=== PATIENT | male | born 1960 | race Hispanic/Latino ===

== ENCOUNTER 2020-04-05 09:34 | Inpatient (IN) | payer OTHER, SELFPAY ==
[2020-04-05] MEDS ORDERED: FUROSEMIDE 40 MG/4 ML INJ IV ONE (09:57)
[2020-04-05] MEDS ORDERED: ALBUTEROL 2.5 MG/3 ML NEBU IH ONE ×2 (09:57→10:39)
--- NOTE | 2020-04-05 09:59 | Emergency Department Report ---
ED Shortness of Breath HPI - General Stated Complaint: LEG SWELLING/SOB Time Seen by Provider: 04/05/20 09:47 - History of Present Illness Initial Comments: Patient is 59 years old male with history of hepatitis C and hypertension however patient did not see a doctor in a few years. Patient brought to the emergency room via EMS from home for evaluation of difficulty breathing and generalized body swelling for the last 2 weeks getting worse recently. Patient denied any chest pain, fever or chills however patient is actively coughing in the emergency room. EMS stated that patient initial oxygen saturation was 85% on room air improved to 96% on nonrebreather. Patient stated that he is using meth every now and then. MD Complaint: shortness of breath, cough Severity: moderate Consistency: constant - Related Data Allergies Allergy/AdvReac Type Severity Reaction Status Date / Time No Known Allergies Allergy Verified 04/05/20 10:13 ED Review of Systems ROS: Stated complaint: LEG SWELLING/SOB Other details as noted in HPI Comment: All other systems reviewed and negative Constitutional: denies: chills, fever Respiratory: cough, orthopnea, shortness of breath, SOB with exertion, SOB at rest Cardiovascular: denies: chest pain Gastrointestinal: abdominal pain. denies: nausea, vomiting, diarrhea, constipation, hematemesis Musculoskeletal: denies: back pain ED Past Medical Hx - Past Medical History Hx Hypertension: Yes - Surgical History Hx Appendectomy: Yes Additional Surgical History: part of large colon removed - Social History Smoking Status: Never Smoker Substance Use Type: Alcohol ED Physical Exam - General Limitations: No Limitations General appearance: alert, in distress - Head Head exam: Present: atraumatic, normocephalic, normal inspection - Eye Eye exam: Present: normal appearance - ENT ENT exam: Present: normal exam, normal orophraynx, mucous membranes moist - Neck Neck exam: Present: normal inspection, full ROM. Absent: tenderness, meningismus - Respiratory Respiratory exam: Present: respiratory distress, rales. Absent: wheezes, rhonchi, accessory muscle use, decreased breath sounds, prolonged expiratory - Cardiovascular Cardiovascular Exam: Present: regular rate, normal rhythm, normal heart sounds - GI/Abdominal GI/Abdominal exam: Present: soft, distended, normal bowel sounds. Absent: tenderness, guarding, rebound, rigid, organomegaly, mass, bruit, pulsatile mass, hernia - Extremities Exam Extremities exam: Present: full ROM, normal capillary refill, pedal edema. Absent: calf tenderness - Back Exam Back exam: Present: normal inspection, full ROM. Absent: CVA tenderness (R), CVA tenderness (L) - Neurological Exam Neurological exam: Present: alert, oriented X3, CN II-XII intact - Psychiatric Psychiatric exam: Present: normal mood - Skin Skin exam: Present: warm, intact, normal color ED Course Vital Signs 04/05/20 04/05/20 04/05/20 09:59 10:00 10:09 Temperature 98.2 F Pulse Rate 110 H 110 H 89 Pulse Rate [ 108 H Anterior Bilateral Throughout] Respiratory 15 25 H 22 Rate Respiratory 28 H Rate [Anterior Bilateral Throughout] Blood Pressure 148/82 Blood Pressure 142/86 [Right] O2 Sat by Pulse 96 100 93 Oximetry 04/05/20 04/05/20 04/05/20 10:16 10:30 10:33 Temperature Pulse Rate 109 H 113 H 109 H Pulse Rate [ Anterior Bilateral Throughout] Respiratory 29 H 40 H 35 H Rate Respiratory Rate [Anterior Bilateral Throughout] Blood Pressure 131/83 131/83 131/83 Blood Pressure [Right] O2 Sat by Pulse 95 87 99 Oximetry 04/05/20 04/05/20 04/05/20 10:46 11:00 11:16 Temperature Pulse Rate 109 H 111 H Pulse Rate [ Anterior Bilateral Throughout] Respiratory 38 H 36 H 24 Rate Respiratory Rate [Anterior Bilateral Throughout] Blood Pressure 131/83 131/83 131/83 Blood Pressure [Right] O2 Sat by Pulse 79 L 94 Oximetry 04/05/20 04/05/20 04/05/20 11:30 11:46 12:00 Temperature Pulse Rate 99 H Pulse Rate [ Anterior Bilateral Throughout] Respiratory 40 H 21 26 H Rate Respiratory Rate [Anterior Bilateral Throughout] Blood Pressure 131/83 131/83 131/83 Blood Pressure [Right] O2 Sat by Pulse 86 89 98 Oximetry 04/05/20 04/05/20 04/05/20 12:16 12:29 12:30 Temperature Pulse Rate 107 H 102 H Pulse Rate [ Anterior Bilateral Throughout] Respiratory 24 18 32 H Rate Respiratory Rate [Anterior Bilateral Throughout] Blood Pressure 131/83 131/83 Blood Pressure [Right] O2 Sat by Pulse 97 100 95 Oximetry 04/05/20 04/05/20 04/05/20 12:46 13:00 13:16 Temperature Pulse Rate 108 H 111 H 108 H Pulse Rate [ Anterior Bilateral Throughout] Respiratory 15 33 H 31 H Rate Respiratory Rate [Anterior Bilateral Throughout] Blood Pressure 131/83 131/83 131/83 Blood Pressure [Right] O2 Sat by Pulse 91 97 88 Oximetry 04/05/20 04/05/20 04/05/20 13:42 13:46 14:00 Temperature Pulse Rate 103 H 106 H Pulse Rate [ Anterior Bilateral Throughout] Respiratory 38 H 27 H Rate Respiratory Rate [Anterior Bilateral Throughout] Blood Pressure 131/83 131/83 131/83 Blood Pressure [Right] O2 Sat by Pulse 88 88 91 Oximetry 04/05/20 04/05/20 04/05/20 14:16 14:30 14:45 Temperature Pulse Rate Pulse Rate [ Anterior Bilateral Throughout] Respiratory Rate Respiratory Rate [Anterior Bilateral Throughout] Blood Pressure 131/83 131/83 131/83 Blood Pressure [Right] O2 Sat by Pulse 100 99 80 L Oximetry 04/05/20 04/05/20 04/05/20 15:02 15:16 15:30 Temperature Pulse Rate Pulse Rate [ Anterior Bilateral Throughout] Respiratory Rate Respiratory Rate [Anterior Bilateral Throughout] Blood Pressure 131/83 131/83 131/83 Blood Pressure [Right] O2 Sat by Pulse 85 81 L 86 Oximetry 04/05/20 04/05/20 04/05/20 15:45 16:00 16:16 Temperature Pulse Rate 97 H 102 H Pulse Rate [ Anterior Bilateral Throughout] Respiratory 33 H 13 Rate Respiratory Rate [Anterior Bilateral Throughout] Blood Pressure 131/83 131/83 131/83 Blood Pressure [Right] O2 Sat by Pulse 83 L 99 98 Oximetry 04/05/20 04/05/20 04/05/20 16:30 16:46 17:00 Temperature Pulse Rate 101 H 100 H 102 H Pulse Rate [ Anterior Bilateral Throughout] Respiratory 11 L 36 H 15 Rate Respiratory Rate [Anterior Bilateral Throughout] Blood Pressure 131/83 131/83 131/83 Blood Pressure [Right] O2 Sat by Pulse 99 99 91 Oximetry 04/05/20 04/05/20 04/05/20 17:20 17:30 17:40 Temperature Pulse Rate 99 H 100 H 99 H Pulse Rate [ Anterior Bilateral Throughout] Respiratory 34 H 21 21 Rate Respiratory Rate [Anterior Bilateral Throughout] Blood Pressure 131/83 131/83 131/83 Blood Pressure [Right] O2 Sat by Pulse 98 95 98 Oximetry 04/05/20 04/05/20 04/05/20 17:50 18:00 18:10 Temperature Pulse Rate 97 H 95 H 101 H Pulse Rate [ Anterior Bilateral Throughout] Respiratory 40 H 32 H 33 H Rate Respiratory Rate [Anterior Bilateral Throughout] Blood Pressure 131/83 Blood Pressure [Right] O2 Sat by Pulse 98 93 95 Oximetry 04/05/20 04/05/20 04/05/20 18:20 18:30 18:40 Temperature Pulse Rate 98 H 97 H 96 H Pulse Rate [ Anterior Bilateral Throughout] Respiratory 42 H 35 H 38 H Rate Respiratory Rate [Anterior Bilateral Throughout] Blood Pressure Blood Pressure [Right] O2 Sat by Pulse 93 96 96 Oximetry 04/05/20 04/05/20 04/05/20 18:50 19:00 19:10 Temperature Pulse Rate 96 H 101 H 97 H Pulse Rate [ Anterior Bilateral Throughout] Respiratory 37 H 27 H 29 H Rate Respiratory Rate [Anterior Bilateral Throughout] Blood Pressure Blood Pressure [Right] O2 Sat by Pulse 96 96 96 Oximetry 04/05/20 04/05/20 04/05/20 19:20 19:30 19:40 Temperature Pulse Rate 94 H 93 H 95 H Pulse Rate [ Anterior Bilateral Throughout] Respiratory 35 H 32 H 34 H Rate Respiratory Rate [Anterior Bilateral Throughout] Blood Pressure Blood Pressure [Right] O2 Sat by Pulse 95 94 97 Oximetry 04/05/20 04/05/20 04/05/20 19:50 20:00 20:10 Temperature Pulse Rate 99 H 96 H 94 H Pulse Rate [ Anterior Bilateral Throughout] Respiratory 30 H 32 H 36 H Rate Respiratory Rate [Anterior Bilateral Throughout] Blood Pressure Blood Pressure [Right] O2 Sat by Pulse 96 96 94 Oximetry 04/05/20 04/05/20 04/05/20 20:20 20:22 20:30 Temperature Pulse Rate 91 H 91 H 91 H Pulse Rate [ Anterior Bilateral Throughout] Respiratory 11 L 26 H Rate Respiratory Rate [Anterior Bilateral Throughout] Blood Pressure Blood Pressure [Right] O2 Sat by Pulse 95 95 Oximetry 04/05/20 04/05/20 04/05/20 20:40 20:44 20:50 Temperature Pulse Rate 95 H 100 H 93 H Pulse Rate [ Anterior Bilateral Throughout] Respiratory 33 H 30 H 36 H Rate Respiratory Rate [Anterior Bilateral Throughout] Blood Pressure Blood Pressure [Right] O2 Sat by Pulse 95 100 95 Oximetry 04/05/20 04/05/20 04/05/20 21:00 21:10 21:20 Temperature Pulse Rate 102 H 94 H 91 H Pulse Rate [ Anterior Bilateral Throughout] Respiratory 25 H 29 H 37 H Rate Respiratory Rate [Anterior Bilateral Throughout] Blood Pressure Blood Pressure [Right] O2 Sat by Pulse 95 97 95 Oximetry 04/05/20 04/05/20 21:30 21:40 Temperature Pulse Rate 92 H 89 Pulse Rate [ Anterior Bilateral Throughout] Respiratory 33 H 31 H Rate Respiratory Rate [Anterior Bilateral Throughout] Blood Pressure Blood Pressure [Right] O2 Sat by Pulse 95 95 Oximetry - EJ/Peripheral Line Neck L Time Out Performed: Yes Indications: nurses unable to establis Skin Cleansed in Sterile Fashion: Yes Size: 20 Dressing Placed: Tegaderm, tape Patient Tolerated Procedure: well, no complications ED Medical Decision Making - Lab Data Result diagrams: 04/06/20 05:53 04/06/20 05:53 - EKG Data -: EKG Interpreted by Me EKG shows normal: sinus rhythm Rate: tachycardia - EKG Data Interpretation: no acute changes - Radiology Data Radiology results: report reviewed - Medical Decision Making Patient is 59 years old male with history of hepatitis C and hypertension however patient did not see a doctor in a few years. Patient brought to the emergency room via EMS from home for evaluation of difficulty breathing and generalized body swelling for the last 2 weeks getting worse recently. Patient denied any chest pain, fever or chills however patient is actively coughing in the emergency room. EMS stated that patient initial oxygen saturation was 85% on room air improved to 96% on nonrebreather. Patient stated that he is using meth every now and then. Patient started on BiPAP with significant improvement. Chest x-ray is un remarkable except for interstitial edema and pleural effusion. Given patient blood pressure and shortness of breath patient received Lasix [address] abdomen and pelvis showed diffuse patchy infiltrate throughout the lungs consistent with atypical pneumonia. COVID-19 infection suspected and test has been ordered. Patient received Rocephin and Zithromax and Decadron. I discussed the patient with Dr. Pete, he agreed to admit the patient to medical service for further management. Critical Care Time: Yes Critical care time in (mins) excluding proc time.: 30 Critical care attestation.: If time is entered above; I have spent that time in minutes in the direct care of this critically ill patient, excluding procedure time. ED Disposition Clinical Impression: Acute respiratory failure with hypoxia, Suspected COVID-19 virus infection, Anasarca, Bilateral pneumonia Disposition: OP ADMIT IP TO THIS HOSP Is pt being admited?: Yes Condition: Stable
--- NOTE | 2020-04-05 11:01 | XRay Report ---
CHEST 1 VIEW INDICATION: Dyspnea. COMPARISON: 04/14/2012 FINDINGS: SUPPORT DEVICES: None. HEART: Within normal limits. LUNGS/PLEURA: Moderate interstitial edema and central peribronchial thickening. Probable small to mod erate layering effusion on the left. ADDITIONAL FINDINGS: None. IMPRESSION: 1. Pulmonary findings as above. Signer Name: Julian Ervin MD Signed: 04/05/2020 10:56 AM Workstation Name: [id number]
[2020-04-05 11:21] LABS: Hematocrit 39.9 % (35.5-45.6); Hemoglobin 13.6 gm/dl (11.8-15.2); Mean Corpuscular HGB Conc 34 % (32-34); Mean Corpuscular Volume 98 fl (84-94); Red Blood Count 4.06 M/mm3 (3.65-5.03); Red Cell Distribution Width 16.3 % (13.2-15.2)
[2020-04-05 11:25] LABS: Platelet Count 60 K/mm3 (140-440)
[2020-04-05 11:27] LABS: INR 1.27 (0.87-1.13)
[2020-04-05 11:28] LABS: Partial Thromboplastin Time 30.3 Sec. (24.2-36.6)
[2020-04-05 11:43] LABS: Blood Urea Nitrogen 17 mg/dL (9-20); Calcium 7.7 mg/dL (8.4-10.2); Hemolysis Index 51
[2020-04-05 11:45] LABS: BUN/Creatinine Ratio 34
[2020-04-05 11:48] LABS: Albumin 1.9 g/dL (3.9-5); Bilirubin,Direct 1.3 mg/dL (0-0.2)
[2020-04-05 12:28] LABS: Anisocytosis Few; Band Neutrophils # (Manual) 0.1 K/mm3; Basophils % (Manual) 0 % (0.0-1.8); Eosinophils % (Manual) 0 % (0.0-4.3); Macrocytosis Few; Platelet Estimate Consistent w Auto; Total Cells Counted 100
[2020-04-05 13:10] LABS: Benzodiazepines Screen,Urine Negative; Cannabinoid Screen,Urine Negative; Cocaine Screen,Urine Negative; Methadone Screen,Urine Negative; Opiate Screen,Urine Negative
[2020-04-05 13:12] LABS: Bilirubin,Urine NEG (Negative); Blood,Urine SM (Negative); Color,Urine Yellow (Yellow); Hyaline Casts,Urine 1 /LPF; Mucus,Urine FEW /HPF; Protein,Urine <15 mg/dL mg/dL (Negative); Urobilinogen,Urine < 2.0 mg/dL (<2.0)
[2020-04-05 13:16] LABS: WBC,Urine < 1.0 /HPF (0.0-6.0)
[2020-04-05 13:43] LABS: Amphetamine Screen,Urine PRESUMPTIVE POSITIVE
--- NOTE | 2020-04-05 14:25 | Cat Scan Report ---
CT abdomen pelvis w con INDICATION: MAIN. Abdominal pain and hepatitis C TECHNIQUE: All CT scans at this location are performed using CT dose reduction for ALARA by means of automated e xposure control. COMPARISON: None available. FINDINGS: Images through the lung bases show a large left pleural effusion, with patchy bilateral parenchymal d isease. The liver is small and somewhat lobular, suggesting cirrhosis. Spleen is moderately enlarged, and the re are splenic and gastrohepatic varices. There is diffuse ascites and both mesenteric and subcutaneo us edema. Gallbladder contains numerous stones. Pancreas, kidneys and adrenals are negative. Abdominal aorta is normal in size. There are very small retroperitoneal nodes but no significant adenopathy. Pelvis Ascites fills much of the pelvis. Urinary bladder is negative. No acute skeletal lesions. IMPRESSION: 1. Patchy parenchymal disease in the lung bases is worrisome for atypical pneumonia. 2. Large left pleural effusion, with extensive ascites as well as subcutaneous and mesenteric edema. 3. Small, cirrhotic appearing liver with splenomegaly and gastrohepatic and splenic varices. Signer Name: Thanh Berry MD Signed: 04/05/2020 2:21 PM Workstation Name: [id number]
[2020-04-05] MEDS ORDERED: cefTRIAXone/NS 1 GM/50 ML 1 GM/50 ML BAG IV ONE (14:35)
[2020-04-05] MEDS ORDERED: AZITHROMYCIN 500 MG in SODIUM CHLORIDE 0.9% 250ML 250 ML IV ONE (14:35)
[2020-04-05] MEDS ORDERED: dexAMETHasone 4 MG/ML VIAL IV ONE (14:36)
[2020-04-05 15:25] LABS: C-Reactive Protein 1.7 mg/dL (0.00-1.30)
[2020-04-05] MEDS ORDERED: ACETAMINOPHEN 325 MG TAB PO PRN (23:41)
[2020-04-05] MEDS ORDERED: ONDANSETRON 4 MG/2 ML INJ IV PRN (23:41)
--- NOTE | 2020-04-05 23:41 | History and Physical Report ---
History of Present Illness Date of examination: 04/05/20 Date of admission: 04/05/20 15:48 Chief complaint: SOB for 2 weeks History of present illness: 59 years old male with history of hepatitis C and hypertension brought to the emergency room via EMS from home for evaluation of difficulty breathing and generalized body swelling for the last 2 weeks getting worse recently. Patient denied any chest pain, fever or chills .However patient is actively coughing in the emergency room. EMS stated that patient initial oxygen saturation was 85% on room air improved to 96% on nonrebreather. Patient stated that he is using meth every now and then.NCo anosmia or loss of taste.No exposure to carroll virus. - Past Medical History --Hypertension: Yes--non compliant - Surgical History -- Appendectomy: Yes Additional Surgical History: part of large colon removed - Social History Smoking Status: Never Smoker Substance Use Type: Alcohol Review of Systems ROS: Stated complaint: LEG SWELLING/SOB Other details as noted in HPI Comment: All other systems reviewed and negative Constitutional: denies: chills, fever Respiratory: cough, orthopnea, shortness of breath, SOB with exertion, SOB at rest Cardiovascular: denies: chest pain Gastrointestinal: abdominal pain. denies: nausea, vomiting, diarrhea, constipation, hematemesis Musculoskeletal: denies: back pain Medications and Allergies Allergies Allergy/AdvReac Type Severity Reaction Status Date / Time No Known Allergies Allergy Verified 04/05/20 10:13 Exam - Constitutional Vitals: Temp Pulse Resp BP Pulse Ox 98.4 F 89 30 H 125/90 95 04/05/20 22:01 04/05/20 22:10 04/05/20 22:10 04/05/20 22:01 04/05/20 22:10 General appearance: Present: mild distress, well-nourished - EENT Eyes: Present: PERRL ENT: hearing intact, clear oral mucosa - Neck Neck: Present: supple, normal ROM - Respiratory Respiratory effort: normal Respiratory: bilateral: CTA, rhonchi (scattered) - Cardiovascular Heart rate: 98 Rhythm: regular Heart Sounds: Present: S1 & S2. Absent: rub, click - Extremities Extremities: pulses symmetrical, No edema Peripheral Pulses: within normal limits - Abdominal General gastrointestinal: Present: soft, non-tender, non-distended, normal bowel sounds Male genitourinary: Present: normal - Integumentary Integumentary: Present: clear, warm, dry - Musculoskeletal Musculoskeletal: gait normal, strength equal bilaterally - Psychiatric Psychiatric: appropriate mood/affect, intact judgment & insight - Neurologic Neurologic: CNII-XII intact, moves all extremities - Allied Health Allied health notes reviewed: nursing, case management HEART Score - HEART Score History: Slightly suspicious Age: 45-65 Risk factors: 1-2 risk factors Troponin: Troponin T < 0.010 ng/mL (0.00-0.029) 04/05/20 14:17 Troponin: < normal limit - Critical Actions Critical Actions: 0-3 pts:0.9-1.7%risk of adverse cardiac event.Candidate for discharge Results - Labs CBC & Chem 7: 04/05/20 10:40 04/05/20 14:45 Labs: Laboratory Last Values WBC 6.9 K/mm3 (4.5-11.0) 04/05/20 10:40 RBC 4.06 M/mm3 (3.65-5.03) 04/05/20 10:40 Hgb 13.6 gm/dl (11.8-15.2) 04/05/20 10:40 Hct 39.9 % (35.5-45.6) 04/05/20 10:40 MCV 98 fl (84-94) H 04/05/20 10:40 MCH 34 pg (28-32) H 04/05/20 10:40 MCHC 34 % (32-34) 04/05/20 10:40 RDW 16.3 % (13.2-15.2) H 04/05/20 10:40 Plt Count 60 K/mm3 (140-440) L 04/05/20 10:40 [place] % (Auto) Technical Document Writer 04/05/20 10:40 Add Manual Diff Complete 04/05/20 10:40 Total Counted 100 04/05/20 10:40 Seg Neuts % (Manual) 86.0 % (40.0-70.0) H 04/05/20 10:40 Band Neutrophils % 1.0 % 04/05/20 10:40 Lymphocytes % (Manual) 4.0 % (13.4-35.0) L 04/05/20 10:40 Reactive Lymphs % (Man) 0 % 04/05/20 10:40 Monocytes % (Manual) 9.0 % (0.0-7.3) H 04/05/20 10:40 Eosinophils % (Manual) 0 % (0.0-4.3) 04/05/20 10:40 Basophils % (Manual) 0 % (0.0-1.8) 04/05/20 10:40 Metamyelocytes % 0 % 04/05/20 10:40 Myelocytes % 0 % 04/05/20 10:40 Promyelocytes % 0 % 04/05/20 10:40 Blast Cells % 0 % 04/05/20 10:40 Nucleated RBC % Not Reportable 04/05/20 10:40 Seg Neutrophils # Man 5.9 K/mm3 (1.8-7.7) 04/05/20 10:40 Band Neutrophils # 0.1 K/mm3 04/05/20 10:40 Lymphocytes # (Manual) 0.3 K/mm3 (1.2-5.4) L 04/05/20 10:40 Abs React Lymphs (Man) 0.0 K/mm3 04/05/20 10:40 Monocytes # (Manual) 0.6 K/mm3 (0.0-0.8) 04/05/20 10:40 Eosinophils # (Manual) 0.0 K/mm3 (0.0-0.4) 04/05/20 10:40 Basophils # (Manual) 0.0 K/mm3 (0.0-0.1) 04/05/20 10:40 Metamyelocytes # 0.0 K/mm3 04/05/20 10:40 Myelocytes # 0.0 K/mm3 04/05/20 10:40 Promyelocytes # 0.0 K/mm3 04/05/20 10:40 Blast Cells # 0.0 K/mm3 04/05/20 10:40 WBC Morphology Not Reportable 04/05/20 10:40 Hypersegmented Neuts Not Reportable 04/05/20 10:40 Hyposegmented Neuts Not Reportable 04/05/20 10:40 Hypogranular Neuts Not Reportable 04/05/20 10:40 Smudge Cells Not Reportable 04/05/20 10:40 Toxic Granulation Not Reportable 04/05/20 10:40 Toxic Vacuolation Not Reportable 04/05/20 10:40 Dohle Bodies Not Reportable 04/05/20 10:40 Pelger-Huet Anomaly Not Reportable 04/05/20 10:40 Kelly Rods Not Reportable 04/05/20 10:40 Platelet Estimate Consistent w auto 04/05/20 10:40 Clumped Platelets Not Reportable 04/05/20 10:40 Plt Clumps, EDTA Not Reportable 04/05/20 10:40 Large Platelets Not Reportable 04/05/20 10:40 Giant Platelets Not Reportable 04/05/20 10:40 Platelet Satelliting Not Reportable 04/05/20 10:40 Plt Morphology Comment Not Reportable 04/05/20 10:40 RBC Morphology Not Reportable 04/05/20 10:40 Dimorphic RBCs Not Reportable 04/05/20 10:40 Polychromasia Not Reportable 04/05/20 10:40 Hypochromasia Not Reportable 04/05/20 10:40 Poikilocytosis Not Reportable 04/05/20 10:40 Anisocytosis Few 04/05/20 10:40 Microcytosis Not Reportable 04/05/20 10:40 Macrocytosis Few 04/05/20 10:40 Spherocytes Not Reportable 04/05/20 10:40 Pappenheimer Bodies Not Reportable 04/05/20 10:40 Sickle Cells Not Reportable 04/05/20 10:40 Target Cells Not Reportable 04/05/20 10:40 Tear Drop Cells Not Reportable 04/05/20 10:40 Ovalocytes Not Reportable 04/05/20 10:40 Helmet Cells Not Reportable 04/05/20 10:40 Pollack-Triangle Bodies Not Reportable 04/05/20 10:40 [place] Rings Not Reportable 04/05/20 10:40 Lawn Cells Not Reportable 04/05/20 10:40 Bite Cells Not Reportable 04/05/20 10:40 Crenated Cell Not Reportable 04/05/20 10:40 Elliptocytes Not Reportable 04/05/20 10:40 Acanthocytes (Spur) Not Reportable 04/05/20 10:40 Rouleaux Not Reportable 04/05/20 10:40 Hemoglobin C Crystals Not Reportable 04/05/20 10:40 Schistocytes Not Reportable 04/05/20 10:40 Malaria parasites Not Reportable 04/05/20 10:40 Ronnie Bodies Not Reportable 04/05/20 10:40 Hem Pathologist Commnt No 04/05/20 10:40 PT 15.9 Sec. (12.2-14.9) H 04/05/20 10:40 INR 1.27 (0.87-1.13) H 04/05/20 10:40 APTT 30.3 Sec. (24.2-36.6) 04/05/20 10:40 D-Dimer 837.90 ng/mlDDU (0-234) H 04/05/20 14:45 Sodium 134 mmol/L (137-145) L 04/05/20 10:40 Potassium 3.7 mmol/L (3.6-5.0) 04/05/20 10:40 Chloride 102.4 mmol/L (98-107) 04/05/20 10:40 Carbon Dioxide 25 mmol/L (22-30) 04/05/20 10:40 Anion Gap 10 mmol/L 04/05/20 10:40 BUN 17 mg/dL (9-20) 04/05/20 10:40 Creatinine 0.5 mg/dL (0.8-1.3) L 04/05/20 10:40 Estimated GFR > 60 ml/min 04/05/20 10:40 BUN/Creatinine Ratio 34 % 04/05/20 10:40 Glucose 92 mg/dL (75-100) 04/05/20 14:45 Lactic Acid 1.40 mmol/L (0.7-2.0) 04/05/20 10:40 Calcium 7.7 mg/dL (8.4-10.2) L 04/05/20 10:40 Ferritin 1412.0 ng/mL (30.0-300.0) H 04/05/20 14:45 Total Bilirubin 2.30 mg/dL (0.1-1.2) H 04/05/20 10:40 Direct Bilirubin 1.3 mg/dL (0-0.2) H 04/05/20 10:40 Indirect Bilirubin 1.0 mg/dL 04/05/20 10:40 AST 129 units/L (5-40) H 04/05/20 10:40 ALT 54 units/L (7-56) 04/05/20 10:40 Alkaline Phosphatase 97 units/L (35-129) 04/05/20 10:40 Lactate Dehydrogenase 438 units/L (91-180) H 04/05/20 14:45 Troponin T < 0.010 ng/mL (0.00-0.029) 04/05/20 14:17 C-Reactive Protein 1.70 mg/dL (0.00-1.30) H 04/05/20 14:45 NT-Pro-B Natriuret Pep 216.4 pg/mL (0-900) 04/05/20 10:40 Total Protein 7.2 g/dL (6.3-8.2) 04/05/20 10:40 Albumin 1.9 g/dL (3.9-5) L 04/05/20 10:40 Albumin/Globulin Ratio 0.4 % 04/05/20 10:40 Lipase 21 units/L (13-60) 04/05/20 10:40 Urine Color Yellow (Yellow) 04/05/20 Unknown Urine Turbidity Clear (Clear) 04/05/20 Unknown Urine pH 6.0 (5.0-7.0) 04/05/20 Unknown Ur Specific [place] 1.006 (1.003-1.030) 04/05/20 Unknown Urine Protein <15 mg/dl mg/dL (Negative) 04/05/20 Unknown Urine Glucose (UA) Neg mg/dL (Negative) 04/05/20 Unknown Urine Ketones Neg mg/dL (Negative) 04/05/20 Unknown Urine Blood Sm (Negative) 04/05/20 Unknown Urine Nitrite Neg (Negative) 04/05/20 Unknown Urine Bilirubin Neg (Negative) 04/05/20 Unknown Urine Urobilinogen < 2.0 mg/dL (<2.0) 04/05/20 Unknown Ur Leukocyte Esterase Neg (Negative) 04/05/20 Unknown Urine WBC (Auto) < 1.0 /HPF (0.0-6.0) 04/05/20 Unknown Urine RBC (Auto) 6.0 /HPF (0.0-6.0) 04/05/20 Unknown U Epithel Cells (Auto) < 1.0 /HPF (0-13.0) 04/05/20 Unknown Hyaline Casts 1 /LPF 04/05/20 Unknown Urine Mucus Few /HPF 04/05/20 Unknown Urine Opiates Screen Negative 04/05/20 Unknown Urine Methadone Screen Negative 04/05/20 Unknown Ur Barbiturates Screen Negative 04/05/20 Unknown Ur Phencyclidine Scrn Negative 04/05/20 Unknown Ur Amphetamines Screen Presumptive positive 04/05/20 Unknown U Benzodiazepines Scrn Negative 04/05/20 Unknown Urine Cocaine Screen Negative 04/05/20 Unknown U Marijuana (THC) Screen Negative 04/05/20 Unknown Drugs of Abuse Note Disclamer 04/05/20 Unknown Microbiology: Microbiology 04/05/20 10:40 Peripheral/Venous Blood Culture - Preliminary Culture in Progress 04/05/20 10:40 Peripheral/Venous Blood Culture - Preliminary Culture in Progress - Imaging and Cardiology EKG: report reviewed Chest x-ray: report reviewed Imaging and Cardiology: CXR LUNGS/PLEURA: Moderate interstitial edema and central peribronchial thickening. Probable small to moderate layering effusion on the left. ADDITIONAL FINDINGS: None. IMPRESSION: 1. Pulmonary findings as above. Rogers/IV: IV Catheter Type [Right Wrist] INT / Saline Lock IV Catheter Type [Right Upper INT / Saline Lock arm] Assessment and Plan Advance Directives: Yes (Full code) VTE prophylaxis?: Chemical Plan of care discussed with patient/family: Yes - Patient Problems (1) Acute respiratory failure with hypoxia Current Visit: Yes Status: Acute Plan to address problem: Patient is hypoxic Oxygen supplement as necessary (2) Bilateral pneumonia Current Visit: Yes Status: Acute Plan to address problem: Started on IV Ceftriaxone and IV Zithromaxx IV Decadron ID consult requested BNP low--hence no chf (3) Suspected COVID-19 virus infection Current Visit: Yes Status: Acute Plan to address problem: Covid rule out protocol (4) HTN (hypertension) Current Visit: Yes Status: Acute (5) HTN (hypertension) Current Visit: Yes Status: Chronic Qualifiers: Hypertension type: essential hypertension Qualified Code(s): I10 - Essential (primary) hypertension Plan to address problem: Initiate antihypertensives if necessary (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 Plan to address problem: To be counselled (7) Transaminitis Current Visit: Yes Status: Acute Plan to address problem: Sec to Covid or ETOH Hepatitis profile CIWA initiated (8) Malnutrition Current Visit: Yes Status: Chronic Qualifiers: Protein-calorie malnutrition severity: moderate Plan to address problem: Dietitian consult (9) Hyponatremia Current Visit: Yes Status: Acute Plan to address problem: Mild (10) DVT prophylaxis Current Visit: Yes Status: Acute Plan to address problem: On Lovenox and GI prophylaxis
[2020-04-06] MEDS ORDERED: chlordiazePOXIDE 25 MG CAP PO PRN (06:45)
[2020-04-06 06:57] LABS: Hematocrit 34.1 % (35.5-45.6); Hemoglobin 11.8 gm/dl (11.8-15.2); Mean Corpuscular HGB Conc 35 % (32-34); Mean Corpuscular Volume 99 fl (84-94); Platelet Count 48 K/mm3 (140-440); Red Blood Count 3.47 M/mm3 (3.65-5.03); Red Cell Distribution Width 16.1 % (13.2-15.2)
[2020-04-06 07:09] LABS: Alanine Aminotransferase 51 units/L (7-56); Albumin 1.8 g/dL (3.9-5); Blood Urea Nitrogen 23 mg/dL (9-20); Calcium 7.5 mg/dL (8.4-10.2); Hemolysis Index 7
[2020-04-06 07:21] LABS: BUN/Creatinine Ratio 46
--- NOTE | 2020-04-06 08:59 | Consultation ---
History of Present Illness - Reason for Consult Consult date: 04/06/20 Bilateral pneumonia Requesting physician: JEET JURADO - History of Present Illness 59 years old male with history of hepatitis C with cirrhosis, ascites, gastrosplenic varices, hypertension, meth abuse, admitted on 04/05/2020 secondary to 2-week history of worsening generalized body edema, cough and shortness of breath. EMS found O2 sats down to 85%. Patient placed on nonrebreather mask. On arrival, temperature 98.2, HR 110, O2 sat 96% drop to 83%. Patient placed on BiPAP. Initial WBC 6.9. Platelets 60. D-dimer 837. Creatinine 0.5. AST 129. ALT 54. Urine drug screen positive for amphetamines. Blood cultures 04/05/2020 no growth. Chest x-ray shows moderate interstitial edema. CT of the abdomen shows patchy airspace disease changes in the lung bases, large left pleural effusion, extensive ascites, cirrhotic liver, gastrosplenic varices, splenomegaly. Review of Systems: reviewed ED and H&P notes. Limited due to PPE conservation strategy Medications and Allergies Allergies Allergy/AdvReac Type Severity Reaction Status Date / Time No Known Allergies Allergy Verified 04/05/20 10:13 Active Meds: Active Medications Acetaminophen (Tylenol) 650 mg PO Q4H PRN PRN Reason: Pain MILD(1-3)/Fever >100.5/CHRI[place]IAN[place] Chlordiazepoxide HCl (Librium) 50 mg PO Q1H PRN PRN Reason: CIWA-Ar 8-15 Chlordiazepoxide HCl (Librium) 100 mg PO Q1H PRN PRN Reason: CIWA-Ar 16-25 Dexamethasone (Decadron) 8 mg IV Q24HR LUPE Enoxaparin Sodium (Enoxaparin) 40 mg SUB-Q QDAY@2200 LUPE; Protocol Famotidine (Pepcid) 20 mg PO BID LUPE Furosemide (Lasix) 40 mg IV QDAY LUPE Azithromycin 500 mg/ Sodium (Chloride) 250 mls @ 250 mls/hr IV Q24HR LUPE; Protocol Stop: 04/09/20 10:59 Ceftriaxone Sodium (Rocephin/Ns 2 Gm/100 Ml) 2 gm in 100 mls @ 200 mls/hr IV Q24HR LUPE; Protocol Lorazepam (Ativan) 2 mg IV Q1H PRN PRN Reason: CIWA-Ar 8-15 Lorazepam (Ativan) 4 mg IV Q1H PRN PRN Reason: CIWA-Ar 16-25 Morphine Sulfate (Morphine) 2 mg IV Q4H PRN PRN Reason: Pain, Moderate (4-6) Ondansetron HCl (Zofran) 4 mg IV Q8H PRN PRN Reason: Nausea And Vomiting Oxycodone/Acetaminophen (Percocet 5/325) 1 tab PO Q6H PRN PRN Reason: Pain, Moderate (4-6) Potassium Chloride (K-Dur) 20 meq PO QDAY LUPE Sodium Chloride (Sodium Chloride Flush Syringe 10 Ml) 10 ml IV BID LUPE Sodium Chloride (Sodium Chloride Flush Syringe 10 Ml) 10 ml IV PRN PRN PRN Reason: LINE FLUSH Physical Examination - Physical Exam Narrative exam: Physical Exam: reviewed ED and hospitalist notes, limited due to conservation of PPE and decrease risk of transmission. General appearance: limited due to conservation of PPE Eyes: limited due to conservation of PPE HENT: Atraumatic; limited due to conservation of PPE Lungs: limited due to conservation of PPE CV: limited due to conservation of PPE Abdomen: limited due to conservation of PPE Extremities: limited due to conservation of PPE Skin: limited due to conservation of PPE Psych: limited due to conservation of PPE Neuro: limited due to conservation of PPE - Constitutional Vitals: Vital Signs Temp Pulse Resp BP Pulse Ox 98.6 F 77 22 117/84 99 04/06/20 04:27 04/06/20 04:27 04/06/20 04:27 04/06/20 04:27 04/06/20 04:27 Temperature -Last 24 Hours Temperature 98.6 F Temperature 98.4 F Temperature 98.2 F Temperature 98.2 F Results - Labs CBC & Chem 7: 04/06/20 05:53 04/06/20 05:53 Labs: Abnormal lab results 04/05/20 04/05/20 04/05/20 Range/Units 10:40 10:40 10:40 WBC (4.5-11.0) K/mm3 RBC (3.65-5.03) M/mm3 Hct (35.5-45.6) % MCV 98 H (84-94) fl MCH 34 H (28-32) pg MCHC (32-34) % RDW 16.3 H (13.2-15.2) % Plt Count 60 L (140-440) K/mm3 Seg Neuts % (Manual) 86.0 H (40.0-70.0) % Lymphocytes % (Manual) 4.0 L (13.4-35.0) % Monocytes % (Manual) 9.0 H (0.0-7.3) % Lymphocytes # (Manual) 0.3 L (1.2-5.4) K/mm3 PT 15.9 H (12.2-14.9) Sec. INR 1.27 H (0.87-1.13) D-Dimer (0-234) ng/mlDDU Sodium 134 L (137-145) mmol/L BUN (9-20) mg/dL Creatinine 0.5 L (0.8-1.3) mg/dL Glucose (75-100) mg/dL Calcium 7.7 L (8.4-10.2) mg/dL Ferritin (30.0-300.0) ng/mL Total Bilirubin (0.1-1.2) mg/dL Direct Bilirubin (0-0.2) mg/dL AST (5-40) units/L Lactate Dehydrogenase (91-180) units/L C-Reactive Protein (0.00-1.30) mg/dL Albumin (3.9-5) g/dL 04/05/20 04/05/20 04/05/20 Range/Units 10:40 14:45 14:45 WBC (4.5-11.0) K/mm3 RBC (3.65-5.03) M/mm3 Hct (35.5-45.6) % MCV (84-94) fl MCH (28-32) pg MCHC (32-34) % RDW (13.2-15.2) % Plt Count (140-440) K/mm3 Seg Neuts % (Manual) (40.0-70.0) % Lymphocytes % (Manual) (13.4-35.0) % Monocytes % (Manual) (0.0-7.3) % Lymphocytes # (Manual) (1.2-5.4) K/mm3 PT (12.2-14.9) Sec. INR (0.87-1.13) D-Dimer 837.90 H (0-234) ng/mlDDU Sodium (137-145) mmol/L BUN (9-20) mg/dL Creatinine (0.8-1.3) mg/dL Glucose (75-100) mg/dL Calcium (8.4-10.2) mg/dL Ferritin (30.0-300.0) ng/mL Total Bilirubin 2.30 H (0.1-1.2) mg/dL Direct Bilirubin 1.3 H (0-0.2) mg/dL AST 129 H (5-40) units/L Lactate Dehydrogenase 438 H (91-180) units/L C-Reactive Protein 1.70 H (0.00-1.30) mg/dL Albumin 1.9 L (3.9-5) g/dL 04/05/20 04/06/20 04/06/20 Range/Units 14:45 05:53 05:53 WBC 3.5 L (4.5-11.0) K/mm3 RBC 3.47 L (3.65-5.03) M/mm3 Hct 34.1 L (35.5-45.6) % MCV 99 H (84-94) fl MCH 34 H (28-32) pg MCHC 35 H (32-34) % RDW 16.1 H (13.2-15.2) % Plt Count 48 L (140-440) K/mm3 Seg Neuts % (Manual) (40.0-70.0) % Lymphocytes % (Manual) (13.4-35.0) % Monocytes % (Manual) (0.0-7.3) % Lymphocytes # (Manual) (1.2-5.4) K/mm3 PT (12.2-14.9) Sec. INR (0.87-1.13) D-Dimer (0-234) ng/mlDDU Sodium 136 L (137-145) mmol/L BUN 23 H (9-20) mg/dL Creatinine 0.5 L (0.8-1.3) mg/dL Glucose 107 H (75-100) mg/dL Calcium 7.5 L (8.4-10.2) mg/dL Ferritin 1412.0 H (30.0-300.0) ng/mL Total Bilirubin 1.80 H (0.1-1.2) mg/dL Direct Bilirubin (0-0.2) mg/dL AST 112 H (5-40) units/L Lactate Dehydrogenase (91-180) units/L C-Reactive Protein (0.00-1.30) mg/dL Albumin 1.8 L (3.9-5) g/dL Assessment and Plan Cultures: Blood culture pending SARS CoV2 PCR pending Assessment: 59 years old male with history of hepatitis C with cirrhosis, ascites, gastrosplenic varices, hypertension, meth abuse, admitted on 04/05/2020 secondary to 2-week history of worsening generalized body edema, cough and shortness of breath. EMS found O2 sats down to 85%: #Acute hypoxemic respiratory failure: Unclear etiology, volume overload versus pneumonia +/-pleural effusion. #Volume overload versus pneumonia: CT abdomen shows patchy airspace disease bilateral bases ? If pneumonia should rule out COVID-19 infection versus bacterial pneumonia. Doubt bacterial pneumonia given lack of fever or leukocytosis. #Hepatitis C with cirrhosis, large ascites, pleural effusion, varices and a splenomegaly #Elevated LFTs: From hepatitis C #Thrombocytopenia: From hepatitis C #Amphetamine abuse Recommendations: -Follow-up SARS-CoV-2 PCR, however doubt COVID-19 -Obtain procalcitonin -No indication for dexamethasone or remdesivir at this time seen SARS-CoV-2 PCR is pending -Continue ceftriaxone and azithromycin for now until procalcitonin available -Pulmonary consult -Consider thoracentesis in light of severe hypoxia and pleural effusion All laboratory, cultures and imaging were reviewed. Will follow Kenya Deras MD Infectious Diseases [facility] M [phone] O [phone]
--- NOTE | 2020-04-06 09:06 | Progress Note ---
Assessment and Plan Assessment and plan: (1) Acute respiratory failure with hypoxia Current Visit: Yes Status: Acute Plan to address problem: Patient is hypoxic Oxygen supplement as necessary (2) Bilateral pneumonia Current Visit: Yes Status: Acute Plan to address problem: Started on IV Ceftriaxone and IV Zithromaxx IV Decadron ID consult requested BNP low--hence no chf (3) Suspected COVID-19 virus infection Current Visit: Yes Status: Acute Plan to address problem: Covid rule out protocol (4) HTN (hypertension) Current Visit: Yes Status: Acute (5) HTN (hypertension) Current Visit: Yes Status: Chronic Qualifiers: Hypertension type: essential hypertension Qualified Code(s): I10 - Essential (primary) hypertension Plan to address problem: Initiate antihypertensives if necessary (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 Plan to address problem: To be counselled (7) Transaminitis Current Visit: Yes Status: Acute Plan to address problem: Sec to Covid or ETOH Hepatitis profile; hepatitis C positive CIWA initiated (8) Malnutrition Current Visit: Yes Status: Chronic Qualifiers: Protein-calorie malnutrition severity: moderate Plan to address problem: Dietitian consult (9) Hyponatremia Current Visit: Yes Status: Acute Plan to address problem: Mild (10) DVT prophylaxis Current Visit: Yes Status: Acute Plan to address problem: On Lovenox and GI prophylaxis History Interval history: No nursing issues overnight Patient said shortness of breath is getting better Generalized body swelling is getting better Hospitalist Physical - Physical exam Narrative exam: Not in cardiopulmonary distress. The patient appeared well nourished and normally developed. Vital signs as documented. Head exam is unremarkable. No scleral icterus . Neck is without jugular venous distension, thyromegaly, or carotid bruits. Lungs are clear to auscultation. Cardiac exam reveals regular rate and Rhythm. Abdominal exam reveals ascites. 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 No focal weakness. - Constitutional Vitals: Temp Pulse Resp BP Pulse Ox 98.6 F 77 22 117/84 99 04/06/20 04:27 04/06/20 04:27 04/06/20 04:27 04/06/20 04:27 04/06/20 04:27 General appearance: Present: mild distress, well-nourished HEART Score - HEART Score Age: 45-65 Risk factors: 1-2 risk factors Troponin: Troponin T < 0.010 ng/mL (0.00-0.029) 04/05/20 14:17 Troponin: < normal limit - Critical Actions Critical Actions: 0-3 pts:0.9-1.7%risk of adverse cardiac event.Candidate for discharge Results - Labs CBC & Chem 7: 04/06/20 05:53 04/06/20 05:53 Labs: Laboratory Last Values WBC 3.5 K/mm3 (4.5-11.0) L 04/06/20 05:53 RBC 3.47 M/mm3 (3.65-5.03) L 04/06/20 05:53 Hgb 11.8 gm/dl (11.8-15.2) 04/06/20 05:53 Hct 34.1 % (35.5-45.6) L 04/06/20 05:53 MCV 99 fl (84-94) H 04/06/20 05:53 MCH 34 pg (28-32) H 04/06/20 05:53 MCHC 35 % (32-34) H 04/06/20 05:53 RDW 16.1 % (13.2-15.2) H 04/06/20 05:53 Plt Count 48 K/mm3 (140-440) L 04/06/20 05:53 [place] % (Auto) Wagon Driver 04/06/20 05:53 Add Manual Diff Complete 04/05/20 10:40 Total Counted 100 04/05/20 10:40 Seg Neuts % (Manual) 86.0 % (40.0-70.0) H 04/05/20 10:40 Band Neutrophils % 1.0 % 04/05/20 10:40 Lymphocytes % (Manual) 4.0 % (13.4-35.0) L 04/05/20 10:40 Reactive Lymphs % (Man) 0 % 04/05/20 10:40 Monocytes % (Manual) 9.0 % (0.0-7.3) H 04/05/20 10:40 Eosinophils % (Manual) 0 % (0.0-4.3) 04/05/20 10:40 Basophils % (Manual) 0 % (0.0-1.8) 04/05/20 10:40 Metamyelocytes % 0 % 04/05/20 10:40 Myelocytes % 0 % 04/05/20 10:40 Promyelocytes % 0 % 04/05/20 10:40 Blast Cells % 0 % 04/05/20 10:40 Nucleated RBC % Not Reportable 04/05/20 10:40 Seg Neutrophils # Man 5.9 K/mm3 (1.8-7.7) 04/05/20 10:40 Band Neutrophils # 0.1 K/mm3 04/05/20 10:40 Lymphocytes # (Manual) 0.3 K/mm3 (1.2-5.4) L 04/05/20 10:40 Abs React Lymphs (Man) 0.0 K/mm3 04/05/20 10:40 Monocytes # (Manual) 0.6 K/mm3 (0.0-0.8) 04/05/20 10:40 Eosinophils # (Manual) 0.0 K/mm3 (0.0-0.4) 04/05/20 10:40 Basophils # (Manual) 0.0 K/mm3 (0.0-0.1) 04/05/20 10:40 Metamyelocytes # 0.0 K/mm3 04/05/20 10:40 Myelocytes # 0.0 K/mm3 04/05/20 10:40 Promyelocytes # 0.0 K/mm3 04/05/20 10:40 Blast Cells # 0.0 K/mm3 04/05/20 10:40 WBC Morphology Not Reportable 04/05/20 10:40 Hypersegmented Neuts Not Reportable 04/05/20 10:40 Hyposegmented Neuts Not Reportable 04/05/20 10:40 Hypogranular Neuts Not Reportable 04/05/20 10:40 Smudge Cells Not Reportable 04/05/20 10:40 Toxic Granulation Not Reportable 04/05/20 10:40 Toxic Vacuolation Not Reportable 04/05/20 10:40 Dohle Bodies Not Reportable 04/05/20 10:40 Pelger-Huet Anomaly Not Reportable 04/05/20 10:40 Kelly Rods Not Reportable 04/05/20 10:40 Platelet Estimate Consistent w auto 04/05/20 10:40 Clumped Platelets Not Reportable 04/05/20 10:40 Plt Clumps, EDTA Not Reportable 04/05/20 10:40 Large Platelets Not Reportable 04/05/20 10:40 Giant Platelets Not Reportable 04/05/20 10:40 Platelet Satelliting Not Reportable 04/05/20 10:40 Plt Morphology Comment Not Reportable 04/05/20 10:40 RBC Morphology Not Reportable 04/05/20 10:40 Dimorphic RBCs Not Reportable 04/05/20 10:40 Polychromasia Not Reportable 04/05/20 10:40 Hypochromasia Not Reportable 04/05/20 10:40 Poikilocytosis Not Reportable 04/05/20 10:40 Anisocytosis Few 04/05/20 10:40 Microcytosis Not Reportable 04/05/20 10:40 Macrocytosis Few 04/05/20 10:40 Spherocytes Not Reportable 04/05/20 10:40 Pappenheimer Bodies Not Reportable 04/05/20 10:40 Sickle Cells Not Reportable 04/05/20 10:40 Target Cells Not Reportable 04/05/20 10:40 Tear Drop Cells Not Reportable 04/05/20 10:40 Ovalocytes Not Reportable 04/05/20 10:40 Helmet Cells Not Reportable 04/05/20 10:40 [place] Bodies Not Reportable 04/05/20 10:40 [place] Rings Not Reportable 04/05/20 10:40 Jose Martin Cells Not Reportable 04/05/20 10:40 Bite Cells Not Reportable 04/05/20 10:40 Crenated Cell Not Reportable 04/05/20 10:40 Elliptocytes Not Reportable 04/05/20 10:40 Acanthocytes (Spur) Not Reportable 04/05/20 10:40 Rouleaux Not Reportable 04/05/20 10:40 Hemoglobin C Crystals Not Reportable 04/05/20 10:40 Schistocytes Not Reportable 04/05/20 10:40 Malaria parasites Not Reportable 04/05/20 10:40 Ronnie Bodies Not Reportable 04/05/20 10:40 Hem Pathologist Commnt No 04/05/20 10:40 PT 15.9 Sec. (12.2-14.9) H 04/05/20 10:40 INR 1.27 (0.87-1.13) H 04/05/20 10:40 APTT 30.3 Sec. (24.2-36.6) 04/05/20 10:40 D-Dimer 837.90 ng/mlDDU (0-234) H 04/05/20 14:45 Sodium 136 mmol/L (137-145) L 04/06/20 05:53 Potassium 3.6 mmol/L (3.6-5.0) 04/06/20 05:53 Chloride 104.2 mmol/L (98-107) 04/06/20 05:53 Carbon Dioxide 28 mmol/L (22-30) 04/06/20 05:53 Anion Gap 7 mmol/L 04/06/20 05:53 BUN 23 mg/dL (9-20) H 04/06/20 05:53 Creatinine 0.5 mg/dL (0.8-1.3) L 04/06/20 05:53 Estimated GFR > 60 ml/min 04/06/20 05:53 BUN/Creatinine Ratio 46 % 04/06/20 05:53 Glucose 107 mg/dL (75-100) H 04/06/20 05:53 Hemoglobin A1c 4.5 % (4-6) 04/05/20 10:40 Lactic Acid 1.40 mmol/L (0.7-2.0) 04/05/20 10:40 Calcium 7.5 mg/dL (8.4-10.2) L 04/06/20 05:53 Ferritin 1412.0 ng/mL (30.0-300.0) H 04/05/20 14:45 Total Bilirubin 1.80 mg/dL (0.1-1.2) H 04/06/20 05:53 Direct Bilirubin 1.3 mg/dL (0-0.2) H 04/05/20 10:40 Indirect Bilirubin 1.0 mg/dL 04/05/20 10:40 AST 112 units/L (5-40) H 04/06/20 05:53 ALT 51 units/L (7-56) 04/06/20 05:53 Alkaline Phosphatase 78 units/L (35-129) 04/06/20 05:53 Lactate Dehydrogenase 438 units/L (91-180) H 04/05/20 14:45 Troponin T < 0.010 ng/mL (0.00-0.029) 04/05/20 14:17 C-Reactive Protein 1.70 mg/dL (0.00-1.30) H 04/05/20 14:45 NT-Pro-B Natriuret Pep 216.4 pg/mL (0-900) 04/05/20 10:40 Total Protein 6.3 g/dL (6.3-8.2) 04/06/20 05:53 Albumin 1.8 g/dL (3.9-5) L 04/06/20 05:53 Albumin/Globulin Ratio 0.4 % 04/06/20 05:53 Lipase 21 units/L (13-60) 04/05/20 10:40 Urine Color Yellow (Yellow) 04/05/20 Unknown Urine Turbidity Clear (Clear) 04/05/20 Unknown Urine pH 6.0 (5.0-7.0) 04/05/20 Unknown Ur Specific [place] 1.006 (1.003-1.030) 04/05/20 Unknown Urine Protein <15 mg/dl mg/dL (Negative) 04/05/20 Unknown Urine Glucose (UA) Neg mg/dL (Negative) 04/05/20 Unknown Urine Ketones Neg mg/dL (Negative) 04/05/20 Unknown Urine Blood Sm (Negative) 04/05/20 Unknown Urine Nitrite Neg (Negative) 04/05/20 Unknown Urine Bilirubin Neg (Negative) 04/05/20 Unknown Urine Urobilinogen < 2.0 mg/dL (<2.0) 04/05/20 Unknown Ur Leukocyte Esterase Neg (Negative) 04/05/20 Unknown Urine WBC (Auto) < 1.0 /HPF (0.0-6.0) 04/05/20 Unknown Urine RBC (Auto) 6.0 /HPF (0.0-6.0) 04/05/20 Unknown U Epithel Cells (Auto) < 1.0 /HPF (0-13.0) 04/05/20 Unknown Hyaline Casts 1 /LPF 04/05/20 Unknown Urine Mucus Few /HPF 04/05/20 Unknown Urine Opiates Screen Negative 04/05/20 Unknown Urine Methadone Screen Negative 04/05/20 Unknown Ur Barbiturates Screen Negative 04/05/20 Unknown Ur Phencyclidine Scrn Negative 04/05/20 Unknown Ur Amphetamines Screen Presumptive positive 04/05/20 Unknown U Benzodiazepines Scrn Negative 04/05/20 Unknown Urine Cocaine Screen Negative 04/05/20 Unknown U Marijuana (THC) Screen Negative 04/05/20 Unknown Drugs of Abuse Note Disclamer 04/05/20 Unknown Microbiology: Microbiology 04/05/20 10:40 Peripheral/Venous Blood Culture - Preliminary Culture in Progress 04/05/20 10:40 Peripheral/Venous Blood Culture - Preliminary Culture in Progress Rogers/IV: Voiding Method Condom Catheter IV Catheter Type [Right Wrist] INT / Saline Lock IV Catheter Type [Right Upper INT / Saline Lock arm] Active Medications - Current Medications Current Medications: Generic Name Dose Route Start Last Admin Trade Name Freq PRN Reason Stop Dose Admin Acetaminophen 650 mg 04/05/20 23:41 Tylenol PO Q4H PRN Pain MILD(1-3)/Fever >100.5/[place]IAN[place] Chlordiazepoxide HCl 50 mg 04/06/20 06:45 Librium PO Q1H PRN CIWA-Ar 8-15 Chlordiazepoxide HCl 100 mg 04/06/20 06:45 Librium PO Q1H PRN CIWA-Ar 16-25 Dexamethasone 8 mg 04/06/20 10:00 Decadron IV Q24HR [facility] Enoxaparin Sodium 40 mg 04/06/20 22:00 Enoxaparin SUB-Q QDAY@2200 [facility] Protocol Famotidine 20 mg 04/06/20 10:00 Pepcid PO BID LUPE Furosemide 40 mg 04/06/20 10:00 Lasix IV QDAY [facility] Azithromycin 500 mg/ Sodium 250 mls @ 250 mls/hr 04/06/20 10:00 Chloride IV 04/09/20 10:59 Q24HR [facility] Protocol Ceftriaxone Sodium 2 gm in 100 mls @ 200 mls/hr 04/06/20 10:00 Rocephin/Ns 2 Gm/100 Ml IV Q24HR [facility] Protocol Lorazepam 2 mg 04/06/20 06:45 Ativan IV Q1H PRN CIWA-Ar 8-15 Lorazepam 4 mg 04/06/20 06:45 Ativan IV Q1H PRN CIWA-Ar 16-25 Morphine Sulfate 2 mg 04/05/20 23:41 Morphine IV Q4H PRN Pain, Moderate (4-6) Ondansetron HCl 4 mg 04/05/20 23:41 Zofran IV Q8H PRN Nausea And Vomiting Oxycodone/Acetaminophen 1 tab 04/05/20 23:41 Percocet 5/325 PO Q6H PRN Pain, Moderate (4-6) Potassium Chloride 20 meq 04/06/20 10:00 K-Dur PO QDAY LUPE Sodium Chloride 10 ml 04/06/20 10:00 Sodium Chloride Flush Syringe 10 Ml IV BID LUPE Sodium Chloride 10 ml 04/05/20 23:41 Sodium Chloride Flush Syringe 10 Ml IV PRN PRN LINE FLUSH
[2020-04-06] MEDS ORDERED: dexAMETHasone 4 MG/ML VIAL IV SCH (10:00)
[2020-04-06] MEDS: POTASSIUM CHLORIDE ER 20 MEQ TAB PO SCH (10:38)
[2020-04-06] MEDS: AZITHROMYCIN 500 MG in SODIUM CHLORIDE 0.9% 250ML 250 ML IV SCH (10:38)
[2020-04-06] MEDS: cefTRIAXone/NS 2 GM/100 ML 2 GM/100 ML BAG IV SCH (10:39)
[2020-04-06] MEDS: FAMOTIDINE 20 MG TAB PO SCH ×2 (10:39→22:43)
[2020-04-06] MEDS: FUROSEMIDE 40 MG/4 ML INJ IV SCH (10:39)
[2020-04-06 11:27] LABS: Basophils % (Manual) 0 % (0.0-1.8); Eosinophils % (Manual) 0 % (0.0-4.3); Macrocytosis Few; Tear Drop Cells Rare; Total Cells Counted 100
[2020-04-06 11:28] LABS: Anisocytosis Few; Platelet Estimate Consistent w Auto
[2020-04-06 12:36] LABS: Hepatitis B Surface Antigen Non-Reactive (Negative); Hepatitis C Virus Antibody Reactive (NonReactive)
[2020-04-06] MEDS: ENOXAPARIN 40 MG/0.4 ML INJ SUB-Q SCH (22:43)
[2020-04-06] MEDS: chlordiazePOXIDE 25 MG CAP PO PRN (22:43)
[2020-04-07 06:26] LABS: Hematocrit 36.1 % (35.5-45.6); Hemoglobin 12.1 gm/dl (11.8-15.2); Mean Corpuscular HGB Conc 34 % (32-34); Mean Corpuscular Volume 100 fl (84-94); Red Blood Count 3.61 M/mm3 (3.65-5.03)
[2020-04-07 06:32] LABS: Platelet Count 58 K/mm3 (140-440)
[2020-04-07 06:33] LABS: Basophils % (Auto) 0.4 % (0.0-1.8); Lymphocytes % (Auto) 15.2 % (13.4-35.0); Monocytes # (Auto) 1.2 K/mm3 (0.0-0.8)
[2020-04-07 06:46] LABS: Alanine Aminotransferase 80 units/L (7-56); Albumin 1.9 g/dL (3.9-5); Blood Urea Nitrogen 28 mg/dL (9-20); Calcium 7.5 mg/dL (8.4-10.2); Hemolysis Index 2
[2020-04-07 06:48] LABS: BUN/Creatinine Ratio 56
--- NOTE | 2020-04-07 08:20 | Progress Note ---
Assessment and Plan Cultures: Blood culture no growth today SARS CoV2 PCR positive Assessment: 59 years old male with history of hepatitis C with cirrhosis, ascites, gastrosplenic varices, hypertension, meth abuse, admitted on 04/05/2020 secondary to 2-week history of worsening generalized body edema, cough and shortness of breath. EMS found O2 sats down to 85%: #Severe COVID-19 pneumonia: Abdominal CT with patchy airspace disease bilateral bases. Procalcitonin 0.2. #Acute hypoxemic respiratory failure: Unclear etiology, COVID pneumonia +/- pleural effusion. #Hepatitis C with cirrhosis, large ascites, pleural effusion, varices and a splenomegaly #Elevated LFTs: From hepatitis C #Thrombocytopenia: From hepatitis C #Amphetamine abuse Recommendations: -Start remdesivir for 5 days -Start dexamethasone 6 mg p.o./IV daily for 10 days -Continue ceftriaxone total 5 days and azithromycin total 3 days -Pulmonary consult-pending -Anticoagulation per hospital protocol -Consider thoracentesis in light of severe hypoxia and pleural effusion -Prone positioning as tolerated -Covid inflammatory markers every 48 hours Very guarded prognosis All laboratory, cultures and imaging were reviewed. Will follow Kenya Deras MD Infectious Diseases Care Process Manager [facility] ([facility]) M [phone] O [phone] Subjective Date of service: 04/07/20 Principal diagnosis: COVID Interval history: Patient remains on BiPAP, no fever Objective - Exam Narrative Exam: Physical Exam: reviewed ED and hospitalist notes, limited due to conservation of PPE and decrease risk of transmission. General appearance: limited due to conservation of PPE Eyes: limited due to conservation of PPE HENT: Atraumatic; limited due to conservation of PPE Lungs: limited due to conservation of PPE CV: limited due to conservation of PPE Abdomen: limited due to conservation of PPE Extremities: limited due to conservation of PPE Skin: limited due to conservation of PPE Psych: limited due to conservation of PPE Neuro: limited due to conservation of PPE - Constitutional Vitals: Vital Signs Temp Pulse Resp BP Pulse Ox 98.9 F 85 18 115/74 97 04/07/20 03:25 04/07/20 03:25 04/07/20 03:25 04/07/20 03:25 04/07/20 03:25 Temperature -Last 24 Hours Temperature 98.9 F Temperature 98.4 F Temperature 98.3 F Temperature 97.5 F - Labs CBC & Chem 7: 04/07/20 06:01 04/07/20 06:01 Labs: Abnormal lab results 04/06/20 04/06/20 04/06/20 Range/Units 05:53 08:04 Unknown RBC (3.65-5.03) M/mm3 MCV (84-94) fl MCH (28-32) pg RDW (13.2-15.2) % Plt Count (140-440) K/mm3 Lymph # (Auto) (1.2-5.4) K/mm3 [place] # (Auto) (0.0-0.8) K/mm3 Seg Neuts % (Manual) 92.0 H (40.0-70.0) % Lymphocytes % (Manual) 3.0 L (13.4-35.0) % Lymphocytes # (Manual) 0.1 L (1.2-5.4) K/mm3 Potassium (3.6-5.0) mmol/L BUN (9-20) mg/dL Creatinine (0.8-1.3) mg/dL Glucose (75-100) mg/dL Calcium (8.4-10.2) mg/dL Total Bilirubin (0.1-1.2) mg/dL AST (5-40) units/L ALT (7-56) units/L Total Protein (6.3-8.2) g/dL Albumin (3.9-5) g/dL Coronavirus (PCR) Positive A (Negative) Hepatitis C Antibody Reactive A (NonReactive) 04/07/20 04/07/20 Range/Units 06:01 06:01 RBC 3.61 L (3.65-5.03) M/mm3 MCV 100 H (84-94) fl MCH 34 H (28-32) pg RDW 16.0 H (13.2-15.2) % Plt Count 58 L (140-440) K/mm3 Lymph # (Auto) 1.0 L (1.2-5.4) K/mm3 [place] # (Auto) 1.2 H (0.0-0.8) K/mm3 Seg Neuts % (Manual) (40.0-70.0) % Lymphocytes % (Manual) (13.4-35.0) % Lymphocytes # (Manual) (1.2-5.4) K/mm3 Potassium 3.5 L (3.6-5.0) mmol/L BUN 28 H (9-20) mg/dL Creatinine 0.5 L (0.8-1.3) mg/dL Glucose 133 H (75-100) mg/dL Calcium 7.5 L (8.4-10.2) mg/dL Total Bilirubin 1.40 H (0.1-1.2) mg/dL AST 170 H (5-40) units/L ALT 80 H (7-56) units/L Total Protein 6.1 L (6.3-8.2) g/dL Albumin 1.9 L (3.9-5) g/dL Coronavirus (PCR) (Negative) Hepatitis C Antibody (NonReactive)
--- NOTE | 2020-04-07 08:47 | Progress Note ---
Assessment and Plan Assessment and plan: (1) Acute respiratory failure with hypoxia Current Visit: Yes Status: Acute Plan to address problem: Patient is hypoxic Oxygen supplement as necessary (2) Bilateral pneumonia Current Visit: Yes Status: Acute Plan to address problem: Started on IV Ceftriaxone and IV Zithromaxx IV Decadron, ID consult requested BNP low--hence no chf (3)COVID-19 virus infection Current Visit: Yes Status: Acute Plan to address problem: Patient is on IV Decadron and remdesivir ID consult appreciated (4) HTN (hypertension) Current Visit: Yes Status: Acute (5) HTN (hypertension) Current Visit: Yes Status: Chronic Qualifiers: Hypertension type: essential hypertension Qualified Code(s): I10 - Essential (primary) hypertension Plan to address problem: Initiate antihypertensives if necessary (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 Plan to address problem: To be counselled (7) Transaminitis Current Visit: Yes Status: Acute Plan to address problem: Sec to Covid or ETOH Hepatitis profile; hepatitis C positive CIWA initiated (8) Malnutrition Current Visit: Yes Status: Chronic Qualifiers: Protein-calorie malnutrition severity: moderate Plan to address problem: Dietitian consult (9) Hyponatremia Current Visit: Yes Status: Acute Plan to address problem: Mild (10) DVT prophylaxis Current Visit: Yes Status: Acute Plan to address problem: On Lovenox History Interval history: No nursing issues overnight Patient said shortness of breath is getting better Generalized body swelling is getting better Hospitalist Physical - Physical exam Narrative exam: Not in cardiopulmonary distress. The patient appeared well nourished and normally developed. Vital signs as documented. Head exam is unremarkable. No scleral icterus . Neck is without jugular venous distension, thyromegaly, or carotid bruits. Lungs are clear to auscultation. Cardiac exam reveals regular rate and Rhythm. Abdominal exam reveals ascites. 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 No focal weakness. - Constitutional Vitals: Temp Pulse Resp BP Pulse Ox 98.9 F 85 18 115/74 97 04/07/20 03:25 04/07/20 03:25 04/07/20 03:25 04/07/20 03:25 04/07/20 03:25 General appearance: Present: mild distress, well-nourished HEART Score - HEART Score Age: 45-65 Risk factors: 1-2 risk factors Troponin: Troponin T < 0.010 ng/mL (0.00-0.029) 04/05/20 14:17 Troponin: < normal limit - Critical Actions Critical Actions: 0-3 pts:0.9-1.7%risk of adverse cardiac event.Candidate for discharge Results - Labs CBC & Chem 7: 04/07/20 06:01 04/07/20 06:01 Labs: Laboratory Last Values WBC 6.3 K/mm3 (4.5-11.0) 04/07/20 06:01 RBC 3.61 M/mm3 (3.65-5.03) L 04/07/20 06:01 Hgb 12.1 gm/dl (11.8-15.2) 04/07/20 06:01 Hct 36.1 % (35.5-45.6) 04/07/20 06:01 MCV 100 fl (84-94) H 04/07/20 06:01 MCH 34 pg (28-32) H 04/07/20 06:01 MCHC 34 % (32-34) 04/07/20 06:01 RDW 16.0 % (13.2-15.2) H 04/07/20 06:01 Plt Count 58 K/mm3 (140-440) L 04/07/20 06:01 Lymph % (Auto) 15.2 % (13.4-35.0) 04/07/20 06:01 [place] % (Auto) T[employer] Finisher 04/07/20 06:01 Eos % (Auto) 0.0 % (0.0-4.3) 04/07/20 06:01 Baso % (Auto) 0.4 % (0.0-1.8) 04/07/20 06:01 Lymph # (Auto) 1.0 K/mm3 (1.2-5.4) L 04/07/20 06:01 [place] # (Auto) 1.2 K/mm3 (0.0-0.8) H 04/07/20 06:01 Eos # (Auto) 0.0 K/mm3 (0.0-0.4) 04/07/20 06:01 Baso # (Auto) 0.0 K/mm3 (0.0-0.1) 04/07/20 06:01 Add Manual Diff Complete 04/06/20 05:53 Total Counted 100 04/06/20 05:53 Seg Neutrophils % 65.0 % (40.0-70.0) 04/07/20 06:01 Seg Neuts % (Manual) 92.0 % (40.0-70.0) H 04/06/20 05:53 Band Neutrophils % 0 % 04/06/20 05:53 Lymphocytes % (Manual) 3.0 % (13.4-35.0) L 04/06/20 05:53 Reactive Lymphs % (Man) 0 % 04/06/20 05:53 Monocytes % (Manual) 5.0 % (0.0-7.3) 04/06/20 05:53 Eosinophils % (Manual) 0 % (0.0-4.3) 04/06/20 05:53 Basophils % (Manual) 0 % (0.0-1.8) 04/06/20 05:53 Metamyelocytes % 0 % 04/06/20 05:53 Myelocytes % 0 % 04/06/20 05:53 Promyelocytes % 0 % 04/06/20 05:53 Blast Cells % 0 % 04/06/20 05:53 Nucleated RBC % Not Reportable 04/06/20 05:53 Seg Neutrophils # 4.1 K/mm3 (1.8-7.7) 04/07/20 06:01 Seg Neutrophils # Man 3.2 K/mm3 (1.8-7.7) 04/06/20 05:53 Band Neutrophils # 0.0 K/mm3 04/06/20 05:53 Lymphocytes # (Manual) 0.1 K/mm3 (1.2-5.4) L 04/06/20 05:53 Abs React Lymphs (Man) 0.0 K/mm3 04/06/20 05:53 Monocytes # (Manual) 0.2 K/mm3 (0.0-0.8) 04/06/20 05:53 Eosinophils # (Manual) 0.0 K/mm3 (0.0-0.4) 04/06/20 05:53 Basophils # (Manual) 0.0 K/mm3 (0.0-0.1) 04/06/20 05:53 Metamyelocytes # 0.0 K/mm3 04/06/20 05:53 Myelocytes # 0.0 K/mm3 04/06/20 05:53 Promyelocytes # 0.0 K/mm3 04/06/20 05:53 Blast Cells # 0.0 K/mm3 04/06/20 05:53 WBC Morphology Not Reportable 04/06/20 05:53 Hypersegmented Neuts Not Reportable 04/06/20 05:53 Hyposegmented Neuts Not Reportable 04/06/20 05:53 Hypogranular Neuts Not Reportable 04/06/20 05:53 Smudge Cells Not Reportable 04/06/20 05:53 Toxic Granulation Not Reportable 04/06/20 05:53 Toxic Vacuolation Not Reportable 04/06/20 05:53 Dohle Bodies Not Reportable 04/06/20 05:53 Pelger-Huet Anomaly Not Reportable 04/06/20 05:53 Kelly Rods Not Reportable 04/06/20 05:53 Platelet Estimate Consistent w auto 04/06/20 05:53 Clumped Platelets Not Reportable 04/06/20 05:53 Plt Clumps, EDTA Not Reportable 04/06/20 05:53 Large Platelets Not Reportable 04/06/20 05:53 Giant Platelets Not Reportable 04/06/20 05:53 Platelet Satelliting Not Reportable 04/06/20 05:53 Plt Morphology Comment Not Reportable 04/06/20 05:53 RBC Morphology Not Reportable 04/06/20 05:53 Dimorphic RBCs Not Reportable 04/06/20 05:53 Polychromasia Not Reportable 04/06/20 05:53 Hypochromasia Not Reportable 04/06/20 05:53 Poikilocytosis Not Reportable 04/06/20 05:53 Anisocytosis Few 04/06/20 05:53 Microcytosis Not Reportable 04/06/20 05:53 Macrocytosis Few 04/06/20 05:53 Spherocytes Not Reportable 04/06/20 05:53 Pappenheimer Bodies Not Reportable 04/06/20 05:53 Sickle Cells Not Reportable 04/06/20 05:53 Target Cells Not Reportable 04/06/20 05:53 Tear Drop Cells Rare 04/06/20 05:53 Ovalocytes Not Reportable 04/06/20 05:53 Helmet Cells Not Reportable 04/06/20 05:53 [place] Bodies Not Reportable 04/06/20 05:53 [place] Rings Not Reportable 04/06/20 05:53 [place] Cells Not Reportable 04/06/20 05:53 Bite Cells Not Reportable 04/06/20 05:53 Crenated Cell Not Reportable 04/06/20 05:53 Elliptocytes Not Reportable 04/06/20 05:53 Acanthocytes (Spur) Not Reportable 04/06/20 05:53 Rouleaux Not Reportable 04/06/20 05:53 Hemoglobin C Crystals Not Reportable 04/06/20 05:53 Schistocytes Not Reportable 04/06/20 05:53 Malaria parasites Not Reportable 04/06/20 05:53 Ronnie Bodies Not Reportable 04/06/20 05:53 Hem Pathologist Commnt No 04/06/20 05:53 PT 15.9 Sec. (12.2-14.9) H 04/05/20 10:40 INR 1.27 (0.87-1.13) H 04/05/20 10:40 APTT 30.3 Sec. (24.2-36.6) 04/05/20 10:40 D-Dimer 837.90 ng/mlDDU (0-234) H 04/05/20 14:45 Sodium 138 mmol/L (137-145) 04/07/20 06:01 Potassium 3.5 mmol/L (3.6-5.0) L 04/07/20 06:01 Chloride 105.3 mmol/L (98-107) 04/07/20 06:01 Carbon Dioxide 27 mmol/L (22-30) 04/07/20 06:01 Anion Gap 9 mmol/L 04/07/20 06:01 BUN 28 mg/dL (9-20) H 04/07/20 06:01 Creatinine 0.5 mg/dL (0.8-1.3) L 04/07/20 06:01 Estimated GFR > 60 ml/min 04/07/20 06:01 BUN/Creatinine Ratio 56 % 04/07/20 06:01 Glucose 133 mg/dL (75-100) H 04/07/20 06:01 Hemoglobin A1c 4.5 % (4-6) 04/05/20 10:40 Lactic Acid 1.40 mmol/L (0.7-2.0) 04/05/20 10:40 Calcium 7.5 mg/dL (8.4-10.2) L 04/07/20 06:01 Ferritin 1412.0 ng/mL (30.0-300.0) H 04/05/20 14:45 Total Bilirubin 1.40 mg/dL (0.1-1.2) H 04/07/20 06:01 Direct Bilirubin 1.3 mg/dL (0-0.2) H 04/05/20 10:40 Indirect Bilirubin 1.0 mg/dL 04/05/20 10:40 AST 170 units/L (5-40) H 04/07/20 06:01 ALT 80 units/L (7-56) H 04/07/20 06:01 Alkaline Phosphatase 110 units/L (35-129) 04/07/20 06:01 Lactate Dehydrogenase 438 units/L (91-180) H 04/05/20 14:45 Troponin T < 0.010 ng/mL (0.00-0.029) 04/05/20 14:17 C-Reactive Protein 1.70 mg/dL (0.00-1.30) H 04/05/20 14:45 NT-Pro-B Natriuret Pep 216.4 pg/mL (0-900) 04/05/20 10:40 Total Protein 6.1 g/dL (6.3-8.2) L 04/07/20 06:01 Albumin 1.9 g/dL (3.9-5) L 04/07/20 06:01 Albumin/Globulin Ratio 0.5 % 04/07/20 06:01 Lipase 21 units/L (13-60) 04/05/20 10:40 Procalcitonin 0.21 ng/mL (<0.15) 04/05/20 14:45 Urine Color Yellow (Yellow) 04/05/20 Unknown Urine Turbidity Clear (Clear) 04/05/20 Unknown Urine pH 6.0 (5.0-7.0) 04/05/20 Unknown Ur Specific [place] 1.006 (1.003-1.030) 04/05/20 Unknown Urine Protein <15 mg/dl mg/dL (Negative) 04/05/20 Unknown Urine Glucose (UA) Neg mg/dL (Negative) 04/05/20 Unknown Urine Ketones Neg mg/dL (Negative) 04/05/20 Unknown Urine Blood Sm (Negative) 04/05/20 Unknown Urine Nitrite Neg (Negative) 04/05/20 Unknown Urine Bilirubin Neg (Negative) 04/05/20 Unknown Urine Urobilinogen < 2.0 mg/dL (<2.0) 04/05/20 Unknown Ur Leukocyte Esterase Neg (Negative) 04/05/20 Unknown Urine WBC (Auto) < 1.0 /HPF (0.0-6.0) 04/05/20 Unknown Urine RBC (Auto) 6.0 /HPF (0.0-6.0) 04/05/20 Unknown U Epithel Cells (Auto) < 1.0 /HPF (0-13.0) 04/05/20 Unknown Hyaline Casts 1 /LPF 04/05/20 Unknown Urine Mucus Few /HPF 04/05/20 Unknown Urine Opiates Screen Negative 04/05/20 Unknown Urine Methadone Screen Negative 04/05/20 Unknown Ur Barbiturates Screen Negative 04/05/20 Unknown Ur Phencyclidine Scrn Negative 04/05/20 Unknown Ur Amphetamines Screen Presumptive positive 04/05/20 Unknown U Benzodiazepines Scrn Negative 04/05/20 Unknown Urine Cocaine Screen Negative 04/05/20 Unknown U Marijuana (THC) Screen Negative 04/05/20 Unknown Drugs of Abuse Note Disclamer 04/05/20 Unknown Coronavirus (PCR) Positive (Negative) A 04/06/20 Unknown Hepatitis A IgM Ab Non-reactive (NonReactive) 04/06/20 08:04 Hep Bs Antigen Non-reactive (Negative) 04/06/20 08:04 Hep B Core IgM Ab Non-reactive (NonReactive) 04/06/20 08:04 Hepatitis C Antibody Reactive (NonReactive) A 04/06/20 08:04 Microbiology: Microbiology 04/05/20 10:40 Peripheral/Venous Blood Culture - Preliminary NO GROWTH AFTER 24 HOURS 04/05/20 10:40 Peripheral/Venous Blood Culture - Preliminary NO GROWTH AFTER 24 HOURS Rogers/IV: Voiding Method Condom Catheter IV Catheter Type [Right Wrist] INT / Saline Lock IV Catheter Type [Right Upper INT / Saline Lock arm] Active Medications - Current Medications Current Medications: Generic Name Dose Route Start Last Admin Trade Name Freq PRN Reason Stop Dose Admin Acetaminophen 650 mg 04/05/20 23:41 Tylenol PO Q4H PRN Pain MILD(1-3)/Fever >100.5/[place] Chlordiazepoxide HCl 50 mg 04/06/20 06:45 04/06/20 22:43 Librium PO 50 mg Q1H PRN Administration [place]-[facility] 8-15 Chlordiazepoxide HCl 100 mg 04/06/20 06:45 Librium PO Q1H PRN [facility] 16-25 Dexamethasone 6 mg 04/07/20 10:00 Decadron IV 04/15/20 10:01 Q24HR LUPE Enoxaparin Sodium 40 mg 04/06/20 22:00 04/06/20 22:43 Enoxaparin SUB-Q 40 mg QDAY@2200 LUPE Administration Protocol Famotidine 20 mg 04/06/20 10:00 04/06/20 22:43 Pepcid PO 20 mg BID LUPE Administration Furosemide 40 mg 04/06/20 10:00 04/06/20 10:39 Lasix IV 40 mg QDAY LUPE Administration Azithromycin 500 mg/ Sodium 250 mls @ 250 mls/hr 04/06/20 10:00 04/06/20 10:38 Chloride IV 04/07/20 10:59 250 mls/hr Q24HR LUPE Administration Protocol Ceftriaxone Sodium 2 gm in 100 mls @ 200 mls/hr 04/06/20 10:00 04/06/20 10:39 Rocephin/Ns 2 Gm/100 Ml IV 04/09/20 10:29 200 mls/hr Q24HR LUPE Administration Protocol REMDESIVIR 200 mg/ Sodium 250 mls @ 500 mls/hr 04/07/20 10:00 Chloride IV 04/07/20 10:29 ONCE ONE REMDESIVIR 100 mg/ Sodium 250 mls @ 500 mls/hr 04/08/20 21:00 Chloride IV 04/11/20 21:29 Q24HR@2100 LUPE Lorazepam 2 mg 04/06/20 06:45 Ativan IV Q1H PRN [facility] 8-15 Lorazepam 4 mg 04/06/20 06:45 Ativan IV Q1H PRN [facility] 16-25 Morphine Sulfate 2 mg 04/05/20 23:41 Morphine IV Q4H PRN Pain, Moderate (4-6) Ondansetron HCl 4 mg 04/05/20 23:41 Zofran IV Q8H PRN Nausea And Vomiting Oxycodone/Acetaminophen 1 tab 04/05/20 23:41 Percocet 5/325 PO Q6H PRN Pain, Moderate (4-6) Potassium Chloride 20 meq 04/06/20 10:00 04/06/20 10:38 K-Dur PO 20 meq QDAY LUPE Administration Sodium Chloride 10 ml 04/06/20 10:00 04/06/20 22:43 Sodium Chloride Flush Syringe 10 Ml IV 10 ml BID LUPE Administration Sodium Chloride 10 ml 04/05/20 23:41 Sodium Chloride Flush Syringe 10 Ml IV PRN PRN LINE FLUSH Sodium Chloride 50 ml 04/07/20 10:00 Nacl 0.9% IV 04/11/20 21:01 Q24HR@2100 LUPE
[2020-04-07] MEDS ORDERED: REMDESIVIR 100 MG VIAL IV ONE (10:00)
[2020-04-07] MEDS ORDERED: REMDESIVIR 200 MG in SODIUM CHLORIDE 0.9% 250ML 250 ML IV ONE (10:00)
[2020-04-07] MEDS ORDERED: SODIUM CHLORIDE 0.9% 50 ML IVPB IV SCH (10:00)
[2020-04-07] MEDS: cefTRIAXone/NS 2 GM/100 ML 2 GM/100 ML BAG IV SCH (10:13)
[2020-04-07] MEDS: FAMOTIDINE 20 MG TAB PO SCH ×2 (10:13→21:45)
[2020-04-07] MEDS: FUROSEMIDE 40 MG/4 ML INJ IV SCH (10:13)
[2020-04-07] MEDS: POTASSIUM CHLORIDE ER 20 MEQ TAB PO SCH (10:14)
[2020-04-07] MEDS: dexAMETHasone 4 MG/ML VIAL IV SCH (10:14)
[2020-04-07] MEDS: AZITHROMYCIN 500 MG in SODIUM CHLORIDE 0.9% 250ML 250 ML IV SCH (12:18)
[2020-04-07] MEDS: ENOXAPARIN 40 MG/0.4 ML INJ SUB-Q SCH (21:45)
[2020-04-08 07:07] LABS: Alanine Aminotransferase 73 units/L (7-56); Albumin 1.9 g/dL (3.9-5); Bilirubin,Direct 0.8 mg/dL (0-0.2); Blood Urea Nitrogen 28 mg/dL (9-20); Calcium 7.8 mg/dL (8.4-10.2); Hemolysis Index 2
[2020-04-08 07:17] LABS: BUN/Creatinine Ratio 47
[2020-04-08] MEDS ORDERED: POTASSIUM CHLORIDE ER 20 MEQ TAB PO NR (07:38)
--- NOTE | 2020-04-08 07:43 | Progress Note ---
Assessment and Plan Assessment and plan: (1) Acute respiratory failure with hypoxia Current Visit: Yes Status: Acute Plan to address problem: Patient is hypoxic Oxygen supplement as necessary (2) Bilateral pneumonia Current Visit: Yes Status: Acute Plan to address problem: Started on IV Ceftriaxone and IV Zithromaxx IV Decadron, ID consult requested BNP low--hence no chf (3)COVID-19 virus infection Current Visit: Yes Status: Acute Plan to address problem: Patient is on IV Decadron and remdesivir ID consult appreciated (4) HTN (hypertension) Current Visit: Yes Status: Acute (5) HTN (hypertension) Current Visit: Yes Status: Chronic Qualifiers: Hypertension type: essential hypertension Qualified Code(s): I10 - Essential (primary) hypertension Plan to address problem: Initiate antihypertensives if necessary (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 Plan to address problem: To be counselled (7) Transaminitis Current Visit: Yes Status: Acute Plan to address problem: Sec to Covid or ETOH Hepatitis profile; hepatitis C positive CIWA initiated (8) Malnutrition Current Visit: Yes Status: Chronic Qualifiers: Protein-calorie malnutrition severity: moderate Plan to address problem: Dietitian consult (9) Hyponatremia Current Visit: Yes Status: Acute Plan to address problem: Mild (10) DVT prophylaxis Current Visit: Yes Status: Acute Plan to address problem: On Lovenox 04/08/2020; patient was seen and evaluated this morning and is on 10 L of oxygen. Patient is on Decadron and remdesivir. ID is following the patient. Hypokalemia repleted. History Interval history: Patient has shortness of breath And still on 10 L of oxygen No chest pain Hospitalist Physical - Physical exam Narrative exam: Not in cardiopulmonary distress. The patient appeared well nourished and normally developed. Vital signs as documented. Head exam is unremarkable. No scleral icterus . Neck is without jugular venous distension, thyromegaly, or carotid bruits. Lungs are clear to auscultation. Cardiac exam reveals regular rate and Rhythm. Abdominal exam reveals ascites. 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 No focal weakness. - Constitutional Vitals: Temp Pulse Resp BP Pulse Ox 97.9 F 75 20 127/82 93 04/07/20 23:42 04/07/20 23:42 04/07/20 23:42 04/07/20 23:42 04/07/20 23:42 General appearance: Present: mild distress, well-nourished HEART Score - HEART Score Age: 45-65 Risk factors: 1-2 risk factors Troponin: Troponin T < 0.010 ng/mL (0.00-0.029) 04/05/20 14:17 Troponin: < normal limit - Critical Actions Critical Actions: 0-3 pts:0.9-1.7%risk of adverse cardiac event.Candidate for discharge Results - Labs CBC & Chem 7: 04/07/20 06:01 04/08/20 05:16 Labs: Laboratory Last Values WBC 6.3 K/mm3 (4.5-11.0) 04/07/20 06:01 RBC 3.61 M/mm3 (3.65-5.03) L 04/07/20 06:01 Hgb 12.1 gm/dl (11.8-15.2) 04/07/20 06:01 Hct 36.1 % (35.5-45.6) 04/07/20 06:01 MCV 100 fl (84-94) H 04/07/20 06:01 MCH 34 pg (28-32) H 04/07/20 06:01 MCHC 34 % (32-34) 04/07/20 06:01 RDW 16.0 % (13.2-15.2) H 04/07/20 06:01 Plt Count 58 K/mm3 (140-440) L 04/07/20 06:01 Lymph % (Auto) 15.2 % (13.4-35.0) 04/07/20 06:01 Treasure % (Auto) Property Management Assistant 04/07/20 06:01 Eos % (Auto) 0.0 % (0.0-4.3) 04/07/20 06:01 Baso % (Auto) 0.4 % (0.0-1.8) 04/07/20 06:01 Lymph # (Auto) 1.0 K/mm3 (1.2-5.4) L 04/07/20 06:01 [place] # (Auto) 1.2 K/mm3 (0.0-0.8) H 04/07/20 06:01 Eos # (Auto) 0.0 K/mm3 (0.0-0.4) 04/07/20 06:01 Baso # (Auto) 0.0 K/mm3 (0.0-0.1) 04/07/20 06:01 Add Manual Diff Complete 04/06/20 05:53 Total Counted 100 04/06/20 05:53 Seg Neutrophils % 65.0 % (40.0-70.0) 04/07/20 06:01 Seg Neuts % (Manual) 92.0 % (40.0-70.0) H 04/06/20 05:53 Band Neutrophils % 0 % 04/06/20 05:53 Lymphocytes % (Manual) 3.0 % (13.4-35.0) L 04/06/20 05:53 Reactive Lymphs % (Man) 0 % 04/06/20 05:53 Monocytes % (Manual) 5.0 % (0.0-7.3) 04/06/20 05:53 Eosinophils % (Manual) 0 % (0.0-4.3) 04/06/20 05:53 Basophils % (Manual) 0 % (0.0-1.8) 04/06/20 05:53 Metamyelocytes % 0 % 04/06/20 05:53 Myelocytes % 0 % 04/06/20 05:53 Promyelocytes % 0 % 04/06/20 05:53 Blast Cells % 0 % 04/06/20 05:53 Nucleated RBC % Not Reportable 04/06/20 05:53 Seg Neutrophils # 4.1 K/mm3 (1.8-7.7) 04/07/20 06:01 Seg Neutrophils # Man 3.2 K/mm3 (1.8-7.7) 04/06/20 05:53 Band Neutrophils # 0.0 K/mm3 04/06/20 05:53 Lymphocytes # (Manual) 0.1 K/mm3 (1.2-5.4) L 04/06/20 05:53 Abs React Lymphs (Man) 0.0 K/mm3 04/06/20 05:53 Monocytes # (Manual) 0.2 K/mm3 (0.0-0.8) 04/06/20 05:53 Eosinophils # (Manual) 0.0 K/mm3 (0.0-0.4) 04/06/20 05:53 Basophils # (Manual) 0.0 K/mm3 (0.0-0.1) 04/06/20 05:53 Metamyelocytes # 0.0 K/mm3 04/06/20 05:53 Myelocytes # 0.0 K/mm3 04/06/20 05:53 Promyelocytes # 0.0 K/mm3 04/06/20 05:53 Blast Cells # 0.0 K/mm3 04/06/20 05:53 WBC Morphology Not Reportable 04/06/20 05:53 Hypersegmented Neuts Not Reportable 04/06/20 05:53 Hyposegmented Neuts Not Reportable 04/06/20 05:53 Hypogranular Neuts Not Reportable 04/06/20 05:53 Smudge Cells Not Reportable 04/06/20 05:53 Toxic Granulation Not Reportable 04/06/20 05:53 Toxic Vacuolation Not Reportable 04/06/20 05:53 Dohle Bodies Not Reportable 04/06/20 05:53 Pelger-Huet Anomaly Not Reportable 04/06/20 05:53 Kelly Rods Not Reportable 04/06/20 05:53 Platelet Estimate Consistent w auto 04/06/20 05:53 Clumped Platelets Not Reportable 04/06/20 05:53 Plt Clumps, EDTA Not Reportable 04/06/20 05:53 Large Platelets Not Reportable 04/06/20 05:53 Giant Platelets Not Reportable 04/06/20 05:53 Platelet Satelliting Not Reportable 04/06/20 05:53 Plt Morphology Comment Not Reportable 04/06/20 05:53 RBC Morphology Not Reportable 04/06/20 05:53 Dimorphic RBCs Not Reportable 04/06/20 05:53 Polychromasia Not Reportable 04/06/20 05:53 Hypochromasia Not Reportable 04/06/20 05:53 Poikilocytosis Not Reportable 04/06/20 05:53 Anisocytosis Few 04/06/20 05:53 Microcytosis Not Reportable 04/06/20 05:53 Macrocytosis Few 04/06/20 05:53 Spherocytes Not Reportable 04/06/20 05:53 Pappenheimer Bodies Not Reportable 04/06/20 05:53 Sickle Cells Not Reportable 04/06/20 05:53 Target Cells Not Reportable 04/06/20 05:53 Tear Drop Cells Rare 04/06/20 05:53 Ovalocytes Not Reportable 04/06/20 05:53 Helmet Cells Not Reportable 04/06/20 05:53 Pollack-Drake Bodies Not Reportable 04/06/20 05:53 [place] Rings Not Reportable 04/06/20 05:53 [place] Cells Not Reportable 04/06/20 05:53 Bite Cells Not Reportable 04/06/20 05:53 Crenated Cell Not Reportable 04/06/20 05:53 Elliptocytes Not Reportable 04/06/20 05:53 Acanthocytes (Spur) Not Reportable 04/06/20 05:53 Rouleaux Not Reportable 04/06/20 05:53 Hemoglobin C Crystals Not Reportable 04/06/20 05:53 Schistocytes Not Reportable 04/06/20 05:53 Malaria parasites Not Reportable 04/06/20 05:53 Ronnie Bodies Not Reportable 04/06/20 05:53 Hem Pathologist Commnt No 04/06/20 05:53 PT 15.9 Sec. (12.2-14.9) H 04/05/20 10:40 INR 1.27 (0.87-1.13) H 04/05/20 10:40 APTT 30.3 Sec. (24.2-36.6) 04/05/20 10:40 D-Dimer 1139.66 ng/mlDDU (0-234) H 04/08/20 04:00 Sodium 142 mmol/L (137-145) 04/08/20 05:16 Potassium 3.2 mmol/L (3.6-5.0) L 04/08/20 05:16 Chloride 108.7 mmol/L (98-107) H 04/08/20 05:16 Carbon Dioxide 30 mmol/L (22-30) 04/08/20 05:16 Anion Gap 7 mmol/L 04/08/20 05:16 BUN 28 mg/dL (9-20) H 04/08/20 05:16 Creatinine 0.6 mg/dL (0.8-1.3) L 04/08/20 05:16 Estimated GFR > 60 ml/min 04/08/20 05:16 BUN/Creatinine Ratio 47 % 04/08/20 05:16 Glucose 126 mg/dL (75-100) H 04/08/20 05:16 Hemoglobin A1c 4.5 % (4-6) 04/05/20 10:40 Lactic Acid 1.40 mmol/L (0.7-2.0) 04/05/20 10:40 Calcium 7.8 mg/dL (8.4-10.2) L 04/08/20 05:16 Ferritin 1118.0 ng/mL (30.0-300.0) H 04/08/20 05:16 Total Bilirubin 1.30 mg/dL (0.1-1.2) H 04/08/20 05:16 Direct Bilirubin 0.8 mg/dL (0-0.2) H 04/08/20 05:16 Indirect Bilirubin 0.5 mg/dL 04/08/20 05:16 AST 114 units/L (5-40) H 04/08/20 05:16 ALT 73 units/L (7-56) H 04/08/20 05:16 Alkaline Phosphatase 132 units/L (35-129) H 04/08/20 05:16 Lactate Dehydrogenase 502 units/L (91-180) H 04/08/20 05:16 Troponin T < 0.010 ng/mL (0.00-0.029) 04/05/20 14:17 C-Reactive Protein 0.70 mg/dL (0.00-1.30) 04/08/20 05:16 NT-Pro-B Natriuret Pep 216.4 pg/mL (0-900) 04/05/20 10:40 Total Protein 6.7 g/dL (6.3-8.2) 04/08/20 05:16 Albumin 1.9 g/dL (3.9-5) L 04/08/20 05:16 Albumin/Globulin Ratio 0.4 % 04/08/20 05:16 Lipase 21 units/L (13-60) 04/05/20 10:40 Procalcitonin 0.14 ng/mL (<0.15) 04/06/20 14:24 Urine Color Yellow (Yellow) 04/05/20 Unknown Urine Turbidity Clear (Clear) 04/05/20 Unknown Urine pH 6.0 (5.0-7.0) 04/05/20 Unknown Ur Specific [place] 1.006 (1.003-1.030) 04/05/20 Unknown Urine Protein <15 mg/dl mg/dL (Negative) 04/05/20 Unknown Urine Glucose (UA) Neg mg/dL (Negative) 04/05/20 Unknown Urine Ketones Neg mg/dL (Negative) 04/05/20 Unknown Urine Blood Sm (Negative) 04/05/20 Unknown Urine Nitrite Neg (Negative) 04/05/20 Unknown Urine Bilirubin Neg (Negative) 04/05/20 Unknown Urine Urobilinogen < 2.0 mg/dL (<2.0) 04/05/20 Unknown Ur Leukocyte Esterase Neg (Negative) 04/05/20 Unknown Urine WBC (Auto) < 1.0 /HPF (0.0-6.0) 04/05/20 Unknown Urine RBC (Auto) 6.0 /HPF (0.0-6.0) 04/05/20 Unknown U Epithel Cells (Auto) < 1.0 /HPF (0-13.0) 04/05/20 Unknown Hyaline Casts 1 /LPF 04/05/20 Unknown Urine Mucus Few /HPF 04/05/20 Unknown Urine Opiates Screen Negative 04/05/20 Unknown Urine Methadone Screen Negative 04/05/20 Unknown Ur Barbiturates Screen Negative 04/05/20 Unknown Ur Phencyclidine Scrn Negative 04/05/20 Unknown Ur Amphetamines Screen Presumptive positive 04/05/20 Unknown U Benzodiazepines Scrn Negative 04/05/20 Unknown Urine Cocaine Screen Negative 04/05/20 Unknown U Marijuana (THC) Screen Negative 04/05/20 Unknown Drugs of Abuse Note Disclamer 04/05/20 Unknown Coronavirus (PCR) Positive (Negative) A 04/06/20 Unknown Hepatitis A IgM Ab Non-reactive (NonReactive) 04/06/20 08:04 Hep Bs Antigen Non-reactive (Negative) 04/06/20 08:04 Hep B Core IgM Ab Non-reactive (NonReactive) 04/06/20 08:04 Hepatitis C Antibody Reactive (NonReactive) A 04/06/20 08:04 Microbiology: Microbiology 04/05/20 10:40 Peripheral/Venous Blood Culture - Preliminary NO GROWTH AFTER 48 HOURS 04/05/20 10:40 Peripheral/Venous Blood Culture - Preliminary NO GROWTH AFTER 48 HOURS Rogers/IV: Voiding Method Condom Catheter IV Catheter Type [Right Wrist] INT / Saline Lock IV Catheter Type [Right Upper INT / Saline Lock arm] Active Medications - Current Medications Current Medications: Generic Name Dose Route Start Last Admin Trade Name Freq PRN Reason Stop Dose Admin Acetaminophen 650 mg 04/05/20 23:41 Tylenol PO Q4H PRN Pain MILD(1-3)/Fever >100.5/[facility] Chlordiazepoxide HCl 50 mg 04/06/20 06:45 04/06/20 22:43 Librium PO 50 mg Q1H PRN Administration [facility]-Ar 8-15 Chlordiazepoxide HCl 100 mg 04/06/20 06:45 Librium PO Q1H PRN [facility]-Or 16-25 Dexamethasone 6 mg 04/07/20 10:00 04/07/20 10:14 Decadron IV 04/15/20 10:01 6 mg Q24HR LUPE Administration Enoxaparin Sodium 40 mg 04/06/20 22:00 04/07/20 21:45 Enoxaparin SUB-Q 40 mg QDAY@2200 LUPE Administration Protocol Famotidine 20 mg 04/06/20 10:00 04/07/20 21:45 Pepcid PO 20 mg BID LUPE Administration Furosemide 40 mg 04/06/20 10:00 04/07/20 10:13 Lasix IV 40 mg QDAY LUPE Administration Ceftriaxone Sodium 2 gm in 100 mls @ 200 mls/hr 04/06/20 10:00 04/07/20 10:13 Rocephin/Ns 2 Gm/100 Ml IV 04/09/20 10:29 200 mls/hr Q24HR LUPE Administration Protocol REMDESIVIR 100 mg/ Sodium 250 mls @ 500 mls/hr 04/08/20 21:00 Chloride IV 04/11/20 21:29 Q24HR@2100 LUPE Lorazepam 2 mg 04/06/20 06:45 Ativan IV Q1H PRN [facility]-Or 8-15 Lorazepam 4 mg 04/06/20 06:45 Ativan IV Q1H PRN [facility]-Or 16-25 Morphine Sulfate 2 mg 04/05/20 23:41 Morphine IV Q4H PRN Pain, Moderate (4-6) Ondansetron HCl 4 mg 04/05/20 23:41 Zofran IV Q8H PRN Nausea And Vomiting Oxycodone/Acetaminophen 1 tab 04/05/20 23:41 Percocet 5/325 PO Q6H PRN Pain, Moderate (4-6) Potassium Chloride 20 meq 12/08/20 10:00 04/07/20 10:14 K-Dur PO 20 meq QDAY LUPE Administration Potassium Chloride 40 meq 04/08/20 07:38 Potassium Chloride Er 20 Meq Tab PO 04/08/20 07:39 ONCE ONE Sodium Chloride 10 ml 04/06/20 10:00 04/07/20 21:46 Sodium Chloride Flush Syringe 10 Ml IV 10 ml BID LUPE Administration Sodium Chloride 10 ml 04/05/20 23:41 Sodium Chloride Flush Syringe 10 Ml IV PRN PRN LINE FLUSH Sodium Chloride 50 ml 04/07/20 10:00 04/07/20 16:26 Nacl 0.9% IV 04/11/20 21:01 50 ml Q24HR@2100 LUPE Administration
[2020-04-08] MEDS: chlordiazePOXIDE 25 MG CAP PO PRN ×3 (08:14→22:14)
--- NOTE | 2020-04-08 09:51 | Progress Note ---
Assessment and Plan Cultures: Blood culture no growth today SARS CoV2 PCR positive Assessment: 59 years old male with history of hepatitis C with cirrhosis, ascites, gastrosplenic varices, hypertension, meth abuse, admitted on 04/05/2020 secondary to 2-week history of worsening generalized body edema, cough and shortness of breath. EMS found O2 sats down to 85%: #Severe COVID-19 pneumonia: Abdominal CT with patchy airspace disease bilateral bases. Procalcitonin 0.2. Markers elevated, Ddimer worsening. #Acute hypoxemic respiratory failure: Unclear etiology, COVID pneumonia +/- pleural effusion. Remains severely hypoxic on HFNC #Hepatitis C with cirrhosis, large ascites, pleural effusion, varices and a splenomegaly #Elevated LFTs: From hepatitis C #Thrombocytopenia: From hepatitis C #Amphetamine abuse Recommendations: -Continue remdesivir D2 of 5 -Continue dexamethasone 6 mg p.o./IV daily for 10 days D2 of 10 -Continue ceftriaxone total 5 days and azithromycin total 3 days -Pulmonary consult-pending. Consider thoracentesis in light of severe hypoxia and pleural effusion -Anticoagulation per hospital protocol -Prone positioning as tolerated -Covid inflammatory markers every 48 hours Very guarded prognosis All laboratory, cultures and imaging were reviewed. Will follow Kenya Deras MD Infectious Diseases [employer] Saw [employer] [facility] M [phone] O [phone] Subjective Date of service: 04/08/20 Principal diagnosis: COVID Interval history: Patient remains on HFNC no fever Objective - Exam Narrative Exam: Physical Exam: reviewed ED and hospitalist notes, limited due to conservation of PPE and decrease risk of transmission. General appearance: limited due to conservation of PPE Eyes: limited due to conservation of PPE HENT: Atraumatic; limited due to conservation of PPE Lungs: limited due to conservation of PPE CV: limited due to conservation of PPE Abdomen: limited due to conservation of PPE Extremities: limited due to conservation of PPE Skin: limited due to conservation of PPE Psych: limited due to conservation of PPE Neuro: limited due to conservation of PPE - Constitutional Vitals: Vital Signs Temp Pulse Resp BP Pulse Ox 97.9 F 75 20 127/82 94 04/07/20 23:42 04/07/20 23:42 04/07/20 23:42 04/07/20 23:42 04/08/20 08:28 Temperature -Last 24 Hours Temperature 97.9 F Temperature 97.6 F Temperature 97.9 F - Labs CBC & Chem 7: 04/07/20 06:01 04/08/20 05:16 Labs: Abnormal lab results 04/08/20 04/08/20 04/08/20 Range/Units 04:00 05:16 05:16 D-Dimer 1139.66 H (0-234) ng/mlDDU Potassium 3.2 L (3.6-5.0) mmol/L Chloride 108.7 H (98-107) mmol/L BUN 28 H (9-20) mg/dL Creatinine 0.6 L (0.8-1.3) mg/dL Glucose 126 H (75-100) mg/dL Calcium 7.8 L (8.4-10.2) mg/dL Ferritin 1118.0 H (30.0-300.0) ng/mL Total Bilirubin 1.30 H (0.1-1.2) mg/dL Direct Bilirubin 0.8 H (0-0.2) mg/dL AST 114 H (5-40) units/L ALT 73 H (7-56) units/L Alkaline Phosphatase 132 H (35-129) units/L Lactate Dehydrogenase 502 H (91-180) units/L Albumin 1.9 L (3.9-5) g/dL
[2020-04-08] MEDS: FAMOTIDINE 20 MG TAB PO SCH ×2 (10:58→22:09)
[2020-04-08] MEDS: cefTRIAXone/NS 2 GM/100 ML 2 GM/100 ML BAG IV SCH (10:58)
[2020-04-08] MEDS: dexAMETHasone 4 MG/ML VIAL IV SCH (10:58)
[2020-04-08] MEDS: SPIRONOLACTONE 50 MG TAB PO SCH (10:58)
[2020-04-08] MEDS: POTASSIUM CHLORIDE ER 20 MEQ TAB PO SCH (10:59)
[2020-04-08] MEDS: FUROSEMIDE 40 MG/4 ML INJ IV SCH (10:59)
[2020-04-08] MEDS ORDERED: POTASSIUM CHLORIDE ER 20 MEQ TAB PO ONE (12:00)
[2020-04-08] MEDS: LORazepam 2 MG/ML VIAL IV PRN ×4 (13:51→22:13)
[2020-04-08] MEDS: REMDESIVIR 100 MG in SODIUM CHLORIDE 0.9% 250ML 250 ML IV SCH (22:07)
[2020-04-08] MEDS: ENOXAPARIN 40 MG/0.4 ML INJ SUB-Q SCH (22:08)
[2020-04-08] MEDS ORDERED: ALBUTEROL 2.5 MG/3 ML NEBU IH ONE (22:49)
[2020-04-08] MEDS ORDERED: ALBUTEROL 2.5 MG/3 ML NEBU IH PRN (23:00)
[2020-04-08] MEDS ORDERED: THIAMINE 100 MG, FOLIC ACID 1 MG, MULTIPLE VITAMIN INJ, ADULT 10 ML in SODIUM CHLORIDE ... IV ONE (23:47)
[2020-04-09] MEDS: ZIPRASIDONE MESYLATE 20 MG VIAL IM PRN ×3 (01:48→17:48)
[2020-04-09 06:01] LABS: Hematocrit 37.5 % (35.5-45.6); Hemoglobin 12.7 gm/dl (11.8-15.2); Mean Corpuscular HGB Conc 34 % (32-34); Mean Corpuscular Volume 100 fl (84-94); Red Blood Count 3.74 M/mm3 (3.65-5.03); Red Cell Distribution Width 16.2 % (13.2-15.2)
[2020-04-09 06:05] LABS: Blood Urea Nitrogen 25 mg/dL (9-20); Calcium 7.8 mg/dL (8.4-10.2); Hemolysis Index 48
[2020-04-09 06:12] LABS: BUN/Creatinine Ratio 42
[2020-04-09 06:14] LABS: Platelet Count TNR K/mm3 (140-440)
[2020-04-09 07:01] LABS: Total Cells Counted 100
[2020-04-09 07:02] LABS: Ovalocytes Few; Rouleaux Few; Tear Drop Cells Few
[2020-04-09 07:03] LABS: Platelet Estimate Appears Decreased; Schistocytes Rare
--- NOTE | 2020-04-09 08:59 | Progress Note ---
Assessment and Plan Assessment and plan: (1) Acute respiratory failure with hypoxia Current Visit: Yes Status: Acute Plan to address problem: Patient is hypoxic Oxygen supplement as necessary (2) Bilateral pneumonia Current Visit: Yes Status: Acute Plan to address problem: Started on IV Ceftriaxone and IV Zithromaxx IV Decadron, ID consult requested BNP low--hence no chf (3)COVID-19 virus infection Current Visit: Yes Status: Acute Plan to address problem: Patient is on IV Decadron and remdesivir ID consult appreciated (4) HTN (hypertension) Current Visit: Yes Status: Acute (5) HTN (hypertension) Current Visit: Yes Status: Chronic Qualifiers: Hypertension type: essential hypertension Qualified Code(s): I10 - Essential (primary) hypertension Plan to address problem: Initiate antihypertensives if necessary (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 Plan to address problem: To be counselled (7) Transaminitis Current Visit: Yes Status: Acute Plan to address problem: Sec to Covid or ETOH Hepatitis profile; hepatitis C positive CIWA initiated (8) Malnutrition Current Visit: Yes Status: Chronic Qualifiers: Protein-calorie malnutrition severity: moderate Plan to address problem: Dietitian consult (9) Hyponatremia Current Visit: Yes Status: Acute Plan to address problem: Mild (10) DVT prophylaxis Current Visit: Yes Status: Acute Plan to address problem: On Lovenox 04/08/2020; patient was seen and evaluated this morning and is on 10 L of oxygen. Patient is on Decadron and remdesivir. ID is following the patient. Hypokalemia repleted. 04/09/2020; patient is on 15 L of oxygen. Continue IV Decadron and remdesivir. Continue IV Lasix and spironolactone for ascites/generalized swelling. Patient required BiPAP overnight. Patient has confusion and currently on restraints. We will check ammonia level, CT head. History Interval history: Patient has shortness of breath Patient is on 15 L of oxygen Patient required BiPAP overnight Patient was confused overnight and on restraints Hospitalist Physical - Physical exam Narrative exam: Patient is on 15L of oxygen The patient appeared well nourished and normally developed. Vital signs as documented. Head exam is unremarkable. No scleral icterus . Neck is without jugular venous distension, thyromegaly, or carotid bruits. Lungs are clear to auscultation. Cardiac exam reveals regular rate and Rhythm. Abdominal exam reveals ascites. 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 - Constitutional Vitals: Temp Pulse Resp BP Pulse Ox 32.1 F L 94 H 22 135/106 99 04/08/20 13:41 04/09/20 04:55 04/09/20 04:55 04/09/20 04:55 04/09/20 04:55 General appearance: Present: mild distress, well-nourished HEART Score - HEART Score Age: 45-65 Risk factors: 1-2 risk factors Troponin: Troponin T < 0.010 ng/mL (0.00-0.029) 04/05/20 14:17 Troponin: < normal limit - Critical Actions Critical Actions: 0-3 pts:0.9-1.7%risk of adverse cardiac event.Candidate for discharge Results - Labs CBC & Chem 7: 04/09/20 05:33 04/09/20 05:33 Labs: Laboratory Last Values WBC 2.2 K/mm3 (4.5-11.0) L 04/09/20 05:33 RBC 3.74 M/mm3 (3.65-5.03) 04/09/20 05:33 Hgb 12.7 gm/dl (11.8-15.2) 04/09/20 05:33 Hct 37.5 % (35.5-45.6) 04/09/20 05:33 MCV 100 fl (84-94) H 04/09/20 05:33 MCH 34 pg (28-32) H 04/09/20 05:33 MCHC 34 % (32-34) 04/09/20 05:33 RDW 16.2 % (13.2-15.2) H 04/09/20 05:33 Plt Count TNR 04/09/20 05:33 Lymph % (Auto) 15.2 % (13.4-35.0) 04/07/20 06:01 Ma[place]ick % (Auto) Closet Builder 04/07/20 06:01 Eos % (Auto) 0.0 % (0.0-4.3) 04/07/20 06:01 Baso % (Auto) 0.4 % (0.0-1.8) 04/07/20 06:01 Lymph # (Auto) 1.0 K/mm3 (1.2-5.4) L 04/07/20 06:01 [place]ick # (Auto) 1.2 K/mm3 (0.0-0.8) H 04/07/20 06:01 Eos # (Auto) 0.0 K/mm3 (0.0-0.4) 04/07/20 06:01 Baso # (Auto) 0.0 K/mm3 (0.0-0.1) 04/07/20 06:01 Add Manual Diff Complete 04/09/20 05:33 Total Counted 100 04/09/20 05:33 Seg Neutrophils % 65.0 % (40.0-70.0) 04/07/20 06:01 Seg Neuts % (Manual) 72.0 % (40.0-70.0) H 04/09/20 05:33 Band Neutrophils % 0 % 04/06/20 05:53 Lymphocytes % (Manual) 21.0 % (13.4-35.0) 04/09/20 05:33 Reactive Lymphs % (Man) 0 % 04/06/20 05:53 Monocytes % (Manual) 7.0 % (0.0-7.3) 04/09/20 05:33 Eosinophils % (Manual) 0 % (0.0-4.3) 04/06/20 05:53 Basophils % (Manual) 0 % (0.0-1.8) 04/06/20 05:53 Metamyelocytes % 0 % 04/06/20 05:53 Myelocytes % 0 % 04/06/20 05:53 Promyelocytes % 0 % 04/06/20 05:53 Blast Cells % 0 % 04/06/20 05:53 Nucleated RBC % Not Reportable 04/09/20 05:33 Seg Neutrophils # 4.1 K/mm3 (1.8-7.7) 04/07/20 06:01 Seg Neutrophils # Man 1.6 K/mm3 (1.8-7.7) L 04/09/20 05:33 Band Neutrophils # 0.0 K/mm3 04/09/20 05:33 Lymphocytes # (Manual) 0.5 K/mm3 (1.2-5.4) L 04/09/20 05:33 Abs React Lymphs (Man) 0.0 K/mm3 04/09/20 05:33 Monocytes # (Manual) 0.2 K/mm3 (0.0-0.8) 04/09/20 05:33 Eosinophils # (Manual) 0.0 K/mm3 (0.0-0.4) 04/09/20 05:33 Basophils # (Manual) 0.0 K/mm3 (0.0-0.1) 04/09/20 05:33 Metamyelocytes # 0.0 K/mm3 04/09/20 05:33 Myelocytes # 0.0 K/mm3 04/09/20 05:33 Promyelocytes # 0.0 K/mm3 04/09/20 05:33 Blast Cells # 0.0 K/mm3 04/09/20 05:33 WBC Morphology Not Reportable 04/09/20 05:33 Hypersegmented Neuts Not Reportable 04/09/20 05:33 Hyposegmented Neuts Not Reportable 04/09/20 05:33 Hypogranular Neuts Not Reportable 04/09/20 05:33 Smudge Cells Not Reportable 04/09/20 05:33 Toxic Granulation Not Reportable 04/09/20 05:33 Toxic Vacuolation Not Reportable 04/09/20 05:33 Dohle Bodies Not Reportable 04/09/20 05:33 Pelger-Huet Anomaly Not Reportable 04/09/20 05:33 Kelly Rods Not Reportable 04/09/20 05:33 Platelet Estimate Appears decreased 04/09/20 05:33 Clumped Platelets Not Reportable 04/09/20 05:33 Plt Clumps, EDTA Not Reportable 04/09/20 05:33 Large Platelets Not Reportable 04/09/20 05:33 Giant Platelets Not Reportable 04/09/20 05:33 Platelet Satelliting Not Reportable 04/09/20 05:33 Plt Morphology Comment Not Reportable 04/09/20 05:33 RBC Morphology Not Reportable 04/09/20 05:33 Dimorphic RBCs Not Reportable 04/09/20 05:33 Polychromasia Not Reportable 04/09/20 05:33 Hypochromasia Not Reportable 04/09/20 05:33 Poikilocytosis Not Reportable 04/09/20 05:33 Anisocytosis Not Reportable 04/09/20 05:33 Microcytosis Not Reportable 04/09/20 05:33 Macrocytosis Not Reportable 04/09/20 05:33 Spherocytes Not Reportable 04/09/20 05:33 Pappenheimer Bodies Not Reportable 04/09/20 05:33 Sickle Cells Not Reportable 04/09/20 05:33 Target Cells Not Reportable 04/09/20 05:33 Tear Drop Cells Few 04/09/20 05:33 Ovalocytes Few 04/09/20 05:33 Helmet Cells Not Reportable 04/09/20 05:33 [place] Bodies Not Reportable 04/09/20 05:33 [place] Rings Not Reportable 04/09/20 05:33 [place] Cells Not Reportable 04/09/20 05:33 Bite Cells Not Reportable 04/09/20 05:33 Crenated Cell Not Reportable 04/09/20 05:33 Elliptocytes Not Reportable 04/09/20 05:33 Acanthocytes (Spur) Not Reportable 04/09/20 05:33 Rouleaux Few 04/09/20 05:33 Hemoglobin C Crystals Not Reportable 04/09/20 05:33 Schistocytes Rare 04/09/20 05:33 Malaria parasites Not Reportable 04/09/20 05:33 Ronnie Bodies Not Reportable 04/09/20 05:33 Hem Pathologist Commnt No 04/09/20 05:33 PT 15.9 Sec. (12.2-14.9) H 04/05/20 10:40 INR 1.27 (0.87-1.13) H 04/05/20 10:40 APTT 30.3 Sec. (24.2-36.6) 04/05/20 10:40 D-Dimer 1139.66 ng/mlDDU (0-234) H 04/08/20 04:00 Sodium 142 mmol/L (137-145) 04/09/20 05:33 Potassium 4.0 mmol/L (3.6-5.0) D 04/09/20 05:33 Chloride 109.2 mmol/L (98-107) H 04/09/20 05:33 Carbon Dioxide 26 mmol/L (22-30) 04/09/20 05:33 Anion Gap 11 mmol/L 04/09/20 05:33 BUN 25 mg/dL (9-20) H 04/09/20 05:33 Creatinine 0.6 mg/dL (0.8-1.3) L 04/09/20 05:33 Estimated GFR > 60 ml/min 04/09/20 05:33 BUN/Creatinine Ratio 42 % 04/09/20 05:33 Glucose 98 mg/dL (75-100) 04/09/20 05:33 POC Glucose 77 mg/dL (70-105) 04/08/20 23:21 Hemoglobin A1c 4.5 % (4-6) 04/05/20 10:40 Lactic Acid 1.40 mmol/L (0.7-2.0) 04/05/20 10:40 Calcium 7.8 mg/dL (8.4-10.2) L 04/09/20 05:33 Ferritin 1118.0 ng/mL (30.0-300.0) H 04/08/20 05:16 Total Bilirubin 1.30 mg/dL (0.1-1.2) H 04/08/20 05:16 Direct Bilirubin 0.8 mg/dL (0-0.2) H 04/08/20 05:16 Indirect Bilirubin 0.5 mg/dL 04/08/20 05:16 AST 114 units/L (5-40) H 04/08/20 05:16 ALT 73 units/L (7-56) H 04/08/20 05:16 Alkaline Phosphatase 132 units/L (35-129) H 04/08/20 05:16 Lactate Dehydrogenase 502 units/L (91-180) H 04/08/20 05:16 Troponin T < 0.010 ng/mL (0.00-0.029) 04/05/20 14:17 C-Reactive Protein 0.70 mg/dL (0.00-1.30) 04/08/20 05:16 NT-Pro-B Natriuret Pep 216.4 pg/mL (0-900) 04/05/20 10:40 Total Protein 6.7 g/dL (6.3-8.2) 04/08/20 05:16 Albumin 1.9 g/dL (3.9-5) L 04/08/20 05:16 Albumin/Globulin Ratio 0.4 % 04/08/20 05:16 Lipase 21 units/L (13-60) 04/05/20 10:40 Procalcitonin 0.14 ng/mL (<0.15) 04/06/20 14:24 Urine Color Yellow (Yellow) 04/05/20 Unknown Urine Turbidity Clear (Clear) 04/05/20 Unknown Urine pH 6.0 (5.0-7.0) 04/05/20 Unknown Ur Specific [place] 1.006 (1.003-1.030) 04/05/20 Unknown Urine Protein <15 mg/dl mg/dL (Negative) 04/05/20 Unknown Urine Glucose (UA) Neg mg/dL (Negative) 04/05/20 Unknown Urine Ketones Neg mg/dL (Negative) 04/05/20 Unknown Urine Blood Sm (Negative) 04/05/20 Unknown Urine Nitrite Neg (Negative) 04/05/20 Unknown Urine Bilirubin Neg (Negative) 04/05/20 Unknown Urine Urobilinogen < 2.0 mg/dL (<2.0) 04/05/20 Unknown Ur Leukocyte Esterase Neg (Negative) 04/05/20 Unknown Urine WBC (Auto) < 1.0 /HPF (0.0-6.0) 04/05/20 Unknown Urine RBC (Auto) 6.0 /HPF (0.0-6.0) 04/05/20 Unknown U Epithel Cells (Auto) < 1.0 /HPF (0-13.0) 04/05/20 Unknown Hyaline Casts 1 /LPF 04/05/20 Unknown Urine Mucus Few /HPF 04/05/20 Unknown Urine Opiates Screen Negative 04/05/20 Unknown Urine Methadone Screen Negative 04/05/20 Unknown Ur Barbiturates Screen Negative 04/05/20 Unknown Ur Phencyclidine Scrn Negative 04/05/20 Unknown Ur Amphetamines Screen Presumptive positive 04/05/20 Unknown U Benzodiazepines Scrn Negative 04/05/20 Unknown Urine Cocaine Screen Negative 04/05/20 Unknown U Marijuana (THC) Screen Negative 04/05/20 Unknown Drugs of Abuse Note Disclamer 04/05/20 Unknown Coronavirus (PCR) Positive (Negative) A 04/06/20 Unknown Hepatitis A IgM Ab Non-reactive (NonReactive) 04/06/20 08:04 Hep Bs Antigen Non-reactive (Negative) 04/06/20 08:04 Hep B Core IgM Ab Non-reactive (NonReactive) 04/06/20 08:04 Hepatitis C Antibody Reactive (NonReactive) A 04/06/20 08:04 Microbiology: Microbiology 04/05/20 10:40 Peripheral/Venous Blood Culture - Preliminary NO GROWTH AFTER 72 HOURS 04/05/20 10:40 Peripheral/Venous Blood Culture - Preliminary NO GROWTH AFTER 72 HOURS Rogers/IV: Voiding Method Incontinent IV Catheter Type [Left Forearm Peripheral IV ] IV Catheter Type [Right Wrist] INT / Saline Lock IV Catheter Type [Right Upper INT / Saline Lock arm] Active Medications - Current Medications Current Medications: Generic Name Dose Route Start Last Admin Trade Name Freq PRN Reason Stop Dose Admin Acetaminophen 650 mg 04/05/20 23:41 Tylenol PO Q4H PRN Pain MILD(1-3)/Fever >100.5/CHRISTIANSON Albuterol 2.5 mg 04/08/20 23:00 Albuterol 2.5 Mg/3 Ml Nebu IH Q4HRT PRN Shortness Of Breath Chlordiazepoxide HCl 50 mg 04/06/20 06:45 04/08/20 22:14 Librium PO 50 mg Q1H PRN Administration CIWA-Ar 8-15 Chlordiazepoxide HCl 100 mg 04/06/20 06:45 Librium PO Q1H PRN CIWA-Ar 16-25 Dexamethasone 6 mg 04/07/20 10:00 04/08/20 10:58 Decadron IV 04/15/20 10:01 6 mg Q24HR LUPE Administration Enoxaparin Sodium 40 mg 04/06/20 22:00 04/08/20 22:08 Enoxaparin SUB-Q 40 mg QDAY@2200 LUPE Administration Protocol Famotidine 20 mg 04/06/20 10:00 04/08/20 22:09 Pepcid PO 20 mg BID LUPE Administration Furosemide 40 mg 04/06/20 10:00 04/08/20 10:59 Lasix IV 40 mg QDAY LUPE Administration Ceftriaxone Sodium 2 gm in 100 mls @ 200 mls/hr 04/06/20 10:00 04/08/20 10:58 Rocephin/Ns 2 Gm/100 Ml IV 04/09/20 10:29 200 mls/hr Q24HR LUPE Administration Protocol REMDESIVIR 100 mg/ Sodium 250 mls @ 500 mls/hr 04/08/20 21:00 04/09/20 01:13 Chloride IV 04/11/20 21:29 Infused Q24HR@2100 LUPE Infusion Lorazepam 2 mg 04/06/20 06:45 04/08/20 20:25 Ativan IV 2 mg Q1H PRN Administration CIWA-Ar 8-15 Lorazepam 4 mg 04/06/20 06:45 04/08/20 22:13 Ativan IV 4 mg Q1H PRN Administration CIWA-Ar 16-25 Morphine Sulfate 2 mg 04/05/20 23:41 Morphine IV Q4H PRN Pain, Moderate (4-6) Ondansetron HCl 4 mg 04/05/20 23:41 Zofran IV Q8H PRN Nausea And Vomiting Oxycodone/Acetaminophen 1 tab 04/05/20 23:41 Percocet 5/325 PO Q6H PRN Pain, Moderate (4-6) Potassium Chloride 20 meq 04/06/20 10:00 04/08/20 10:59 K-Dur PO 20 meq QDAY LUPE Administration Sodium Chloride 10 ml 04/06/20 10:00 04/08/20 22:08 Sodium Chloride Flush Syringe 10 Ml IV 10 ml BID LUPE Administration Sodium Chloride 10 ml 04/05/20 23:41 Sodium Chloride Flush Syringe 10 Ml IV PRN PRN LINE FLUSH Spironolactone 100 mg 04/08/20 10:00 04/08/20 10:58 Spironolactone 50 Mg Tab PO 100 mg QDAY LUPE Administration Ziprasidone 10 mg 04/08/20 23:02 04/09/20 01:48 Ziprasidone Mesylate 20 Mg Vial IM 10 mg Q4H PRN Administration Agitation
[2020-04-09] MEDS: cefTRIAXone/NS 2 GM/100 ML 2 GM/100 ML BAG IV SCH (11:04)
[2020-04-09] MEDS: FUROSEMIDE 40 MG/4 ML INJ IV SCH (11:05)
[2020-04-09] MEDS: FAMOTIDINE 20 MG TAB PO SCH ×2 (11:06→22:26)
[2020-04-09] MEDS: POTASSIUM CHLORIDE ER 20 MEQ TAB PO SCH (11:06)
[2020-04-09] MEDS: SPIRONOLACTONE 50 MG TAB PO SCH (11:06)
[2020-04-09] MEDS: DEXAMETHASONE 4 MG TAB PO SCH (11:10)
[2020-04-09] MEDS ORDERED: WATER FOR INJ Sterile (PF) 10 ML ONE (12:43)
--- NOTE | 2020-04-09 13:04 | Progress Note ---
Assessment and Plan Cultures: Blood culture no growth today SARS CoV2 PCR positive Assessment: 59 years old male with history of hepatitis C with cirrhosis, ascites, gastrosplenic varices, hypertension, meth abuse, admitted on 04/05/2020 secondary to 2-week history of worsening generalized body edema, cough and shortness of breath. EMS found O2 sats down to 85%: #Severe COVID-19 pneumonia: Abdominal CT with patchy airspace disease bilateral bases. Procalcitonin 0.2. Markers elevated, Ddimer worsening. #Acute hypoxemic respiratory failure: Unclear etiology, COVID pneumonia +/- pleural effusion. Remains severely hypoxic on HFNC #Hepatitis C with cirrhosis, large ascites, pleural effusion, varices and a splenomegaly #Elevated LFTs: From hepatitis C #Thrombocytopenia: From hepatitis C #Amphetamine abuse Recommendations: -Pulmonary consult-pending. Consider thoracentesis in light of severe hypoxia and pleural effusion -Continue remdesivir D3 of 5 -Continue dexamethasone 6 mg p.o./IV daily for 10 days D3 of 10 -Continue ceftriaxone total 5 days and azithromycin total 3 days -Anticoagulation per hospital protocol -Prone positioning as tolerated -Covid inflammatory markers every 48 hours Very guarded prognosis All laboratory, cultures and imaging were reviewed. Discussed with attending today to call pulmonary for consultation patient severely hypoxic. Will follow Kenya Deras MD Infectious Diseases [facility] M [phone] Subjective Date of service: 04/09/20 Principal diagnosis: COVID Interval history: Patient remains on HFNC no fever Objective - Exam Narrative Exam: Physical Exam: reviewed ED and hospitalist notes, limited due to conservation of PPE and decrease risk of transmission. General appearance: limited due to conservation of PPE Eyes: limited due to conservation of PPE HENT: Atraumatic; limited due to conservation of PPE Lungs: limited due to conservation of PPE CV: limited due to conservation of PPE Abdomen: limited due to conservation of PPE Extremities: limited due to conservation of PPE Skin: limited due to conservation of PPE Psych: limited due to conservation of PPE Neuro: limited due to conservation of PPE - Constitutional Vitals: Vital Signs Temp Pulse Resp BP Pulse Ox 32.1 F L 94 H 22 135/106 100 04/08/20 13:41 04/09/20 04:55 04/09/20 04:55 04/09/20 04:55 04/09/20 12:25 Temperature -Last 24 Hours Temperature 32.1 F - Labs CBC & Chem 7: 04/09/20 05:33 04/09/20 05:33 Labs: Abnormal lab results 04/09/20 04/09/20 Range/Units 05:33 05:33 WBC 2.2 L (4.5-11.0) K/mm3 MCV 100 H (84-94) fl MCH 34 H (28-32) pg RDW 16.2 H (13.2-15.2) % Seg Neuts % (Manual) 72.0 H (40.0-70.0) % Seg Neutrophils # Man 1.6 L (1.8-7.7) K/mm3 Lymphocytes # (Manual) 0.5 L (1.2-5.4) K/mm3 Chloride 109.2 H (98-107) mmol/L BUN 25 H (9-20) mg/dL Creatinine 0.6 L (0.8-1.3) mg/dL Calcium 7.8 L (8.4-10.2) mg/dL
--- NOTE | 2020-04-09 14:47 | XRay Report ---
CHEST 1 VIEW 2:26 PM INDICATION / CLINICAL INFORMATION: SOB. COMPARISON: 04/05/2020. FINDINGS: SUPPORT DEVICES: None. HEART / MEDIASTINUM: Unchanged. LUNGS / PLEURA: Moderate parenchymal disease in the right lung, predominantly in the upper lobe, appe ars slightly increased. Moderate pleuroparenchymal opacity throughout the left hemithorax has increas ed, predominantly related to increasing pleural effusion. No right pleural effusion. No pneumothorax. ADDITIONAL FINDINGS: No significant additional findings. IMPRESSION: Increasing pleuroparenchymal disease in the right hemithorax and parenchymal disease in t he right upper lobe. Signer Name: Duncan Oliveros MD Signed: 04/09/2020 2:42 PM Workstation Name: [id number]
[2020-04-09 15:12] LABS: Hematocrit 39.9 % (35.5-45.6); Hemoglobin 13.4 gm/dl (11.8-15.2); Mean Corpuscular HGB Conc 34 % (32-34); Mean Corpuscular Volume 99 fl (84-94); Platelet Count 55 K/mm3 (140-440); Red Blood Count 4.03 M/mm3 (3.65-5.03); Red Cell Distribution Width 16.4 % (13.2-15.2)
[2020-04-09] MEDS: REMDESIVIR 100 MG in SODIUM CHLORIDE 0.9% 250ML 250 ML IV SCH (21:00)
[2020-04-09] MEDS: ENOXAPARIN 40 MG/0.4 ML INJ SUB-Q SCH (22:24)
[2020-04-10] MEDS: ZIPRASIDONE MESYLATE 20 MG VIAL IM PRN (00:10)
[2020-04-10] MEDS: dexAMETHasone 4 MG/ML VIAL IV SCH (01:21)
--- NOTE | 2020-04-10 08:49 | Progress Note ---
Assessment and Plan Assessment and plan: (1) Acute respiratory failure with hypoxia Current Visit: Yes Status: Acute Plan to address problem: Patient is hypoxic Oxygen supplement as necessary (2) Bilateral pneumonia Current Visit: Yes Status: Acute Plan to address problem: Started on IV Ceftriaxone and IV Zithromaxx IV Decadron, ID consult requested BNP low--hence no chf (3)COVID-19 virus infection Current Visit: Yes Status: Acute Plan to address problem: Patient is on IV Decadron and remdesivir ID consult appreciated (4) HTN (hypertension) Current Visit: Yes Status: Acute (5) HTN (hypertension) Current Visit: Yes Status: Chronic Qualifiers: Hypertension type: essential hypertension Qualified Code(s): I10 - Essential (primary) hypertension Plan to address problem: Initiate antihypertensives if necessary (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 Plan to address problem: To be counselled (7) Transaminitis Current Visit: Yes Status: Acute Plan to address problem: Sec to Covid or ETOH Hepatitis profile; hepatitis C positive CIWA initiated (8) Malnutrition Current Visit: Yes Status: Chronic Qualifiers: Protein-calorie malnutrition severity: moderate Plan to address problem: Dietitian consult (9) Hyponatremia Current Visit: Yes Status: Acute Plan to address problem: Mild (10) DVT prophylaxis Current Visit: Yes Status: Acute Plan to address problem: On Lovenox 04/08/2020; patient was seen and evaluated this morning and is on 10 L of oxygen. Patient is on Decadron and remdesivir. ID is following the patient. Hypokalemia repleted. 04/09/2020; patient is on 15 L of oxygen. Continue IV Decadron and remdesivir. Continue IV Lasix and spironolactone for ascites/generalized swelling. Patient required BiPAP overnight. Patient has confusion and currently on restraints. We will check ammonia level, CT head. 04/10/2020; patient's condition is deteriorating transfer to [facility].. Continue with IV Decadron and remdesivir. Ammonia level is normal. His roommate reported that the patient has history of HIV, I try to reach to his daughter was listed in the chart and I could not get in touch. Pulmonary was consulted for respiratory failure and will follow the patient. Patient will be on BiPAP. Gnosis guarded. HIV test ordered. History Interval history: Patient was seen and evaluated this morning Patient is on high flow oxygen of 40 L and FiO2 of 100% Patient is confused and on restraints Hospitalist Physical - Physical exam Narrative exam: Patient is on high flow oxygen 40 L and FiO2 of 100% The patient appeared well nourished and normally developed. Vital signs as documented. Head exam is unremarkable. No scleral icterus . Neck is without jugular venous distension, thyromegaly, or carotid bruits. Lungs are clear to auscultation. Cardiac exam reveals regular rate and Rhythm. Abdominal exam reveals ascites. 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 - Constitutional Vitals: Temp Pulse Resp BP Pulse Ox 97.9 F 74 18 115/82 98 04/10/20 07:56 04/10/20 05:00 04/10/20 05:00 04/10/20 05:00 04/10/20 08:13 General appearance: Present: mild distress, well-nourished HEART Score - HEART Score Age: 45-65 Risk factors: 1-2 risk factors Troponin: Troponin T < 0.010 ng/mL (0.00-0.029) 04/05/20 14:17 Troponin: < normal limit - Critical Actions Critical Actions: 0-3 pts:0.9-1.7%risk of adverse cardiac event.Candidate for discharge Results - Labs CBC & Chem 7: 04/10/20 08:37 04/10/20 08:37 Labs: Laboratory Last Values WBC 5.0 K/mm3 (4.5-11.0) 04/09/20 14:10 RBC 4.03 M/mm3 (3.65-5.03) 04/09/20 14:10 Hgb 13.4 gm/dl (11.8-15.2) 04/09/20 14:10 Hct 39.9 % (35.5-45.6) 04/09/20 14:10 MCV 99 fl (84-94) H 04/09/20 14:10 MCH 33 pg (28-32) H 04/09/20 14:10 MCHC 34 % (32-34) 04/09/20 14:10 RDW 16.4 % (13.2-15.2) H 04/09/20 14:10 Plt Count 55 K/mm3 (140-440) L 04/09/20 14:10 Lymph % (Auto) 15.2 % (13.4-35.0) 04/07/20 06:01 [place] % (Auto) Miniature Set Builder 04/07/20 06:01 Eos % (Auto) 0.0 % (0.0-4.3) 04/07/20 06:01 Baso % (Auto) 0.4 % (0.0-1.8) 04/07/20 06:01 Lymph # (Auto) 1.0 K/mm3 (1.2-5.4) L 04/07/20 06:01 [place] # (Auto) 1.2 K/mm3 (0.0-0.8) H 04/07/20 06:01 Eos # (Auto) 0.0 K/mm3 (0.0-0.4) 04/07/20 06:01 Baso # (Auto) 0.0 K/mm3 (0.0-0.1) 04/07/20 06:01 Add Manual Diff Complete 04/09/20 05:33 Total Counted 100 04/09/20 05:33 Seg Neutrophils % 65.0 % (40.0-70.0) 04/07/20 06:01 Seg Neuts % (Manual) 72.0 % (40.0-70.0) H 04/09/20 05:33 Band Neutrophils % 0 % 04/06/20 05:53 Lymphocytes % (Manual) 21.0 % (13.4-35.0) 04/09/20 05:33 Reactive Lymphs % (Man) 0 % 04/06/20 05:53 Monocytes % (Manual) 7.0 % (0.0-7.3) 04/09/20 05:33 Eosinophils % (Manual) 0 % (0.0-4.3) 04/06/20 05:53 Basophils % (Manual) 0 % (0.0-1.8) 04/06/20 05:53 Metamyelocytes % 0 % 04/06/20 05:53 Myelocytes % 0 % 04/06/20 05:53 Promyelocytes % 0 % 04/06/20 05:53 Blast Cells % 0 % 04/06/20 05:53 Nucleated RBC % Not Reportable 04/09/20 05:33 Seg Neutrophils # 4.1 K/mm3 (1.8-7.7) 04/07/20 06:01 Seg Neutrophils # Man 1.6 K/mm3 (1.8-7.7) L 04/09/20 05:33 Band Neutrophils # 0.0 K/mm3 04/09/20 05:33 Lymphocytes # (Manual) 0.5 K/mm3 (1.2-5.4) L 04/09/20 05:33 Abs React Lymphs (Man) 0.0 K/mm3 04/09/20 05:33 Monocytes # (Manual) 0.2 K/mm3 (0.0-0.8) 04/09/20 05:33 Eosinophils # (Manual) 0.0 K/mm3 (0.0-0.4) 04/09/20 05:33 Basophils # (Manual) 0.0 K/mm3 (0.0-0.1) 04/09/20 05:33 Metamyelocytes # 0.0 K/mm3 04/09/20 05:33 Myelocytes # 0.0 K/mm3 04/09/20 05:33 Promyelocytes # 0.0 K/mm3 04/09/20 05:33 Blast Cells # 0.0 K/mm3 04/09/20 05:33 WBC Morphology Not Reportable 04/09/20 05:33 Hypersegmented Neuts Not Reportable 04/09/20 05:33 Hyposegmented Neuts Not Reportable 04/09/20 05:33 Hypogranular Neuts Not Reportable 04/09/20 05:33 Smudge Cells Not Reportable 04/09/20 05:33 Toxic Granulation Not Reportable 04/09/20 05:33 Toxic Vacuolation Not Reportable 04/09/20 05:33 Dohle Bodies Not Reportable 04/09/20 05:33 Pelger-Huet Anomaly Not Reportable 04/09/20 05:33 Kelly Rods Not Reportable 04/09/20 05:33 Platelet Estimate Appears decreased 04/09/20 05:33 Clumped Platelets Not Reportable 04/09/20 05:33 Plt Clumps, EDTA Not Reportable 04/09/20 05:33 Large Platelets Not Reportable 04/09/20 05:33 Giant Platelets Not Reportable 04/09/20 05:33 Platelet Satelliting Not Reportable 04/09/20 05:33 Plt Morphology Comment Not Reportable 04/09/20 05:33 RBC Morphology Not Reportable 04/09/20 05:33 Dimorphic RBCs Not Reportable 04/09/20 05:33 Polychromasia Not Reportable 04/09/20 05:33 Hypochromasia Not Reportable 04/09/20 05:33 Poikilocytosis Not Reportable 04/09/20 05:33 Anisocytosis Not Reportable 04/09/20 05:33 Microcytosis Not Reportable 04/09/20 05:33 Macrocytosis Not Reportable 04/09/20 05:33 Spherocytes Not Reportable 04/09/20 05:33 Pappenheimer Bodies Not Reportable 04/09/20 05:33 Sickle Cells Not Reportable 04/09/20 05:33 Target Cells Not Reportable 04/09/20 05:33 Tear Drop Cells Few 04/09/20 05:33 Ovalocytes Few 04/09/20 05:33 Helmet Cells Not Reportable 04/09/20 05:33 Pollack-Ocosta Bodies Not Reportable 04/09/20 05:33 [place] Rings Not Reportable 04/09/20 05:33 Jose Martin Cells Not Reportable 04/09/20 05:33 Bite Cells Not Reportable 04/09/20 05:33 Crenated Cell Not Reportable 04/09/20 05:33 Elliptocytes Not Reportable 04/09/20 05:33 Acanthocytes (Spur) Not Reportable 04/09/20 05:33 Rouleaux Few 04/09/20 05:33 Hemoglobin C Crystals Not Reportable 04/09/20 05:33 Schistocytes Rare 04/09/20 05:33 Malaria parasites Not Reportable 04/09/20 05:33 Ronnie Bodies Not Reportable 04/09/20 05:33 Hem Pathologist Commnt No 04/09/20 05:33 PT 15.9 Sec. (12.2-14.9) H 04/05/20 10:40 INR 1.27 (0.87-1.13) H 04/05/20 10:40 APTT 30.3 Sec. (24.2-36.6) 04/05/20 10:40 D-Dimer 1139.66 ng/mlDDU (0-234) H 04/08/20 04:00 Sodium 142 mmol/L (137-145) 04/09/20 05:33 Potassium 4.0 mmol/L (3.6-5.0) D 04/09/20 05:33 Chloride 109.2 mmol/L (98-107) H 04/09/20 05:33 Carbon Dioxide 26 mmol/L (22-30) 04/09/20 05:33 Anion Gap 11 mmol/L 04/09/20 05:33 BUN 25 mg/dL (9-20) H 04/09/20 05:33 Creatinine 0.6 mg/dL (0.8-1.3) L 04/09/20 05:33 Estimated GFR > 60 ml/min 04/09/20 05:33 BUN/Creatinine Ratio 42 % 04/09/20 05:33 Glucose 98 mg/dL (75-100) 04/09/20 05:33 POC Glucose 77 mg/dL (70-105) 04/08/20 23:21 Hemoglobin A1c 4.5 % (4-6) 04/05/20 10:40 Lactic Acid 1.40 mmol/L (0.7-2.0) 04/05/20 10:40 Calcium 7.8 mg/dL (8.4-10.2) L 04/09/20 05:33 Ferritin 1118.0 ng/mL (30.0-300.0) H 04/08/20 05:16 Total Bilirubin 1.30 mg/dL (0.1-1.2) H 04/08/20 05:16 Direct Bilirubin 0.8 mg/dL (0-0.2) H 04/08/20 05:16 Indirect Bilirubin 0.5 mg/dL 04/08/20 05:16 AST 114 units/L (5-40) H 04/08/20 05:16 ALT 73 units/L (7-56) H 04/08/20 05:16 Alkaline Phosphatase 132 units/L (35-129) H 04/08/20 05:16 Ammonia 28.0 umol/L (25-60) 04/09/20 14:10 Lactate Dehydrogenase 502 units/L (91-180) H 04/08/20 05:16 Troponin T < 0.010 ng/mL (0.00-0.029) 04/05/20 14:17 C-Reactive Protein 0.70 mg/dL (0.00-1.30) 04/08/20 05:16 NT-Pro-B Natriuret Pep 216.4 pg/mL (0-900) 04/05/20 10:40 Total Protein 6.7 g/dL (6.3-8.2) 04/08/20 05:16 Albumin 1.9 g/dL (3.9-5) L 04/08/20 05:16 Albumin/Globulin Ratio 0.4 % 04/08/20 05:16 Lipase 21 units/L (13-60) 04/05/20 10:40 Procalcitonin 0.14 ng/mL (<0.15) 04/06/20 14:24 Urine Color Yellow (Yellow) 04/05/20 Unknown Urine Turbidity Clear (Clear) 04/05/20 Unknown Urine pH 6.0 (5.0-7.0) 04/05/20 Unknown Ur Specific [place] 1.006 (1.003-1.030) 04/05/20 Unknown Urine Protein <15 mg/dl mg/dL (Negative) 04/05/20 Unknown Urine Glucose (UA) Neg mg/dL (Negative) 04/05/20 Unknown Urine Ketones Neg mg/dL (Negative) 04/05/20 Unknown Urine Blood Sm (Negative) 04/05/20 Unknown Urine Nitrite Neg (Negative) 04/05/20 Unknown Urine Bilirubin Neg (Negative) 04/05/20 Unknown Urine Urobilinogen < 2.0 mg/dL (<2.0) 04/05/20 Unknown Ur Leukocyte Esterase Neg (Negative) 04/05/20 Unknown Urine WBC (Auto) < 1.0 /HPF (0.0-6.0) 04/05/20 Unknown Urine RBC (Auto) 6.0 /HPF (0.0-6.0) 04/05/20 Unknown U Epithel Cells (Auto) < 1.0 /HPF (0-13.0) 04/05/20 Unknown Hyaline Casts 1 /LPF 04/05/20 Unknown Urine Mucus Few /HPF 04/05/20 Unknown Urine Opiates Screen Negative 04/05/20 Unknown Urine Methadone Screen Negative 04/05/20 Unknown Ur Barbiturates Screen Negative 04/05/20 Unknown Ur Phencyclidine Scrn Negative 04/05/20 Unknown Ur Amphetamines Screen Presumptive positive 04/05/20 Unknown U Benzodiazepines Scrn Negative 04/05/20 Unknown Urine Cocaine Screen Negative 04/05/20 Unknown U Marijuana (THC) Screen Negative 04/05/20 Unknown Drugs of Abuse Note Disclamer 04/05/20 Unknown Coronavirus (PCR) Positive (Negative) A 04/06/20 Unknown Hepatitis A IgM Ab Non-reactive (NonReactive) 04/06/20 08:04 Hep Bs Antigen Non-reactive (Negative) 04/06/20 08:04 Hep B Core IgM Ab Non-reactive (NonReactive) 04/06/20 08:04 Hepatitis C Antibody Reactive (NonReactive) A 04/06/20 08:04 Microbiology: Microbiology 04/05/20 10:40 Peripheral/Venous Blood Culture - Preliminary NO GROWTH AFTER 4 DAYS 04/05/20 10:40 Peripheral/Venous Blood Culture - Preliminary NO GROWTH AFTER 4 DAYS Rogers/IV: Voiding Method Condom Catheter IV Catheter Type [Left Forearm INT / Saline Lock ] IV Catheter Type [Right Wrist] INT / Saline Lock IV Catheter Type [Right Upper INT / Saline Lock arm] Active Medications - Current Medications Current Medications: Generic Name Dose Route Start Last Admin Trade Name Freq PRN Reason Stop Dose Admin Acetaminophen 650 mg 04/05/20 23:41 Tylenol PO Q4H PRN Pain MILD(1-3)/Fever >100.5/CHRISTIANSON Albuterol 2.5 mg 04/08/20 23:00 Albuterol 2.5 Mg/3 Ml Nebu IH Q4HRT PRN Shortness Of Breath Chlordiazepoxide HCl 50 mg 04/06/20 06:45 04/08/20 22:14 Librium PO 50 mg Q1H PRN Administration CIWA-Ar 8-15 Chlordiazepoxide HCl 100 mg 04/06/20 06:45 Librium PO Q1H PRN CIWA-Ar 16-25 Dexamethasone 6 mg 04/09/20 10:30 04/09/20 11:10 Dexamethasone 4 Mg Tab PO 04/15/20 12:00 6 mg DAILY LUPE Administration Enoxaparin Sodium 40 mg 04/06/20 22:00 04/09/20 22:24 Enoxaparin SUB-Q 40 mg QDAY@2200 LUPE Administration Protocol Famotidine 20 mg 04/06/20 10:00 04/09/20 22:26 Pepcid PO Not Given BID [facility] Furosemide 40 mg 04/06/20 10:00 04/09/20 11:05 Lasix IV 40 mg QDAY LUPE Administration REMDESIVIR 100 mg/ Sodium 250 mls @ 500 mls/hr 04/08/20 21:00 04/09/20 21:00 Chloride IV 04/11/20 21:29 500 mls/hr Q24HR@2100 LUPE Administration Lorazepam 2 mg 04/06/20 06:45 04/08/20 20:25 Ativan IV 2 mg Q1H PRN Administration CIWA-Ar 8-15 Lorazepam 4 mg 04/06/20 06:45 04/08/20 22:13 Ativan IV 4 mg Q1H PRN Administration CIWA-Ar 16-25 Morphine Sulfate 2 mg 04/05/20 23:41 Morphine IV Q4H PRN Pain, Moderate (4-6) Ondansetron HCl 4 mg 04/05/20 23:41 Zofran IV Q8H PRN Nausea And Vomiting Oxycodone/Acetaminophen 1 tab 04/05/20 23:41 Percocet 5/325 PO Q6H PRN Pain, Moderate (4-6) Potassium Chloride 20 meq 04/06/20 10:00 04/09/20 11:06 K-Dur PO 20 meq QDAY LUPE Administration Sodium Chloride 10 ml 04/06/20 10:00 04/09/20 22:00 Sodium Chloride Flush Syringe 10 Ml IV 10 ml BID LUPE Administration Sodium Chloride 10 ml 04/05/20 23:41 Sodium Chloride Flush Syringe 10 Ml IV PRN PRN LINE FLUSH Spironolactone 100 mg 04/08/20 10:00 04/09/20 11:06 Spironolactone 50 Mg Tab PO 100 mg QDAY LUPE Administration
[2020-04-10] MEDS: DEXAMETHASONE 4 MG TAB PO SCH (09:10)
[2020-04-10] MEDS: POTASSIUM CHLORIDE ER 20 MEQ TAB PO SCH (09:10)
[2020-04-10] MEDS: FAMOTIDINE 20 MG TAB PO SCH ×2 (09:10→21:39)
[2020-04-10] MEDS: FUROSEMIDE 40 MG/4 ML INJ IV SCH (09:10)
[2020-04-10] MEDS: LORazepam 2 MG/ML VIAL IV PRN ×3 (09:11→21:39)
[2020-04-10 09:20] LABS: Alanine Aminotransferase 58 units/L (7-56); Albumin 1.8 g/dL (3.9-5); Bilirubin,Direct 0.8 mg/dL (0-0.2); Blood Urea Nitrogen 26 mg/dL (9-20); Calcium 7.8 mg/dL (8.4-10.2); Hemolysis Index 5
[2020-04-10 09:25] LABS: BUN/Creatinine Ratio 43
[2020-04-10 09:37] LABS: Basophils # (Auto) 0.1 K/mm3 (0.0-0.1); Eosinophils % (Auto) 0.2 % (0.0-4.3); Monocytes % (Auto) 6.8 % (0.0-7.3)
--- NOTE | 2020-04-10 09:37 | Consultation ---
History of Present Illness Reason for consult: dyspnea, pneumonia, other (covid pos) Past History Past Medical History: hepatitis, hypertension Past Surgical History: appendectomy, bowel surgery (colon resection) Medications and Allergies Allergies Allergy/AdvReac Type Severity Reaction Status Date / Time No Known Allergies Allergy Verified 04/05/20 10:13 Active Meds: Active Medications Acetaminophen (Tylenol) 650 mg PO Q4H PRN PRN Reason: Pain MILD(1-3)/Fever >100.5/CHRISTIANSON Albuterol (Albuterol 2.5 Mg/3 Ml Nebu) 2.5 mg IH Q4HRT PRN PRN Reason: Shortness Of Breath Chlordiazepoxide HCl (Librium) 50 mg PO Q1H PRN PRN Reason: Natacha 12-12 Last Admin: 04/08/20 22:14 Dose: 50 mg Documented by: Chlordiazepoxide HCl (Librium) 100 mg PO Q1H PRN PRN Reason: Natacha Dexamethasone (Dexamethasone 4 Mg Tab) 6 mg PO DAILY [facility] Stop: 04/15/20 12:00 Last Admin: 04/10/20 09:10 Dose: 6 mg Documented by: Enoxaparin Sodium (Enoxaparin) 40 mg SUB-Q QDAY@2200 [facility]; Protocol Last Admin: 04/09/20 22:24 Dose: 40 mg Documented by: Famotidine (Pepcid) 20 mg PO BID [facility] Last Admin: 04/10/20 09:10 Dose: 20 mg Documented by: Furosemide (Lasix) 40 mg IV QDAY [facility] Last Admin: 04/10/20 09:10 Dose: 40 mg Documented by: REMDESIVIR 100 mg/ Sodium (Chloride) 250 mls @ 500 mls/hr IV Q24HR@2100 [facility] Stop: 04/11/20 21:29 Last Admin: 04/09/20 21:00 Dose: 500 mls/hr Documented by: Lorazepam (Ativan) 2 mg IV Q1H PRN PRN Reason: Natacha 12-12 Last Admin: 04/10/20 09:11 Dose: 2 mg Documented by: Lorazepam (Ativan) 4 mg IV Q1H PRN PRN Reason: Natacha Last Admin: 04/08/20 22:13 Dose: 4 mg Documented by: Morphine Sulfate (Morphine) 2 mg IV Q4H PRN PRN Reason: Pain, Moderate (4-6) Ondansetron HCl (Zofran) 4 mg IV Q8H PRN PRN Reason: Nausea And Vomiting Oxycodone/Acetaminophen (Percocet 5/325) 1 tab PO Q6H PRN PRN Reason: Pain, Moderate (4-6) Potassium Chloride (K-Dur) 20 meq PO QDAY [facility] Last Admin: 04/10/20 09:10 Dose: 20 meq Documented by: Sodium Chloride (Sodium Chloride Flush Syringe 10 Ml) 10 ml IV BID [facility] Last Admin: 04/10/20 09:10 Dose: 10 ml Documented by: Sodium Chloride (Sodium Chloride Flush Syringe 10 Ml) 10 ml IV PRN PRN PRN Reason: LINE FLUSH Spironolactone (Spironolactone 50 Mg Tab) 100 mg PO QDAY [facility] Last Admin: 04/09/20 11:06 Dose: 100 mg Documented by: Review of Systems Constitutional: weakness Respiratory: shortness of breath Physical Examination Vital signs: Vital Signs Pulse Resp Pulse Ox 110 H 15 96 04/05/20 09:59 04/05/20 09:59 04/05/20 09:59 Results - Laboratory Findings CBC and BMP: 04/09/20 14:10 04/10/20 08:37 PT/INR, D-dimer PT 15.9 Sec. (12.2-14.9) H 04/05/20 10:40 INR 1.27 (0.87-1.13) H 04/05/20 10:40 D-Dimer 1084.93 ng/mlDDU (0-234) H 04/10/20 08:37 Abnormal lab findings: Abnormal Labs 04/05/20 04/05/20 04/05/20 10:40 10:40 10:40 WBC RBC Hct MCV 98 H MCH 34 H MCHC RDW 16.3 H Plt Count 60 L Lymph # (Auto) [place] # (Auto) Seg Neuts % (Manual) 86.0 H Lymphocytes % (Manual) 4.0 L Monocytes % (Manual) 9.0 H Seg Neutrophils # Man Lymphocytes # (Manual) 0.3 L PT 15.9 H INR 1.27 H D-Dimer Sodium 134 L Potassium Chloride BUN Creatinine 0.5 L Glucose Calcium 7.7 L Ferritin Total Bilirubin Direct Bilirubin AST ALT Alkaline Phosphatase Lactate Dehydrogenase C-Reactive Protein Total Protein Albumin Coronavirus (PCR) Hepatitis C Antibody 04/05/20 04/05/20 04/05/20 10:40 14:45 14:45 WBC RBC Hct MCV MCH MCHC RDW Plt Count Lymph # (Auto) [place] # (Auto) Seg Neuts % (Manual) Lymphocytes % (Manual) Monocytes % (Manual) Seg Neutrophils # Man Lymphocytes # (Manual) PT INR D-Dimer 837.90 H Sodium Potassium Chloride BUN Creatinine Glucose Calcium Ferritin Total Bilirubin 2.30 H Direct Bilirubin 1.3 H AST 129 H ALT Alkaline Phosphatase Lactate Dehydrogenase 438 H C-Reactive Protein 1.70 H Total Protein Albumin 1.9 L Coronavirus (PCR) Hepatitis C Antibody 04/05/20 04/06/20 04/06/20 14:45 05:53 05:53 WBC 3.5 L RBC 3.47 L Hct 34.1 L MCV 99 H MCH 34 H MCHC 35 H RDW 16.1 H Plt Count 48 L Lymph # (Auto) [place] # (Auto) Seg Neuts % (Manual) 92.0 H Lymphocytes % (Manual) 3.0 L Monocytes % (Manual) Seg Neutrophils # Man Lymphocytes # (Manual) 0.1 L PT INR D-Dimer Sodium 136 L Potassium Chloride BUN 23 H Creatinine 0.5 L Glucose 107 H Calcium 7.5 L Ferritin 1412.0 H Total Bilirubin 1.80 H Direct Bilirubin AST 112 H ALT Alkaline Phosphatase Lactate Dehydrogenase C-Reactive Protein Total Protein Albumin 1.8 L Coronavirus (PCR) Hepatitis C Antibody 04/06/20 04/06/20 04/07/20 08:04 Unknown 06:01 WBC RBC 3.61 L Hct MCV 100 H MCH 34 H MCHC RDW 16.0 H Plt Count 58 L Lymph # (Auto) 1.0 L [place] # (Auto) 1.2 H Seg Neuts % (Manual) Lymphocytes % (Manual) Monocytes % (Manual) Seg Neutrophils # Man Lymphocytes # (Manual) PT INR D-Dimer Sodium Potassium Chloride BUN Creatinine Glucose Calcium Ferritin Total Bilirubin Direct Bilirubin AST ALT Alkaline Phosphatase Lactate Dehydrogenase C-Reactive Protein Total Protein Albumin Coronavirus (PCR) Positive A Hepatitis C Antibody Reactive A 04/07/20 04/08/20 04/08/20 06:01 04:00 05:16 WBC RBC Hct MCV MCH MCHC RDW Plt Count Lymph # (Auto) [place] # (Auto) Seg Neuts % (Manual) Lymphocytes % (Manual) Monocytes % (Manual) Seg Neutrophils # Man Lymphocytes # (Manual) PT INR D-Dimer 1139.66 H Sodium Potassium 3.5 L 3.2 L Chloride 108.7 H BUN 28 H 28 H Creatinine 0.5 L 0.6 L Glucose 133 H 126 H Calcium 7.5 L 7.8 L Ferritin Total Bilirubin 1.40 H 1.30 H Direct Bilirubin 0.8 H AST 170 H 114 H ALT 80 H 73 H Alkaline Phosphatase 132 H Lactate Dehydrogenase 502 H C-Reactive Protein Total Protein 6.1 L Albumin 1.9 L 1.9 L Coronavirus (PCR) Hepatitis C Antibody 04/08/20 04/09/20 04/09/20 05:16 05:33 05:33 WBC 2.2 L RBC Hct MCV 100 H MCH 34 H MCHC RDW 16.2 H Plt Count Lymph # (Auto) [place] # (Auto) Seg Neuts % (Manual) 72.0 H Lymphocytes % (Manual) Monocytes % (Manual) Seg Neutrophils # Man 1.6 L Lymphocytes # (Manual) 0.5 L PT INR D-Dimer Sodium Potassium Chloride 109.2 H BUN 25 H Creatinine 0.6 L Glucose Calcium 7.8 L Ferritin 1118.0 H Total Bilirubin Direct Bilirubin AST ALT Alkaline Phosphatase Lactate Dehydrogenase C-Reactive Protein Total Protein Albumin Coronavirus (PCR) Hepatitis C Antibody 04/09/20 04/10/20 04/10/20 14:10 08:37 08:37 WBC RBC Hct MCV 99 H MCH 33 H MCHC RDW 16.4 H Plt Count 55 L Lymph # (Auto) [place] # (Auto) Seg Neuts % (Manual) Lymphocytes % (Manual) Monocytes % (Manual) Seg Neutrophils # Man Lymphocytes # (Manual) PT INR D-Dimer 1084.93 H Sodium Potassium Chloride 111.7 H BUN 26 H Creatinine 0.6 L Glucose Calcium 7.8 L Ferritin Total Bilirubin 1.30 H Direct Bilirubin 0.8 H AST 80 H ALT 58 H Alkaline Phosphatase Lactate Dehydrogenase 404 H C-Reactive Protein Total Protein 6.2 L Albumin 1.8 L Coronavirus (PCR) Hepatitis C Antibody 04/10/20 08:37 WBC RBC Hct MCV MCH MCHC RDW Plt Count Lymph # (Auto) [place] # (Auto) Seg Neuts % (Manual) Lymphocytes % (Manual) Monocytes % (Manual) Seg Neutrophils # Man Lymphocytes # (Manual) PT INR D-Dimer Sodium Potassium Chloride BUN Creatinine Glucose Calcium Ferritin 1002.0 H Total Bilirubin Direct Bilirubin AST ALT Alkaline Phosphatase Lactate Dehydrogenase C-Reactive Protein Total Protein Albumin Coronavirus (PCR) Hepatitis C Antibody - Diagnostic Findings Chest x-ray: report reviewed Assessment and Plan - Patient Problems (1) COVID-19 virus detected Current Visit: Yes Status: Acute (2) Acute respiratory failure with hypoxia Current Visit: Yes Status: Acute (3) Anasarca Current Visit: Yes Status: Acute (4) Bilateral pneumonia Current Visit: Yes Status: Acute (5) DVT prophylaxis Current Visit: Yes Status: Acute (6) HTN (hypertension) Current Visit: Yes Status: Acute (7) Hyponatremia Current Visit: Yes Status: Acute (8) Transaminitis Current Visit: Yes Status: Acute (9) HTN (hypertension) Current Visit: Yes Status: Chronic Qualifiers: Hypertension type: essential hypertension Qualified Code(s): I10 - Essential (primary) hypertension
--- NOTE | 2020-04-10 09:49 | Consultation ---
History of Present Illness Reason for consult: dyspnea, pneumonia History of present illness: THis is a patient with hx of hepatitis and HTN who came in with hypoxia. He tested positive for covid and has been on treatment for this. He has had improvement of lfts. He has had progress worsening of resp status now on NRB mask Past History Past Medical History: hepatitis, hypertension Past Surgical History: appendectomy, bowel surgery (colon resection) Social history: Lives alone, alcohol abuse Family history: hypertension Medications and Allergies Allergies Allergy/AdvReac Type Severity Reaction Status Date / Time No Known Allergies Allergy Verified 04/05/20 10:13 Active Meds: Active Medications Acetaminophen (Tylenol) 650 mg PO Q4H PRN PRN Reason: Pain MILD(1-3)/Fever >100.5/[facility] Albuterol (Albuterol 2.5 Mg/3 Ml Nebu) 2.5 mg IH Q4HRT PRN PRN Reason: Shortness Of Breath Chlordiazepoxide HCl (Librium) 50 mg PO Q1H PRN PRN Reason: Natacha 8-15 Last Admin: 04/08/20 22:14 Dose: 50 mg Documented by: Chlordiazepoxide HCl (Librium) 100 mg PO Q1H PRN PRN Reason: Natacha 16-25 Dexamethasone (Dexamethasone 4 Mg Tab) 6 mg PO DAILY [facility] Stop: 04/15/20 12:00 Last Admin: 04/10/20 09:10 Dose: 6 mg Documented by: Enoxaparin Sodium (Enoxaparin) 40 mg SUB-Q QDAY@2200 LUPE; Protocol Last Admin: 04/09/20 22:24 Dose: 40 mg Documented by: Famotidine (Pepcid) 20 mg PO BID [facility] Last Admin: 04/10/20 09:10 Dose: 20 mg Documented by: Furosemide (Lasix) 40 mg IV QDAY [facility] Last Admin: 04/10/20 09:10 Dose: 40 mg Documented by: REMDESIVIR 100 mg/ Sodium (Chloride) 250 mls @ 500 mls/hr IV Q24HR@2100 LUPE Stop: 04/11/20 21:29 Last Admin: 04/09/20 21:00 Dose: 500 mls/hr Documented by: Lorazepam (Ativan) 2 mg IV Q1H PRN PRN Reason: Natacha 8-15 Last Admin: 04/10/20 09:11 Dose: 2 mg Documented by: Lorazepam (Ativan) 4 mg IV Q1H PRN PRN Reason: CIWA-Ar 16-25 Last Admin: 04/08/20 22:13 Dose: 4 mg Documented by: Morphine Sulfate (Morphine) 2 mg IV Q4H PRN PRN Reason: Pain, Moderate (4-6) Ondansetron HCl (Zofran) 4 mg IV Q8H PRN PRN Reason: Nausea And Vomiting Oxycodone/Acetaminophen (Percocet 5/325) 1 tab PO Q6H PRN PRN Reason: Pain, Moderate (4-6) Potassium Chloride (K-Dur) 20 meq PO QDAY [facility] Last Admin: 04/10/20 09:10 Dose: 20 meq Documented by: Sodium Chloride (Sodium Chloride Flush Syringe 10 Ml) 10 ml IV BID [facility] Last Admin: 04/10/20 09:10 Dose: 10 ml Documented by: Sodium Chloride (Sodium Chloride Flush Syringe 10 Ml) 10 ml IV PRN PRN PRN Reason: LINE FLUSH Spironolactone (Spironolactone 50 Mg Tab) 100 mg PO QDAY [facility] Last Admin: 04/09/20 11:06 Dose: 100 mg Documented by: Physical Examination Vital signs: Vital Signs Pulse Resp Pulse Ox 110 H 15 96 04/05/20 09:59 04/05/20 09:59 04/05/20 09:59 Results - Laboratory Findings CBC and BMP: 04/09/20 14:10 04/10/20 08:37 PT/INR, D-dimer PT 15.9 Sec. (12.2-14.9) H 04/05/20 10:40 INR 1.27 (0.87-1.13) H 04/05/20 10:40 D-Dimer 1084.93 ng/mlDDU (0-234) H 04/10/20 08:37 Abnormal lab findings: Abnormal Labs 04/05/20 04/05/20 04/05/20 10:40 10:40 10:40 WBC RBC Hct MCV 98 H MCH 34 H MCHC RDW 16.3 H Plt Count 60 L Lymph # (Auto) [place] # (Auto) Seg Neutrophils % Seg Neuts % (Manual) 86.0 H Lymphocytes % (Manual) 4.0 L Monocytes % (Manual) 9.0 H Seg Neutrophils # Man Lymphocytes # (Manual) 0.3 L PT 15.9 H INR 1.27 H D-Dimer Sodium 134 L Potassium Chloride BUN Creatinine 0.5 L Glucose Calcium 7.7 L Ferritin Total Bilirubin Direct Bilirubin AST ALT Alkaline Phosphatase Lactate Dehydrogenase C-Reactive Protein Total Protein Albumin Coronavirus (PCR) Hepatitis C Antibody 04/05/20 04/05/20 04/05/20 10:40 14:45 14:45 WBC RBC Hct MCV MCH MCHC RDW Plt Count Lymph # (Auto) [place] # (Auto) Seg Neutrophils % Seg Neuts % (Manual) Lymphocytes % (Manual) Monocytes % (Manual) Seg Neutrophils # Man Lymphocytes # (Manual) PT INR D-Dimer 837.90 H Sodium Potassium Chloride BUN Creatinine Glucose Calcium Ferritin Total Bilirubin 2.30 H Direct Bilirubin 1.3 H AST 129 H ALT Alkaline Phosphatase Lactate Dehydrogenase 438 H C-Reactive Protein 1.70 H Total Protein Albumin 1.9 L Coronavirus (PCR) Hepatitis C Antibody 04/05/20 04/06/20 04/06/20 14:45 05:53 05:53 WBC 3.5 L RBC 3.47 L Hct 34.1 L MCV 99 H MCH 34 H MCHC 35 H RDW 16.1 H Plt Count 48 L Lymph # (Auto) [place] # (Auto) Seg Neutrophils % Seg Neuts % (Manual) 92.0 H Lymphocytes % (Manual) 3.0 L Monocytes % (Manual) Seg Neutrophils # Man Lymphocytes # (Manual) 0.1 L PT INR D-Dimer Sodium 136 L Potassium Chloride BUN 23 H Creatinine 0.5 L Glucose 107 H Calcium 7.5 L Ferritin 1412.0 H Total Bilirubin 1.80 H Direct Bilirubin AST 112 H ALT Alkaline Phosphatase Lactate Dehydrogenase C-Reactive Protein Total Protein Albumin 1.8 L Coronavirus (PCR) Hepatitis C Antibody 04/06/20 04/06/20 04/07/20 08:04 Unknown 06:01 WBC RBC 3.61 L Hct MCV 100 H MCH 34 H MCHC RDW 16.0 H Plt Count 58 L Lymph # (Auto) 1.0 L [place] # (Auto) 1.2 H Seg Neutrophils % Seg Neuts % (Manual) Lymphocytes % (Manual) Monocytes % (Manual) Seg Neutrophils # Man Lymphocytes # (Manual) PT INR D-Dimer Sodium Potassium Chloride BUN Creatinine Glucose Calcium Ferritin Total Bilirubin Direct Bilirubin AST ALT Alkaline Phosphatase Lactate Dehydrogenase C-Reactive Protein Total Protein Albumin Coronavirus (PCR) Positive A Hepatitis C Antibody Reactive A 04/07/20 04/08/20 04/08/20 06:01 04:00 05:16 WBC RBC Hct MCV MCH MCHC RDW Plt Count Lymph # (Auto) [place] # (Auto) Seg Neutrophils % Seg Neuts % (Manual) Lymphocytes % (Manual) Monocytes % (Manual) Seg Neutrophils # Man Lymphocytes # (Manual) PT INR D-Dimer 1139.66 H Sodium Potassium 3.5 L 3.2 L Chloride 108.7 H BUN 28 H 28 H Creatinine 0.5 L 0.6 L Glucose 133 H 126 H Calcium 7.5 L 7.8 L Ferritin Total Bilirubin 1.40 H 1.30 H Direct Bilirubin 0.8 H AST 170 H 114 H ALT 80 H 73 H Alkaline Phosphatase 132 H Lactate Dehydrogenase 502 H C-Reactive Protein Total Protein 6.1 L Albumin 1.9 L 1.9 L Coronavirus (PCR) Hepatitis C Antibody 04/08/20 04/09/20 04/09/20 05:16 05:33 05:33 WBC 2.2 L RBC Hct MCV 100 H MCH 34 H MCHC RDW 16.2 H Plt Count Lymph # (Auto) [place] # (Auto) Seg Neutrophils % Seg Neuts % (Manual) 72.0 H Lymphocytes % (Manual) Monocytes % (Manual) Seg Neutrophils # Man 1.6 L Lymphocytes # (Manual) 0.5 L PT INR D-Dimer Sodium Potassium Chloride 109.2 H BUN 25 H Creatinine 0.6 L Glucose Calcium 7.8 L Ferritin 1118.0 H Total Bilirubin Direct Bilirubin AST ALT Alkaline Phosphatase Lactate Dehydrogenase C-Reactive Protein Total Protein Albumin Coronavirus (PCR) Hepatitis C Antibody 04/09/20 04/10/20 04/10/20 14:10 08:37 08:37 WBC RBC Hct MCV 99 H MCH 33 H MCHC RDW 16.4 H Plt Count 55 L Lymph # (Auto) [place] # (Auto) Seg Neutrophils % Seg Neuts % (Manual) Lymphocytes % (Manual) Monocytes % (Manual) Seg Neutrophils # Man Lymphocytes # (Manual) PT INR D-Dimer 1084.93 H Sodium Potassium Chloride 111.7 H BUN 26 H Creatinine 0.6 L Glucose Calcium 7.8 L Ferritin Total Bilirubin 1.30 H Direct Bilirubin 0.8 H AST 80 H ALT 58 H Alkaline Phosphatase Lactate Dehydrogenase 404 H C-Reactive Protein Total Protein 6.2 L Albumin 1.8 L Coronavirus (PCR) Hepatitis C Antibody 04/10/20 04/10/20 08:37 08:37 WBC RBC Hct MCV MCH MCHC RDW Plt Count Lymph # (Auto) [place] # (Auto) Seg Neutrophils % 75.9 H Seg Neuts % (Manual) Lymphocytes % (Manual) Monocytes % (Manual) Seg Neutrophils # Man Lymphocytes # (Manual) PT INR D-Dimer Sodium Potassium Chloride BUN Creatinine Glucose Calcium Ferritin 1002.0 H Total Bilirubin Direct Bilirubin AST ALT Alkaline Phosphatase Lactate Dehydrogenase C-Reactive Protein Total Protein Albumin Coronavirus (PCR) Hepatitis C Antibody Assessment and Plan - Patient Problems (1) COVID-19 virus detected Current Visit: Yes Status: Acute (2) Acute respiratory failure with hypoxia Current Visit: Yes Status: Acute (3) Anasarca Current Visit: Yes Status: Acute (4) Bilateral pneumonia Current Visit: Yes Status: Acute (5) DVT prophylaxis Current Visit: Yes Status: Acute (6) HTN (hypertension) Current Visit: Yes Status: Acute (7) Hyponatremia Current Visit: Yes Status: Acute (8) Transaminitis Current Visit: Yes Status: Acute (9) HTN (hypertension) Current Visit: Yes Status: Chronic Qualifiers: Hypertension type: essential hypertension Qualified Code(s): I10 - Essential (primary) hypertension (10) Malnutrition Current Visit: Yes Status: Chronic Qualifiers: Protein-calorie malnutrition severity: moderate (11) 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
[2020-04-10 09:51] LABS: Hemoglobin 12.6 gm/dl (11.8-15.2); Red Blood Count 3.75 M/mm3 (3.65-5.03)
[2020-04-10 09:52] LABS: Basophils % (Auto) 1.1 % (0.0-1.8); Hematocrit 37.5 % (35.5-45.6); Lymphocytes # (Auto) 0.9 K/mm3 (1.2-5.4); Mean Corpuscular HGB Conc 34 % (32-34); Mean Corpuscular Volume 100 fl (84-94); Monocytes # (Auto) 0.4 K/mm3 (0.0-0.8); Platelet Count 67 K/mm3 (140-440); Red Cell Distribution Width 16.5 % (13.2-15.2)
[2020-04-10] MEDS: SPIRONOLACTONE 50 MG TAB PO SCH (11:09)
[2020-04-10] MEDS ORDERED: HALOPERIDOL LACTATE 5 MG/1 ML INJ IV SCH (14:30)
[2020-04-10] MEDS: ENOXAPARIN 40 MG/0.4 ML INJ SUB-Q SCH (21:38)
[2020-04-10] MEDS: DEXTROSE 5% IN WATER 1,000 ML IV SCH (21:39)
[2020-04-10] MEDS: REMDESIVIR 100 MG in SODIUM CHLORIDE 0.9% 250ML 250 ML IV SCH (21:52)
[2020-04-10] MEDS ORDERED: ZIPRASIDONE MESYLATE 20 MG VIAL IM ONE (23:15)
[2020-04-10] MEDS ORDERED: WATER FOR INJ Sterile (PF) 10 ML ONE (23:18)
[2020-04-11] MEDS: LORazepam 2 MG/ML VIAL IV PRN ×4 (02:34→16:39)
[2020-04-11] MEDS: FUROSEMIDE 40 MG/4 ML INJ IV SCH (09:56)
--- NOTE | 2020-04-11 10:39 | Progress Note ---
Assessment and Plan - Patient Problems (1) COVID-19 virus detected Current Visit: Yes Status: Acute (2) Acute respiratory failure with hypoxia Current Visit: Yes Status: Acute (3) Anasarca Current Visit: Yes Status: Acute (4) Bilateral pneumonia Current Visit: Yes Status: Acute (5) DVT prophylaxis Current Visit: Yes Status: Acute (6) HTN (hypertension) Current Visit: Yes Status: Acute (7) Hyponatremia Current Visit: Yes Status: Acute (8) Transaminitis Current Visit: Yes Status: Acute (9) HTN (hypertension) Current Visit: Yes Status: Chronic Qualifiers: Hypertension type: essential hypertension Qualified Code(s): I10 - Essential (primary) hypertension (10) Malnutrition Current Visit: Yes Status: Chronic Qualifiers: Protein-calorie malnutrition severity: moderate (11) 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 Subjective Principal diagnosis: COVID Interval history: events noted still w episodes of agitation fio2 was weaned but had to be placed back on 100 NRB now asleep Objective Vital Signs - 12hr 04/10/20 04/10/20 04/11/20 23:00 23:50 00:00 Temperature 97.9 F Pulse Rate 90 93 H Respiratory 34 H 29 H Rate Blood Pressure 160/100 152/94 O2 Sat by Pulse 93 85 Oximetry 04/11/20 04/11/20 04/11/20 00:01 01:00 02:00 Temperature Pulse Rate 98 H 73 86 Respiratory 22 24 Rate Blood Pressure 122/81 O2 Sat by Pulse 96 89 Oximetry 04/11/20 04/11/20 04/11/20 03:00 03:15 04:00 Temperature Pulse Rate 84 95 H Respiratory 27 H 28 H Rate Blood Pressure 117/90 145/98 O2 Sat by Pulse 90 93 96 Oximetry 04/11/20 04/11/20 04/11/20 04:01 04:05 05:00 Temperature 98.0 F Pulse Rate 94 H 93 H Respiratory 30 H Rate Blood Pressure 160/94 O2 Sat by Pulse 96 92 Oximetry 04/11/20 04/11/20 04/11/20 06:00 07:56 08:00 Temperature 98.8 F Pulse Rate 92 H Respiratory 41 H Rate Blood Pressure 158/88 O2 Sat by Pulse 97 97 Oximetry Constitutional: asleep ENT: oropharynx moist Effort: normal Ascultation: Bilateral: rhonchi Cardiovascular: regular rate and rhythm Gastrointestinal: normoactive bowel sounds, non-tender CBC and BMP: 04/10/20 08:37 04/10/20 08:37 ABG, PT/INR, D-dimer: PT/INR, D-dimer PT 15.9 Sec. (12.2-14.9) H 04/05/20 10:40 INR 1.27 (0.87-1.13) H 04/05/20 10:40 D-Dimer 1084.93 ng/mlDDU (0-234) H 04/10/20 08:37 Abnormal lab findings: Abnormal Labs 04/05/20 04/05/20 04/05/20 10:40 10:40 10:40 WBC RBC Hct MCV 98 H MCH 34 H MCHC RDW 16.3 H Plt Count 60 L Lymph # (Auto) [place] # (Auto) Seg Neutrophils % Seg Neuts % (Manual) 86.0 H Lymphocytes % (Manual) 4.0 L Monocytes % (Manual) 9.0 H Seg Neutrophils # Man Lymphocytes # (Manual) 0.3 L PT 15.9 H INR 1.27 H D-Dimer Sodium 134 L Potassium Chloride BUN Creatinine 0.5 L Glucose Calcium 7.7 L Ferritin Total Bilirubin Direct Bilirubin AST ALT Alkaline Phosphatase Lactate Dehydrogenase C-Reactive Protein Total Protein Albumin Coronavirus (PCR) Hepatitis C Antibody 04/05/20 04/05/20 04/05/20 10:40 14:45 14:45 WBC RBC Hct MCV MCH MCHC RDW Plt Count Lymph # (Auto) [place] # (Auto) Seg Neutrophils % Seg Neuts % (Manual) Lymphocytes % (Manual) Monocytes % (Manual) Seg Neutrophils # Man Lymphocytes # (Manual) PT INR D-Dimer 837.90 H Sodium Potassium Chloride BUN Creatinine Glucose Calcium Ferritin Total Bilirubin 2.30 H Direct Bilirubin 1.3 H AST 129 H ALT Alkaline Phosphatase Lactate Dehydrogenase 438 H C-Reactive Protein 1.70 H Total Protein Albumin 1.9 L Coronavirus (PCR) Hepatitis C Antibody 04/05/20 04/06/20 04/06/20 14:45 05:53 05:53 WBC 3.5 L RBC 3.47 L Hct 34.1 L MCV 99 H MCH 34 H MCHC 35 H RDW 16.1 H Plt Count 48 L Lymph # (Auto) [place] # (Auto) Seg Neutrophils % Seg Neuts % (Manual) 92.0 H Lymphocytes % (Manual) 3.0 L Monocytes % (Manual) Seg Neutrophils # Man Lymphocytes # (Manual) 0.1 L PT INR D-Dimer Sodium 136 L Potassium Chloride BUN 23 H Creatinine 0.5 L Glucose 107 H Calcium 7.5 L Ferritin 1412.0 H Total Bilirubin 1.80 H Direct Bilirubin AST 112 H ALT Alkaline Phosphatase Lactate Dehydrogenase C-Reactive Protein Total Protein Albumin 1.8 L Coronavirus (PCR) Hepatitis C Antibody 04/06/20 04/06/20 04/07/20 08:04 Unknown 06:01 WBC RBC 3.61 L Hct MCV 100 H MCH 34 H MCHC RDW 16.0 H Plt Count 58 L Lymph # (Auto) 1.0 L [place] # (Auto) 1.2 H Seg Neutrophils % Seg Neuts % (Manual) Lymphocytes % (Manual) Monocytes % (Manual) Seg Neutrophils # Man Lymphocytes # (Manual) PT INR D-Dimer Sodium Potassium Chloride BUN Creatinine Glucose Calcium Ferritin Total Bilirubin Direct Bilirubin AST ALT Alkaline Phosphatase Lactate Dehydrogenase C-Reactive Protein Total Protein Albumin Coronavirus (PCR) Positive A Hepatitis C Antibody Reactive A 04/07/20 04/08/20 04/08/20 06:01 04:00 05:16 WBC RBC Hct MCV MCH MCHC RDW Plt Count Lymph # (Auto) [place] # (Auto) Seg Neutrophils % Seg Neuts % (Manual) Lymphocytes % (Manual) Monocytes % (Manual) Seg Neutrophils # Man Lymphocytes # (Manual) PT INR D-Dimer 1139.66 H Sodium Potassium 3.5 L 3.2 L Chloride 108.7 H BUN 28 H 28 H Creatinine 0.5 L 0.6 L Glucose 133 H 126 H Calcium 7.5 L 7.8 L Ferritin Total Bilirubin 1.40 H 1.30 H Direct Bilirubin 0.8 H AST 170 H 114 H ALT 80 H 73 H Alkaline Phosphatase 132 H Lactate Dehydrogenase 502 H C-Reactive Protein Total Protein 6.1 L Albumin 1.9 L 1.9 L Coronavirus (PCR) Hepatitis C Antibody 04/08/20 04/09/20 04/09/20 05:16 05:33 05:33 WBC 2.2 L RBC Hct MCV 100 H MCH 34 H MCHC RDW 16.2 H Plt Count Lymph # (Auto) [place] # (Auto) Seg Neutrophils % Seg Neuts % (Manual) 72.0 H Lymphocytes % (Manual) Monocytes % (Manual) Seg Neutrophils # Man 1.6 L Lymphocytes # (Manual) 0.5 L PT INR D-Dimer Sodium Potassium Chloride 109.2 H BUN 25 H Creatinine 0.6 L Glucose Calcium 7.8 L Ferritin 1118.0 H Total Bilirubin Direct Bilirubin AST ALT Alkaline Phosphatase Lactate Dehydrogenase C-Reactive Protein Total Protein Albumin Coronavirus (PCR) Hepatitis C Antibody 04/09/20 04/10/20 04/10/20 14:10 08:37 08:37 WBC RBC Hct MCV 99 H MCH 33 H MCHC RDW 16.4 H Plt Count 55 L Lymph # (Auto) [place] # (Auto) Seg Neutrophils % Seg Neuts % (Manual) Lymphocytes % (Manual) Monocytes % (Manual) Seg Neutrophils # Man Lymphocytes # (Manual) PT INR D-Dimer 1084.93 H Sodium Potassium Chloride 111.7 H BUN 26 H Creatinine 0.6 L Glucose Calcium 7.8 L Ferritin Total Bilirubin 1.30 H Direct Bilirubin 0.8 H AST 80 H ALT 58 H Alkaline Phosphatase Lactate Dehydrogenase 404 H C-Reactive Protein Total Protein 6.2 L Albumin 1.8 L Coronavirus (PCR) Hepatitis C Antibody 04/10/20 04/10/20 08:37 08:37 WBC RBC Hct MCV 100 H MCH 34 H MCHC RDW 16.5 H Plt Count 67 L Lymph # (Auto) 0.9 L [place] # (Auto) Seg Neutrophils % 75.9 H Seg Neuts % (Manual) Lymphocytes % (Manual) Monocytes % (Manual) Seg Neutrophils # Man Lymphocytes # (Manual) PT INR D-Dimer Sodium Potassium Chloride BUN Creatinine Glucose Calcium Ferritin 1002.0 H Total Bilirubin Direct Bilirubin AST ALT Alkaline Phosphatase Lactate Dehydrogenase C-Reactive Protein Total Protein Albumin Coronavirus (PCR) Hepatitis C Antibody
--- NOTE | 2020-04-11 15:43 | XRay Report ---
ABDOMEN 1 VIEW 04/11/2020 2:12 PM INDICATION / CLINICAL INFORMATION: Feeding Tube placement. COMPARISON: CT dated 04/05/20 FINDINGS: TUBES / LINES: Weighted feeding tube is present in the distal stomach. BOWEL GAS PATTERN: No significant abnormality. FREE AIR / EXTRALUMINAL GAS: None. ADDITIONAL FINDINGS: No significant additional findings. IMPRESSION: 1. Feeding tube in expected position. Signer Name: Monica Ortiz MD Signed: 04/11/2020 3:39 PM Workstation Name: [id number]
[2020-04-11] MEDS: DEXTROSE 5% IN WATER 1,000 ML IV SCH (16:37)
[2020-04-11] MEDS: POTASSIUM CHLORIDE ER 20 MEQ TAB PO SCH (17:58)
[2020-04-11] MEDS: DEXAMETHASONE 4 MG TAB PO SCH (17:58)
[2020-04-11] MEDS: SPIRONOLACTONE 50 MG TAB PO SCH (17:58)
[2020-04-11] MEDS: FAMOTIDINE 20 MG TAB PO SCH ×2 (17:58→22:43)
[2020-04-11 21:55] LABS: Alanine Aminotransferase 55 units/L (7-56); Albumin 2.1 g/dL (3.9-5); Blood Urea Nitrogen 25 mg/dL (9-20); Calcium 8.1 mg/dL (8.4-10.2); Hemolysis Index 107
[2020-04-11 21:58] LABS: BUN/Creatinine Ratio 42
[2020-04-11] MEDS: ENOXAPARIN 40 MG/0.4 ML INJ SUB-Q SCH (22:43)
[2020-04-11] MEDS: REMDESIVIR 100 MG in SODIUM CHLORIDE 0.9% 250ML 250 ML IV SCH (22:43)
[2020-04-12] MEDS: LORazepam 2 MG/ML VIAL IV PRN ×3 (05:16→22:44)
[2020-04-12] MEDS: DEXTROSE 5% IN WATER 1,000 ML IV SCH ×2 (07:00→20:02)
--- NOTE | 2020-04-12 07:33 | Progress Note ---
Assessment and Plan Critical care statement The high probability OF a clinically significant sudden or life-threatening deterioration of the cardiorespiratory system and endocrine system required my full and direct attention, intervention and postoperative management. The aggregate critical care time was 32 minutes. The time is in addition to time spent performing reported procedures but includes the followin: Data review and interpretation 2: Patient assessment and monitoring of vital signs 3: Documentation 4:: Medication orders and management - Patient Problems (1) Acute respiratory failure with hypoxia Current Visit: Yes Status: Acute Plan to address problem: Patient is hypoxic Oxygen supplement as necessary Patient on high flow oxygen (2) Bilateral pneumonia Current Visit: Yes Status: Acute Plan to address problem: Started on IV Ceftriaxone and IV Zithromaxx IV Decadron ID consult appreciated BNP low--hence no chf (3) Suspected COVID-19 virus infection Current Visit: Yes Status: Acute Plan to address problem: Covid positive on 04/06/2020 High flow oxygen at this point -Pulmonary consult-pending. Consider thoracentesis in light of severe hypoxia and pleural effusion -Continue remdesivir -Continue dexamethasone 6 mg p.o./IV daily for 10 days D5 of 10 -Continue ceftriaxone total 5 days and azithromycin total 3 days -Anticoagulation per hospital protocol -Prone positioning as tolerated -Covid inflammatory markers every 48 hours Very guarded prognosis (4) HTN (hypertension) Current Visit: Yes Status: Chronic Qualifiers: Hypertension type: essential hypertension Qualified Code(s): I10 - Ess ential (primary) hypertension Plan to address problem: Initiate antihypertensives if necessary (5) 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 Plan to address problem: To be counselled (6) Transaminitis Current Visit: Yes Status: Acute Plan to address problem: Sec to Covid or ETOH Hepatitis profile CIWA initiated (7) Malnutrition Current Visit: Yes Status: Chronic Qualifiers: Protein-calorie malnutrition severity: moderate Plan to address problem: Dietitian consult (8) Hyponatremia Current Visit: Yes Status: Acute Plan to address problem: Mild (9) DVT prophylaxis Current Visit: Yes Status: Acute Plan to address problem: On Lovenox and GI prophylaxis Subjective Date of service: 04/11/20 Principal diagnosis: COVID Interval history: 59 years old male with history of hepatitis C and hypertension brought to the emergency room via EMS from home for evaluation of difficulty breathing and generalized body swelling for the last 2 weeks getting worse recently. Patient denied any chest pain, fever or chills .However patient is actively coughing in the emergency room. EMS stated that patient initial oxygen saturation was 85% on room air improved to 96% on nonrebreather. Patient stated that he is using meth every now and then.No anosmia or loss of taste.No exposure to carroll virus. 04/08/2020; patient was seen and evaluated this morning and is on 10 L of oxygen. Patient is on Decadron and remdesivir. ID is following the patient. Hypokalemia repleted. 04/09/2020; patient is on 15 L of oxygen. Continue IV Decadron and remdesivir. Continue IV Lasix and spironolactone for ascites/generalized swelling. Patient required BiPAP overnight. Patient has confusion and currently on restraints. We will check ammonia level, CT head. 04/10/2020; patient's condition is deteriorating transfer to [facility].. Continue with IV Decadron and remdesivir. Ammonia level is normal. His roommate reported that the patient has history of HIV, I try to reach to his daughter was listed in the chart and I could not get in touch. Pulmonary was consulted for respiratory failure and will follow the patient. Patient will be on BiPAP. Gnosis guarded. HIV test ordered. 04/11/2020 Patient is decompensating Transfer to [facility] History Interval history: Patient was seen and evaluated this morning Patient is on high flow oxygen of 40 L and FiO2 of 100% Patient is confused and on restraints Objective - Constitutional Vitals: Vital Signs - 12hr 04/11/20 04/11/20 04/11/20 19:34 20:00 20:30 Temperature Pulse Rate 107 H 105 H 103 H Respiratory 21 34 H 32 H Rate Blood Pressure 150/89 150/89 150/89 O2 Sat by Pulse 97 99 95 Oximetry 04/11/20 04/11/20 04/11/20 20:31 20:56 21:00 Temperature 98.6 F Pulse Rate 109 H Respiratory 16 Rate Blood Pressure 150/89 O2 Sat by Pulse 95 95 Oximetry 04/11/20 04/11/20 04/11/20 21:30 22:00 22:30 Temperature Pulse Rate 109 H 106 H 105 H Respiratory 18 15 27 H Rate Blood Pressure 150/89 173/100 173/100 O2 Sat by Pulse 96 97 96 Oximetry 04/11/20 04/11/20 04/12/20 23:00 23:30 00:00 Temperature Pulse Rate 109 H 91 H 104 H Respiratory 18 26 H 40 H Rate Blood Pressure 158/107 152/89 163/97 O2 Sat by Pulse 96 97 94 Oximetry 04/12/20 04/12/20 04/12/20 00:05 00:30 01:00 Temperature Pulse Rate 99 H 94 H 100 H Respiratory 41 H 29 H Rate Blood Pressure 187/91 170/63 O2 Sat by Pulse 95 94 Oximetry 04/12/20 04/12/20 04/12/20 01:30 02:00 02:30 Temperature Pulse Rate 100 H 103 H 95 H Respiratory 51 H 38 H 30 H Rate Blood Pressure 170/107 156/85 156/85 O2 Sat by Pulse 92 94 95 Oximetry 04/12/20 04/12/20 04/12/20 03:00 03:30 04:00 Temperature Pulse Rate 104 H 102 H 97 H Respiratory 38 H 39 H 30 H Rate Blood Pressure 151/114 146/111 163/96 O2 Sat by Pulse 95 96 96 Oximetry 04/12/20 04/12/20 04/12/20 04:15 04:20 04:30 Temperature Pulse Rate 99 H 107 H Respiratory 44 H Rate Blood Pressure 163/96 O2 Sat by Pulse 95 94 Oximetry 04/12/20 04/12/20 04/12/20 05:00 05:30 06:00 Temperature Pulse Rate 105 H 95 H 102 H Respiratory 34 H 32 H 35 H Rate Blood Pressure 171/116 165/94 166/124 O2 Sat by Pulse 94 88 90 Oximetry 04/12/20 06:30 Temperature Pulse Rate 109 H Respiratory 43 H Rate Blood Pressure 165/103 O2 Sat by Pulse 95 Oximetry General appearance: Present: no acute distress, mild distress, well-nourished - EENT Eyes: PERRL, EOM intact ENT: hearing intact, clear oral mucosa Ears: bilateral: normal - Neck Neck: supple, normal ROM - Respiratory Respiratory effort: normal Respiratory: bilateral: CTA - Breasts Breasts: normal - Cardiovascular Rhythm: regular Heart Sounds: Present: S1 & S2. Absent: gallop, rub Extremities: pulses intact, No edema, normal color, Full ROM - Gastrointestinal General gastrointestinal: Present: soft, non-tender, non-distended, normal bowel sounds - Genitourinary Male genitourinary: normal - Integumentary Integumentary: clear, warm, dry - Musculoskeletal Musculoskeletal: 1, strength equal bilaterally - Neurologic Neurologic: moves all extremities - Psychiatric Psychiatric: memory intact, appropriate mood/affect, intact judgment & insight - Allied health notes Allied health notes reviewed: nursing, case management - Labs CBC & Chem 7: 04/10/20 08:37 04/11/20 21:24 Labs: Abnormal lab results 04/11/20 04/11/20 Range/Units 21:24 23:58 BUN 25 H (9-20) mg/dL Creatinine 0.6 L (0.8-1.3) mg/dL POC Glucose 64 L (70-105) mg/dL Calcium 8.1 L (8.4-10.2) mg/dL Total Bilirubin 2.80 H (0.1-1.2) mg/dL AST 91 H (5-40) units/L Albumin 2.1 L (3.9-5) g/dL HEART Score - HEART Score Age: 45-65 Risk factors: 1-2 risk factors Troponin: Troponin T < 0.010 ng/mL (0.00-0.029) 04/05/20 14:17 Troponin: < normal limit - Critical Actions Critical Actions: 0-3 pts:0.9-1.7%risk of adverse cardiac event.Candidate for discharge
--- NOTE | 2020-04-12 08:21 | Progress Note ---
Assessment and Plan Assessment and plan: -- Acute respiratory failure with hypoxia Current Visit: Yes Status: Acute Plan to address problem: Patient is hypoxic Oxygen supplement as necessary Patient on high flow oxygen --Bilateral pneumonia Current Visit: Yes Status: Acute Plan to address problem: Started on IV Ceftriaxone and IV Zithromaxx IV Decadron ID consult appreciated BNP low--hence no chf --Positive COVID-19 virus infection Current Visit: Yes Status: Acute Plan to address problem: Covid positive on 04/06/2020 High flow oxygen at this point -Pulmonary consult-pending. 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 Critical care statement The high probability OF a clinically significant sudden or life-threatening deterioration of the cardiorespiratory system and endocrine system required my full and direct attention, intervention and postoperative management. The aggregate critical care time was 32 minutes. The time is in addition to time spent performing reported procedures but includes the followin: Data review and interpretation 2: Patient assessment and monitoring of vital signs 3: Documentation 4:: Medication orders and management History Interval history: I have seen and examined the patient in IMCU this morning Patient's chart and medications reviewed Patient remains on high flow oxygen unable to wean, In mild distress No new events or complaints either from the patient or from the nurse Vital signs noted Hospitalist Physical - Constitutional Vitals: Temp Pulse Resp BP Pulse Ox 98.3 F 109 H 43 H 165/103 92 04/12/20 08:00 04/12/20 06:30 04/12/20 06:30 04/12/20 06:30 04/12/20 08:06 General appearance: Present: no acute distress, mild distress, well-nourished - EENT Eyes: Present: PERRL, EOM intact - Neck Neck: Present: supple, normal ROM - Respiratory Respiratory effort: normal Respiratory: bilateral: diminished, rhonchi, negative: rales, wheezing - Cardiovascular Rhythm: regular Heart Sounds: Present: S1 & S2 - Extremities Extremities: no ischemia, No edema - Abdominal General gastrointestinal: soft, non-tender, non-distended, normal bowel sounds - Integumentary Integumentary: Present: clear, warm - Psychiatric Psychiatric: appropriate mood/affect, cooperative - Neurologic Neurologic: moves all extremities HEART Score - HEART Score Age: 45-65 Risk factors: 1-2 risk factors Troponin: Troponin T < 0.010 ng/mL (0.00-0.029) 04/05/20 14:17 Troponin: < normal limit - Critical Actions Critical Actions: 0-3 pts:0.9-1.7%risk of adverse cardiac event.Candidate for discharge Results - Labs CBC & Chem 7: 04/10/20 08:37 04/11/20 21:24 Labs: Laboratory Last Values WBC 5.8 K/mm3 (4.5-11.0) 04/10/20 08:37 RBC 3.75 M/mm3 (3.65-5.03) 04/10/20 08:37 Hgb 12.6 gm/dl (11.8-15.2) 04/10/20 08:37 Hct 37.5 % (35.5-45.6) 04/10/20 08:37 MCV 100 fl (84-94) H 04/10/20 08:37 MCH 34 pg (28-32) H 04/10/20 08:37 MCHC 34 % (32-34) 04/10/20 08:37 RDW 16.5 % (13.2-15.2) H 04/10/20 08:37 Plt Count 67 K/mm3 (140-440) L 04/10/20 08:37 Lymph % (Auto) 16.0 % (13.4-35.0) 04/10/20 08:37 [place] % (Auto) 6.8 % (0.0-7.3) 04/10/20 08:37 Eos % (Auto) 0.2 % (0.0-4.3) 04/10/20 08:37 Baso % (Auto) 1.1 % (0.0-1.8) 04/10/20 08:37 Lymph # (Auto) 0.9 K/mm3 (1.2-5.4) L 04/10/20 08:37 [place] # (Auto) 0.4 K/mm3 (0.0-0.8) 04/10/20 08:37 Eos # (Auto) 0.0 K/mm3 (0.0-0.4) 04/10/20 08:37 Baso # (Auto) 0.1 K/mm3 (0.0-0.1) 04/10/20 08:37 Add Manual Diff Complete 04/09/20 05:33 Total Counted 100 04/09/20 05:33 Seg Neutrophils % 75.9 % (40.0-70.0) H 04/10/20 08:37 Seg Neuts % (Manual) 72.0 % (40.0-70.0) H 04/09/20 05:33 Band Neutrophils % 0 % 04/06/20 05:53 Lymphocytes % (Manual) 21.0 % (13.4-35.0) 04/09/20 05:33 Reactive Lymphs % (Man) 0 % 04/06/20 05:53 Monocytes % (Manual) 7.0 % (0.0-7.3) 04/09/20 05:33 Eosinophils % (Manual) 0 % (0.0-4.3) 04/06/20 05:53 Basophils % (Manual) 0 % (0.0-1.8) 04/06/20 05:53 Metamyelocytes % 0 % 04/06/20 05:53 Myelocytes % 0 % 04/06/20 05:53 Promyelocytes % 0 % 04/06/20 05:53 Blast Cells % 0 % 04/06/20 05:53 Nucleated RBC % Not Reportable 04/09/20 05:33 Seg Neutrophils # 4.4 K/mm3 (1.8-7.7) 04/10/20 08:37 Seg Neutrophils # Man 1.6 K/mm3 (1.8-7.7) L 04/09/20 05:33 Band Neutrophils # 0.0 K/mm3 04/09/20 05:33 Lymphocytes # (Manual) 0.5 K/mm3 (1.2-5.4) L 04/09/20 05:33 Abs React Lymphs (Man) 0.0 K/mm3 04/09/20 05:33 Monocytes # (Manual) 0.2 K/mm3 (0.0-0.8) 04/09/20 05:33 Eosinophils # (Manual) 0.0 K/mm3 (0.0-0.4) 04/09/20 05:33 Basophils # (Manual) 0.0 K/mm3 (0.0-0.1) 04/09/20 05:33 Metamyelocytes # 0.0 K/mm3 04/09/20 05:33 Myelocytes # 0.0 K/mm3 04/09/20 05:33 Promyelocytes # 0.0 K/mm3 04/09/20 05:33 Blast Cells # 0.0 K/mm3 04/09/20 05:33 WBC Morphology Not Reportable 04/09/20 05:33 Hypersegmented Neuts Not Reportable 04/09/20 05:33 Hyposegmented Neuts Not Reportable 04/09/20 05:33 Hypogranular Neuts Not Reportable 04/09/20 05:33 Smudge Cells Not Reportable 04/09/20 05:33 Toxic Granulation Not Reportable 04/09/20 05:33 Toxic Vacuolation Not Reportable 04/09/20 05:33 Dohle Bodies Not Reportable 04/09/20 05:33 Pelger-Huet Anomaly Not Reportable 04/09/20 05:33 Kelly Rods Not Reportable 04/09/20 05:33 Platelet Estimate Appears decreased 04/09/20 05:33 Clumped Platelets Not Reportable 04/09/20 05:33 Plt Clumps, EDTA Not Reportable 04/09/20 05:33 Large Platelets Not Reportable 04/09/20 05:33 Giant Platelets Not Reportable 04/09/20 05:33 Platelet Satelliting Not Reportable 04/09/20 05:33 Plt Morphology Comment Not Reportable 04/09/20 05:33 RBC Morphology Not Reportable 04/09/20 05:33 Dimorphic RBCs Not Reportable 04/09/20 05:33 Polychromasia Not Reportable 04/09/20 05:33 Hypochromasia Not Reportable 04/09/20 05:33 Poikilocytosis Not Reportable 04/09/20 05:33 Anisocytosis Not Reportable 04/09/20 05:33 Microcytosis Not Reportable 04/09/20 05:33 Macrocytosis Not Reportable 04/09/20 05:33 Spherocytes Not Reportable 04/09/20 05:33 Pappenheimer Bodies Not Reportable 04/09/20 05:33 Sickle Cells Not Reportable 04/09/20 05:33 Target Cells Not Reportable 04/09/20 05:33 Tear Drop Cells Few 04/09/20 05:33 Ovalocytes Few 04/09/20 05:33 Helmet Cells Not Reportable 04/09/20 05:33 [place] Bodies Not Reportable 04/09/20 05:33 [place] Rings Not Reportable 04/09/20 05:33 [place] Cells Not Reportable 04/09/20 05:33 Bite Cells Not Reportable 04/09/20 05:33 Crenated Cell Not Reportable 04/09/20 05:33 Elliptocytes Not Reportable 04/09/20 05:33 Acanthocytes (Spur) Not Reportable 04/09/20 05:33 Rouleaux Few 04/09/20 05:33 Hemoglobin C Crystals Not Reportable 04/09/20 05:33 Schistocytes Rare 04/09/20 05:33 Malaria parasites Not Reportable 04/09/20 05:33 Ronnie Bodies Not Reportable 04/09/20 05:33 Hem Pathologist Commnt No 04/09/20 05:33 PT 15.9 Sec. (12.2-14.9) H 04/05/20 10:40 INR 1.27 (0.87-1.13) H 04/05/20 10:40 APTT 30.3 Sec. (24.2-36.6) 04/05/20 10:40 D-Dimer 1084.93 ng/mlDDU (0-234) H 04/10/20 08:37 Sodium 141 mmol/L (137-145) 04/11/20 21:24 Potassium 4.8 mmol/L (3.6-5.0) 04/11/20 21:24 Chloride 104.6 mmol/L (98-107) 04/11/20 21:24 Carbon Dioxide 27 mmol/L (22-30) 04/11/20 21:24 Anion Gap 14 mmol/L 04/11/20 21:24 BUN 25 mg/dL (9-20) H 04/11/20 21:24 Creatinine 0.6 mg/dL (0.8-1.3) L 04/11/20 21:24 Estimated GFR > 60 ml/min 04/11/20 21:24 BUN/Creatinine Ratio 42 % 04/11/20 21:24 Glucose 89 mg/dL (75-100) 04/11/20 21:24 POC Glucose 84 mg/dL (70-105) 04/12/20 06:13 Hemoglobin A1c 4.5 % (4-6) 04/05/20 10:40 Lactic Acid 1.40 mmol/L (0.7-2.0) 04/05/20 10:40 Calcium 8.1 mg/dL (8.4-10.2) L 04/11/20 21:24 Ferritin 1002.0 ng/mL (30.0-300.0) H 04/10/20 08:37 Total Bilirubin 2.80 mg/dL (0.1-1.2) H 04/11/20 21:24 Direct Bilirubin 0.8 mg/dL (0-0.2) H 04/10/20 08:37 Indirect Bilirubin 0.5 mg/dL 04/10/20 08:37 AST 91 units/L (5-40) H 04/11/20 21:24 ALT 55 units/L (7-56) 04/11/20 21:24 Alkaline Phosphatase 106 units/L (35-129) 04/11/20 21:24 Ammonia 28.0 umol/L (25-60) 04/09/20 14:10 Lactate Dehydrogenase 404 units/L (91-180) H 04/10/20 08:37 Troponin T < 0.010 ng/mL (0.00-0.029) 04/05/20 14:17 C-Reactive Protein 0.60 mg/dL (0.00-1.30) 04/10/20 08:37 NT-Pro-B Natriuret Pep 216.4 pg/mL (0-900) 04/05/20 10:40 Total Protein 6.7 g/dL (6.3-8.2) 04/11/20 21:24 Albumin 2.1 g/dL (3.9-5) L 04/11/20 21:24 Albumin/Globulin Ratio 0.5 % 04/11/20 21:24 Lipase 21 units/L (13-60) 04/05/20 10:40 Procalcitonin 0.14 ng/mL (<0.15) 04/06/20 14:24 Urine Color Yellow (Yellow) 04/05/20 Unknown Urine Turbidity Clear (Clear) 04/05/20 Unknown Urine pH 6.0 (5.0-7.0) 04/05/20 Unknown Ur Specific [place] 1.006 (1.003-1.030) 04/05/20 Unknown Urine Protein <15 mg/dl mg/dL (Negative) 04/05/20 Unknown Urine Glucose (UA) Neg mg/dL (Negative) 04/05/20 Unknown Urine Ketones Neg mg/dL (Negative) 04/05/20 Unknown Urine Blood Sm (Negative) 04/05/20 Unknown Urine Nitrite Neg (Negative) 04/05/20 Unknown Urine Bilirubin Neg (Negative) 04/05/20 Unknown Urine Urobilinogen < 2.0 mg/dL (<2.0) 04/05/20 Unknown Ur Leukocyte Esterase Neg (Negative) 04/05/20 Unknown Urine WBC (Auto) < 1.0 /HPF (0.0-6.0) 04/05/20 Unknown Urine RBC (Auto) 6.0 /HPF (0.0-6.0) 04/05/20 Unknown U Epithel Cells (Auto) < 1.0 /HPF (0-13.0) 04/05/20 Unknown Hyaline Casts 1 /LPF 04/05/20 Unknown Urine Mucus Few /HPF 04/05/20 Unknown Urine Opiates Screen Negative 04/05/20 Unknown Urine Methadone Screen Negative 04/05/20 Unknown Ur Barbiturates Screen Negative 04/05/20 Unknown Ur Phencyclidine Scrn Negative 04/05/20 Unknown Ur Amphetamines Screen Presumptive positive 04/05/20 Unknown U Benzodiazepines Scrn Negative 04/05/20 Unknown Urine Cocaine Screen Negative 04/05/20 Unknown U Marijuana (THC) Screen Negative 04/05/20 Unknown Drugs of Abuse Note Disclamer 04/05/20 Unknown Coronavirus (PCR) Positive (Negative) A 04/06/20 Unknown Hepatitis A IgM Ab Non-reactive (NonReactive) 04/06/20 08:04 Hep Bs Antigen Non-reactive (Negative) 04/06/20 08:04 Hep B Core IgM Ab Non-reactive (NonReactive) 04/06/20 08:04 Hepatitis C Antibody Reactive (NonReactive) A 04/06/20 08:04 [place]/IV: Voiding Method Condom Catheter IV Catheter Type [Right INT / Saline Lock Antecubital] IV Catheter Type [Left Upper Peripheral IV arm] IV Catheter Type [Right INT / Saline Lock Forearm] IV Catheter Type [Left Forearm INT / Saline Lock ] IV Catheter Type [Right Wrist] INT / Saline Lock IV Catheter Type [Right Upper INT / Saline Lock arm] Active Medications - Current Medications Current Medications: Generic Name Dose Route Start Last Admin Trade Name Freq PRN Reason Stop Dose Admin Acetaminophen 650 mg 04/05/20 23:41 Tylenol PO Q4H PRN Pain MILD(1-3)/Fever >100.5/CHRISTIANSON Albuterol 2.5 mg 04/08/20 23:00 Albuterol 2.5 Mg/3 Ml Nebu IH Q4HRT PRN Shortness Of Breath Chlordiazepoxide HCl 50 mg 04/06/20 06:45 04/08/20 22:14 Librium PO 50 mg Q1H PRN Administration CIWA-Ar 8-15 Chlordiazepoxide HCl 100 mg 04/06/20 06:45 04/11/20 22:47 Librium PO 100 mg Q1H PRN Administration CIWA-Ar 16-25 Dexamethasone 6 mg 04/09/20 10:30 04/11/20 17:58 Dexamethasone 4 Mg Tab PO 04/15/20 12:00 Not Given DAILY LUPE Enoxaparin Sodium 40 mg 04/06/20 22:00 04/11/20 22:43 Enoxaparin SUB-Q 40 mg QDAY@2200 LUPE Administration Protocol Famotidine 20 mg 04/06/20 10:00 04/11/20 22:43 Pepcid PO 20 mg BID LUPE Administration Furosemide 40 mg 04/06/20 10:00 04/11/20 09:56 Lasix IV 40 mg QDAY LUPE Administration Dextrose 1,000 mls @ 75 mls/hr 04/10/20 19:00 04/12/20 07:00 D5w IV 75 mls/hr DIRECT LUPE Administration Lorazepam 2 mg 04/06/20 06:45 04/11/20 16:39 Ativan IV 2 mg Q1H PRN Administration CIWA-Ar 8-15 Lorazepam 4 mg 04/06/20 06:45 04/12/20 05:16 Ativan IV 4 mg Q1H PRN Administration CIWA-Ar 16-25 Morphine Sulfate 2 mg 04/05/20 23:41 Morphine IV Q4H PRN Pain, Moderate (4-6) Ondansetron HCl 4 mg 04/05/20 23:41 Zofran IV Q8H PRN Nausea And Vomiting Oxycodone/Acetaminophen 1 tab 04/05/20 23:41 Percocet 5/325 PO Q6H PRN Pain, Moderate (4-6) Sodium Chloride 10 ml 04/06/20 10:00 04/11/20 09:57 Sodium Chloride Flush Syringe 10 Ml IV 10 ml BID LUPE Administration Sodium Chloride 10 ml 04/05/20 23:41 Sodium Chloride Flush Syringe 10 Ml IV PRN PRN LINE FLUSH Spironolactone 100 mg 04/12/20 10:00 Spironolactone 25 Mg Tab PO QDAY LUPE
[2020-04-12] MEDS: FUROSEMIDE 40 MG/4 ML INJ IV SCH ×2 (11:00→22:59)
[2020-04-12] MEDS: DEXAMETHASONE 4 MG TAB PO SCH (11:00)
[2020-04-12] MEDS: SPIRONOLACTONE 25 MG TAB PO SCH (11:00)
[2020-04-12] MEDS: FAMOTIDINE 20 MG TAB PO SCH ×2 (11:48→22:42)
--- NOTE | 2020-04-12 13:32 | Progress Note ---
Assessment and Plan 59 y/o male with acute respiratory failure secondary to covid positive state and ETOH withdrawal with hypertension and altered mental state. 1. Continue CIWA protocol 2. Continue HFNC, wean FiO2 for sats >88% 3. Monitor fluid status, would not give additional IVF's unless patient is not taking PO or renal function is compromised 4. Guarded prognosis Subjective Date of service: 04/12/20 Principal diagnosis: COVID Interval history: No acute events. Stable now on 100% HFNC and 40 liters. Sats in the mid 90's. On steroids and CIWA protocol. Objective Vital Signs - 12hr 04/12/20 04/12/20 04/12/20 01:30 02:00 02:30 Temperature Pulse Rate 100 H 103 H 95 H Respiratory 51 H 38 H 30 H Rate Blood Pressure 170/107 156/85 156/85 O2 Sat by Pulse 92 94 95 Oximetry 04/12/20 04/12/20 04/12/20 03:00 03:30 04:00 Temperature Pulse Rate 104 H 102 H 97 H Respiratory 38 H 39 H 30 H Rate Blood Pressure 151/114 146/111 163/96 O2 Sat by Pulse 95 96 96 Oximetry 04/12/20 04/12/20 04/12/20 04:15 04:20 04:30 Temperature Pulse Rate 99 H 107 H Respiratory 44 H Rate Blood Pressure 163/96 O2 Sat by Pulse 95 94 Oximetry 04/12/20 04/12/20 04/12/20 05:00 05:30 06:00 Temperature Pulse Rate 105 H 95 H 102 H Respiratory 34 H 32 H 35 H Rate Blood Pressure 171/116 165/94 166/124 O2 Sat by Pulse 94 88 90 Oximetry 04/12/20 04/12/20 04/12/20 06:30 07:00 07:30 Temperature Pulse Rate 109 H 94 H 97 H Respiratory 43 H 32 H 33 H Rate Blood Pressure 165/103 181/103 170/93 O2 Sat by Pulse 95 91 93 Oximetry 04/12/20 04/12/20 04/12/20 08:00 08:06 08:30 Temperature 98.3 F Pulse Rate 94 H 96 H Respiratory 32 H 32 H Rate Blood Pressure 159/95 168/95 O2 Sat by Pulse 90 92 93 Oximetry 04/12/20 04/12/20 04/12/20 09:00 09:30 10:00 Temperature Pulse Rate 98 H 96 H 96 H Respiratory 32 H 33 H 32 H Rate Blood Pressure 170/98 154/102 152/99 O2 Sat by Pulse 94 97 98 Oximetry 04/12/20 04/12/20 04/12/20 10:30 11:00 11:30 Temperature Pulse Rate 107 H 98 H 88 Respiratory 26 H 43 H 29 H Rate Blood Pressure 174/112 164/105 146/94 O2 Sat by Pulse 95 94 94 Oximetry 04/12/20 04/12/20 12:00 12:30 Temperature Pulse Rate 88 95 H Respiratory 34 H 42 H Rate Blood Pressure 148/94 153/108 O2 Sat by Pulse 97 95 Oximetry Constitutional: asleep ENT: oropharynx moist Effort: normal Ascultation: Bilateral: rhonchi Cardiovascular: regular rate and rhythm Gastrointestinal: normoactive bowel sounds, non-tender CBC and BMP: 04/10/20 08:37 04/11/20 21:24 ABG, PT/INR, D-dimer: PT/INR, D-dimer PT 15.9 Sec. (12.2-14.9) H 04/05/20 10:40 INR 1.27 (0.87-1.13) H 04/05/20 10:40 D-Dimer 1084.93 ng/mlDDU (0-234) H 04/10/20 08:37 Abnormal lab findings: Abnormal Labs 04/05/20 04/05/20 04/05/20 10:40 10:40 10:40 WBC RBC Hct MCV 98 H MCH 34 H MCHC RDW 16.3 H Plt Count 60 L Lymph # (Auto) [place] # (Auto) Seg Neutrophils % Seg Neuts % (Manual) 86.0 H Lymphocytes % (Manual) 4.0 L Monocytes % (Manual) 9.0 H Seg Neutrophils # Man Lymphocytes # (Manual) 0.3 L PT 15.9 H INR 1.27 H D-Dimer Sodium 134 L Potassium Chloride BUN Creatinine 0.5 L Glucose POC Glucose Calcium 7.7 L Ferritin Total Bilirubin Direct Bilirubin AST ALT Alkaline Phosphatase Lactate Dehydrogenase C-Reactive Protein Total Protein Albumin Coronavirus (PCR) Hepatitis C Antibody 04/05/20 04/05/20 04/05/20 10:40 14:45 14:45 WBC RBC Hct MCV MCH MCHC RDW Plt Count Lymph # (Auto) [place] # (Auto) Seg Neutrophils % Seg Neuts % (Manual) Lymphocytes % (Manual) Monocytes % (Manual) Seg Neutrophils # Man Lymphocytes # (Manual) PT INR D-Dimer 837.90 H Sodium Potassium Chloride BUN Creatinine Glucose POC Glucose Calcium Ferritin Total Bilirubin 2.30 H Direct Bilirubin 1.3 H AST 129 H ALT Alkaline Phosphatase Lactate Dehydrogenase 438 H C-Reactive Protein 1.70 H Total Protein Albumin 1.9 L Coronavirus (PCR) Hepatitis C Antibody 04/05/20 04/06/20 04/06/20 14:45 05:53 05:53 WBC 3.5 L RBC 3.47 L Hct 34.1 L MCV 99 H MCH 34 H MCHC 35 H RDW 16.1 H Plt Count 48 L Lymph # (Auto) [place] # (Auto) Seg Neutrophils % Seg Neuts % (Manual) 92.0 H Lymphocytes % (Manual) 3.0 L Monocytes % (Manual) Seg Neutrophils # Man Lymphocytes # (Manual) 0.1 L PT INR D-Dimer Sodium 136 L Potassium Chloride BUN 23 H Creatinine 0.5 L Glucose 107 H POC Glucose Calcium 7.5 L Ferritin 1412.0 H Total Bilirubin 1.80 H Direct Bilirubin AST 112 H ALT Alkaline Phosphatase Lactate Dehydrogenase C-Reactive Protein Total Protein Albumin 1.8 L Coronavirus (PCR) Hepatitis C Antibody 04/06/20 04/06/20 04/07/20 08:04 Unknown 06:01 WBC RBC 3.61 L Hct MCV 100 H MCH 34 H MCHC RDW 16.0 H Plt Count 58 L Lymph # (Auto) 1.0 L [place] # (Auto) 1.2 H Seg Neutrophils % Seg Neuts % (Manual) Lymphocytes % (Manual) Monocytes % (Manual) Seg Neutrophils # Man Lymphocytes # (Manual) PT INR D-Dimer Sodium Potassium Chloride BUN Creatinine Glucose POC Glucose Calcium Ferritin Total Bilirubin Direct Bilirubin AST ALT Alkaline Phosphatase Lactate Dehydrogenase C-Reactive Protein Total Protein Albumin Coronavirus (PCR) Positive A Hepatitis C Antibody Reactive A 04/07/20 04/08/20 04/08/20 06:01 04:00 05:16 WBC RBC Hct MCV MCH MCHC RDW Plt Count Lymph # (Auto) [place] # (Auto) Seg Neutrophils % Seg Neuts % (Manual) Lymphocytes % (Manual) Monocytes % (Manual) Seg Neutrophils # Man Lymphocytes # (Manual) PT INR D-Dimer 1139.66 H Sodium Potassium 3.5 L 3.2 L Chloride 108.7 H BUN 28 H 28 H Creatinine 0.5 L 0.6 L Glucose 133 H 126 H POC Glucose Calcium 7.5 L 7.8 L Ferritin Total Bilirubin 1.40 H 1.30 H Direct Bilirubin 0.8 H AST 170 H 114 H ALT 80 H 73 H Alkaline Phosphatase 132 H Lactate Dehydrogenase 502 H C-Reactive Protein Total Protein 6.1 L Albumin 1.9 L 1.9 L Coronavirus (PCR) Hepatitis C Antibody 04/08/20 04/09/20 04/09/20 05:16 05:33 05:33 WBC 2.2 L RBC Hct MCV 100 H MCH 34 H MCHC RDW 16.2 H Plt Count Lymph # (Auto) [place] # (Auto) Seg Neutrophils % Seg Neuts % (Manual) 72.0 H Lymphocytes % (Manual) Monocytes % (Manual) Seg Neutrophils # Man 1.6 L Lymphocytes # (Manual) 0.5 L PT INR D-Dimer Sodium Potassium Chloride 109.2 H BUN 25 H Creatinine 0.6 L Glucose POC Glucose Calcium 7.8 L Ferritin 1118.0 H Total Bilirubin Direct Bilirubin AST ALT Alkaline Phosphatase Lactate Dehydrogenase C-Reactive Protein Total Protein Albumin Coronavirus (PCR) Hepatitis C Antibody 04/09/20 04/10/20 04/10/20 14:10 08:37 08:37 WBC RBC Hct MCV 99 H MCH 33 H MCHC RDW 16.4 H Plt Count 55 L Lymph # (Auto) [place] # (Auto) Seg Neutrophils % Seg Neuts % (Manual) Lymphocytes % (Manual) Monocytes % (Manual) Seg Neutrophils # Man Lymphocytes # (Manual) PT INR D-Dimer 1084.93 H Sodium Potassium Chloride 111.7 H BUN 26 H Creatinine 0.6 L Glucose POC Glucose Calcium 7.8 L Ferritin Total Bilirubin 1.30 H Direct Bilirubin 0.8 H AST 80 H ALT 58 H Alkaline Phosphatase Lactate Dehydrogenase 404 H C-Reactive Protein Total Protein 6.2 L Albumin 1.8 L Coronavirus (PCR) Hepatitis C Antibody 04/10/20 04/10/20 04/11/20 08:37 08:37 21:24 WBC RBC Hct MCV 100 H MCH 34 H MCHC RDW 16.5 H Plt Count 67 L Lymph # (Auto) 0.9 L [place] # (Auto) Seg Neutrophils % 75.9 H Seg Neuts % (Manual) Lymphocytes % (Manual) Monocytes % (Manual) Seg Neutrophils # Man Lymphocytes # (Manual) PT INR D-Dimer Sodium Potassium Chloride BUN 25 H Creatinine 0.6 L Glucose POC Glucose Calcium 8.1 L Ferritin 1002.0 H Total Bilirubin 2.80 H Direct Bilirubin AST 91 H ALT Alkaline Phosphatase Lactate Dehydrogenase C-Reactive Protein Total Protein Albumin 2.1 L Coronavirus (PCR) Hepatitis C Antibody 04/11/20 23:58 WBC RBC Hct MCV MCH MCHC RDW Plt Count Lymph # (Auto) [place] # (Auto) Seg Neutrophils % Seg Neuts % (Manual) Lymphocytes % (Manual) Monocytes % (Manual) Seg Neutrophils # Man Lymphocytes # (Manual) PT INR D-Dimer Sodium Potassium Chloride BUN Creatinine Glucose POC Glucose 64 L Calcium Ferritin Total Bilirubin Direct Bilirubin AST ALT Alkaline Phosphatase Lactate Dehydrogenase C-Reactive Protein Total Protein Albumin Coronavirus (PCR) Hepatitis C Antibody
--- NOTE | 2020-04-12 14:34 | Progress Note ---
Assessment and Plan Cultures: Blood culture no growth today SARS CoV2 PCR positive Assessment: 59 years old male with history of hepatitis C with cirrhosis, ascites, gastrosplenic varices, hypertension, meth abuse, admitted on 04/05/2020 secondary to 2-week history of worsening generalized body edema, cough and shortness of breath. EMS found O2 sats down to 85%: #Severe COVID-19 pneumonia: Abdominal CT with patchy airspace disease bilateral bases. Procalcitonin 0.2. Markers elevated, Ddimer worsening. #Acute hypoxemic respiratory failure: Unclear etiology, COVID pneumonia +/- pleural effusion. Remains severely hypoxic on HFNC #Hepatitis C with cirrhosis, large ascites, pleural effusion, varices and a splenomegaly #Elevated LFTs: From hepatitis C #Thrombocytopenia: From hepatitis C #Amphetamine abuse #Alcohol abuse #Acute encephalopathy: From alcohol withdrawal, ammonia normal. Recommendations: -Pulmonary on board, patient transferred to [facility] -Completed remdesivir -Continue dexamethasone 6 mg p.o./IV daily for 10 days D6 of 10 -Completed antibiotics -Anticoagulation per hospital protocol -Prone positioning as tolerated -Covid inflammatory markers every 48 hours, ordered today -Obtain SARS-CoV-2 IgG Very guarded prognosis All laboratory, cultures and imaging were reviewed. Will follow Kenya Deras MD Infectious Diseases [employer] [facility] M [phone] O [phone] Subjective Principal diagnosis: COVID Objective - Exam Narrative Exam: General appearance: Somnolent in mild respiratory distress on high flow nasal ca nnula Eyes: anicteric sclerae, moist conjunctivae; no lid-lag; PERRLA HENT: Normocephalic, Atraumatic; normal external ears, nares open, oropharynx limited Neck: supple, tracheal midline, no JVD Lungs: Bilateral rhonchi CV: Tachycardic Abdomen: Soft, non-tender Extremities: no edema, no cyanosis Skin: No rash. Psych: no agitated Neuro: Somnolent - Constitutional Vitals: Vital Signs Temp Pulse Resp BP Pulse Ox 98.3 F 83 30 H 142/97 97 04/12/20 08:00 04/12/20 14:00 04/12/20 14:00 04/12/20 14:00 04/12/20 14:00 Temperature -Last 24 Hours Temperature 98.3 F Temperature 98.6 F Temperature 98.4 F - Labs CBC & Chem 7: 04/10/20 08:37 04/11/20 21:24 Labs: Abnormal lab results 04/11/20 04/11/20 Range/Units 21:24 23:58 BUN 25 H (9-20) mg/dL Creatinine 0.6 L (0.8-1.3) mg/dL POC Glucose 64 L (70-105) mg/dL Calcium 8.1 L (8.4-10.2) mg/dL Total Bilirubin 2.80 H (0.1-1.2) mg/dL AST 91 H (5-40) units/L Albumin 2.1 L (3.9-5) g/dL
[2020-04-12] MEDS: ENOXAPARIN 40 MG/0.4 ML INJ SUB-Q SCH (22:41)
[2020-04-13] MEDS ORDERED: WATER FOR INJ Sterile (PF) 10 ML ONE ×2 (00:25→20:49)
[2020-04-13] MEDS ORDERED: ZIPRASIDONE MESYLATE 20 MG VIAL IM ONE (00:29)
[2020-04-13 05:15] LABS: C-Reactive Protein 4.2 mg/dL (0.00-1.30)
--- NOTE | 2020-04-13 08:57 | Progress Note ---
Assessment and Plan Assessment and plan: -- Acute respiratory failure with hypoxia Current Visit: Yes Status: Acute Plan to address problem: Patient is hypoxic Oxygen supplement as necessary Patient on high flow oxygen --Bilateral pneumonia Current Visit: Yes Status: Acute Plan to address problem: Started on IV Ceftriaxone and IV Zithromaxx IV Decadron ID consult appreciated --Positive COVID-19 virus infection Current Visit: Yes Status: Acute Plan to address problem: Covid positive on 04/06/2020 High flow oxygen at this point -Pulmonary following -remdesivir -dexamethasone 6 mg p.o./IV daily for 10 days -Received ceftriaxone total 5 days and azithromycin total 3 days -Anticoagulation per hospital protocol -Prone positioning as tolerated -Covid inflammatory markers every 48 hours Very poor prognosis --HTN (hypertension) Current Visit: Yes Status: Chronic Plan to address problem: Initiate antihypertensives if necessary -- 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 Plan to address problem: To be counselled --Transaminitis Current Visit: Yes Status: Acute Plan to address problem: Sec to Covid or ETOH trending down Hepatitis profile CIWA initiated --Severe malnutrition Current Visit: Yes Status: Chronic Plan to address problem: Tube feeding nutrition supplements , dietitian consult -- Hyponatremia/resolved Current Visit: Yes Status: Acute Plan to address problem: --DVT prophylaxis Current Visit: Yes Status: Acute Plan to address problem: On Lovenox and GI prophylaxis Closely monitor the patient and adjust the management as needed Plan of care reviewed with the patient's nurse. Critical care statement The high probability OF a clinically significant sudden or life-threatening deterioration of the cardiorespiratory system and endocrine system required my full and direct attention, intervention and postoperative management. The aggregate critical care time was 32 minutes. The time is in addition to time spent performing reported procedures but includes the followin: Data review and interpretation 2: Patient assessment and monitoring of vital signs 3: Documentation 4:Medication orders and management 04/08/2020; patient was seen and evaluated this morning and is on 10 L of oxygen. Patient is on Decadron and remdesivir. ID is following the patient. Hypokalemia repleted. 04/09/2020; patient is on 15 L of oxygen. Continue IV Decadron and remdesivir. Continue IV Lasix and spironolactone for ascites/generalized swelling. Patient required BiPAP overnight. Patient has confusion and currently on restraints. We will check ammonia level, CT head. 04/10/2020; patient's condition is deteriorating transfer to [facility].. Continue with IV Decadron and remdesivir. Ammonia level is normal. His roommate reported that the patient has history of HIV, I try to reach to his daughter was listed in the chart and I could not get in touch. Pulmonary was consulted for respiratory failure and will follow the patient. Patient will be on BiPAP. HIV test ordered. 04/13/2020; patient continues to be on high flow oxygen, resume tube feeding, restrained for agitation as needed History Interval history: I have seen and examined the patient at the bedside in [facility] Patient's chart and medications reviewed Patient continues to be hypoxemic requiring high flow oxygen and intermittent BiPAP Patient is critically ill, in isolation Vital signs noted Hospitalist Physical - Constitutional Vitals: Temp Pulse Resp BP Pulse Ox 97.3 F L 72 24 103/71 96 04/13/20 08:00 04/13/20 08:30 04/13/20 08:30 04/13/20 08:30 04/13/20 08:30 General appearance: Present: mild distress, well-nourished, other (On high flow oxygen) - EENT ENT: other (Examined from a distance; consideration PPE) - Neck Neck: Present: other (Conservation PPE) - Respiratory Respiratory effort: other (Conservation PPE) - Cardiovascular Rhythm: other (Exam from a distance consideration PPE) - Extremities Extremity abnormal: other (Exam from a distance consideration PPE) - Abdominal General gastrointestinal: other (Exam from a distance consideration PPE) - Integumentary Integumentary: Present: pale (Exam from a distance consideration PPE) - Psychiatric Psychiatric: other (Exam from a distance consideration PPE) - Neurologic Neurologic: other (Exam from a distance consideration PPE) HEART Score - HEART Score Age: 45-65 Risk factors: 1-2 risk factors Troponin: Troponin T < 0.010 ng/mL (0.00-0.029) 04/05/20 14:17 Troponin: < normal limit - Critical Actions Critical Actions: 0-3 pts:0.9-1.7%risk of adverse cardiac event.Candidate for discharge Results - Labs CBC & Chem 7: 04/10/20 08:37 04/11/20 21:24 Labs: Laboratory Last Values WBC 5.8 K/mm3 (4.5-11.0) 04/10/20 08:37 RBC 3.75 M/mm3 (3.65-5.03) 04/10/20 08:37 Hgb 12.6 gm/dl (11.8-15.2) 04/10/20 08:37 Hct 37.5 % (35.5-45.6) 04/10/20 08:37 MCV 100 fl (84-94) H 04/10/20 08:37 MCH 34 pg (28-32) H 04/10/20 08:37 MCHC 34 % (32-34) 04/10/20 08:37 RDW 16.5 % (13.2-15.2) H 04/10/20 08:37 Plt Count 67 K/mm3 (140-440) L 04/10/20 08:37 Lymph % (Auto) 16.0 % (13.4-35.0) 04/10/20 08:37 [place] % (Auto) 6.8 % (0.0-7.3) 04/10/20 08:37 Eos % (Auto) 0.2 % (0.0-4.3) 04/10/20 08:37 Baso % (Auto) 1.1 % (0.0-1.8) 04/10/20 08:37 Lymph # (Auto) 0.9 K/mm3 (1.2-5.4) L 04/10/20 08:37 [place] # (Auto) 0.4 K/mm3 (0.0-0.8) 04/10/20 08:37 Eos # (Auto) 0.0 K/mm3 (0.0-0.4) 04/10/20 08:37 Baso # (Auto) 0.1 K/mm3 (0.0-0.1) 04/10/20 08:37 Add Manual Diff Complete 04/09/20 05:33 Total Counted 100 04/09/20 05:33 Seg Neutrophils % 75.9 % (40.0-70.0) H 04/10/20 08:37 Seg Neuts % (Manual) 72.0 % (40.0-70.0) H 04/09/20 05:33 Band Neutrophils % 0 % 04/06/20 05:53 Lymphocytes % (Manual) 21.0 % (13.4-35.0) 04/09/20 05:33 Reactive Lymphs % (Man) 0 % 04/06/20 05:53 Monocytes % (Manual) 7.0 % (0.0-7.3) 04/09/20 05:33 Eosinophils % (Manual) 0 % (0.0-4.3) 04/06/20 05:53 Basophils % (Manual) 0 % (0.0-1.8) 04/06/20 05:53 Metamyelocytes % 0 % 04/06/20 05:53 Myelocytes % 0 % 04/06/20 05:53 Promyelocytes % 0 % 04/06/20 05:53 Blast Cells % 0 % 04/06/20 05:53 Nucleated RBC % Not Reportable 04/09/20 05:33 Seg Neutrophils # 4.4 K/mm3 (1.8-7.7) 04/10/20 08:37 Seg Neutrophils # Man 1.6 K/mm3 (1.8-7.7) L 04/09/20 05:33 Band Neutrophils # 0.0 K/mm3 04/09/20 05:33 Lymphocytes # (Manual) 0.5 K/mm3 (1.2-5.4) L 04/09/20 05:33 Abs React Lymphs (Man) 0.0 K/mm3 04/09/20 05:33 Monocytes # (Manual) 0.2 K/mm3 (0.0-0.8) 04/09/20 05:33 Eosinophils # (Manual) 0.0 K/mm3 (0.0-0.4) 04/09/20 05:33 Basophils # (Manual) 0.0 K/mm3 (0.0-0.1) 04/09/20 05:33 Metamyelocytes # 0.0 K/mm3 04/09/20 05:33 Myelocytes # 0.0 K/mm3 04/09/20 05:33 Promyelocytes # 0.0 K/mm3 04/09/20 05:33 Blast Cells # 0.0 K/mm3 04/09/20 05:33 WBC Morphology Not Reportable 04/09/20 05:33 Hypersegmented Neuts Not Reportable 04/09/20 05:33 Hyposegmented Neuts Not Reportable 04/09/20 05:33 Hypogranular Neuts Not Reportable 04/09/20 05:33 Smudge Cells Not Reportable 04/09/20 05:33 Toxic Granulation Not Reportable 04/09/20 05:33 Toxic Vacuolation Not Reportable 04/09/20 05:33 Dohle Bodies Not Reportable 04/09/20 05:33 Pelger-Huet Anomaly Not Reportable 04/09/20 05:33 Kelly Rods Not Reportable 04/09/20 05:33 Platelet Estimate Appears decreased 04/09/20 05:33 Clumped Platelets Not Reportable 04/09/20 05:33 Plt Clumps, EDTA Not Reportable 04/09/20 05:33 Large Platelets Not Reportable 04/09/20 05:33 Giant Platelets Not Reportable 04/09/20 05:33 Platelet Satelliting Not Reportable 04/09/20 05:33 Plt Morphology Comment Not Reportable 04/09/20 05:33 RBC Morphology Not Reportable 04/09/20 05:33 Dimorphic RBCs Not Reportable 04/09/20 05:33 Polychromasia Not Reportable 04/09/20 05:33 Hypochromasia Not Reportable 04/09/20 05:33 Poikilocytosis Not Reportable 04/09/20 05:33 Anisocytosis Not Reportable 04/09/20 05:33 Microcytosis Not Reportable 04/09/20 05:33 Macrocytosis Not Reportable 04/09/20 05:33 Spherocytes Not Reportable 04/09/20 05:33 Pappenheimer Bodies Not Reportable 04/09/20 05:33 Sickle Cells Not Reportable 04/09/20 05:33 Target Cells Not Reportable 04/09/20 05:33 Tear Drop Cells Few 04/09/20 05:33 Ovalocytes Few 04/09/20 05:33 Helmet Cells Not Reportable 04/09/20 05:33 Pollack-Ladera Bodies Not Reportable 04/09/20 05:33 [place] Rings Not Reportable 04/09/20 05:33 Jose Martin Cells Not Reportable 04/09/20 05:33 Bite Cells Not Reportable 04/09/20 05:33 Crenated Cell Not Reportable 04/09/20 05:33 Elliptocytes Not Reportable 04/09/20 05:33 Acanthocytes (Spur) Not Reportable 04/09/20 05:33 Rouleaux Few 04/09/20 05:33 Hemoglobin C Crystals Not Reportable 04/09/20 05:33 Schistocytes Rare 04/09/20 05:33 Malaria parasites Not Reportable 04/09/20 05:33 Ronnie Bodies Not Reportable 04/09/20 05:33 Hem Pathologist Commnt No 04/09/20 05:33 PT 15.9 Sec. (12.2-14.9) H 04/05/20 10:40 INR 1.27 (0.87-1.13) H 04/05/20 10:40 APTT 30.3 Sec. (24.2-36.6) 04/05/20 10:40 D-Dimer 1222.21 ng/mlDDU (0-234) H 04/13/20 02:41 Sodium 141 mmol/L (137-145) 04/11/20 21:24 Potassium 4.8 mmol/L (3.6-5.0) 04/11/20 21:24 Chloride 104.6 mmol/L (98-107) 04/11/20 21:24 Carbon Dioxide 27 mmol/L (22-30) 04/11/20 21:24 Anion Gap 14 mmol/L 04/11/20 21:24 BUN 25 mg/dL (9-20) H 04/11/20 21:24 Creatinine 0.6 mg/dL (0.8-1.3) L 04/11/20 21:24 Estimated GFR > 60 ml/min 04/11/20 21:24 BUN/Creatinine Ratio 42 % 04/11/20 21:24 Glucose 89 mg/dL (75-100) 04/11/20 21:24 POC Glucose 107 mg/dL (70-105) H 04/13/20 05:41 Hemoglobin A1c 4.5 % (4-6) 04/05/20 10:40 Lactic Acid 1.40 mmol/L (0.7-2.0) 04/05/20 10:40 Calcium 8.1 mg/dL (8.4-10.2) L 04/11/20 21:24 Ferritin 1044.0 ng/mL (30.0-300.0) H 04/13/20 02:41 Total Bilirubin 2.80 mg/dL (0.1-1.2) H 04/11/20 21:24 Direct Bilirubin 0.8 mg/dL (0-0.2) H 04/10/20 08:37 Indirect Bilirubin 0.5 mg/dL 04/10/20 08:37 AST 91 units/L (5-40) H 04/11/20 21:24 ALT 55 units/L (7-56) 04/11/20 21:24 Alkaline Phosphatase 106 units/L (35-129) 04/11/20 21:24 Ammonia 28.0 umol/L (25-60) 04/09/20 14:10 Lactate Dehydrogenase 456 units/L (91-180) H 04/13/20 02:41 Troponin T < 0.010 ng/mL (0.00-0.029) 04/05/20 14:17 C-Reactive Protein 4.20 mg/dL (0.00-1.30) H 04/13/20 02:41 NT-Pro-B Natriuret Pep 216.4 pg/mL (0-900) 04/05/20 10:40 Total Protein 6.7 g/dL (6.3-8.2) 04/11/20 21:24 Albumin 2.1 g/dL (3.9-5) L 04/11/20 21:24 Albumin/Globulin Ratio 0.5 % 04/11/20 21:24 Lipase 21 units/L (13-60) 04/05/20 10:40 Procalcitonin 0.14 ng/mL (<0.15) 04/06/20 14:24 Urine Color Yellow (Yellow) 04/05/20 Unknown Urine Turbidity Clear (Clear) 04/05/20 Unknown Urine pH 6.0 (5.0-7.0) 04/05/20 Unknown Ur Specific Bromide 1.006 (1.003-1.030) 04/05/20 Unknown Urine Protein <15 mg/dl mg/dL (Negative) 04/05/20 Unknown Urine Glucose (UA) Neg mg/dL (Negative) 04/05/20 Unknown Urine Ketones Neg mg/dL (Negative) 04/05/20 Unknown Urine Blood Sm (Negative) 04/05/20 Unknown Urine Nitrite Neg (Negative) 04/05/20 Unknown Urine Bilirubin Neg (Negative) 04/05/20 Unknown Urine Urobilinogen < 2.0 mg/dL (<2.0) 04/05/20 Unknown Ur Leukocyte Esterase Neg (Negative) 04/05/20 Unknown Urine WBC (Auto) < 1.0 /HPF (0.0-6.0) 04/05/20 Unknown Urine RBC (Auto) 6.0 /HPF (0.0-6.0) 04/05/20 Unknown U Epithel Cells (Auto) < 1.0 /HPF (0-13.0) 04/05/20 Unknown Hyaline Casts 1 /LPF 04/05/20 Unknown Urine Mucus Few /HPF 04/05/20 Unknown Urine Opiates Screen Negative 04/05/20 Unknown Urine Methadone Screen Negative 04/05/20 Unknown Ur Barbiturates Screen Negative 04/05/20 Unknown Ur Phencyclidine Scrn Negative 04/05/20 Unknown Ur Amphetamines Screen Presumptive positive 04/05/20 Unknown U Benzodiazepines Scrn Negative 04/05/20 Unknown Urine Cocaine Screen Negative 04/05/20 Unknown U Marijuana (THC) Screen Negative 04/05/20 Unknown Drugs of Abuse Note Disclamer 04/05/20 Unknown Coronavirus (PCR) Positive (Negative) A 04/06/20 Unknown Hepatitis A IgM Ab Non-reactive (NonReactive) 04/06/20 08:04 Hep Bs Antigen Non-reactive (Negative) 04/06/20 08:04 Hep B Core IgM Ab Non-reactive (NonReactive) 04/06/20 08:04 Hepatitis C Antibody Reactive (NonReactive) A 04/06/20 08:04 SARS-CoV-2 IgG Ab Reactive (NonReactive) A 04/13/20 02:41 Rogers/IV: Voiding Method Condom Catheter IV Catheter Type [Right INT / Saline Lock Antecubital] IV Catheter Type [Left Upper Peripheral IV arm] IV Catheter Type [Right INT / Saline Lock Forearm] IV Catheter Type [Left Forearm INT / Saline Lock ] IV Catheter Type [Right Wrist] INT / Saline Lock IV Catheter Type [Right Upper INT / Saline Lock arm] Active Medications - Current Medications Current Medications: Generic Name Dose Route Start Last Admin Trade Name Freq PRN Reason Stop Dose Admin Acetaminophen 650 mg 04/05/20 23:41 Tylenol PO Q4H PRN Pain MILD(1-3)/Fever >100.5/CHRISTIANSON Albuterol 2.5 mg 04/08/20 23:00 Albuterol 2.5 Mg/3 Ml Nebu IH Q4HRT PRN Shortness Of Breath Chlordiazepoxide HCl 50 mg 04/06/20 06:45 04/08/20 22:14 Librium PO 50 mg Q1H PRN Administration [facility] 8-15 Chlordiazepoxide HCl 100 mg 04/06/20 06:45 04/11/20 22:47 Librium PO 100 mg Q1H PRN Administration [facility] 16-25 Dexamethasone 6 mg 04/09/20 10:30 04/12/20 11:00 Dexamethasone 4 Mg Tab PO 04/15/20 12:00 6 mg DAILY LUPE Administration Enoxaparin Sodium 40 mg 04/06/20 22:00 04/12/20 22:41 Enoxaparin SUB-Q 40 mg QDAY@2200 LUPE Administration Protocol Famotidine 20 mg 04/06/20 10:00 04/12/20 22:42 Pepcid PO 20 mg BID LUPE Administration Furosemide 40 mg 04/12/20 11:00 04/12/20 22:59 Furosemide 40 Mg/4 Ml Inj IV 40 mg Q12H LUPE Administration Dextrose 1,000 mls @ 75 mls/hr 04/10/20 19:00 04/12/20 20:02 D5w IV 75 mls/hr DIRECT LUPE Administration Labetalol HCl 10 mg 04/12/20 12:00 Labetalol 20 Mg/4 Ml Inj IV Q4H PRN Hypertension Lorazepam 2 mg 04/06/20 06:45 04/12/20 22:44 Ativan IV 2 mg Q1H PRN Administration [facility] 8-15 Lorazepam 4 mg 04/06/20 06:45 04/12/20 05:16 Ativan IV 4 mg Q1H PRN Administration [facility] 16-25 Morphine Sulfate 2 mg 04/05/20 23:41 Morphine IV Q4H PRN Pain, Moderate (4-6) Ondansetron HCl 4 mg 04/05/20 23:41 Zofran IV Q8H PRN Nausea And Vomiting Oxycodone/Acetaminophen 1 tab 04/05/20 23:41 Percocet 5/325 PO Q6H PRN Pain, Moderate (4-6) Sodium Chloride 10 ml 04/06/20 10:00 04/12/20 22:59 Sodium Chloride Flush Syringe 10 Ml IV 10 ml BID LUPE Administration Sodium Chloride 10 ml 04/05/20 23:41 Sodium Chloride Flush Syringe 10 Ml IV PRN PRN LINE FLUSH Spironolactone 100 mg 04/12/20 10:00 04/12/20 11:00 Spironolactone 25 Mg Tab PO 100 mg QDAY LUPE Administration Nutrition/Malnutrition Assess - Dietary Evaluation Nutrition/Malnutrition Findings: Nutrition Notes Start: 04/12/20 14:15 Freq: Status: Active Protocol: Document 04/12/20 14:15 (Rec: 04/12/20 14:38 [email or web address]) Nutrition Notes Need for Assessment generated from: LOS Initial or Follow up Assessment Current Diagnosis Hypertension Other Pertinent Diagnosis COVID(+), hep C, acute respiratory failure, pneu, methadone&EtoH dependence Current Diet Cardiac Labs/Tests 04/11: BUN 25 Cr 0.6 Pertinent Medications Lasix D5w at 75 ml/hr Decadron Height 5 ft 7 in Weight 84 kg [place] Body Weight (kg) 67.27 BMI 29.0 Subjective/Other Information Screen for LOS. Per RN, pt does not eat much due to lethargy. Pt appears to be much thinner than 84 kg. RN made aware and will get new wt . Unable to contact pt x2. Burn Absent Trauma Absent Current % PO Negligible Minimum of two criteria No physical signs of malnutrition #1 Nutrition Diagnosis Inadequate oral intake Etiology EtoH dependence, hx of drug abuse As Evidenced by Signs and Symptoms pt eating <25% of meals Is patient on ventilator? No Is Patient Ambulatory and/or Out of Bed No REE-([facility]-confined to bed) 1935.108 Calculation Used for Recommendations [facility] Additional Notes Pro: 67-84g (0.8-1g/kg) Fluid: 1 ml/kcal Nutrition Intervention Change Diet Order: Continue Add Supplement/Snack (indicate name/kcal Ensure Enlive BID /protein ) Provides kCal: 700 Provides Protein (gm) 40 Goal #1 Meet at least 75% of protein and energy needs via PO and ONS intakes Anticipated Discharge Needs: Cardiac with ONS PRN Follow-Up By: 04/14/20 Additional Comments FU for new wt, intakes, ONS tolerance
--- NOTE | 2020-04-13 09:44 | Progress Note ---
Assessment and Plan 59 y/o male with acute respiratory failure secondary to covid positive state and ETOH withdrawal with hypertension and altered mental state. 1. Continue CIWA protocol 2. Continue HFNC, wean FiO2 for sats >88%, will discuss with RT 3. Monitor fluid status, would not give additional IVF's unless patient is not taking PO or renal function is compromised 4. Will order proning if possible 5. Guarded prognosis Subjective Date of service: 04/13/20 Principal diagnosis: COVID Interval history: Still on just HFNC at 40 and 100. Sats documented at 100 but no indication of weaning. Inflammatory markers remain high. Objective Vital Signs - 12hr 04/12/20 04/12/20 04/12/20 22:00 22:30 22:35 Temperature Pulse Rate 73 74 Pulse Rate [ From Monitor] Respiratory 29 H 37 H Rate Blood Pressure 125/87 131/80 O2 Sat by Pulse 97 94 96 Oximetry 04/12/20 04/12/20 04/12/20 22:45 23:00 23:30 Temperature Pulse Rate 78 89 79 Pulse Rate [ From Monitor] Respiratory 38 H 37 H 37 H Rate Blood Pressure 121/86 135/93 141/90 O2 Sat by Pulse 97 97 91 Oximetry 04/13/20 04/13/20 04/13/20 00:00 00:30 01:00 Temperature Pulse Rate 91 H 92 H 99 H Pulse Rate [ 74 From Monitor] Respiratory 47 H 38 H 25 H Rate Blood Pressure 132/81 148/104 149/95 O2 Sat by Pulse 82 L 95 98 Oximetry 04/13/20 04/13/20 04/13/20 01:30 02:00 02:30 Temperature Pulse Rate 81 80 77 Pulse Rate [ From Monitor] Respiratory 22 21 25 H Rate Blood Pressure 85/57 102/70 124/82 O2 Sat by Pulse 99 100 98 Oximetry 04/13/20 04/13/20 04/13/20 03:00 03:30 03:40 Temperature Pulse Rate 73 72 Pulse Rate [ From Monitor] Respiratory 23 23 Rate Blood Pressure 132/88 119/70 O2 Sat by Pulse 96 96 96 Oximetry 04/13/20 04/13/20 04/13/20 04:00 04:30 05:00 Temperature Pulse Rate 69 77 64 Pulse Rate [ 69 From Monitor] Respiratory 28 H 28 H 20 Rate Blood Pressure 118/80 134/90 128/82 O2 Sat by Pulse 97 98 97 Oximetry 04/13/20 04/13/20 04/13/20 05:30 06:00 06:30 Temperature Pulse Rate 73 89 94 H Pulse Rate [ From Monitor] Respiratory 28 H 38 H 35 H Rate Blood Pressure 134/91 152/95 134/91 O2 Sat by Pulse 94 88 90 Oximetry 04/13/20 04/13/20 04/13/20 07:00 07:30 07:37 Temperature Pulse Rate 75 73 Pulse Rate [ From Monitor] Respiratory 21 22 Rate Blood Pressure 128/81 103/63 O2 Sat by Pulse 100 98 100 Oximetry 04/13/20 04/13/20 08:00 08:30 Temperature 97.3 F L Pulse Rate 67 72 Pulse Rate [ 72 From Monitor] Respiratory 23 24 Rate Blood Pressure 137/88 103/71 O2 Sat by Pulse 96 96 Oximetry Constitutional: asleep ENT: oropharynx moist Effort: normal Ascultation: Bilateral: rhonchi Cardiovascular: regular rate and rhythm Gastrointestinal: normoactive bowel sounds, non-tender CBC and BMP: 04/10/20 08:37 04/11/20 21:24 ABG, PT/INR, D-dimer: PT/INR, D-dimer PT 15.9 Sec. (12.2-14.9) H 04/05/20 10:40 INR 1.27 (0.87-1.13) H 04/05/20 10:40 D-Dimer 1222.21 ng/mlDDU (0-234) H 04/13/20 02:41 Abnormal lab findings: Abnormal Labs 04/05/20 04/05/20 04/05/20 10:40 10:40 10:40 WBC RBC Hct MCV 98 H MCH 34 H MCHC RDW 16.3 H Plt Count 60 L Lymph # (Auto) [place] # (Auto) Seg Neutrophils % Seg Neuts % (Manual) 86.0 H Lymphocytes % (Manual) 4.0 L Monocytes % (Manual) 9.0 H Seg Neutrophils # Man Lymphocytes # (Manual) 0.3 L PT 15.9 H INR 1.27 H D-Dimer Sodium 134 L Potassium Chloride BUN Creatinine 0.5 L Glucose POC Glucose Calcium 7.7 L Ferritin Total Bilirubin Direct Bilirubin AST ALT Alkaline Phosphatase Lactate Dehydrogenase C-Reactive Protein Total Protein Albumin Coronavirus (PCR) Hepatitis C Antibody SARS-CoV-2 IgG Ab 04/05/20 04/05/20 04/05/20 10:40 14:45 14:45 WBC RBC Hct MCV MCH MCHC RDW Plt Count Lymph # (Auto) [place] # (Auto) Seg Neutrophils % Seg Neuts % (Manual) Lymphocytes % (Manual) Monocytes % (Manual) Seg Neutrophils # Man Lymphocytes # (Manual) PT INR D-Dimer 837.90 H Sodium Potassium Chloride BUN Creatinine Glucose POC Glucose Calcium Ferritin Total Bilirubin 2.30 H Direct Bilirubin 1.3 H AST 129 H ALT Alkaline Phosphatase Lactate Dehydrogenase 438 H C-Reactive Protein 1.70 H Total Protein Albumin 1.9 L Coronavirus (PCR) Hepatitis C Antibody SARS-CoV-2 IgG Ab 04/05/20 04/06/20 04/06/20 14:45 05:53 05:53 WBC 3.5 L RBC 3.47 L Hct 34.1 L MCV 99 H MCH 34 H MCHC 35 H RDW 16.1 H Plt Count 48 L Lymph # (Auto) [place] # (Auto) Seg Neutrophils % Seg Neuts % (Manual) 92.0 H Lymphocytes % (Manual) 3.0 L Monocytes % (Manual) Seg Neutrophils # Man Lymphocytes # (Manual) 0.1 L PT INR D-Dimer Sodium 136 L Potassium Chloride BUN 23 H Creatinine 0.5 L Glucose 107 H POC Glucose Calcium 7.5 L Ferritin 1412.0 H Total Bilirubin 1.80 H Direct Bilirubin AST 112 H ALT Alkaline Phosphatase Lactate Dehydrogenase C-Reactive Protein Total Protein Albumin 1.8 L Coronavirus (PCR) Hepatitis C Antibody SARS-CoV-2 IgG Ab 04/06/20 04/06/20 04/07/20 08:04 Unknown 06:01 WBC RBC 3.61 L Hct MCV 100 H MCH 34 H MCHC RDW 16.0 H Plt Count 58 L Lymph # (Auto) 1.0 L [place] # (Auto) 1.2 H Seg Neutrophils % Seg Neuts % (Manual) Lymphocytes % (Manual) Monocytes % (Manual) Seg Neutrophils # Man Lymphocytes # (Manual) PT INR D-Dimer Sodium Potassium Chloride BUN Creatinine Glucose POC Glucose Calcium Ferritin Total Bilirubin Direct Bilirubin AST ALT Alkaline Phosphatase Lactate Dehydrogenase C-Reactive Protein Total Protein Albumin Coronavirus (PCR) Positive A Hepatitis C Antibody Reactive A SARS-CoV-2 IgG Ab 04/07/20 04/08/20 04/08/20 06:01 04:00 05:16 WBC RBC Hct MCV MCH MCHC RDW Plt Count Lymph # (Auto) [place] # (Auto) Seg Neutrophils % Seg Neuts % (Manual) Lymphocytes % (Manual) Monocytes % (Manual) Seg Neutrophils # Man Lymphocytes # (Manual) PT INR D-Dimer 1139.66 H Sodium Potassium 3.5 L 3.2 L Chloride 108.7 H BUN 28 H 28 H Creatinine 0.5 L 0.6 L Glucose 133 H 126 H POC Glucose Calcium 7.5 L 7.8 L Ferritin Total Bilirubin 1.40 H 1.30 H Direct Bilirubin 0.8 H AST 170 H 114 H ALT 80 H 73 H Alkaline Phosphatase 132 H Lactate Dehydrogenase 502 H C-Reactive Protein Total Protein 6.1 L Albumin 1.9 L 1.9 L Coronavirus (PCR) Hepatitis C Antibody SARS-CoV-2 IgG Ab 04/08/20 04/09/20 04/09/20 05:16 05:33 05:33 WBC 2.2 L RBC Hct MCV 100 H MCH 34 H MCHC RDW 16.2 H Plt Count Lymph # (Auto) [place] # (Auto) Seg Neutrophils % Seg Neuts % (Manual) 72.0 H Lymphocytes % (Manual) Monocytes % (Manual) Seg Neutrophils # Man 1.6 L Lymphocytes # (Manual) 0.5 L PT INR D-Dimer Sodium Potassium Chloride 109.2 H BUN 25 H Creatinine 0.6 L Glucose POC Glucose Calcium 7.8 L Ferritin 1118.0 H Total Bilirubin Direct Bilirubin AST ALT Alkaline Phosphatase Lactate Dehydrogenase C-Reactive Protein Total Protein Albumin Coronavirus (PCR) Hepatitis C Antibody SARS-CoV-2 IgG Ab 04/09/20 04/10/20 04/10/20 14:10 08:37 08:37 WBC RBC Hct MCV 99 H MCH 33 H MCHC RDW 16.4 H Plt Count 55 L Lymph # (Auto) [place] # (Auto) Seg Neutrophils % Seg Neuts % (Manual) Lymphocytes % (Manual) Monocytes % (Manual) Seg Neutrophils # Man Lymphocytes # (Manual) PT INR D-Dimer 1084.93 H Sodium Potassium Chloride 111.7 H BUN 26 H Creatinine 0.6 L Glucose POC Glucose Calcium 7.8 L Ferritin Total Bilirubin 1.30 H Direct Bilirubin 0.8 H AST 80 H ALT 58 H Alkaline Phosphatase Lactate Dehydrogenase 404 H C-Reactive Protein Total Protein 6.2 L Albumin 1.8 L Coronavirus (PCR) Hepatitis C Antibody SARS-CoV-2 IgG Ab 04/10/20 04/10/20 04/11/20 08:37 08:37 21:24 WBC RBC Hct MCV 100 H MCH 34 H MCHC RDW 16.5 H Plt Count 67 L Lymph # (Auto) 0.9 L [place] # (Auto) Seg Neutrophils % 75.9 H Seg Neuts % (Manual) Lymphocytes % (Manual) Monocytes % (Manual) Seg Neutrophils # Man Lymphocytes # (Manual) PT INR D-Dimer Sodium Potassium Chloride BUN 25 H Creatinine 0.6 L Glucose POC Glucose Calcium 8.1 L Ferritin 1002.0 H Total Bilirubin 2.80 H Direct Bilirubin AST 91 H ALT Alkaline Phosphatase Lactate Dehydrogenase C-Reactive Protein Total Protein Albumin 2.1 L Coronavirus (PCR) Hepatitis C Antibody SARS-CoV-2 IgG Ab 04/11/20 04/12/20 04/13/20 23:58 18:06 02:41 WBC RBC Hct MCV MCH MCHC RDW Plt Count Lymph # (Auto) [place] # (Auto) Seg Neutrophils % Seg Neuts % (Manual) Lymphocytes % (Manual) Monocytes % (Manual) Seg Neutrophils # Man Lymphocytes # (Manual) PT INR D-Dimer 1222.21 H Sodium Potassium Chloride BUN Creatinine Glucose POC Glucose 64 L 114 H Calcium Ferritin Total Bilirubin Direct Bilirubin AST ALT Alkaline Phosphatase Lactate Dehydrogenase C-Reactive Protein Total Protein Albumin Coronavirus (PCR) Hepatitis C Antibody SARS-CoV-2 IgG Ab 04/13/20 04/13/20 04/13/20 02:41 02:41 02:41 WBC RBC Hct MCV MCH MCHC RDW Plt Count Lymph # (Auto) [place] # (Auto) Seg Neutrophils % Seg Neuts % (Manual) Lymphocytes % (Manual) Monocytes % (Manual) Seg Neutrophils # Man Lymphocytes # (Manual) PT INR D-Dimer Sodium Potassium Chloride BUN Creatinine Glucose POC Glucose Calcium Ferritin 1044.0 H Total Bilirubin Direct Bilirubin AST ALT Alkaline Phosphatase Lactate Dehydrogenase 456 H C-Reactive Protein 4.20 H Total Protein Albumin Coronavirus (PCR) Hepatitis C Antibody SARS-CoV-2 IgG Ab Reactive A 04/13/20 05:41 WBC RBC Hct MCV MCH MCHC RDW Plt Count Lymph # (Auto) [place] # (Auto) Seg Neutrophils % Seg Neuts % (Manual) Lymphocytes % (Manual) Monocytes % (Manual) Seg Neutrophils # Man Lymphocytes # (Manual) PT INR D-Dimer Sodium Potassium Chloride BUN Creatinine Glucose POC Glucose 107 H Calcium Ferritin Total Bilirubin Direct Bilirubin AST ALT Alkaline Phosphatase Lactate Dehydrogenase C-Reactive Protein Total Protein Albumin Coronavirus (PCR) Hepatitis C Antibody SARS-CoV-2 IgG Ab
[2020-04-13] MEDS: SPIRONOLACTONE 25 MG TAB PO SCH (10:04)
[2020-04-13] MEDS: FAMOTIDINE 20 MG TAB PO SCH ×2 (10:04→21:45)
[2020-04-13] MEDS: DEXTROSE 5% IN WATER 1,000 ML IV SCH (10:04)
[2020-04-13] MEDS: DEXAMETHASONE 4 MG TAB PO SCH (10:04)
[2020-04-13] MEDS: FUROSEMIDE 40 MG/4 ML INJ IV SCH ×3 (10:18→22:16)
--- NOTE | 2020-04-13 11:00 | Progress Note ---
Assessment and Plan Cultures: Blood culture no growth today SARS CoV2 PCR positive SARS Covid 2 IgG positive Assessment: 59 years old male with history of hepatitis C with cirrhosis, ascites, gastrosplenic varices, hypertension, meth abuse, admitted on 04/05/2020 secondary to 2-week history of worsening generalized body edema, cough and shortness of breath. EMS found O2 sats down to 85%: #Severe COVID-19 pneumonia: Abdominal CT with patchy airspace disease bilateral bases. Procalcitonin 0.2. Markers elevated, Ddimer worsening. #Acute hypoxemic respiratory failure: Unclear etiology, COVID pneumonia +/- pleural effusion. Remains severely hypoxic on HFNC #Hepatitis C with cirrhosis, large ascites, pleural effusion, varices and a splenomegaly #Elevated LFTs: From hepatitis C #Thrombocytopenia: From hepatitis C #Amphetamine abuse #Alcohol abuse #Acute encephalopathy: From alcohol withdrawal, ammonia normal. Recommendations: -Pulmonary on board -Completed remdesivir -Continue dexamethasone 6 mg p.o./IV daily for 10 days D7 of 10 -Completed antibiotics -Anticoagulation per hospital protocol -Prone positioning as tolerated -Covid inflammatory markers every 48 hours, ordered today -Patient is not a candidate for COVID-19 plasma, he is seropositive -Obtain lower extremity ultrasound rule out DVT ordered Very guarded prognosis All laboratory, cultures and imaging were reviewed. Will follow Kenya Deras MD Infectious Diseases Gift Shop Assistant [facility] [id number] [phone] O [phone] Subjective Date of service: 04/13/20 Principal diagnosis: COVID Interval history: Patient remains on high flow nasal cannula 100%, 40 L, no fever, more agitation Objective - Exam Narrative Exam: Deferred to prevent COVID-19 transmission - Constitutional Vitals: Vital Signs Temp Pulse Resp BP Pulse Ox 97.3 F L 72 24 103/71 96 04/13/20 08:00 04/13/20 08:30 04/13/20 08:30 04/13/20 08:30 04/13/20 08:30 Temperature -Last 24 Hours Temperature 97.3 F - Labs CBC & Chem 7: 04/10/20 08:37 04/11/20 21:24 Labs: Abnormal lab results 04/12/20 04/13/20 04/13/20 Range/Units 18:06 02:41 02:41 D-Dimer 1222.21 H (0-234) ng/mlDDU POC Glucose 114 H (70-105) mg/dL Ferritin 1044.0 H (30.0-300.0) ng/mL Lactate Dehydrogenase (91-180) units/L C-Reactive Protein (0.00-1.30) mg/dL SARS-CoV-2 IgG Ab (NonReactive) 04/13/20 04/13/20 04/13/20 Range/Units 02:41 02:41 05:41 D-Dimer (0-234) ng/mlDDU POC Glucose 107 H (70-105) mg/dL Ferritin (30.0-300.0) ng/mL Lactate Dehydrogenase 456 H (91-180) units/L C-Reactive Protein 4.20 H (0.00-1.30) mg/dL SARS-CoV-2 IgG Ab Reactive A (NonReactive)
[2020-04-13] MEDS ORDERED: SIMPLE SYRUP 15 ML FEEDTUBE PRN ×2 (13:23)
[2020-04-13] MEDS ORDERED: LIPASE 10,500/PROTEASE 25,000/AMYLASE 43,750 (UNITS) DR CAP FEEDTUBE PRN (13:23)
[2020-04-13] MEDS ORDERED: SODIUM BICARBONATE 325 MG TAB FEEDTUBE PRN (13:23)
[2020-04-13] MEDS: LORazepam 2 MG/ML VIAL IV PRN ×4 (13:39→18:38)
[2020-04-13] MEDS: chlordiazePOXIDE 25 MG CAP PO SCH ×2 (13:39→21:43)
[2020-04-13] MEDS ORDERED: ZIPRASIDONE MESYLATE 20 MG VIAL IM PRN (19:06)
[2020-04-13] MEDS: ENOXAPARIN 40 MG/0.4 ML INJ SUB-Q SCH (21:44)
[2020-04-14] MEDS: chlordiazePOXIDE 25 MG CAP PO SCH ×3 (03:01→20:15)
--- NOTE | 2020-04-14 08:05 | Progress Note ---
Assessment and Plan Cultures: Blood culture no growth today SARS CoV2 PCR positive SARS Covid 2 IgG positive Assessment: 59 years old male with history of hepatitis C with cirrhosis, ascites, gastrosplenic varices, hypertension, meth abuse, admitted on 04/05/2020 secondary to 2-week history of worsening generalized body edema, cough and shortness of breath. EMS found O2 sats down to 85%: #Severe COVID-19 pneumonia: Abdominal CT with patchy airspace disease bilateral bases. Procalcitonin 0.2. Markers elevated, Ddimer worsening. #Acute hypoxemic respiratory failure: Unclear etiology, COVID pneumonia +/- pleural effusion. Remains severely hypoxic on HFNC 75% #Hepatitis C with cirrhosis, large ascites, pleural effusion, varices and a splenomegaly #Elevated LFTs: From hepatitis C #Thrombocytopenia: From hepatitis C #Amphetamine abuse #Alcohol abuse #Acute encephalopathy: From alcohol withdrawal, ammonia normal. On CIWA Recommendations: -Recheck chest x-ray -Obtain lower extremity ultrasound rule out DVT ordered -pending -Pulmonary on board -Completed remdesivir -Continue dexamethasone 6 mg p.o./IV daily for 10 days D8 of 10 -Completed antibiotics -Anticoagulation per hospital protocol -Prone positioning as tolerated -Covid inflammatory markers every 48 hours, ordered today -Patient is not a candidate for COVID-19 plasma, he is seropositive Very guarded prognosis All laboratory, cultures and imaging were reviewed. Will follow Kenya Deras MD Infectious Diseases Outside [employer] Consultant [facility] M [phone] O [phone] Subjective Date of service: 04/14/20 Principal diagnosis: COVID Interval history: Patient remains on high flow nasal cannula 75%, 40 L, sats 93%, remains agitated given Ativan several times. On four-point soft restraint. No fever. Objective - Exam Narrative Exam: Deferred to prevent COVID-19 transmission - Constitutional Vitals: Vital Signs Temp Pulse Resp BP Pulse Ox 96.9 F L 89 33 H 122/90 93 04/14/20 04:00 04/14/20 06:00 04/14/20 06:00 04/14/20 06:00 04/14/20 06:00 Temperature -Last 24 Hours Temperature 96.9 F Temperature 97.4 F Temperature 97.3 F - Labs CBC & Chem 7: 04/10/20 08:37 04/11/20 21:24 Labs: Abnormal lab results 04/13/20 04/13/20 04/14/20 Range/Units 02:41 12:25 00:08 POC Glucose 109 H 120 H (70-105) mg/dL SARS-CoV-2 IgG Ab Reactive A (NonReactive) 04/14/20 Range/Units 05:11 POC Glucose 120 H (70-105) mg/dL SARS-CoV-2 IgG Ab (NonReactive)
--- NOTE | 2020-04-14 09:02 | Progress Note ---
Assessment and Plan Assessment and plan: -- Acute respiratory failure with hypoxia Current Visit: Yes Status: Acute Plan to address problem: Patient is hypoxic Oxygen supplement as necessary Patient on high flow oxygen --Bilateral pneumonia Current Visit: Yes Status: Acute Plan to address problem: Started on IV Ceftriaxone and IV Zithromaxx IV Decadron ID consult appreciated --Positive COVID-19 virus infection Current Visit: Yes Status: Acute Plan to address problem: Covid positive on 04/06/2020 High flow oxygen at this point -Pulmonary following -remdesivir -dexamethasone 6 mg p.o./IV daily for 10 days -Received ceftriaxone total 5 days and azithromycin total 3 days -Anticoagulation per hospital protocol -Prone positioning as tolerated -Covid inflammatory markers every 48 hours Very poor prognosis --HTN (hypertension) Current Visit: Yes Status: Chronic Plan to address problem: Initiate antihypertensives if necessary -- 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 Plan to address problem: To be counselled --Transaminitis Current Visit: Yes Status: Acute Plan to address problem: Sec to Covid or ETOH trending down Hepatitis profile CIWA initiated --Severe malnutrition Current Visit: Yes Status: Chronic Plan to address problem: Tube feeding nutrition supplements , dietitian consult -- Hyponatremia/resolved Current Visit: Yes Status: Acute Plan to address problem: --DVT prophylaxis Current Visit: Yes Status: Acute Plan to address problem: On Lovenox and GI prophylaxis Closely monitor the patient and adjust the management as needed Plan of care reviewed with the patient's nurse. Critical care statement The high probability OF a clinically significant sudden or life-threatening deterioration of the cardiorespiratory system and endocrine system required my full and direct attention, intervention and postoperative management. The aggregate critical care time was[33] minutes. The time is in addition to time spent performing reported procedures but includes the followin: Data review and interpretation 2: Patient assessment and monitoring of vital signs 3: Documentation 4:Medication orders and management 04/08/2020; patient was seen and evaluated this morning and is on 10 L of oxygen. Patient is on Decadron and remdesivir. ID is following the patient. Hypokalemia repleted. 04/09/2020; patient is on 15 L of oxygen. Continue IV Decadron and remdesivir. Continue IV Lasix and spironolactone for ascites/generalized swelling. Patient required BiPAP overnight. Patient has confusion and currently on restraints. We will check ammonia level, CT head. 04/10/2020; patient's condition is deteriorating transfer to [facility].. Continue with IV Decadron and remdesivir. Ammonia level is normal. His roommate reported that the patient has history of HIV, I try to reach to his daughter was listed in the chart and I could not get in touch. Pulmonary was consulted for respiratory failure and will follow the patient. Patient will be on BiPAP. HIV test ordered. 04/13/2020; patient continues to be on high flow oxygen, resume tube feeding, restrained for agitation as needed 04/14/2020; patient remains confused agitated, on CIWA protocol continuously hypoxemic, requiring high flow oxygen On four-point restraints History Interval history: I have seen and examined the patient at the bedside in [facility] Covid positive patient in isolation Isolation precautions and PPE protocols strictly followed Tolerating tube feeding, will DC IV fluids Vital signs reviewed Patient is agitated noncommunicative and confused Hospitalist Physical - Constitutional Vitals: Temp Pulse Resp BP Pulse Ox 97.9 F 89 33 H 122/90 93 04/14/20 08:00 04/14/20 06:00 04/14/20 06:00 04/14/20 06:00 04/14/20 06:00 General appearance: Present: mild distress, well-nourished, other (On high flow oxygen) - EENT Eyes: Present: PERRL, EOM intact - Neck Neck: Present: supple, normal ROM - Respiratory Respiratory effort: normal Respiratory: bilateral: diminished, rhonchi, negative: rales, wheezing - Cardiovascular Rhythm: regular Heart Sounds: Present: S1 & S2 - Extremities Extremities: no ischemia, No edema Peripheral Pulses: within normal limits - Abdominal General gastrointestinal: soft, non-tender, non-distended, normal bowel sounds - Integumentary Integumentary: Present: clear, warm - Psychiatric Psychiatric: agitated, other (Confused) - Neurologic Neurologic: moves all extremities HEART Score - HEART Score Age: 45-65 Risk factors: 1-2 risk factors Troponin: Troponin T < 0.010 ng/mL (0.00-0.029) 04/05/20 14:17 Troponin: < normal limit - Critical Actions Critical Actions: 0-3 pts:0.9-1.7%risk of adverse cardiac event.Candidate for discharge Results - Labs CBC & Chem 7: 04/10/20 08:37 04/14/20 11:18 Labs: Laboratory Last Values WBC 5.8 K/mm3 (4.5-11.0) 04/10/20 08:37 RBC 3.75 M/mm3 (3.65-5.03) 04/10/20 08:37 Hgb 12.6 gm/dl (11.8-15.2) 04/10/20 08:37 Hct 37.5 % (35.5-45.6) 04/10/20 08:37 MCV 100 fl (84-94) H 04/10/20 08:37 MCH 34 pg (28-32) H 04/10/20 08:37 MCHC 34 % (32-34) 04/10/20 08:37 RDW 16.5 % (13.2-15.2) H 04/10/20 08:37 Plt Count 67 K/mm3 (140-440) L 04/10/20 08:37 Lymph % (Auto) 16.0 % (13.4-35.0) 04/10/20 08:37 [place] % (Auto) 6.8 % (0.0-7.3) 04/10/20 08:37 Eos % (Auto) 0.2 % (0.0-4.3) 04/10/20 08:37 Baso % (Auto) 1.1 % (0.0-1.8) 04/10/20 08:37 Lymph # (Auto) 0.9 K/mm3 (1.2-5.4) L 04/10/20 08:37 [place] # (Auto) 0.4 K/mm3 (0.0-0.8) 04/10/20 08:37 Eos # (Auto) 0.0 K/mm3 (0.0-0.4) 04/10/20 08:37 Baso # (Auto) 0.1 K/mm3 (0.0-0.1) 04/10/20 08:37 Add Manual Diff Complete 04/09/20 05:33 Total Counted 100 04/09/20 05:33 Seg Neutrophils % 75.9 % (40.0-70.0) H 04/10/20 08:37 Seg Neuts % (Manual) 72.0 % (40.0-70.0) H 04/09/20 05:33 Band Neutrophils % 0 % 04/06/20 05:53 Lymphocytes % (Manual) 21.0 % (13.4-35.0) 04/09/20 05:33 Reactive Lymphs % (Man) 0 % 04/06/20 05:53 Monocytes % (Manual) 7.0 % (0.0-7.3) 04/09/20 05:33 Eosinophils % (Manual) 0 % (0.0-4.3) 04/06/20 05:53 Basophils % (Manual) 0 % (0.0-1.8) 04/06/20 05:53 Metamyelocytes % 0 % 04/06/20 05:53 Myelocytes % 0 % 04/06/20 05:53 Promyelocytes % 0 % 04/06/20 05:53 Blast Cells % 0 % 04/06/20 05:53 Nucleated RBC % Not Reportable 04/09/20 05:33 Seg Neutrophils # 4.4 K/mm3 (1.8-7.7) 04/10/20 08:37 Seg Neutrophils # Man 1.6 K/mm3 (1.8-7.7) L 04/09/20 05:33 Band Neutrophils # 0.0 K/mm3 04/09/20 05:33 Lymphocytes # (Manual) 0.5 K/mm3 (1.2-5.4) L 04/09/20 05:33 Abs React Lymphs (Man) 0.0 K/mm3 04/09/20 05:33 Monocytes # (Manual) 0.2 K/mm3 (0.0-0.8) 04/09/20 05:33 Eosinophils # (Manual) 0.0 K/mm3 (0.0-0.4) 04/09/20 05:33 Basophils # (Manual) 0.0 K/mm3 (0.0-0.1) 04/09/20 05:33 Metamyelocytes # 0.0 K/mm3 04/09/20 05:33 Myelocytes # 0.0 K/mm3 04/09/20 05:33 Promyelocytes # 0.0 K/mm3 04/09/20 05:33 Blast Cells # 0.0 K/mm3 04/09/20 05:33 WBC Morphology Not Reportable 04/09/20 05:33 Hypersegmented Neuts Not Reportable 04/09/20 05:33 Hyposegmented Neuts Not Reportable 04/09/20 05:33 Hypogranular Neuts Not Reportable 04/09/20 05:33 Smudge Cells Not Reportable 04/09/20 05:33 Toxic Granulation Not Reportable 04/09/20 05:33 Toxic Vacuolation Not Reportable 04/09/20 05:33 Dohle Bodies Not Reportable 04/09/20 05:33 Pelger-Huet Anomaly Not Reportable 04/09/20 05:33 Kelly Rods Not Reportable 04/09/20 05:33 Platelet Estimate Appears decreased 04/09/20 05:33 Clumped Platelets Not Reportable 04/09/20 05:33 Plt Clumps, EDTA Not Reportable 04/09/20 05:33 Large Platelets Not Reportable 04/09/20 05:33 Giant Platelets Not Reportable 04/09/20 05:33 Platelet Satelliting Not Reportable 04/09/20 05:33 Plt Morphology Comment Not Reportable 04/09/20 05:33 RBC Morphology Not Reportable 04/09/20 05:33 Dimorphic RBCs Not Reportable 04/09/20 05:33 Polychromasia Not Reportable 04/09/20 05:33 Hypochromasia Not Reportable 04/09/20 05:33 Poikilocytosis Not Reportable 04/09/20 05:33 Anisocytosis Not Reportable 04/09/20 05:33 Microcytosis Not Reportable 04/09/20 05:33 Macrocytosis Not Reportable 04/09/20 05:33 Spherocytes Not Reportable 04/09/20 05:33 Pappenheimer Bodies Not Reportable 04/09/20 05:33 Sickle Cells Not Reportable 04/09/20 05:33 Target Cells Not Reportable 04/09/20 05:33 Tear Drop Cells Few 04/09/20 05:33 Ovalocytes Few 04/09/20 05:33 Helmet Cells Not Reportable 04/09/20 05:33 Pollack-Udell Bodies Not Reportable 04/09/20 05:33 [place] Rings Not Reportable 04/09/20 05:33 [place] Cells Not Reportable 04/09/20 05:33 Bite Cells Not Reportable 04/09/20 05:33 Crenated Cell Not Reportable 04/09/20 05:33 Elliptocytes Not Reportable 04/09/20 05:33 Acanthocytes (Spur) Not Reportable 04/09/20 05:33 Rouleaux Few 04/09/20 05:33 Hemoglobin C Crystals Not Reportable 04/09/20 05:33 Schistocytes Rare 04/09/20 05:33 Malaria parasites Not Reportable 04/09/20 05:33 Ronnie Bodies Not Reportable 04/09/20 05:33 Hem Pathologist Commnt No 04/09/20 05:33 PT 15.9 Sec. (12.2-14.9) H 04/05/20 10:40 INR 1.27 (0.87-1.13) H 04/05/20 10:40 APTT 30.3 Sec. (24.2-36.6) 04/05/20 10:40 D-Dimer 1222.21 ng/mlDDU (0-234) H 04/13/20 02:41 Sodium 141 mmol/L (137-145) 04/11/20 21:24 Potassium 4.8 mmol/L (3.6-5.0) 04/11/20 21:24 Chloride 104.6 mmol/L (98-107) 04/11/20 21:24 Carbon Dioxide 27 mmol/L (22-30) 04/11/20 21:24 Anion Gap 14 mmol/L 04/11/20 21:24 BUN 25 mg/dL (9-20) H 04/11/20 21:24 Creatinine 0.6 mg/dL (0.8-1.3) L 04/11/20 21:24 Estimated GFR > 60 ml/min 04/11/20 21:24 BUN/Creatinine Ratio 42 % 04/11/20 21:24 Glucose 89 mg/dL (75-100) 04/11/20 21:24 POC Glucose 120 mg/dL (70-105) H 04/14/20 05:11 Hemoglobin A1c 4.5 % (4-6) 04/05/20 10:40 Lactic Acid 1.40 mmol/L (0.7-2.0) 04/05/20 10:40 Calcium 8.1 mg/dL (8.4-10.2) L 04/11/20 21:24 Ferritin 1044.0 ng/mL (30.0-300.0) H 04/13/20 02:41 Total Bilirubin 2.80 mg/dL (0.1-1.2) H 04/11/20 21:24 Direct Bilirubin 0.8 mg/dL (0-0.2) H 04/10/20 08:37 Indirect Bilirubin 0.5 mg/dL 04/10/20 08:37 AST 91 units/L (5-40) H 04/11/20 21:24 ALT 55 units/L (7-56) 04/11/20 21:24 Alkaline Phosphatase 106 units/L (35-129) 04/11/20 21:24 Ammonia 28.0 umol/L (25-60) 04/09/20 14:10 Lactate Dehydrogenase 456 units/L (91-180) H 04/13/20 02:41 Troponin T < 0.010 ng/mL (0.00-0.029) 04/05/20 14:17 C-Reactive Protein 4.20 mg/dL (0.00-1.30) H 04/13/20 02:41 NT-Pro-B Natriuret Pep 216.4 pg/mL (0-900) 04/05/20 10:40 Total Protein 6.7 g/dL (6.3-8.2) 04/11/20 21:24 Albumin 2.1 g/dL (3.9-5) L 04/11/20 21:24 Albumin/Globulin Ratio 0.5 % 04/11/20 21:24 Lipase 21 units/L (13-60) 04/05/20 10:40 Procalcitonin 0.14 ng/mL (<0.15) 04/06/20 14:24 Urine Color Yellow (Yellow) 04/05/20 Unknown Urine Turbidity Clear (Clear) 04/05/20 Unknown Urine pH 6.0 (5.0-7.0) 04/05/20 Unknown Ur Specific [place] 1.006 (1.003-1.030) 04/05/20 Unknown Urine Protein <15 mg/dl mg/dL (Negative) 04/05/20 Unknown Urine Glucose (UA) Neg mg/dL (Negative) 04/05/20 Unknown Urine Ketones Neg mg/dL (Negative) 04/05/20 Unknown Urine Blood Sm (Negative) 04/05/20 Unknown Urine Nitrite Neg (Negative) 04/05/20 Unknown Urine Bilirubin Neg (Negative) 04/05/20 Unknown Urine Urobilinogen < 2.0 mg/dL (<2.0) 04/05/20 Unknown Ur Leukocyte Esterase Neg (Negative) 04/05/20 Unknown Urine WBC (Auto) < 1.0 /HPF (0.0-6.0) 04/05/20 Unknown Urine RBC (Auto) 6.0 /HPF (0.0-6.0) 04/05/20 Unknown U Epithel Cells (Auto) < 1.0 /HPF (0-13.0) 04/05/20 Unknown Hyaline Casts 1 /LPF 04/05/20 Unknown Urine Mucus Few /HPF 04/05/20 Unknown Urine Opiates Screen Negative 04/05/20 Unknown Urine Methadone Screen Negative 04/05/20 Unknown Ur Barbiturates Screen Negative 04/05/20 Unknown Ur Phencyclidine Scrn Negative 04/05/20 Unknown Ur Amphetamines Screen Presumptive positive 04/05/20 Unknown U Benzodiazepines Scrn Negative 04/05/20 Unknown Urine Cocaine Screen Negative 04/05/20 Unknown U Marijuana (THC) Screen Negative 04/05/20 Unknown Drugs of Abuse Note Disclamer 04/05/20 Unknown Coronavirus (PCR) Positive (Negative) A 04/06/20 Unknown Hepatitis A IgM Ab Non-reactive (NonReactive) 04/06/20 08:04 Hep Bs Antigen Non-reactive (Negative) 04/06/20 08:04 Hep B Core IgM Ab Non-reactive (NonReactive) 04/06/20 08:04 Hepatitis C Antibody Reactive (NonReactive) A 04/06/20 08:04 SARS-CoV-2 IgG Ab Reactive (NonReactive) A 04/13/20 02:41 [place]/IV: Voiding Method Condom Catheter IV Catheter Type [Right INT / Saline Lock Antecubital] IV Catheter Type [Left Upper Peripheral IV arm] IV Catheter Type [Right INT / Saline Lock Forearm] IV Catheter Type [Left Forearm INT / Saline Lock ] IV Catheter Type [Right Wrist] INT / Saline Lock IV Catheter Type [Right Upper INT / Saline Lock arm] Active Medications - Current Medications Current Medications: Generic Name Dose Route Start Last Admin Trade Name Freq PRN Reason Stop Dose Admin Acetaminophen 650 mg 04/05/20 23:41 Tylenol PO Q4H PRN Pain MILD(1-3)/Fever >100.5/CHRISTIANSON Albuterol 2.5 mg 04/08/20 23:00 Albuterol 2.5 Mg/3 Ml Nebu IH Q4HRT PRN Shortness Of Breath Lipase/Protease/Amylase 1 each 04/13/20 13:23 Lipase 10,500/Protease 25,000/Amylase 43,750 (Units) Dr Tejada FEEDTUBE PRN PRN For Clogged Feeding Tube Chlordiazepoxide HCl 25 mg 04/13/20 11:00 04/14/20 03:01 Chlordiazepoxide 25 Mg Cap PO 25 mg Q8H LUPE Administration Dexamethasone 6 mg 04/09/20 10:30 04/13/20 10:04 Dexamethasone 4 Mg Tab PO 04/15/20 12:00 6 mg DAILY LUPE Administration Enoxaparin Sodium 40 mg 04/06/20 22:00 04/13/20 21:44 Enoxaparin SUB-Q 40 mg QDAY@2200 LUPE Administration Protocol Famotidine 20 mg 04/06/20 10:00 04/13/20 21:45 Pepcid PO 20 mg BID LUPE Administration Furosemide 40 mg 04/12/20 11:00 04/13/20 22:16 Furosemide 40 Mg/4 Ml Inj IV 40 mg Q12H LUPE Administration Dextrose 1,000 mls @ 75 mls/hr 04/10/20 19:00 04/13/20 10:04 D5w IV 75 mls/hr DIRECT LUPE Administration Labetalol HCl 10 mg 04/12/20 12:00 Labetalol 20 Mg/4 Ml Inj IV Q4H PRN Hypertension Lorazepam 2 mg 04/06/20 06:45 04/13/20 13:39 Ativan IV 2 mg Q1H PRN Administration CIWA-Ar 8-15 Lorazepam 4 mg 04/06/20 06:45 04/13/20 18:38 Ativan IV 4 mg Q1H PRN Administration CIWA-Ar 16-25 Morphine Sulfate 2 mg 04/05/20 23:41 Morphine IV Q4H PRN Pain, Moderate (4-6) Ondansetron HCl 4 mg 04/05/20 23:41 Zofran IV Q8H PRN Nausea And Vomiting Oxycodone/Acetaminophen 1 tab 04/05/20 23:41 Percocet 5/325 PO Q6H PRN Pain, Moderate (4-6) Simple Syrup 15 ml 04/13/20 13:23 Simple Syrup 15 Ml FEEDTUBE PRN PRN Hypoglycemia Simple Syrup 30 ml 04/13/20 13:23 Simple Syrup 15 Ml FEEDTUBE PRN PRN Hypoglycemia Sodium Bicarbonate 325 mg 04/13/20 13:23 Sodium Bicarbonate 325 Mg Tab FEEDTUBE PRN PRN For Clogged Feeding Tube Sodium Chloride 10 ml 04/06/20 10:00 04/13/20 21:45 Sodium Chloride Flush Syringe 10 Ml IV 10 ml BID LUPE Administration Sodium Chloride 10 ml 04/05/20 23:41 Sodium Chloride Flush Syringe 10 Ml IV PRN PRN LINE FLUSH Spironolactone 100 mg 04/12/20 10:00 04/13/20 10:04 Spironolactone 25 Mg Tab PO 100 mg QDAY LUPE Administration Ziprasidone 10 mg 04/13/20 19:06 04/13/20 21:46 Ziprasidone Mesylate 20 Mg Vial IM 10 mg ONCE PRN Administration Agitation Nutrition/Malnutrition Assess - Dietary Evaluation Nutrition/Malnutrition Findings: Nutrition Notes Start: 04/12/20 14:15 Freq: Status: Active Protocol: Document 04/13/20 13:33 AB (Rec: 04/13/20 13:46 AB [id number]) Co-Sign 04/13/20 13:33 LM Nutrition Notes Need for Assessment generated from: MD Order Initial or Follow up Reassessment Current Diagnosis Hypertension Other Pertinent Diagnosis COVID(+), hep C, acute respiratory failure, pneu, methadone&EtoH dependence Current Diet TF Labs/Tests Reviewed Pertinent Medications Reviewed Height 5 ft 7 in Weight 70 kg [place] Body Weight (kg) 67.27 BMI 24.1 Subjective/Other Information MD order for TF write/manage. Per RN, pt had not eaten for 9 days. Per RN, wt of 70 kg is accurate. RN was notified of new TF regimen. Percent of energy/protein needs met: 0%/0% Burn Absent Trauma Absent Food Allergy No Current % PO Negligible Minimum of two criteria No Energy Intake (severe) < or equal to 50% Estimated Energy Requirement > or equal to 5 days #1 Nutrition Diagnosis Inadequate oral intake As Evidenced by Signs and Symptoms Pt ordered to have TF Diagnosis Progress(for reassessment Continues documentation) Is patient on ventilator? No Is Patient Ambulatory and/or Out of Bed No [facility] 2627.276 Calculation [facility] for [facility]ations [facility] Additional Notes Pro: 67-84g (0.8-1g/kg) Fluid: 1 ml/kcal Nutrition Intervention Change Diet Order: Change to TF Nutrition Support: Osmolite 1.5 at 50 ml/hr Flush with 50 ml q4h Kcal 1,800 Protein (gm) 75 Fluid (mL) 914 Add Supplement/Snack (indicate name/kcal D/C /protein ) Goal #1 TF start/tolerance Goal #2 Meet at least 80 % of energy and protein needs via TF. Anticipated Discharge Needs: Unable to determine at this time Follow-Up By: 04/15/20 Additional Comments F/U for TF start/tolerance
[2020-04-14] MEDS: FAMOTIDINE 20 MG TAB PO SCH ×2 (10:54→22:09)
[2020-04-14] MEDS: DEXAMETHASONE 4 MG TAB PO SCH (10:54)
[2020-04-14] MEDS: SPIRONOLACTONE 25 MG TAB PO SCH (10:54)
[2020-04-14] MEDS: FUROSEMIDE 40 MG/4 ML INJ IV SCH ×2 (10:55→22:09)
[2020-04-14] MEDS: MORPHINE 2 MG/1 ML INJ IV PRN ×2 (10:55→18:20)
[2020-04-14 11:48] LABS: Blood Urea Nitrogen 34 mg/dL (9-20); Calcium 8.1 mg/dL (8.4-10.2); Hemolysis Index 75
[2020-04-14 11:55] LABS: BUN/Creatinine Ratio 57
--- NOTE | 2020-04-14 12:06 | Progress Note ---
Assessment and Plan 59 y/o male with acute respiratory failure secondary to covid positive state and ETOH withdrawal with hypertension and altered mental state. 1. Continue CIWA protocol 2. Continue HFNC, wean FiO2 for sats >88%, will discuss with RT, doing better with this. 3. Monitor fluid status, would not give additional IVF's unless patient is not taking PO or renal function is compromised 4. Will order proning if possible. Was able to turn patient on side some yesterday but given his mental state, not able to fully prone. 5. Guarded prognosis Subjective Date of service: 04/14/20 Principal diagnosis: COVID Interval history: Down to 75%. Sats in the low 90's. No fever. Good BP. Good UOP the last 36 hours. Objective Vital Signs - 12hr 04/14/20 04/14/20 04/14/20 00:30 01:00 01:30 Temperature Pulse Rate 76 72 77 Respiratory 22 22 25 H Rate Blood Pressure 90/61 96/71 118/80 O2 Sat by Pulse 94 96 94 Oximetry 04/14/20 04/14/20 04/14/20 01:59 02:00 02:30 Temperature Pulse Rate 72 71 Respiratory 20 22 Rate Blood Pressure 86/57 91/60 O2 Sat by Pulse 95 94 92 Oximetry 04/14/20 04/14/20 04/14/20 03:00 03:30 03:45 Temperature Pulse Rate 69 73 Respiratory 22 36 H Rate Blood Pressure 96/65 103/67 O2 Sat by Pulse 92 94 93 Oximetry 04/14/20 04/14/20 04/14/20 04:00 04:30 05:00 Temperature 96.9 F L Pulse Rate 71 71 75 Respiratory 21 22 22 Rate Blood Pressure 118/87 95/70 103/69 O2 Sat by Pulse 95 96 96 Oximetry 04/14/20 04/14/20 04/14/20 05:30 06:00 08:00 Temperature 97.9 F Pulse Rate 89 89 Respiratory 32 H 33 H Rate Blood Pressure 115/81 122/90 O2 Sat by Pulse 93 93 Oximetry 04/14/20 10:54 Temperature Pulse Rate 86 Respiratory Rate Blood Pressure 123/87 O2 Sat by Pulse Oximetry Constitutional: asleep ENT: oropharynx moist Effort: normal Ascultation: Bilateral: rhonchi Cardiovascular: regular rate and rhythm Gastrointestinal: normoactive bowel sounds, non-tender CBC and BMP: 04/10/20 08:37 04/14/20 11:18 ABG, PT/INR, D-dimer: PT/INR, D-dimer PT 15.9 Sec. (12.2-14.9) H 04/05/20 10:40 INR 1.27 (0.87-1.13) H 04/05/20 10:40 D-Dimer 1222.21 ng/mlDDU (0-234) H 04/13/20 02:41 Abnormal lab findings: Abnormal Labs 04/05/20 04/05/20 04/05/20 10:40 10:40 10:40 WBC RBC Hct MCV 98 H MCH 34 H MCHC RDW 16.3 H Plt Count 60 L Lymph # (Auto) Walker # (Auto) Seg Neutrophils % Seg Neuts % (Manual) 86.0 H Lymphocytes % (Manual) 4.0 L Monocytes % (Manual) 9.0 H Seg Neutrophils # Man Lymphocytes # (Manual) 0.3 L PT 15.9 H INR 1.27 H D-Dimer Sodium 134 L Potassium Chloride Carbon Dioxide BUN Creatinine 0.5 L Glucose POC Glucose Calcium 7.7 L Ferritin Total Bilirubin Direct Bilirubin AST ALT Alkaline Phosphatase Lactate Dehydrogenase C-Reactive Protein Total Protein Albumin Coronavirus (PCR) Hepatitis C Antibody SARS-CoV-2 IgG Ab 04/05/20 04/05/20 04/05/20 10:40 14:45 14:45 WBC RBC Hct MCV MCH MCHC RDW Plt Count Lymph # (Auto) Walker # (Auto) Seg Neutrophils % Seg Neuts % (Manual) Lymphocytes % (Manual) Monocytes % (Manual) Seg Neutrophils # Man Lymphocytes # (Manual) PT INR D-Dimer 837.90 H Sodium Potassium Chloride Carbon Dioxide BUN Creatinine Glucose POC Glucose Calcium Ferritin Total Bilirubin 2.30 H Direct Bilirubin 1.3 H AST 129 H ALT Alkaline Phosphatase Lactate Dehydrogenase 438 H C-Reactive Protein 1.70 H Total Protein Albumin 1.9 L Coronavirus (PCR) Hepatitis C Antibody SARS-CoV-2 IgG Ab 04/05/20 04/06/20 04/06/20 14:45 05:53 05:53 WBC 3.5 L RBC 3.47 L Hct 34.1 L MCV 99 H MCH 34 H MCHC 35 H RDW 16.1 H Plt Count 48 L Lymph # (Auto) Walker # (Auto) Seg Neutrophils % Seg Neuts % (Manual) 92.0 H Lymphocytes % (Manual) 3.0 L Monocytes % (Manual) Seg Neutrophils # Man Lymphocytes # (Manual) 0.1 L PT INR D-Dimer Sodium 136 L Potassium Chloride Carbon Dioxide BUN 23 H Creatinine 0.5 L Glucose 107 H POC Glucose Calcium 7.5 L Ferritin 1412.0 H Total Bilirubin 1.80 H Direct Bilirubin AST 112 H ALT Alkaline Phosphatase Lactate Dehydrogenase C-Reactive Protein Total Protein Albumin 1.8 L Coronavirus (PCR) Hepatitis C Antibody SARS-CoV-2 IgG Ab 04/06/20 04/06/20 04/07/20 08:04 Unknown 06:01 WBC RBC 3.61 L Hct MCV 100 H MCH 34 H MCHC RDW 16.0 H Plt Count 58 L Lymph # (Auto) 1.0 L Walker # (Auto) 1.2 H Seg Neutrophils % Seg Neuts % (Manual) Lymphocytes % (Manual) Monocytes % (Manual) Seg Neutrophils # Man Lymphocytes # (Manual) PT INR D-Dimer Sodium Potassium Chloride Carbon Dioxide BUN Creatinine Glucose POC Glucose Calcium Ferritin Total Bilirubin Direct Bilirubin AST ALT Alkaline Phosphatase Lactate Dehydrogenase C-Reactive Protein Total Protein Albumin Coronavirus (PCR) Positive A Hepatitis C Antibody Reactive A SARS-CoV-2 IgG Ab 04/07/20 04/08/20 04/08/20 06:01 04:00 05:16 WBC RBC Hct MCV MCH MCHC RDW Plt Count Lymph # (Auto) Walker # (Auto) Seg Neutrophils % Seg Neuts % (Manual) Lymphocytes % (Manual) Monocytes % (Manual) Seg Neutrophils # Man Lymphocytes # (Manual) PT INR D-Dimer 1139.66 H Sodium Potassium 3.5 L 3.2 L Chloride 108.7 H Carbon Dioxide BUN 28 H 28 H Creatinine 0.5 L 0.6 L Glucose 133 H 126 H POC Glucose Calcium 7.5 L 7.8 L Ferritin Total Bilirubin 1.40 H 1.30 H Direct Bilirubin 0.8 H AST 170 H 114 H ALT 80 H 73 H Alkaline Phosphatase 132 H Lactate Dehydrogenase 502 H C-Reactive Protein Total Protein 6.1 L Albumin 1.9 L 1.9 L Coronavirus (PCR) Hepatitis C Antibody SARS-CoV-2 IgG Ab 04/08/20 04/09/20 04/09/20 05:16 05:33 05:33 WBC 2.2 L RBC Hct MCV 100 H MCH 34 H MCHC RDW 16.2 H Plt Count Lymph # (Auto) Walker # (Auto) Seg Neutrophils % Seg Neuts % (Manual) 72.0 H Lymphocytes % (Manual) Monocytes % (Manual) Seg Neutrophils # Man 1.6 L Lymphocytes # (Manual) 0.5 L PT INR D-Dimer Sodium Potassium Chloride 109.2 H Carbon Dioxide BUN 25 H Creatinine 0.6 L Glucose POC Glucose Calcium 7.8 L Ferritin 1118.0 H Total Bilirubin Direct Bilirubin AST ALT Alkaline Phosphatase Lactate Dehydrogenase C-Reactive Protein Total Protein Albumin Coronavirus (PCR) Hepatitis C Antibody SARS-CoV-2 IgG Ab 04/09/20 04/10/20 04/10/20 14:10 08:37 08:37 WBC RBC Hct MCV 99 H MCH 33 H MCHC RDW 16.4 H Plt Count 55 L Lymph # (Auto) Walker # (Auto) Seg Neutrophils % Seg Neuts % (Manual) Lymphocytes % (Manual) Monocytes % (Manual) Seg Neutrophils # Man Lymphocytes # (Manual) PT INR D-Dimer 1084.93 H Sodium Potassium Chloride 111.7 H Carbon Dioxide BUN 26 H Creatinine 0.6 L Glucose POC Glucose Calcium 7.8 L Ferritin Total Bilirubin 1.30 H Direct Bilirubin 0.8 H AST 80 H ALT 58 H Alkaline Phosphatase Lactate Dehydrogenase 404 H C-Reactive Protein Total Protein 6.2 L Albumin 1.8 L Coronavirus (PCR) Hepatitis C Antibody SARS-CoV-2 IgG Ab 04/10/20 04/10/20 04/11/20 08:37 08:37 21:24 WBC RBC Hct MCV 100 H MCH 34 H MCHC RDW 16.5 H Plt Count 67 L Lymph # (Auto) 0.9 L Walker # (Auto) Seg Neutrophils % 75.9 H Seg Neuts % (Manual) Lymphocytes % (Manual) Monocytes % (Manual) Seg Neutrophils # Man Lymphocytes # (Manual) PT INR D-Dimer Sodium Potassium Chloride Carbon Dioxide BUN 25 H Creatinine 0.6 L Glucose POC Glucose Calcium 8.1 L Ferritin 1002.0 H Total Bilirubin 2.80 H Direct Bilirubin AST 91 H ALT Alkaline Phosphatase Lactate Dehydrogenase C-Reactive Protein Total Protein Albumin 2.1 L Coronavirus (PCR) Hepatitis C Antibody SARS-CoV-2 IgG Ab 04/11/20 04/12/20 04/13/20 23:58 18:06 02:41 WBC RBC Hct MCV MCH MCHC RDW Plt Count Lymph # (Auto) Walker # (Auto) Seg Neutrophils % Seg Neuts % (Manual) Lymphocytes % (Manual) Monocytes % (Manual) Seg Neutrophils # Man Lymphocytes # (Manual) PT INR D-Dimer 1222.21 H Sodium Potassium Chloride Carbon Dioxide BUN Creatinine Glucose POC Glucose 64 L 114 H Calcium Ferritin Total Bilirubin Direct Bilirubin AST ALT Alkaline Phosphatase Lactate Dehydrogenase C-Reactive Protein Total Protein Albumin Coronavirus (PCR) Hepatitis C Antibody SARS-CoV-2 IgG Ab 04/13/20 04/13/20 04/13/20 02:41 02:41 02:41 WBC RBC Hct MCV MCH MCHC RDW Plt Count Lymph # (Auto) Walker # (Auto) Seg Neutrophils % Seg Neuts % (Manual) Lymphocytes % (Manual) Monocytes % (Manual) Seg Neutrophils # Man Lymphocytes # (Manual) PT INR D-Dimer Sodium Potassium Chloride Carbon Dioxide BUN Creatinine Glucose POC Glucose Calcium Ferritin 1044.0 H Total Bilirubin Direct Bilirubin AST ALT Alkaline Phosphatase Lactate Dehydrogenase 456 H C-Reactive Protein 4.20 H Total Protein Albumin Coronavirus (PCR) Hepatitis C Antibody SARS-CoV-2 IgG Ab Reactive A 04/13/20 04/13/20 04/14/20 05:41 12:25 00:08 WBC RBC Hct MCV MCH MCHC RDW Plt Count Lymph # (Auto) Walker # (Auto) Seg Neutrophils % Seg Neuts % (Manual) Lymphocytes % (Manual) Monocytes % (Manual) Seg Neutrophils # Man Lymphocytes # (Manual) PT INR D-Dimer Sodium Potassium Chloride Carbon Dioxide BUN Creatinine Glucose POC Glucose 107 H 109 H 120 H Calcium Ferritin Total Bilirubin Direct Bilirubin AST ALT Alkaline Phosphatase Lactate Dehydrogenase C-Reactive Protein Total Protein Albumin Coronavirus (PCR) Hepatitis C Antibody SARS-CoV-2 IgG Ab 04/14/20 04/14/20 05:11 11:18 WBC RBC Hct MCV MCH MCHC RDW Plt Count Lymph # (Auto) Walker # (Auto) Seg Neutrophils % Seg Neuts % (Manual) Lymphocytes % (Manual) Monocytes % (Manual) Seg Neutrophils # Man Lymphocytes # (Manual) PT INR D-Dimer Sodium 134 L Potassium Chloride Carbon Dioxide 32 H BUN 34 H Creatinine 0.6 L Glucose 115 H POC Glucose 120 H Calcium 8.1 L Ferritin Total Bilirubin Direct Bilirubin AST ALT Alkaline Phosphatase Lactate Dehydrogenase C-Reactive Protein Total Protein Albumin Coronavirus (PCR) Hepatitis C Antibody SARS-CoV-2 IgG Ab
[2020-04-14] MEDS: ENOXAPARIN 40 MG/0.4 ML INJ SUB-Q SCH (22:09)
[2020-04-15] MEDS: chlordiazePOXIDE 25 MG CAP PO SCH ×3 (02:57→18:23)
--- NOTE | 2020-04-15 09:14 | Progress Note ---
Assessment and Plan Assessment and plan: -- Acute respiratory failure with hypoxia Current Visit: Yes Status: Acute Plan to address problem: Patient continues to be hypoxic Requiring high flow oxygen, unable to wean Supportive care pulmonary following --Bilateral pneumonia Current Visit: Yes Status: Acute Plan to address problem: Completed antibiotics pneumonia secondary to COVID-19 Supportive care --Positive COVID-19 virus infection Current Visit: Yes Status: Acute Plan to address problem: Covid positive on 04/06/2020 High flow oxygen at this point -Pulmonary following -remdesivir for 5 days -dexamethasone 6 mg p.o./IV daily for 10 days -Received ceftriaxone total 5 days and azithromycin total 3 days -Anticoagulation per hospital protocol -Prone positioning as tolerated -Covid inflammatory markers every 48 hours Very poor prognosis --HTN (hypertension) Current Visit: Yes Status: Chronic Plan to address problem: Moderate control -- 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 Plan to address problem: To be counselled --Transaminitis Current Visit: Yes Status: Acute Plan to address problem: Sec to Covid or ETOH trending down Hepatitis profile CIWA initiated --Severe malnutrition Current Visit: Yes Status: Chronic Plan to address problem: Tube feeding nutrition supplements , dietitian consult -- Hyponatremia/resolved Current Visit: Yes Status: Acute Plan to address problem: --DVT prophylaxis Current Visit: Yes Status: Acute Plan to address problem: On Lovenox and GI prophylaxis Closely monitor the patient and adjust the management as needed Plan of care reviewed with the patient's nurse. Critical care statement The high probability OF a clinically significant sudden or life-threatening deterioration of the cardiorespiratory system and endocrine system required my full and direct attention, intervention and postoperative management. The aggregate critical care time was[33] minutes. The time is in addition to time spent performing reported procedures but includes the followin: Data review and interpretation 2: Patient assessment and monitoring of vital signs 3: Documentation 4:Medication orders and management 04/08/2020; patient was seen and evaluated this morning and is on 10 L of oxygen. Patient is on Decadron and remdesivir. ID is following the patient. Hypokalemia repleted. 04/09/2020; patient is on 15 L of oxygen. Continue IV Decadron and remdesivir. Continue IV Lasix and spironolactone for ascites/generalized swelling. Patient required BiPAP overnight. Patient has confusion and currently on restraints. We will check ammonia level, CT head. 04/10/2020; patient's condition is deteriorating transfer to [facility].. Continue with IV Decadron and remdesivir. Ammonia level is normal. His roommate repor noa that the patient has history of HIV, I try to reach to his daughter was listed in the chart and I could not get in touch. Pulmonary was consulted for respiratory failure and will follow the patient. Patient will be on BiPAP. HIV test ordered. 04/13/2020; patient continues to be on high flow oxygen, resume tube feeding, restrained for agitation as needed 04/14/2020; patient remains confused agitated, on CIWA protocol continuously hypoxemic, requiring high flow oxygen On four-point restraints History Interval history: I have seen and examined the patient at the bedside Patient is restless and agitated requiring restraints On CIWA protocol Requiring high flow oxygen Vital signs reviewed Hospitalist Physical - Constitutional Vitals: Temp Pulse Resp BP Pulse Ox 97.7 F 94 H 20 123/82 96 04/15/20 08:00 04/15/20 08:00 04/15/20 08:00 04/15/20 08:00 04/15/20 08:00 General appearance: Present: mild distress, well-nourished, other (On high flow oxygen, agitated and restless) - EENT Eyes: Present: PERRL, EOM intact - Neck Neck: Present: supple, normal ROM - Respiratory Respiratory effort: normal Respiratory: bilateral: diminished, rhonchi, negative: rales, wheezing - Extremities Extremities: no ischemia, No edema - Abdominal General gastrointestinal: soft, non-tender, non-distended, normal bowel sounds - Integumentary Integumentary: Present: clear, warm - Psychiatric Psychiatric: other (Confused and agitated nonverbal) - Neurologic Neurologic: moves all extremities, other (Confused) HEART Score - HEART Score Age: 45-65 Risk factors: 1-2 risk factors Troponin: Troponin T < 0.010 ng/mL (0.00-0.029) 04/05/20 14:17 Troponin: < normal limit - Critical Actions Critical Actions: 0-3 pts:0.9-1.7%risk of adverse cardiac event.Candidate for discharge Results - Labs CBC & Chem 7: 04/10/20 08:37 04/14/20 11:18 Labs: Laboratory Last Values WBC 5.8 K/mm3 (4.5-11.0) 04/10/20 08:37 RBC 3.75 M/mm3 (3.65-5.03) 04/10/20 08:37 Hgb 12.6 gm/dl (11.8-15.2) 04/10/20 08:37 Hct 37.5 % (35.5-45.6) 04/10/20 08:37 MCV 100 fl (84-94) H 04/10/20 08:37 MCH 34 pg (28-32) H 04/10/20 08:37 MCHC 34 % (32-34) 04/10/20 08:37 RDW 16.5 % (13.2-15.2) H 04/10/20 08:37 Plt Count 67 K/mm3 (140-440) L 04/10/20 08:37 Lymph % (Auto) 16.0 % (13.4-35.0) 04/10/20 08:37 Major % (Auto) 6.8 % (0.0-7.3) 04/10/20 08:37 Eos % (Auto) 0.2 % (0.0-4.3) 04/10/20 08:37 Baso % (Auto) 1.1 % (0.0-1.8) 04/10/20 08:37 Lymph # (Auto) 0.9 K/mm3 (1.2-5.4) L 04/10/20 08:37 Major # (Auto) 0.4 K/mm3 (0.0-0.8) 04/10/20 08:37 Eos # (Auto) 0.0 K/mm3 (0.0-0.4) 04/10/20 08:37 Baso # (Auto) 0.1 K/mm3 (0.0-0.1) 04/10/20 08:37 Add Manual Diff Complete 04/09/20 05:33 Total Counted 100 04/09/20 05:33 Seg Neutrophils % 75.9 % (40.0-70.0) H 04/10/20 08:37 Seg Neuts % (Manual) 72.0 % (40.0-70.0) H 04/09/20 05:33 Band Neutrophils % 0 % 04/06/20 05:53 Lymphocytes % (Manual) 21.0 % (13.4-35.0) 04/09/20 05:33 Reactive Lymphs % (Man) 0 % 04/06/20 05:53 Monocytes % (Manual) 7.0 % (0.0-7.3) 04/09/20 05:33 Eosinophils % (Manual) 0 % (0.0-4.3) 04/06/20 05:53 Basophils % (Manual) 0 % (0.0-1.8) 04/06/20 05:53 Metamyelocytes % 0 % 04/06/20 05:53 Myelocytes % 0 % 04/06/20 05:53 Promyelocytes % 0 % 04/06/20 05:53 Blast Cells % 0 % 04/06/20 05:53 Nucleated RBC % Not Reportable 04/09/20 05:33 Seg Neutrophils # 4.4 K/mm3 (1.8-7.7) 04/10/20 08:37 Seg Neutrophils # Man 1.6 K/mm3 (1.8-7.7) L 04/09/20 05:33 Band Neutrophils # 0.0 K/mm3 04/09/20 05:33 Lymphocytes # (Manual) 0.5 K/mm3 (1.2-5.4) L 04/09/20 05:33 Abs React Lymphs (Man) 0.0 K/mm3 04/09/20 05:33 Monocytes # (Manual) 0.2 K/mm3 (0.0-0.8) 04/09/20 05:33 Eosinophils # (Manual) 0.0 K/mm3 (0.0-0.4) 04/09/20 05:33 Basophils # (Manual) 0.0 K/mm3 (0.0-0.1) 04/09/20 05:33 Metamyelocytes # 0.0 K/mm3 04/09/20 05:33 Myelocytes # 0.0 K/mm3 04/09/20 05:33 Promyelocytes # 0.0 K/mm3 04/09/20 05:33 Blast Cells # 0.0 K/mm3 04/09/20 05:33 WBC Morphology Not Reportable 04/09/20 05:33 Hypersegmented Neuts Not Reportable 04/09/20 05:33 Hyposegmented Neuts Not Reportable 04/09/20 05:33 Hypogranular Neuts Not Reportable 04/09/20 05:33 Smudge Cells Not Reportable 04/09/20 05:33 Toxic Granulation Not Reportable 04/09/20 05:33 Toxic Vacuolation Not Reportable 04/09/20 05:33 Dohle Bodies Not Reportable 04/09/20 05:33 Pelger-Huet Anomaly Not Reportable 04/09/20 05:33 Kelly Rods Not Reportable 04/09/20 05:33 Platelet Estimate Appears decreased 04/09/20 05:33 Clumped Platelets Not Reportable 04/09/20 05:33 Plt Clumps, EDTA Not Reportable 04/09/20 05:33 Large Platelets Not Reportable 04/09/20 05:33 Giant Platelets Not Reportable 04/09/20 05:33 Platelet Satelliting Not Reportable 04/09/20 05:33 Plt Morphology Comment Not Reportable 04/09/20 05:33 RBC Morphology Not Reportable 04/09/20 05:33 Dimorphic RBCs Not Reportable 04/09/20 05:33 Polychromasia Not Reportable 04/09/20 05:33 Hypochromasia Not Reportable 04/09/20 05:33 Poikilocytosis Not Reportable 04/09/20 05:33 Anisocytosis Not Reportable 04/09/20 05:33 Microcytosis Not Reportable 04/09/20 05:33 Macrocytosis Not Reportable 04/09/20 05:33 Spherocytes Not Reportable 04/09/20 05:33 Pappenheimer Bodies Not Reportable 04/09/20 05:33 Sickle Cells Not Reportable 04/09/20 05:33 Target Cells Not Reportable 04/09/20 05:33 Tear Drop Cells Few 04/09/20 05:33 Ovalocytes Few 04/09/20 05:33 Helmet Cells Not Reportable 04/09/20 05:33 [place] Bodies Not Reportable 04/09/20 05:33 [place] Rings Not Reportable 04/09/20 05:33 [place] Cells Not Reportable 04/09/20 05:33 Bite Cells Not Reportable 04/09/20 05:33 Crenated Cell Not Reportable 04/09/20 05:33 Elliptocytes Not Reportable 04/09/20 05:33 Acanthocytes (Spur) Not Reportable 04/09/20 05:33 Rouleaux Few 04/09/20 05:33 Hemoglobin C Crystals Not Reportable 04/09/20 05:33 Schistocytes Rare 04/09/20 05:33 Malaria parasites Not Reportable 04/09/20 05:33 Ronnie Bodies Not Reportable 04/09/20 05:33 Hem Pathologist Commnt No 04/09/20 05:33 PT 15.9 Sec. (12.2-14.9) H 04/05/20 10:40 INR 1.27 (0.87-1.13) H 04/05/20 10:40 APTT 30.3 Sec. (24.2-36.6) 04/05/20 10:40 D-Dimer 1222.21 ng/mlDDU (0-234) H 04/13/20 02:41 Sodium 134 mmol/L (137-145) L 04/14/20 11:18 Potassium 4.5 mmol/L (3.6-5.0) 04/14/20 11:18 Chloride 99.7 mmol/L (98-107) 04/14/20 11:18 Carbon Dioxide 32 mmol/L (22-30) H 04/14/20 11:18 Anion Gap 7 mmol/L 04/14/20 11:18 BUN 34 mg/dL (9-20) H 04/14/20 11:18 Creatinine 0.6 mg/dL (0.8-1.3) L 04/14/20 11:18 Estimated GFR > 60 ml/min 04/14/20 11:18 BUN/Creatinine Ratio 57 % 04/14/20 11:18 Glucose 115 mg/dL (75-100) H 04/14/20 11:18 POC Glucose 119 mg/dL (70-105) H 04/15/20 05:48 Hemoglobin A1c 4.5 % (4-6) 04/05/20 10:40 Lactic Acid 1.40 mmol/L (0.7-2.0) 04/05/20 10:40 Calcium 8.1 mg/dL (8.4-10.2) L 04/14/20 11:18 Phosphorus 3.30 mg/dL (2.5-4.5) 04/14/20 09:12 Magnesium 2.10 mg/dL (1.7-2.3) 04/14/20 09:12 Ferritin 1044.0 ng/mL (30.0-300.0) H 04/13/20 02:41 Total Bilirubin 2.80 mg/dL (0.1-1.2) H 04/11/20 21:24 Direct Bilirubin 0.8 mg/dL (0-0.2) H 04/10/20 08:37 Indirect Bilirubin 0.5 mg/dL 04/10/20 08:37 AST 91 units/L (5-40) H 04/11/20 21:24 ALT 55 units/L (7-56) 04/11/20 21:24 Alkaline Phosphatase 106 units/L (35-129) 04/11/20 21:24 Ammonia 28.0 umol/L (25-60) 04/09/20 14:10 Lactate Dehydrogenase 456 units/L (91-180) H 04/13/20 02:41 Troponin T < 0.010 ng/mL (0.00-0.029) 04/05/20 14:17 C-Reactive Protein 4.20 mg/dL (0.00-1.30) H 04/13/20 02:41 NT-Pro-B Natriuret Pep 216.4 pg/mL (0-900) 04/05/20 10:40 Total Protein 6.7 g/dL (6.3-8.2) 04/11/20 21:24 Albumin 2.1 g/dL (3.9-5) L 04/11/20 21:24 Albumin/Globulin Ratio 0.5 % 04/11/20 21:24 Lipase 21 units/L (13-60) 04/05/20 10:40 Procalcitonin 0.14 ng/mL (<0.15) 04/06/20 14:24 Urine Color Yellow (Yellow) 04/05/20 Unknown Urine Turbidity Clear (Clear) 04/05/20 Unknown Urine pH 6.0 (5.0-7.0) 04/05/20 Unknown Ur Specific [place] 1.006 (1.003-1.030) 04/05/20 Unknown Urine Protein <15 mg/dl mg/dL (Negative) 04/05/20 Unknown Urine Glucose (UA) Neg mg/dL (Negative) 04/05/20 Unknown Urine Ketones Neg mg/dL (Negative) 04/05/20 Unknown Urine Blood Sm (Negative) 04/05/20 Unknown Urine Nitrite Neg (Negative) 04/05/20 Unknown Urine Bilirubin Neg (Negative) 04/05/20 Unknown Urine Urobilinogen < 2.0 mg/dL (<2.0) 04/05/20 Unknown Ur Leukocyte Esterase Neg (Negative) 04/05/20 Unknown Urine WBC (Auto) < 1.0 /HPF (0.0-6.0) 04/05/20 Unknown Urine RBC (Auto) 6.0 /HPF (0.0-6.0) 04/05/20 Unknown U Epithel Cells (Auto) < 1.0 /HPF (0-13.0) 04/05/20 Unknown Hyaline Casts 1 /LPF 04/05/20 Unknown Urine Mucus Few /HPF 04/05/20 Unknown Urine Opiates Screen Negative 04/05/20 Unknown Urine Methadone Screen Negative 04/05/20 Unknown Ur Barbiturates Screen Negative 04/05/20 Unknown Ur Phencyclidine Scrn Negative 04/05/20 Unknown Ur Amphetamines Screen Presumptive positive 04/05/20 Unknown U Benzodiazepines Scrn Negative 04/05/20 Unknown Urine Cocaine Screen Negative 04/05/20 Unknown U Marijuana (THC) Screen Negative 04/05/20 Unknown Drugs of Abuse Note Disclamer 04/05/20 Unknown Coronavirus (PCR) Positive (Negative) A 04/06/20 Unknown Hepatitis A IgM Ab Non-reactive (NonReactive) 04/06/20 08:04 Hep Bs Antigen Non-reactive (Negative) 04/06/20 08:04 Hep B Core IgM Ab Non-reactive (NonReactive) 04/06/20 08:04 Hepatitis C Antibody Reactive (NonReactive) A 04/06/20 08:04 SARS-CoV-2 IgG Ab Reactive (NonReactive) A 04/13/20 02:41 Rogers/IV: Voiding Method Condom Catheter IV Catheter Type [Right INT / Saline Lock Antecubital] IV Catheter Type [Left Upper Peripheral IV arm] IV Catheter Type [Right INT / Saline Lock Forearm] IV Catheter Type [Left Forearm INT / Saline Lock ] IV Catheter Type [Right Wrist] INT / Saline Lock IV Catheter Type [Right Upper INT / Saline Lock arm] Active Medications - Current Medications Current Medications: Generic Name Dose Route Start Last Admin Trade Name Freq PRN Reason Stop Dose Admin Acetaminophen 650 mg 04/05/20 23:41 Tylenol PO Q4H PRN Pain MILD(1-3)/Fever >100.5/CHRISTIANSON Albuterol 2.5 mg 04/08/20 23:00 Albuterol 2.5 Mg/3 Ml Nebu IH Q4HRT PRN Shortness Of Breath Lipase/Protease/Amylase 1 each 04/13/20 13:23 Lipase 10,500/Protease 25,000/Amylase 43,750 (Units) Dr Tejada FEEDTUBE PRN PRN For Clogged Feeding Tube Chlordiazepoxide HCl 25 mg 04/13/20 11:00 04/15/20 02:57 Chlordiazepoxide 25 Mg Cap PO 25 mg Q8H LUPE Administration Dexamethasone 6 mg 04/09/20 10:30 04/14/20 10:54 Dexamethasone 4 Mg Tab PO 04/15/20 12:00 6 mg DAILY LUPE Administration Enoxaparin Sodium 40 mg 04/06/20 22:00 04/14/20 22:09 Enoxaparin SUB-Q 40 mg QDAY@2200 LUPE Administration Protocol Famotidine 20 mg 04/06/20 10:00 04/14/20 22:09 Pepcid PO 20 mg BID LUPE Administration Furosemide 40 mg 04/12/20 11:00 04/14/20 22:09 Furosemide 40 Mg/4 Ml Inj IV 40 mg Q12H LUPE Administration Dextrose 1,000 mls @ 75 mls/hr 04/10/20 19:00 04/13/20 10:04 D5w IV 75 mls/hr DIRECT LUPE Administration Labetalol HCl 10 mg 04/12/20 12:00 Labetalol 20 Mg/4 Ml Inj IV Q4H PRN Hypertension Lorazepam 2 mg 04/06/20 06:45 04/13/20 13:39 Ativan IV 2 mg Q1H PRN Administration CIWA-Ar 8-15 Lorazepam 4 mg 04/06/20 06:45 04/13/20 18:38 Ativan IV 4 mg Q1H PRN Administration CIWA-Ar 16-25 Morphine Sulfate 2 mg 04/05/20 23:41 04/14/20 18:20 Morphine IV 2 mg Q4H PRN Administration Pain, Moderate (4-6) Ondansetron HCl 4 mg 04/05/20 23:41 Zofran IV Q8H PRN Nausea And Vomiting Oxycodone/Acetaminophen 1 tab 04/05/20 23:41 Percocet 5/325 PO Q6H PRN Pain, Moderate (4-6) Simple Syrup 15 ml 04/13/20 13:23 Simple Syrup 15 Ml FEEDTUBE PRN PRN Hypoglycemia Simple Syrup 30 ml 04/13/20 13:23 Simple Syrup 15 Ml FEEDTUBE PRN PRN Hypoglycemia Sodium Bicarbonate 325 mg 04/13/20 13:23 Sodium Bicarbonate 325 Mg Tab FEEDTUBE PRN PRN For Clogged Feeding Tube Sodium Chloride 10 ml 04/06/20 10:00 04/14/20 22:09 Sodium Chloride Flush Syringe 10 Ml IV 10 ml BID LUPE Administration Sodium Chloride 10 ml 04/05/20 23:41 Sodium Chloride Flush Syringe 10 Ml IV PRN PRN LINE FLUSH Spironolactone 100 mg 04/12/20 10:00 04/14/20 10:54 Spironolactone 25 Mg Tab PO 100 mg QDAY LUPE Administration Ziprasidone 10 mg 04/13/20 19:06 04/13/20 21:46 Ziprasidone Mesylate 20 Mg Vial IM 10 mg ONCE PRN Administration Agitation Nutrition/Malnutrition Assess - Dietary Evaluation Nutrition/Malnutrition Findings: Nutrition Notes Start: 04/12/20 14:15 Freq: Status: Active Protocol: Document 04/13/20 13:33 AB (Rec: 04/13/20 13:46 AB [id number]) Co-Sign 04/13/20 13:33 LM Nutrition Notes Need for Assessment generated from: MD Order Initial or Follow up Reassessment Current Diagnosis Hypertension Other Pertinent Diagnosis COVID(+), hep C, acute respiratory failure, pneu, methadone&EtoH dependence Current Diet TF Labs/Tests Reviewed Pertinent Medications Reviewed Height 5 ft 7 in Weight 70 kg [place] Body Weight (kg) 67.27 BMI 24.1 Subjective/Other Information MD order for TF write/manage. Per RN, pt had not eaten for 9 days. Per RN, wt of 70 kg is accurate. RN was notified of new TF regimen. Percent of energy/protein needs met: 0%/0% Burn Absent Trauma Absent Food Allergy No Current % PO Negligible Minimum of two criteria No Energy Intake (severe) < or equal to 50% Estimated Energy Requirement > or equal to 5 days #1 Nutrition Diagnosis Inadequate oral intake As Evidenced by Signs and Symptoms Pt ordered to have TF Diagnosis Progress(for reassessment Continues documentation) Is patient on ventilator? No Is Patient Ambulatory and/or Out of Bed No REE-([facility]-confined to bed) [phone] Calculation Used for Recommendations [facility] Additional Notes Pro: 67-84g (0.8-1g/kg) Fluid: 1 ml/kcal Nutrition Intervention Change Diet Order: Change to TF Nutrition Support: Osmolite 1.5 at 50 ml/hr Flush with 50 ml q4h Kcal 1,800 Protein (gm) 75 Fluid (mL) 914 Add Supplement/Snack (indicate name/kcal D/C /protein ) Goal #1 TF start/tolerance Goal #2 Meet at least 80 % of energy and protein needs via TF. Anticipated Discharge Needs: Unable to determine at this time Follow-Up By: 04/15/20 Additional Comments F/U for TF start/tolerance
[2020-04-15] MEDS: FAMOTIDINE 20 MG TAB PO SCH ×2 (09:48→22:57)
[2020-04-15] MEDS: SPIRONOLACTONE 25 MG TAB PO SCH (09:48)
[2020-04-15] MEDS: DEXAMETHASONE 4 MG TAB PO SCH (09:49)
[2020-04-15] MEDS: FUROSEMIDE 40 MG/4 ML INJ IV SCH ×2 (10:01→22:58)
--- NOTE | 2020-04-15 12:07 | Progress Note ---
Assessment and Plan 59 y/o male with acute respiratory failure secondary to covid positive state and ETOH withdrawal with hypertension and altered mental state. 1. Continue CIWA protocol 2. Continue HFNC, wean FiO2 for sats >88%, will discuss with RT, doing better with this. 3. Monitor fluid status, would not give additional IVF's unless patient is not taking PO or renal function is compromised 4. Continue modified proning as tolerated. 5. Guarded prognosis Subjective Date of service: 04/15/20 Principal diagnosis: COVID Interval history: No acute events. Down to 50%. Becoming more awake. Sitting up in bed but still requires restraints. Objective Vital Signs - 12hr 04/15/20 04/15/20 04/15/20 00:07 00:30 01:00 Temperature Pulse Rate 94 H 72 71 Respiratory 16 16 Rate Blood Pressure 125/79 119/73 O2 Sat by Pulse 96 96 Oximetry 04/15/20 04/15/20 04/15/20 01:01 01:30 02:00 Temperature Pulse Rate 72 79 Respiratory 16 20 Rate Blood Pressure 119/73 115/83 O2 Sat by Pulse 96 98 98 Oximetry 04/15/20 04/15/20 04/15/20 02:30 03:00 03:30 Temperature Pulse Rate 73 90 80 Respiratory 18 18 19 Rate Blood Pressure 115/83 120/89 120/89 O2 Sat by Pulse 97 98 97 Oximetry 04/15/20 04/15/20 04/15/20 03:45 04:00 05:00 Temperature Pulse Rate 66 69 Respiratory 19 20 Rate Blood Pressure 111/69 108/72 O2 Sat by Pulse 98 96 97 Oximetry 04/15/20 04/15/20 04/15/20 06:00 07:00 08:00 Temperature 97.7 F Pulse Rate 78 89 94 H Respiratory 21 23 20 Rate Blood Pressure 116/70 98/67 123/82 O2 Sat by Pulse 97 96 96 Oximetry 04/15/20 04/15/20 04/15/20 09:00 09:48 10:00 Temperature Pulse Rate 92 H 92 H 92 H Respiratory 18 22 Rate Blood Pressure 112/81 112/81 120/81 O2 Sat by Pulse 93 99 Oximetry 04/15/20 04/15/20 11:00 11:25 Temperature Pulse Rate 67 Respiratory 13 Rate Blood Pressure 116/71 O2 Sat by Pulse 98 96 Oximetry Constitutional: asleep ENT: oropharynx moist Effort: normal Ascultation: Bilateral: rhonchi Cardiovascular: regular rate and rhythm Gastrointestinal: normoactive bowel sounds, non-tender CBC and BMP: 04/10/20 08:37 04/14/20 11:18 ABG, PT/INR, D-dimer: PT/INR, D-dimer PT 15.9 Sec. (12.2-14.9) H 04/05/20 10:40 INR 1.27 (0.87-1.13) H 04/05/20 10:40 D-Dimer 1222.21 ng/mlDDU (0-234) H 04/13/20 02:41 Abnormal lab findings: Abnormal Labs 04/05/20 04/05/20 04/05/20 10:40 10:40 10:40 WBC RBC Hct MCV 98 H MCH 34 H MCHC RDW 16.3 H Plt Count 60 L Lymph # (Auto) Walsh # (Auto) Seg Neutrophils % Seg Neuts % (Manual) 86.0 H Lymphocytes % (Manual) 4.0 L Monocytes % (Manual) 9.0 H Seg Neutrophils # Man Lymphocytes # (Manual) 0.3 L PT 15.9 H INR 1.27 H D-Dimer Sodium 134 L Potassium Chloride Carbon Dioxide BUN Creatinine 0.5 L Glucose POC Glucose Calcium 7.7 L Ferritin Total Bilirubin Direct Bilirubin AST ALT Alkaline Phosphatase Lactate Dehydrogenase C-Reactive Protein Total Protein Albumin Coronavirus (PCR) Hepatitis C Antibody SARS-CoV-2 IgG Ab 04/05/20 04/05/20 04/05/20 10:40 14:45 14:45 WBC RBC Hct MCV MCH MCHC RDW Plt Count Lymph # (Auto) Walsh # (Auto) Seg Neutrophils % Seg Neuts % (Manual) Lymphocytes % (Manual) Monocytes % (Manual) Seg Neutrophils # Man Lymphocytes # (Manual) PT INR D-Dimer 837.90 H Sodium Potassium Chloride Carbon Dioxide BUN Creatinine Glucose POC Glucose Calcium Ferritin Total Bilirubin 2.30 H Direct Bilirubin 1.3 H AST 129 H ALT Alkaline Phosphatase Lactate Dehydrogenase 438 H C-Reactive Protein 1.70 H Total Protein Albumin 1.9 L Coronavirus (PCR) Hepatitis C Antibody SARS-CoV-2 IgG Ab 04/05/20 04/06/20 04/06/20 14:45 05:53 05:53 WBC 3.5 L RBC 3.47 L Hct 34.1 L MCV 99 H MCH 34 H MCHC 35 H RDW 16.1 H Plt Count 48 L Lymph # (Auto) Walsh # (Auto) Seg Neutrophils % Seg Neuts % (Manual) 92.0 H Lymphocytes % (Manual) 3.0 L Monocytes % (Manual) Seg Neutrophils # Man Lymphocytes # (Manual) 0.1 L PT INR D-Dimer Sodium 136 L Potassium Chloride Carbon Dioxide BUN 23 H Creatinine 0.5 L Glucose 107 H POC Glucose Calcium 7.5 L Ferritin 1412.0 H Total Bilirubin 1.80 H Direct Bilirubin AST 112 H ALT Alkaline Phosphatase Lactate Dehydrogenase C-Reactive Protein Total Protein Albumin 1.8 L Coronavirus (PCR) Hepatitis C Antibody SARS-CoV-2 IgG Ab 04/06/20 04/06/20 04/07/20 08:04 Unknown 06:01 WBC RBC 3.61 L Hct MCV 100 H MCH 34 H MCHC RDW 16.0 H Plt Count 58 L Lymph # (Auto) 1.0 L Walsh # (Auto) 1.2 H Seg Neutrophils % Seg Neuts % (Manual) Lymphocytes % (Manual) Monocytes % (Manual) Seg Neutrophils # Man Lymphocytes # (Manual) PT INR D-Dimer Sodium Potassium Chloride Carbon Dioxide BUN Creatinine Glucose POC Glucose Calcium Ferritin Total Bilirubin Direct Bilirubin AST ALT Alkaline Phosphatase Lactate Dehydrogenase C-Reactive Protein Total Protein Albumin Coronavirus (PCR) Positive A Hepatitis C Antibody Reactive A SARS-CoV-2 IgG Ab 04/07/20 04/08/20 04/08/20 06:01 04:00 05:16 WBC RBC Hct MCV MCH MCHC RDW Plt Count Lymph # (Auto) Walsh # (Auto) Seg Neutrophils % Seg Neuts % (Manual) Lymphocytes % (Manual) Monocytes % (Manual) Seg Neutrophils # Man Lymphocytes # (Manual) PT INR D-Dimer 1139.66 H Sodium Potassium 3.5 L 3.2 L Chloride 108.7 H Carbon Dioxide BUN 28 H 28 H Creatinine 0.5 L 0.6 L Glucose 133 H 126 H POC Glucose Calcium 7.5 L 7.8 L Ferritin Total Bilirubin 1.40 H 1.30 H Direct Bilirubin 0.8 H AST 170 H 114 H ALT 80 H 73 H Alkaline Phosphatase 132 H Lactate Dehydrogenase 502 H C-Reactive Protein Total Protein 6.1 L Albumin 1.9 L 1.9 L Coronavirus (PCR) Hepatitis C Antibody SARS-CoV-2 IgG Ab 04/08/20 04/09/20 04/09/20 05:16 05:33 05:33 WBC 2.2 L RBC Hct MCV 100 H MCH 34 H MCHC RDW 16.2 H Plt Count Lymph # (Auto) Walsh # (Auto) Seg Neutrophils % Seg Neuts % (Manual) 72.0 H Lymphocytes % (Manual) Monocytes % (Manual) Seg Neutrophils # Man 1.6 L Lymphocytes # (Manual) 0.5 L PT INR D-Dimer Sodium Potassium Chloride 109.2 H Carbon Dioxide BUN 25 H Creatinine 0.6 L Glucose POC Glucose Calcium 7.8 L Ferritin 1118.0 H Total Bilirubin Direct Bilirubin AST ALT Alkaline Phosphatase Lactate Dehydrogenase C-Reactive Protein Total Protein Albumin Coronavirus (PCR) Hepatitis C Antibody SARS-CoV-2 IgG Ab 04/09/20 04/10/20 04/10/20 14:10 08:37 08:37 WBC RBC Hct MCV 99 H MCH 33 H MCHC RDW 16.4 H Plt Count 55 L Lymph # (Auto) Walsh # (Auto) Seg Neutrophils % Seg Neuts % (Manual) Lymphocytes % (Manual) Monocytes % (Manual) Seg Neutrophils # Man Lymphocytes # (Manual) PT INR D-Dimer 1084.93 H Sodium Potassium Chloride 111.7 H Carbon Dioxide BUN 26 H Creatinine 0.6 L Glucose POC Glucose Calcium 7.8 L Ferritin Total Bilirubin 1.30 H Direct Bilirubin 0.8 H AST 80 H ALT 58 H Alkaline Phosphatase Lactate Dehydrogenase 404 H C-Reactive Protein Total Protein 6.2 L Albumin 1.8 L Coronavirus (PCR) Hepatitis C Antibody SARS-CoV-2 IgG Ab 04/10/20 04/10/20 04/11/20 08:37 08:37 21:24 WBC RBC Hct MCV 100 H MCH 34 H MCHC RDW 16.5 H Plt Count 67 L Lymph # (Auto) 0.9 L Walsh # (Auto) Seg Neutrophils % 75.9 H Seg Neuts % (Manual) Lymphocytes % (Manual) Monocytes % (Manual) Seg Neutrophils # Man Lymphocytes # (Manual) PT INR D-Dimer Sodium Potassium Chloride Carbon Dioxide BUN 25 H Creatinine 0.6 L Glucose POC Glucose Calcium 8.1 L Ferritin 1002.0 H Total Bilirubin 2.80 H Direct Bilirubin AST 91 H ALT Alkaline Phosphatase Lactate Dehydrogenase C-Reactive Protein Total Protein Albumin 2.1 L Coronavirus (PCR) Hepatitis C Antibody SARS-CoV-2 IgG Ab 04/11/20 04/12/20 04/13/20 23:58 18:06 02:41 WBC RBC Hct MCV MCH MCHC RDW Plt Count Lymph # (Auto) Walsh # (Auto) Seg Neutrophils % Seg Neuts % (Manual) Lymphocytes % (Manual) Monocytes % (Manual) Seg Neutrophils # Man Lymphocytes # (Manual) PT INR D-Dimer 1222.21 H Sodium Potassium Chloride Carbon Dioxide BUN Creatinine Glucose POC Glucose 64 L 114 H Calcium Ferritin Total Bilirubin Direct Bilirubin AST ALT Alkaline Phosphatase Lactate Dehydrogenase C-Reactive Protein Total Protein Albumin Coronavirus (PCR) Hepatitis C Antibody SARS-CoV-2 IgG Ab 04/13/20 04/13/20 04/13/20 02:41 02:41 02:41 WBC RBC Hct MCV MCH MCHC RDW Plt Count Lymph # (Auto) Walsh # (Auto) Seg Neutrophils % Seg Neuts % (Manual) Lymphocytes % (Manual) Monocytes % (Manual) Seg Neutrophils # Man Lymphocytes # (Manual) PT INR D-Dimer Sodium Potassium Chloride Carbon Dioxide BUN Creatinine Glucose POC Glucose Calcium Ferritin 1044.0 H Total Bilirubin Direct Bilirubin AST ALT Alkaline Phosphatase Lactate Dehydrogenase 456 H C-Reactive Protein 4.20 H Total Protein Albumin Coronavirus (PCR) Hepatitis C Antibody SARS-CoV-2 IgG Ab Reactive A 04/13/20 04/13/20 04/14/20 05:41 12:25 00:08 WBC RBC Hct MCV MCH MCHC RDW Plt Count Lymph # (Auto) Walsh # (Auto) Seg Neutrophils % Seg Neuts % (Manual) Lymphocytes % (Manual) Monocytes % (Manual) Seg Neutrophils # Man Lymphocytes # (Manual) PT INR D-Dimer Sodium Potassium Chloride Carbon Dioxide BUN Creatinine Glucose POC Glucose 107 H 109 H 120 H Calcium Ferritin Total Bilirubin Direct Bilirubin AST ALT Alkaline Phosphatase Lactate Dehydrogenase C-Reactive Protein Total Protein Albumin Coronavirus (PCR) Hepatitis C Antibody SARS-CoV-2 IgG Ab 04/14/20 04/14/20 04/14/20 05:11 11:18 23:03 WBC RBC Hct MCV MCH MCHC RDW Plt Count Lymph # (Auto) Walsh # (Auto) Seg Neutrophils % Seg Neuts % (Manual) Lymphocytes % (Manual) Monocytes % (Manual) Seg Neutrophils # Man Lymphocytes # (Manual) PT INR D-Dimer Sodium 134 L Potassium Chloride Carbon Dioxide 32 H BUN 34 H Creatinine 0.6 L Glucose 115 H POC Glucose 120 H 111 H Calcium 8.1 L Ferritin Total Bilirubin Direct Bilirubin AST ALT Alkaline Phosphatase Lactate Dehydrogenase C-Reactive Protein Total Protein Albumin Coronavirus (PCR) Hepatitis C Antibody SARS-CoV-2 IgG Ab 04/15/20 05:48 WBC RBC Hct MCV MCH MCHC RDW Plt Count Lymph # (Auto) Walsh # (Auto) Seg Neutrophils % Seg Neuts % (Manual) Lymphocytes % (Manual) Monocytes % (Manual) Seg Neutrophils # Man Lymphocytes # (Manual) PT INR D-Dimer Sodium Potassium Chloride Carbon Dioxide BUN Creatinine Glucose POC Glucose 119 H Calcium Ferritin Total Bilirubin Direct Bilirubin AST ALT Alkaline Phosphatase Lactate Dehydrogenase C-Reactive Protein Total Protein Albumin Coronavirus (PCR) Hepatitis C Antibody SARS-CoV-2 IgG Ab
[2020-04-15] MEDS: LORazepam 2 MG/ML VIAL IV PRN ×2 (18:24→23:55)
[2020-04-15] MEDS: ENOXAPARIN 40 MG/0.4 ML INJ SUB-Q SCH (22:57)
[2020-04-15] MEDS: oxyCODONE /ACETAMINOPHEN 5-325MG TAB PO PRN (22:59)
[2020-04-16] MEDS: chlordiazePOXIDE 25 MG CAP PO SCH ×3 (03:00→21:56)
[2020-04-16] MEDS: FAMOTIDINE 20 MG TAB PO SCH ×2 (09:18→21:57)
[2020-04-16] MEDS: SPIRONOLACTONE 25 MG TAB PO SCH (09:18)
[2020-04-16] MEDS: oxyCODONE /ACETAMINOPHEN 5-325MG TAB PO PRN (09:18)
--- NOTE | 2020-04-16 09:18 | Progress Note ---
Assessment and Plan Assessment and plan: -- Acute respiratory failure with hypoxia Current Visit: Yes Status: Acute Plan to address problem: Patient continues to be hypoxic Requiring high flow oxygen, unable to wean Supportive care pulmonary following --Bilateral pneumonia Current Visit: Yes Status: Acute Plan to address problem: Completed antibiotics pneumonia secondary to COVID-19 Supportive care --Positive COVID-19 virus infection Current Visit: Yes Status: Acute Plan to address problem: Covid positive on 04/06/2020 High flow oxygen at this point -Pulmonary following -remdesivir for 5 days -dexamethasone 6 mg p.o./IV daily for 10 days -Received ceftriaxone total 5 days and azithromycin total 3 days -Anticoagulation per hospital protocol -Prone positioning as tolerated -Covid inflammatory markers every 48 hours SARS-CoV-2 IgG antibody positive No indication for convalescent plasma Very poor prognosis --HTN (hypertension) Current Visit: Yes Status: Chronic Plan to address problem: Moderate control -- 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 Plan to address problem: To be counselled --Transaminitis/history of hepatitis C Current Visit: Yes Status: Acute Plan to address problem: Sec to Covid /ETOH trending down History of hepatitis C s/p CIWA --Severe malnutrition Current Visit: Yes Status: Chronic Plan to address problem: Tube feeding nutrition supplements , dietitian consult -- Hyponatremia/resolved Current Visit: Yes Status: Acute Plan to address problem: --DVT prophylaxis Current Visit: Yes Status: Acute Plan to address problem: On Lovenox and GI prophylaxis Closely monitor the patient and adjust the management as needed Plan of care reviewed with the patient's nurse. Critical care statement The high probability OF a clinically significant sudden or life-threatening deterioration of the cardiorespiratory system and endocrine system required my full and direct attention, intervention and postoperative management. The aggregate critical care time was[33] minutes. The time is in addition to time spent performing reported procedures but includes the followin: Data review and interpretation 2: Patient assessment and monitoring of vital signs 3: Documentation 4:Medication orders and management 04/08/2020; patient was seen and evaluated this morning and is on 10 L of oxygen. Patient is on Decadron and remdesivir. ID is following the patient. Hypokalemia repleted. 04/09/2020; patient is on 15 L of oxygen. Continue IV Decadron and remdesivir. Continue IV Lasix and spironolactone for ascites/generalized swelling. Patient required BiPAP overnight. Patient has confusion and currently on restraints. We will check ammonia level, CT head. 04/10/2020; patient's condition is deteriorating transfer to [facility].. Continue with IV Decadron and remdesivir. Ammonia level is normal. His roommate reported that the patient has history of HIV, I try to reach to his daughter was listed in the chart and I could not get in touch. Pulmonary was consulted for respiratory failure and will follow the patient. Patient will be on BiPAP. HIV test ordered. 04/13/2020; patient continues to be on high flow oxygen, resume tube feeding, restrained for agitation as needed 04/14/2020; patient remains confused agitated, on CIWA protocol continuously hypoxemic, requiring high flow oxygen On four-point restraints 04/16/2020; patient remains agitated requiring restraints, CIWA protocol discontinued, I started Ativan as needed History Interval history: Seen and examined the patient at the bedside Patient is unresponsive Agitated requiring restraints Vital signs noted Hospitalist Physical - Constitutional Vitals: Temp Pulse Resp BP Pulse Ox 97.4 F L 88 16 107/70 91 04/15/20 16:00 04/16/20 07:00 04/16/20 07:00 04/16/20 07:00 04/16/20 08:47 General appearance: Present: mild distress, well-nourished, other (On high flow oxygen, agitated and restless) HEART Score - HEART Score Age: 45-65 Risk factors: 1-2 risk factors Troponin: Troponin T < 0.010 ng/mL (0.00-0.029) 04/05/20 14:17 Troponin: < normal limit - Critical Actions Critical Actions: 0-3 pts:0.9-1.7%risk of adverse cardiac event.Candidate for discharge Results - Labs CBC & Chem 7: 04/10/20 08:37 04/14/20 11:18 Labs: Laboratory Last Values WBC 5.8 K/mm3 (4.5-11.0) 04/10/20 08:37 RBC 3.75 M/mm3 (3.65-5.03) 04/10/20 08:37 Hgb 12.6 gm/dl (11.8-15.2) 04/10/20 08:37 Hct 37.5 % (35.5-45.6) 04/10/20 08:37 MCV 100 fl (84-94) H 04/10/20 08:37 MCH 34 pg (28-32) H 04/10/20 08:37 MCHC 34 % (32-34) 04/10/20 08:37 RDW 16.5 % (13.2-15.2) H 04/10/20 08:37 Plt Count 67 K/mm3 (140-440) L 04/10/20 08:37 Lymph % (Auto) 16.0 % (13.4-35.0) 04/10/20 08:37 [place] % (Auto) 6.8 % (0.0-7.3) 04/10/20 08:37 Eos % (Auto) 0.2 % (0.0-4.3) 04/10/20 08:37 Baso % (Auto) 1.1 % (0.0-1.8) 04/10/20 08:37 Lymph # (Auto) 0.9 K/mm3 (1.2-5.4) L 04/10/20 08:37 [place] # (Auto) 0.4 K/mm3 (0.0-0.8) 04/10/20 08:37 Eos # (Auto) 0.0 K/mm3 (0.0-0.4) 04/10/20 08:37 Baso # (Auto) 0.1 K/mm3 (0.0-0.1) 04/10/20 08:37 Add Manual Diff Complete 04/09/20 05:33 Total Counted 100 04/09/20 05:33 Seg Neutrophils % 75.9 % (40.0-70.0) H 04/10/20 08:37 Seg Neuts % (Manual) 72.0 % (40.0-70.0) H 04/09/20 05:33 Band Neutrophils % 0 % 04/06/20 05:53 Lymphocytes % (Manual) 21.0 % (13.4-35.0) 04/09/20 05:33 Reactive Lymphs % (Man) 0 % 04/06/20 05:53 Monocytes % (Manual) 7.0 % (0.0-7.3) 04/09/20 05:33 Eosinophils % (Manual) 0 % (0.0-4.3) 04/06/20 05:53 Basophils % (Manual) 0 % (0.0-1.8) 04/06/20 05:53 Metamyelocytes % 0 % 04/06/20 05:53 Myelocytes % 0 % 04/06/20 05:53 Promyelocytes % 0 % 04/06/20 05:53 Blast Cells % 0 % 04/06/20 05:53 Nucleated RBC % Not Reportable 04/09/20 05:33 Seg Neutrophils # 4.4 K/mm3 (1.8-7.7) 04/10/20 08:37 Seg Neutrophils # Man 1.6 K/mm3 (1.8-7.7) L 04/09/20 05:33 Band Neutrophils # 0.0 K/mm3 04/09/20 05:33 Lymphocytes # (Manual) 0.5 K/mm3 (1.2-5.4) L 04/09/20 05:33 Abs React Lymphs (Man) 0.0 K/mm3 04/09/20 05:33 Monocytes # (Manual) 0.2 K/mm3 (0.0-0.8) 04/09/20 05:33 Eosinophils # (Manual) 0.0 K/mm3 (0.0-0.4) 04/09/20 05:33 Basophils # (Manual) 0.0 K/mm3 (0.0-0.1) 04/09/20 05:33 Metamyelocytes # 0.0 K/mm3 04/09/20 05:33 Myelocytes # 0.0 K/mm3 04/09/20 05:33 Promyelocytes # 0.0 K/mm3 04/09/20 05:33 Blast Cells # 0.0 K/mm3 04/09/20 05:33 WBC Morphology Not Reportable 04/09/20 05:33 Hypersegmented Neuts Not Reportable 04/09/20 05:33 Hyposegmented Neuts Not Reportable 04/09/20 05:33 Hypogranular Neuts Not Reportable 04/09/20 05:33 Smudge Cells Not Reportable 04/09/20 05:33 Toxic Granulation Not Reportable 04/09/20 05:33 Toxic Vacuolation Not Reportable 04/09/20 05:33 Dohle Bodies Not Reportable 04/09/20 05:33 Pelger-Huet Anomaly Not Reportable 04/09/20 05:33 Kelly Rods Not Reportable 04/09/20 05:33 Platelet Estimate Appears decreased 04/09/20 05:33 Clumped Platelets Not Reportable 04/09/20 05:33 Plt Clumps, EDTA Not Reportable 04/09/20 05:33 Large Platelets Not Reportable 04/09/20 05:33 Giant Platelets Not Reportable 04/09/20 05:33 Platelet Satelliting Not Reportable 04/09/20 05:33 Plt Morphology Comment Not Reportable 04/09/20 05:33 RBC Morphology Not Reportable 04/09/20 05:33 Dimorphic RBCs Not Reportable 04/09/20 05:33 Polychromasia Not Reportable 04/09/20 05:33 Hypochromasia Not Reportable 04/09/20 05:33 Poikilocytosis Not Reportable 04/09/20 05:33 Anisocytosis Not Reportable 04/09/20 05:33 Microcytosis Not Reportable 04/09/20 05:33 Macrocytosis Not Reportable 04/09/20 05:33 Spherocytes Not Reportable 04/09/20 05:33 Pappenheimer Bodies Not Reportable 04/09/20 05:33 Sickle Cells Not Reportable 04/09/20 05:33 Target Cells Not Reportable 04/09/20 05:33 Tear Drop Cells Few 04/09/20 05:33 Ovalocytes Few 04/09/20 05:33 Helmet Cells Not Reportable 04/09/20 05:33 [place] Bodies Not Reportable 04/09/20 05:33 [place] Rings Not Reportable 04/09/20 05:33 Jose Martin Cells Not Reportable 04/09/20 05:33 Bite Cells Not Reportable 04/09/20 05:33 Crenated Cell Not Reportable 04/09/20 05:33 Elliptocytes Not Reportable 04/09/20 05:33 Acanthocytes (Spur) Not Reportable 04/09/20 05:33 Rouleaux Few 04/09/20 05:33 Hemoglobin C Crystals Not Reportable 04/09/20 05:33 Schistocytes Rare 04/09/20 05:33 Malaria parasites Not Reportable 04/09/20 05:33 Ronnie Bodies Not Reportable 04/09/20 05:33 Hem Pathologist Commnt No 04/09/20 05:33 PT 15.9 Sec. (12.2-14.9) H 04/05/20 10:40 INR 1.27 (0.87-1.13) H 04/05/20 10:40 APTT 30.3 Sec. (24.2-36.6) 04/05/20 10:40 D-Dimer 1222.21 ng/mlDDU (0-234) H 04/13/20 02:41 Sodium 134 mmol/L (137-145) L 04/14/20 11:18 Potassium 4.5 mmol/L (3.6-5.0) 04/14/20 11:18 Chloride 99.7 mmol/L (98-107) 04/14/20 11:18 Carbon Dioxide 32 mmol/L (22-30) H 04/14/20 11:18 Anion Gap 7 mmol/L 04/14/20 11:18 BUN 34 mg/dL (9-20) H 04/14/20 11:18 Creatinine 0.6 mg/dL (0.8-1.3) L 04/14/20 11:18 Estimated GFR > 60 ml/min 04/14/20 11:18 BUN/Creatinine Ratio 57 % 04/14/20 11:18 Glucose 115 mg/dL (75-100) H 04/14/20 11:18 POC Glucose 111 mg/dL (70-105) H 04/16/20 06:01 Hemoglobin A1c 4.5 % (4-6) 04/05/20 10:40 Lactic Acid 1.40 mmol/L (0.7-2.0) 04/05/20 10:40 Calcium 8.1 mg/dL (8.4-10.2) L 04/14/20 11:18 Phosphorus 3.30 mg/dL (2.5-4.5) 04/14/20 09:12 Magnesium 2.10 mg/dL (1.7-2.3) 04/14/20 09:12 Ferritin 1044.0 ng/mL (30.0-300.0) H 04/13/20 02:41 Total Bilirubin 2.80 mg/dL (0.1-1.2) H 04/11/20 21:24 Direct Bilirubin 0.8 mg/dL (0-0.2) H 04/10/20 08:37 Indirect Bilirubin 0.5 mg/dL 04/10/20 08:37 AST 91 units/L (5-40) H 04/11/20 21:24 ALT 55 units/L (7-56) 04/11/20 21:24 Alkaline Phosphatase 106 units/L (35-129) 04/11/20 21:24 Ammonia 28.0 umol/L (25-60) 04/09/20 14:10 Lactate Dehydrogenase 456 units/L (91-180) H 04/13/20 02:41 Troponin T < 0.010 ng/mL (0.00-0.029) 04/05/20 14:17 C-Reactive Protein 4.20 mg/dL (0.00-1.30) H 04/13/20 02:41 NT-Pro-B Natriuret Pep 216.4 pg/mL (0-900) 04/05/20 10:40 Total Protein 6.7 g/dL (6.3-8.2) 04/11/20 21:24 Albumin 2.1 g/dL (3.9-5) L 04/11/20 21:24 Albumin/Globulin Ratio 0.5 % 04/11/20 21:24 Lipase 21 units/L (13-60) 04/05/20 10:40 Procalcitonin 0.14 ng/mL (<0.15) 04/06/20 14:24 Urine Color Yellow (Yellow) 04/05/20 Unknown Urine Turbidity Clear (Clear) 04/05/20 Unknown Urine pH 6.0 (5.0-7.0) 04/05/20 Unknown Ur Specific [place] 1.006 (1.003-1.030) 04/05/20 Unknown Urine Protein <15 mg/dl mg/dL (Negative) 04/05/20 Unknown Urine Glucose (UA) Neg mg/dL (Negative) 04/05/20 Unknown Urine Ketones Neg mg/dL (Negative) 04/05/20 Unknown Urine Blood Sm (Negative) 04/05/20 Unknown Urine Nitrite Neg (Negative) 04/05/20 Unknown Urine Bilirubin Neg (Negative) 04/05/20 Unknown Urine Urobilinogen < 2.0 mg/dL (<2.0) 04/05/20 Unknown Ur Leukocyte Esterase Neg (Negative) 04/05/20 Unknown Urine WBC (Auto) < 1.0 /HPF (0.0-6.0) 04/05/20 Unknown Urine RBC (Auto) 6.0 /HPF (0.0-6.0) 04/05/20 Unknown U Epithel Cells (Auto) < 1.0 /HPF (0-13.0) 04/05/20 Unknown Hyaline Casts 1 /LPF 04/05/20 Unknown Urine Mucus Few /HPF 04/05/20 Unknown Urine Opiates Screen Negative 04/05/20 Unknown Urine Methadone Screen Negative 04/05/20 Unknown Ur Barbiturates Screen Negative 04/05/20 Unknown Ur Phencyclidine Scrn Negative 04/05/20 Unknown Ur Amphetamines Screen Presumptive positive 04/05/20 Unknown U Benzodiazepines Scrn Negative 04/05/20 Unknown Urine Cocaine Screen Negative 04/05/20 Unknown U Marijuana (THC) Screen Negative 04/05/20 Unknown Drugs of Abuse Note Disclamer 04/05/20 Unknown Coronavirus (PCR) Positive (Negative) A 04/06/20 Unknown Hepatitis A IgM Ab Non-reactive (NonReactive) 04/06/20 08:04 Hep Bs Antigen Non-reactive (Negative) 04/06/20 08:04 Hep B Core IgM Ab Non-reactive (NonReactive) 04/06/20 08:04 Hepatitis C Antibody Reactive (NonReactive) A 04/06/20 08:04 SARS-CoV-2 IgG Ab Reactive (NonReactive) A 04/13/20 02:41 Rogers/IV: Voiding Method Condom Catheter IV Catheter Type [Right INT / Saline Lock Antecubital] IV Catheter Type [Left Upper Peripheral IV arm] IV Catheter Type [Right INT / Saline Lock Forearm] IV Catheter Type [Left Forearm INT / Saline Lock ] IV Catheter Type [Right Wrist] INT / Saline Lock IV Catheter Type [Right Upper INT / Saline Lock arm] Active Medications - Current Medications Current Medications: Generic Name Dose Route Start Last Admin Trade Name Freq PRN Reason Stop Dose Admin Acetaminophen 650 mg 04/05/20 23:41 Tylenol PO Q4H PRN Pain MILD(1-3)/Fever >100.5/CHRISTIANSON Albuterol 2.5 mg 04/08/20 23:00 Albuterol 2.5 Mg/3 Ml Nebu IH Q4HRT PRN Shortness Of Breath Lipase/Protease/Amylase 1 each 04/13/20 13:23 Lipase 10,500/Protease 25,000/Amylase 43,750 (Units) Dr Tejada FEEDTUBE PRN PRN For Clogged Feeding Tube Chlordiazepoxide HCl 25 mg 04/13/20 11:00 04/16/20 03:00 Chlordiazepoxide 25 Mg Cap PO 25 mg Q8H LUPE Administration Enoxaparin Sodium 40 mg 04/06/20 22:00 04/15/20 22:57 Enoxaparin SUB-Q 40 mg QDAY@2200 LUPE Administration Protocol Famotidine 20 mg 04/06/20 10:00 04/15/20 22:57 Pepcid PO 20 mg BID LUPE Administration Furosemide 40 mg 04/12/20 11:00 04/15/20 22:58 Furosemide 40 Mg/4 Ml Inj IV 40 mg Q12H LUPE Administration Labetalol HCl 10 mg 04/12/20 12:00 Labetalol 20 Mg/4 Ml Inj IV Q4H PRN Hypertension Lorazepam 2 mg 04/15/20 12:49 04/15/20 23:55 Lorazepam 2 Mg/Ml Vial IV 2 mg Q4H PRN Administration Agitation Ondansetron HCl 4 mg 04/05/20 23:41 Zofran IV Q8H PRN Nausea And Vomiting Oxycodone/Acetaminophen 1 tab 04/05/20 23:41 04/15/20 22:59 Percocet 5/325 PO 1 tab Q6H PRN Administration Pain, Moderate (4-6) Simple Syrup 15 ml 04/13/20 13:23 Simple Syrup 15 Ml FEEDTUBE PRN PRN Hypoglycemia Simple Syrup 30 ml 04/13/20 13:23 Simple Syrup 15 Ml FEEDTUBE PRN PRN Hypoglycemia Sodium Bicarbonate 325 mg 04/13/20 13:23 Sodium Bicarbonate 325 Mg Tab FEEDTUBE PRN PRN For Clogged Feeding Tube Sodium Chloride 10 ml 04/06/20 10:00 04/15/20 22:57 Sodium Chloride Flush Syringe 10 Ml IV 10 ml BID LUPE Administration Sodium Chloride 10 ml 04/05/20 23:41 Sodium Chloride Flush Syringe 10 Ml IV PRN PRN LINE FLUSH Spironolactone 100 mg 04/12/20 10:00 04/15/20 09:48 Spironolactone 25 Mg Tab PO 100 mg QDAY LUPE Administration Ziprasidone 10 mg 04/13/20 19:06 04/13/20 21:46 Ziprasidone Mesylate 20 Mg Vial IM 10 mg ONCE PRN Administration Agitation Nutrition/Malnutrition Assess - Dietary Evaluation Nutrition/Malnutrition Findings: Nutrition Notes Start: 04/12/20 14:15 Freq: Status: Active Protocol: Document 04/15/20 12:47 AB (Rec: 04/15/20 12:51 AB [id number]) Co-Sign 04/15/20 12:47 LP Nutrition Notes Initial or Follow up Reassessment Current Diagnosis Hypertension Other Pertinent Diagnosis COVID(+), hep C, acute respiratory failure, pneu, methadone&EtoH dependence Current Diet Osmolite 1.5 at 50 ml/hr (goal rate) Labs/Tests Na 134 BUN 34 Cr 0.6 Pertinent Medications Lasix Height 5 ft 7 in Weight 64.4 kg Elizabeth Body Weight (kg) 67.27 BMI 22.2 Subjective/Other Information F/U for TF start/tolerance. Per RN, pt is at goal and tolerating. Percent of energy/protein needs met: 100%/100% Burn Absent Trauma Absent GI Symptoms None Food Allergy No Current % PO Negligible Minimum of two criteria Yes Energy Intake (severe) < or equal to 50% Estimated Energy Requirement > or equal to 5 days Fluid Accumulation Moderate to Severe (severe) #2 Nutrition Diagnosis Malnutrition Etiology Poor intakes [employer] As Evidenced by Signs and Symptoms Fluid accumulation and < 50% of energy intake in 5 days #1 Nutrition Diagnosis Inadequate oral intake Diagnosis Progress(for reassessment Continues documentation) Is patient on ventilator? No Is Patient Ambulatory and/or Out of Bed No REE-([facility]-confined to bed) 1700.136 Calculation Used for Recommendations [facility] Additional Notes Pro: 67-84g (0.8-1g/kg) Fluid: 1 ml/kcal Nutrition Intervention Change Diet Order: Continue current TF Nutrition Support: Osmolite 1.5 at 50 ml/hr Flush with 150 ml q4h Kcal 1,800 Protein (gm) 75 Fluid (mL) 914 Goal #1 TF start/tolerance Goal #2 Meet at least 80 % of energy and protein needs via TF. Anticipated Discharge Needs: Unable to determine at this time Follow-Up By: 04/20/20 Additional Comments F/U for TF tolerance and BM
[2020-04-16] MEDS: FUROSEMIDE 40 MG/4 ML INJ IV SCH ×2 (10:38→22:00)
--- NOTE | 2020-04-16 10:44 | Progress Note ---
Assessment and Plan 59 y/o male with acute respiratory failure secondary to covid positive state and ETOH withdrawal with hypertension and altered mental state. 1. Continue CIWA protocol 2. Continue HFNC, wean FiO2 for sats >88%, will discuss with RT, doing better with this. 3. Monitor fluid status, would not give additional IVF's unless patient is not taking PO or renal function is compromised 4. Continue modified proning as tolerated. 5. Guarded prognosis. Patient has no funding so not a candidate for LTACH transfer for further weaning. Subjective Date of service: 04/16/20 Principal diagnosis: COVID Interval history: FiO2 up to 55% from 50. Mental status is about the same. Objective Vital Signs - 12hr 04/15/20 04/15/20 04/16/20 22:59 23:00 00:00 Pulse Rate 89 101 H Pulse Rate [ 97 H From Monitor] Respiratory 19 27 H 20 Rate Blood Pressure 126/78 137/93 O2 Sat by Pulse 84 95 Oximetry 04/16/20 04/16/20 04/16/20 01:00 02:00 03:00 Pulse Rate 81 103 H 81 Pulse Rate [ From Monitor] Respiratory 25 H 20 19 Rate Blood Pressure 124/83 111/81 115/81 O2 Sat by Pulse 94 94 96 Oximetry 04/16/20 04/16/20 04/16/20 04:00 05:00 05:05 Pulse Rate 89 101 H Pulse Rate [ 82 From Monitor] Respiratory 22 29 H Rate Blood Pressure 109/75 106/75 O2 Sat by Pulse 91 92 93 Oximetry 04/16/20 04/16/20 04/16/20 06:00 07:00 08:47 Pulse Rate 85 88 Pulse Rate [ From Monitor] Respiratory 20 16 Rate Blood Pressure 105/75 107/70 O2 Sat by Pulse 93 94 91 Oximetry 04/16/20 09:18 Pulse Rate 104 H Pulse Rate [ From Monitor] Respiratory Rate Blood Pressure O2 Sat by Pulse Oximetry Constitutional: asleep ENT: oropharynx moist Effort: normal Ascultation: Bilateral: rhonchi Cardiovascular: regular rate and rhythm Gastrointestinal: normoactive bowel sounds, non-tender CBC and BMP: 04/10/20 08:37 04/14/20 11:18 ABG, PT/INR, D-dimer: PT/INR, D-dimer PT 15.9 Sec. (12.2-14.9) H 04/05/20 10:40 INR 1.27 (0.87-1.13) H 04/05/20 10:40 D-Dimer 1222.21 ng/mlDDU (0-234) H 04/13/20 02:41 Abnormal lab findings: Abnormal Labs 04/05/20 04/05/20 04/05/20 10:40 10:40 10:40 WBC RBC Hct MCV 98 H MCH 34 H MCHC RDW 16.3 H Plt Count 60 L Lymph # (Auto) Archer # (Auto) Seg Neutrophils % Seg Neuts % (Manual) 86.0 H Lymphocytes % (Manual) 4.0 L Monocytes % (Manual) 9.0 H Seg Neutrophils # Man Lymphocytes # (Manual) 0.3 L PT 15.9 H INR 1.27 H D-Dimer Sodium 134 L Potassium Chloride Carbon Dioxide BUN Creatinine 0.5 L Glucose POC Glucose Calcium 7.7 L Ferritin Total Bilirubin Direct Bilirubin AST ALT Alkaline Phosphatase Lactate Dehydrogenase C-Reactive Protein Total Protein Albumin Coronavirus (PCR) Hepatitis C Antibody SARS-CoV-2 IgG Ab 04/05/20 04/05/20 04/05/20 10:40 14:45 14:45 WBC RBC Hct MCV MCH MCHC RDW Plt Count Lymph # (Auto) Archer # (Auto) Seg Neutrophils % Seg Neuts % (Manual) Lymphocytes % (Manual) Monocytes % (Manual) Seg Neutrophils # Man Lymphocytes # (Manual) PT INR D-Dimer 837.90 H Sodium Potassium Chloride Carbon Dioxide BUN Creatinine Glucose POC Glucose Calcium Ferritin Total Bilirubin 2.30 H Direct Bilirubin 1.3 H AST 129 H ALT Alkaline Phosphatase Lactate Dehydrogenase 438 H C-Reactive Protein 1.70 H Total Protein Albumin 1.9 L Coronavirus (PCR) Hepatitis C Antibody SARS-CoV-2 IgG Ab 04/05/20 04/06/20 04/06/20 14:45 05:53 05:53 WBC 3.5 L RBC 3.47 L Hct 34.1 L MCV 99 H MCH 34 H MCHC 35 H RDW 16.1 H Plt Count 48 L Lymph # (Auto) Archer # (Auto) Seg Neutrophils % Seg Neuts % (Manual) 92.0 H Lymphocytes % (Manual) 3.0 L Monocytes % (Manual) Seg Neutrophils # Man Lymphocytes # (Manual) 0.1 L PT INR D-Dimer Sodium 136 L Potassium Chloride Carbon Dioxide BUN 23 H Creatinine 0.5 L Glucose 107 H POC Glucose Calcium 7.5 L Ferritin 1412.0 H Total Bilirubin 1.80 H Direct Bilirubin AST 112 H ALT Alkaline Phosphatase Lactate Dehydrogenase C-Reactive Protein Total Protein Albumin 1.8 L Coronavirus (PCR) Hepatitis C Antibody SARS-CoV-2 IgG Ab 04/06/20 04/06/20 04/07/20 08:04 Unknown 06:01 WBC RBC 3.61 L Hct MCV 100 H MCH 34 H MCHC RDW 16.0 H Plt Count 58 L Lymph # (Auto) 1.0 L Archer # (Auto) 1.2 H Seg Neutrophils % Seg Neuts % (Manual) Lymphocytes % (Manual) Monocytes % (Manual) Seg Neutrophils # Man Lymphocytes # (Manual) PT INR D-Dimer Sodium Potassium Chloride Carbon Dioxide BUN Creatinine Glucose POC Glucose Calcium Ferritin Total Bilirubin Direct Bilirubin AST ALT Alkaline Phosphatase Lactate Dehydrogenase C-Reactive Protein Total Protein Albumin Coronavirus (PCR) Positive A Hepatitis C Antibody Reactive A SARS-CoV-2 IgG Ab 04/07/20 04/08/20 04/08/20 06:01 04:00 05:16 WBC RBC Hct MCV MCH MCHC RDW Plt Count Lymph # (Auto) Archer # (Auto) Seg Neutrophils % Seg Neuts % (Manual) Lymphocytes % (Manual) Monocytes % (Manual) Seg Neutrophils # Man Lymphocytes # (Manual) PT INR D-Dimer 1139.66 H Sodium Potassium 3.5 L 3.2 L Chloride 108.7 H Carbon Dioxide BUN 28 H 28 H Creatinine 0.5 L 0.6 L Glucose 133 H 126 H POC Glucose Calcium 7.5 L 7.8 L Ferritin Total Bilirubin 1.40 H 1.30 H Direct Bilirubin 0.8 H AST 170 H 114 H ALT 80 H 73 H Alkaline Phosphatase 132 H Lactate Dehydrogenase 502 H C-Reactive Protein Total Protein 6.1 L Albumin 1.9 L 1.9 L Coronavirus (PCR) Hepatitis C Antibody SARS-CoV-2 IgG Ab 04/08/20 04/09/20 04/09/20 05:16 05:33 05:33 WBC 2.2 L RBC Hct MCV 100 H MCH 34 H MCHC RDW 16.2 H Plt Count Lymph # (Auto) Archer # (Auto) Seg Neutrophils % Seg Neuts % (Manual) 72.0 H Lymphocytes % (Manual) Monocytes % (Manual) Seg Neutrophils # Man 1.6 L Lymphocytes # (Manual) 0.5 L PT INR D-Dimer Sodium Potassium Chloride 109.2 H Carbon Dioxide BUN 25 H Creatinine 0.6 L Glucose POC Glucose Calcium 7.8 L Ferritin 1118.0 H Total Bilirubin Direct Bilirubin AST ALT Alkaline Phosphatase Lactate Dehydrogenase C-Reactive Protein Total Protein Albumin Coronavirus (PCR) Hepatitis C Antibody SARS-CoV-2 IgG Ab 04/09/20 04/10/20 04/10/20 14:10 08:37 08:37 WBC RBC Hct MCV 99 H MCH 33 H MCHC RDW 16.4 H Plt Count 55 L Lymph # (Auto) Archer # (Auto) Seg Neutrophils % Seg Neuts % (Manual) Lymphocytes % (Manual) Monocytes % (Manual) Seg Neutrophils # Man Lymphocytes # (Manual) PT INR D-Dimer 1084.93 H Sodium Potassium Chloride 111.7 H Carbon Dioxide BUN 26 H Creatinine 0.6 L Glucose POC Glucose Calcium 7.8 L Ferritin Total Bilirubin 1.30 H Direct Bilirubin 0.8 H AST 80 H ALT 58 H Alkaline Phosphatase Lactate Dehydrogenase 404 H C-Reactive Protein Total Protein 6.2 L Albumin 1.8 L Coronavirus (PCR) Hepatitis C Antibody SARS-CoV-2 IgG Ab 04/10/20 04/10/20 04/11/20 08:37 08:37 21:24 WBC RBC Hct MCV 100 H MCH 34 H MCHC RDW 16.5 H Plt Count 67 L Lymph # (Auto) 0.9 L Archer # (Auto) Seg Neutrophils % 75.9 H Seg Neuts % (Manual) Lymphocytes % (Manual) Monocytes % (Manual) Seg Neutrophils # Man Lymphocytes # (Manual) PT INR D-Dimer Sodium Potassium Chloride Carbon Dioxide BUN 25 H Creatinine 0.6 L Glucose POC Glucose Calcium 8.1 L Ferritin 1002.0 H Total Bilirubin 2.80 H Direct Bilirubin AST 91 H ALT Alkaline Phosphatase Lactate Dehydrogenase C-Reactive Protein Total Protein Albumin 2.1 L Coronavirus (PCR) Hepatitis C Antibody SARS-CoV-2 IgG Ab 04/11/20 04/12/20 04/13/20 23:58 18:06 02:41 WBC RBC Hct MCV MCH MCHC RDW Plt Count Lymph # (Auto) Archer # (Auto) Seg Neutrophils % Seg Neuts % (Manual) Lymphocytes % (Manual) Monocytes % (Manual) Seg Neutrophils # Man Lymphocytes # (Manual) PT INR D-Dimer 1222.21 H Sodium Potassium Chloride Carbon Dioxide BUN Creatinine Glucose POC Glucose 64 L 114 H Calcium Ferritin Total Bilirubin Direct Bilirubin AST ALT Alkaline Phosphatase Lactate Dehydrogenase C-Reactive Protein Total Protein Albumin Coronavirus (PCR) Hepatitis C Antibody SARS-CoV-2 IgG Ab 04/13/20 04/13/20 04/13/20 02:41 02:41 02:41 WBC RBC Hct MCV MCH MCHC RDW Plt Count Lymph # (Auto) Archer # (Auto) Seg Neutrophils % Seg Neuts % (Manual) Lymphocytes % (Manual) Monocytes % (Manual) Seg Neutrophils # Man Lymphocytes # (Manual) PT INR D-Dimer Sodium Potassium Chloride Carbon Dioxide BUN Creatinine Glucose POC Glucose Calcium Ferritin 1044.0 H Total Bilirubin Direct Bilirubin AST ALT Alkaline Phosphatase Lactate Dehydrogenase 456 H C-Reactive Protein 4.20 H Total Protein Albumin Coronavirus (PCR) Hepatitis C Antibody SARS-CoV-2 IgG Ab Reactive A 04/13/20 04/13/20 04/14/20 05:41 12:25 00:08 WBC RBC Hct MCV MCH MCHC RDW Plt Count Lymph # (Auto) Archer # (Auto) Seg Neutrophils % Seg Neuts % (Manual) Lymphocytes % (Manual) Monocytes % (Manual) Seg Neutrophils # Man Lymphocytes # (Manual) PT INR D-Dimer Sodium Potassium Chloride Carbon Dioxide BUN Creatinine Glucose POC Glucose 107 H 109 H 120 H Calcium Ferritin Total Bilirubin Direct Bilirubin AST ALT Alkaline Phosphatase Lactate Dehydrogenase C-Reactive Protein Total Protein Albumin Coronavirus (PCR) Hepatitis C Antibody SARS-CoV-2 IgG Ab 04/14/20 04/14/20 04/14/20 05:11 11:18 23:03 WBC RBC Hct MCV MCH MCHC RDW Plt Count Lymph # (Auto) Archer # (Auto) Seg Neutrophils % Seg Neuts % (Manual) Lymphocytes % (Manual) Monocytes % (Manual) Seg Neutrophils # Man Lymphocytes # (Manual) PT INR D-Dimer Sodium 134 L Potassium Chloride Carbon Dioxide 32 H BUN 34 H Creatinine 0.6 L Glucose 115 H POC Glucose 120 H 111 H Calcium 8.1 L Ferritin Total Bilirubin Direct Bilirubin AST ALT Alkaline Phosphatase Lactate Dehydrogenase C-Reactive Protein Total Protein Albumin Coronavirus (PCR) Hepatitis C Antibody SARS-CoV-2 IgG Ab 04/15/20 04/15/20 04/16/20 05:48 17:48 06:01 WBC RBC Hct MCV MCH MCHC RDW Plt Count Lymph # (Auto) Archer # (Auto) Seg Neutrophils % Seg Neuts % (Manual) Lymphocytes % (Manual) Monocytes % (Manual) Seg Neutrophils # Man Lymphocytes # (Manual) PT INR D-Dimer Sodium Potassium Chloride Carbon Dioxide BUN Creatinine Glucose POC Glucose 119 H 123 H 111 H Calcium Ferritin Total Bilirubin Direct Bilirubin AST ALT Alkaline Phosphatase Lactate Dehydrogenase C-Reactive Protein Total Protein Albumin Coronavirus (PCR) Hepatitis C Antibody SARS-CoV-2 IgG Ab
--- NOTE | 2020-04-16 10:59 | Progress Note ---
Assessment and Plan Cultures: Blood culture no growth today SARS CoV2 PCR positive SARS Covid 2 IgG positive Assessment: 59 years old male with history of hepatitis C with cirrhosis, ascites, gastrosplenic varices, hypertension, meth abuse, admitted on 04/05/2020 secondary to 2-week history of worsening generalized body edema, cough and shortness of breath. EMS found O2 sats down to 85%: #Severe COVID-19 pneumonia: Abdominal CT with patchy airspace disease bilateral bases. Procalcitonin 0.2. Markers elevated, Ddimer worsening. #Acute hypoxemic respiratory failure: COVID pneumonia +/-pleural effusion. Improving hypoxic on HFNC 55% #Hepatitis C with cirrhosis, large ascites, pleural effusion, varices and a splenomegaly #Elevated LFTs: From hepatitis C #Thrombocytopenia: From hepatitis C #Amphetamine abuse #Alcohol abuse #Acute encephalopathy: From alcohol withdrawal, ammonia normal. On CIWA Recommendations: -Recheck chest x-ray -ordered -Obtain lower extremity ultrasound rule out DVT ordered -pending/reorder -Pulmonary on board -Completed remdesivir -Continue dexamethasone 6 mg p.o./IV daily for 10 days D9 of 10 -Completed antibiotics -Anticoagulation per hospital protocol -Prone positioning as tolerated -Covid inflammatory markers every 48 hours, ordered today -Patient is not a candidate for COVID-19 plasma, he is seropositive Very guarded prognosis All laboratory, cultures and imaging were reviewed. Will follow Kenya Deras MD Infectious [facility] M [phone] O [phone] Subjective Date of service: 04/16/20 Principal diagnosis: COVID Interval history: Remains on high flow nasal cannula 55%, 40 L, no fever Objective - Exam Narrative Exam: General appearance: Somnolent, easily wakes up agitated Eyes: anicteric sclerae, moist conjunctivae; no lid-lag; PERRLA HENT: Normocephalic, Atraumatic; normal external ears, nares open, oropharynx clear limited Neck: supple, tracheal midline, no JVD Lungs: Bilateral rhonchi CV: RRR no murmur Abdomen: Soft, non-tender; no masses or hepatosplenomegaly Extremities: no edema, no cyanosis Skin: No rash. Psych: agitated Neuro: somnolent / agitation - Constitutional Vitals: Vital Signs Temp Pulse Resp BP Pulse Ox 97.4 F L 104 H 16 107/70 91 04/15/20 16:00 04/16/20 09:18 04/16/20 07:00 04/16/20 07:00 04/16/20 08:47 Temperature -Last 24 Hours Temperature 97.4 F Temperature 97.9 F - Labs CBC & Chem 7: 04/10/20 08:37 04/14/20 11:18 Labs: Abnormal lab results 04/15/20 04/16/20 Range/Units 17:48 06:01 POC Glucose 123 H 111 H (70-105) mg/dL
--- NOTE | 2020-04-16 11:46 | XRay Report ---
CHEST 1 VIEW 04/16/2020 10:37 AM INDICATION / CLINICAL INFORMATION: Interval evaluation of pneumonia. COMPARISON: 04/09/2020 FINDINGS: SUPPORT DEVICES: Gastric tube crosses the gastroesophageal junction extends into the left upper quadr ant and out of the [id number]. HEART / MEDIASTINUM: Stable. LUNGS / PLEURA: Slightly decreased left-sided pleural-parenchymal disease. Mildly increased right-jasson ed consolidation when compared to 04/09/2020. No pneumothorax. ADDITIONAL FINDINGS: No significant additional findings. IMPRESSION: 1. Mildly worsened right-sided pulmonary airspace disease, and mildly improved left-sided pleural-par enchymal disease. 2. Interval placement of gastric tube, as above. Signer Name: Duncan Brock MD Signed: 04/16/2020 11:42 AM Workstation Name: [id number]
--- NOTE | 2020-04-16 13:57 | Vascular Lab Report ---
DUPLEX DOPPLER LOWER EXTREMITY VEINS, BILATERAL INDICATION / CLINICAL INFORMATION: Possible DVT, Covid 19. TECHNIQUE: Duplex doppler imaging was performed through the veins of both lower extremities using venous irma lakisha and other maneuvers. COMPARISON: None available. FINDINGS: RIGHT COMMON FEMORAL VEIN: Negative. RIGHT FEMORAL VEIN: Negative. RIGHT POPLITEAL VEIN: Negative. RIGHT CALF VEINS: Negative. LEFT COMMON FEMORAL VEIN: Negative. LEFT FEMORAL VEIN: Negative. LEFT POPLITEAL VEIN: Negative. LEFT CALF VEINS: Negative. ADDITIONAL FINDINGS: None. IMPRESSION: 1. No sonographic evidence for DVT in either lower extremity. Signer Name: Balaji Mccullough MD Signed: 04/16/2020 1:53 PM Workstation Name: [id number]
[2020-04-16 19:45] LABS: C-Reactive Protein 2.2 mg/dL (0.00-1.30)
[2020-04-16] MEDS: ENOXAPARIN 40 MG/0.4 ML INJ SUB-Q SCH (21:56)
[2020-04-17] MEDS: chlordiazePOXIDE 25 MG CAP PO SCH ×3 (02:47→21:05)
--- NOTE | 2020-04-17 08:06 | Progress Note ---
Assessment and Plan Assessment and plan: -- Acute respiratory failure with hypoxia Current Visit: Yes Status: Acute Plan to address problem: Patient continues to be hypoxic Requiring high flow oxygen, unable to wean Supportive care pulmonary following --Bilateral pneumonia Current Visit: Yes Status: Acute Plan to address problem: Completed antibiotics pneumonia secondary to COVID-19 Supportive care --Positive COVID-19 virus infection Current Visit: Yes Status: Acute Plan to address problem: Covid positive on 04/06/2020 High flow oxygen at this point -Pulmonary following -remdesivir for 5 days -dexamethasone 6 mg p.o./IV daily for 10 days -Received ceftriaxone total 5 days and azithromycin total 3 days -Anticoagulation per hospital protocol -Prone positioning as tolerated -Covid inflammatory markers every 48 hours SARS-CoV-2 IgG antibody positive No indication for convalescent plasma Very poor prognosis --HTN (hypertension) Current Visit: Yes Status: Chronic Plan to address problem: Moderate control -- 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 Plan to address problem: To be counselled --Transaminitis/history of hepatitis C Current Visit: Yes Status: Acute Plan to address problem: Sec to Covid /ETOH trending down History of hepatitis C s/p CIWA --Severe malnutrition Current Visit: Yes Status: Chronic Plan to address problem: Tube feeding nutrition supplements , dietitian consult -- Hyponatremia/resolved Current Visit: Yes Status: Acute Plan to address problem: --DVT prophylaxis Current Visit: Yes Status: Acute Plan to address problem: On Lovenox and GI prophylaxis Closely monitor the patient and adjust the management as needed Plan of care reviewed with the patient's nurse. Critical care statement The high probability OF a clinically significant sudden or life-threatening deterioration of the cardiorespiratory system and endocrine system required my full and direct attention, intervention and postoperative management. The aggregate critical care time was[33] minutes. The time is in addition to time spent performing reported procedures but includes the followin: Data review and interpretation 2: Patient assessment and monitoring of vital signs 3: Documentation 4:Medication orders and management 04/08/2020; patient was seen and evaluated this morning and is on 10 L of oxygen. Patient is on Decadron and remdesivir. ID is following the patient. Hypokalemia repleted. 04/09/2020; patient is on 15 L of oxygen. Continue IV Decadron and remdesivir. Continue IV Lasix and spironolactone for ascites/generalized swelling. Patient required BiPAP overnight. Patient has confusion and currently on restraints. We will check ammonia level, CT head. 04/10/2020; patient's condition is deteriorating transfer to [facility].. Continue with IV Decadron and remdesivir. Ammonia level is normal. His roommate reported that the patient has history of HIV, I try to reach to his daughter was listed in the chart and I could not get in touch. Pulmonary was consulted for respiratory failure and will follow the patient. Patient will be on BiPAP. HIV test ordered. 04/13/2020; patient continues to be on high flow oxygen, resume tube feeding, restrained for agitation as needed 04/14/2020; patient remains confused agitated, on CIWA protocol continuously hypoxemic, requiring high flow oxygen On four-point restraints 04/16/2020; patient remains agitated requiring restraints, CIWA protocol discontinued, I started Ativan as needed 04/17/2020; patient is more calm and quiet, less agitation receiving Dobbhoff, speech therapy for swallow eval, possible PEG if abnormal Brief history; 59 years old male with history of hepatitis C with cirrhosis, ascites, gastrosplenic varices, hypertension, meth abuse, admitted on 04/05/2020 secondary to 2-week history of worsening generalized body edema, cough and shortness of breath. EMS found O2 sats down to 85%. Patient placed on nonrebreather mask. On arrival, temperature 98.2, HR 110, O2 sat 96% drop to 83%. Patient placed on BiPAP. Initial WBC 6.9. Platelets 60. D-dimer 837. Creatinine 0.5. AST 129. ALT 54. Urine drug screen positive for amphetamines. Blood cultures 04/05/2020 no growth. Chest x-ray shows moderate interstitial edema. CT of the abdomen shows patchy airspace disease changes in the lung bases, large left pleural effusion, extensive ascites, cirrhotic liver, gastrosplenic varices, splenomegaly. History Interval history: I have seen and examined the patient at the bedside this morning in [facility] Isolation precautions and PPE protocols strictly followed Patient is confused with mild agitation requiring restraints Remains on high flow oxygen Vital signs reviewed Hospitalist Physical - Constitutional Vitals: Temp Pulse Resp BP Pulse Ox 98.8 F 89 21 98/67 98 04/17/20 03:37 04/17/20 04:00 04/17/20 04:00 04/17/20 04:00 04/17/20 05:24 General appearance: Present: mild distress, well-nourished, other (On high flow oxygen, agitated and restless) - EENT Eyes: Present: PERRL, EOM intact - Neck Neck: Present: supple, normal ROM - Respiratory Respiratory effort: normal Respiratory: bilateral: diminished, rhonchi, negative: rales, wheezing - Cardiovascular Rhythm: regular Heart Sounds: Present: S1 & S2 - Extremities Extremities: no ischemia, No edema - Abdominal General gastrointestinal: soft, non-tender, non-distended, normal bowel sounds - Integumentary Integumentary: Present: clear, warm - Psychiatric Psychiatric: agitated, other - Neurologic Neurologic: moves all extremities, other HEART Score - HEART Score Age: 45-65 Risk factors: 1-2 risk factors Troponin: Troponin T < 0.010 ng/mL (0.00-0.029) 04/05/20 14:17 Troponin: < normal limit - Critical Actions Critical Actions: 0-3 pts:0.9-1.7%risk of adverse cardiac event.Candidate for discharge Results - Labs CBC & Chem 7: 04/10/20 08:37 04/14/20 11:18 Labs: Laboratory Last Values WBC 5.8 K/mm3 (4.5-11.0) 04/10/20 08:37 RBC 3.75 M/mm3 (3.65-5.03) 04/10/20 08:37 Hgb 12.6 gm/dl (11.8-15.2) 04/10/20 08:37 Hct 37.5 % (35.5-45.6) 04/10/20 08:37 MCV 100 fl (84-94) H 04/10/20 08:37 MCH 34 pg (28-32) H 04/10/20 08:37 MCHC 34 % (32-34) 04/10/20 08:37 RDW 16.5 % (13.2-15.2) H 04/10/20 08:37 Plt Count 67 K/mm3 (140-440) L 04/10/20 08:37 Lymph % (Auto) 16.0 % (13.4-35.0) 04/10/20 08:37 [place] % (Auto) 6.8 % (0.0-7.3) 04/10/20 08:37 Eos % (Auto) 0.2 % (0.0-4.3) 04/10/20 08:37 Baso % (Auto) 1.1 % (0.0-1.8) 04/10/20 08:37 Lymph # (Auto) 0.9 K/mm3 (1.2-5.4) L 04/10/20 08:37 [place] # (Auto) 0.4 K/mm3 (0.0-0.8) 04/10/20 08:37 Eos # (Auto) 0.0 K/mm3 (0.0-0.4) 04/10/20 08:37 Baso # (Auto) 0.1 K/mm3 (0.0-0.1) 04/10/20 08:37 Add Manual Diff Complete 04/09/20 05:33 Total Counted 100 04/09/20 05:33 Seg Neutrophils % 75.9 % (40.0-70.0) H 04/10/20 08:37 Seg Neuts % (Manual) 72.0 % (40.0-70.0) H 04/09/20 05:33 Band Neutrophils % 0 % 04/06/20 05:53 Lymphocytes % (Manual) 21.0 % (13.4-35.0) 04/09/20 05:33 Reactive Lymphs % (Man) 0 % 04/06/20 05:53 Monocytes % (Manual) 7.0 % (0.0-7.3) 04/09/20 05:33 Eosinophils % (Manual) 0 % (0.0-4.3) 04/06/20 05:53 Basophils % (Manual) 0 % (0.0-1.8) 04/06/20 05:53 Metamyelocytes % 0 % 04/06/20 05:53 Myelocytes % 0 % 04/06/20 05:53 Promyelocytes % 0 % 04/06/20 05:53 Blast Cells % 0 % 04/06/20 05:53 Nucleated RBC % Not Reportable 04/09/20 05:33 Seg Neutrophils # 4.4 K/mm3 (1.8-7.7) 04/10/20 08:37 Seg Neutrophils # Man 1.6 K/mm3 (1.8-7.7) L 04/09/20 05:33 Band Neutrophils # 0.0 K/mm3 04/09/20 05:33 Lymphocytes # (Manual) 0.5 K/mm3 (1.2-5.4) L 04/09/20 05:33 Abs React Lymphs (Man) 0.0 K/mm3 04/09/20 05:33 Monocytes # (Manual) 0.2 K/mm3 (0.0-0.8) 04/09/20 05:33 Eosinophils # (Manual) 0.0 K/mm3 (0.0-0.4) 04/09/20 05:33 Basophils # (Manual) 0.0 K/mm3 (0.0-0.1) 04/09/20 05:33 Metamyelocytes # 0.0 K/mm3 04/09/20 05:33 Myelocytes # 0.0 K/mm3 04/09/20 05:33 Promyelocytes # 0.0 K/mm3 04/09/20 05:33 Blast Cells # 0.0 K/mm3 04/09/20 05:33 WBC Morphology Not Reportable 04/09/20 05:33 Hypersegmented Neuts Not Reportable 04/09/20 05:33 Hyposegmented Neuts Not Reportable 04/09/20 05:33 Hypogranular Neuts Not Reportable 04/09/20 05:33 Smudge Cells Not Reportable 04/09/20 05:33 Toxic Granulation Not Reportable 04/09/20 05:33 Toxic Vacuolation Not Reportable 04/09/20 05:33 Dohle Bodies Not Reportable 04/09/20 05:33 Pelger-Huet Anomaly Not Reportable 04/09/20 05:33 Kelly Rods Not Reportable 04/09/20 05:33 Platelet Estimate Appears decreased 04/09/20 05:33 Clumped Platelets Not Reportable 04/09/20 05:33 Plt Clumps, EDTA Not Reportable 04/09/20 05:33 Large Platelets Not Reportable 04/09/20 05:33 Giant Platelets Not Reportable 04/09/20 05:33 Platelet Satelliting Not Reportable 04/09/20 05:33 Plt Morphology Comment Not Reportable 04/09/20 05:33 RBC Morphology Not Reportable 04/09/20 05:33 Dimorphic RBCs Not Reportable 04/09/20 05:33 Polychromasia Not Reportable 04/09/20 05:33 Hypochromasia Not Reportable 04/09/20 05:33 Poikilocytosis Not Reportable 04/09/20 05:33 Anisocytosis Not Reportable 04/09/20 05:33 Microcytosis Not Reportable 04/09/20 05:33 Macrocytosis Not Reportable 04/09/20 05:33 Spherocytes Not Reportable 04/09/20 05:33 Pappenheimer Bodies Not Reportable 04/09/20 05:33 Sickle Cells Not Reportable 04/09/20 05:33 Target Cells Not Reportable 04/09/20 05:33 Tear Drop Cells Few 04/09/20 05:33 Ovalocytes Few 04/09/20 05:33 Helmet Cells Not Reportable 04/09/20 05:33 [place] Bodies Not Reportable 04/09/20 05:33 [place] Rings Not Reportable 04/09/20 05:33 [place] Cells Not Reportable 04/09/20 05:33 Bite Cells Not Reportable 04/09/20 05:33 Crenated Cell Not Reportable 04/09/20 05:33 Elliptocytes Not Reportable 04/09/20 05:33 Acanthocytes (Spur) Not Reportable 04/09/20 05:33 Rouleaux Few 04/09/20 05:33 Hemoglobin C Crystals Not Reportable 04/09/20 05:33 Schistocytes Rare 04/09/20 05:33 Malaria parasites Not Reportable 04/09/20 05:33 Ronnie Bodies Not Reportable 04/09/20 05:33 Hem Pathologist Commnt No 04/09/20 05:33 PT 15.9 Sec. (12.2-14.9) H 04/05/20 10:40 INR 1.27 (0.87-1.13) H 04/05/20 10:40 APTT 30.3 Sec. (24.2-36.6) 04/05/20 10:40 D-Dimer 1041.43 ng/mlDDU (0-234) H 04/16/20 19:05 Sodium 134 mmol/L (137-145) L 04/14/20 11:18 Potassium 4.5 mmol/L (3.6-5.0) 04/14/20 11:18 Chloride 99.7 mmol/L (98-107) 04/14/20 11:18 Carbon Dioxide 32 mmol/L (22-30) H 04/14/20 11:18 Anion Gap 7 mmol/L 04/14/20 11:18 BUN 34 mg/dL (9-20) H 04/14/20 11:18 Creatinine 0.6 mg/dL (0.8-1.3) L 04/14/20 11:18 Estimated GFR > 60 ml/min 04/14/20 11:18 BUN/Creatinine Ratio 57 % 04/14/20 11:18 Glucose 115 mg/dL (75-100) H 04/14/20 11:18 POC Glucose 95 mg/dL (70-105) 04/17/20 05:40 Hemoglobin A1c 4.5 % (4-6) 04/05/20 10:40 Lactic Acid 1.40 mmol/L (0.7-2.0) 04/05/20 10:40 Calcium 8.1 mg/dL (8.4-10.2) L 04/14/20 11:18 Phosphorus 3.30 mg/dL (2.5-4.5) 04/14/20 09:12 Magnesium 2.10 mg/dL (1.7-2.3) 04/14/20 09:12 Ferritin 1037.0 ng/mL (30.0-300.0) H 04/16/20 19:05 Total Bilirubin 2.80 mg/dL (0.1-1.2) H 04/11/20 21:24 Direct Bilirubin 0.8 mg/dL (0-0.2) H 04/10/20 08:37 Indirect Bilirubin 0.5 mg/dL 04/10/20 08:37 AST 91 units/L (5-40) H 04/11/20 21:24 ALT 55 units/L (7-56) 04/11/20 21:24 Alkaline Phosphatase 106 units/L (35-129) 04/11/20 21:24 Ammonia 28.0 umol/L (25-60) 04/09/20 14:10 Lactate Dehydrogenase 360 units/L (91-180) H 04/16/20 19:05 Troponin T < 0.010 ng/mL (0.00-0.029) 04/05/20 14:17 C-Reactive Protein 2.20 mg/dL (0.00-1.30) H 04/16/20 19:05 NT-Pro-B Natriuret Pep 216.4 pg/mL (0-900) 04/05/20 10:40 Total Protein 6.7 g/dL (6.3-8.2) 04/11/20 21:24 Albumin 2.1 g/dL (3.9-5) L 04/11/20 21:24 Albumin/Globulin Ratio 0.5 % 04/11/20 21:24 Lipase 21 units/L (13-60) 04/05/20 10:40 Procalcitonin 0.14 ng/mL (<0.15) 04/06/20 14:24 Urine Color Yellow (Yellow) 04/05/20 Unknown Urine Turbidity Clear (Clear) 04/05/20 Unknown Urine pH 6.0 (5.0-7.0) 04/05/20 Unknown Ur Specific [place] 1.006 (1.003-1.030) 04/05/20 Unknown Urine Protein <15 mg/dl mg/dL (Negative) 04/05/20 Unknown Urine Glucose (UA) Neg mg/dL (Negative) 04/05/20 Unknown Urine Ketones Neg mg/dL (Negative) 04/05/20 Unknown Urine Blood Sm (Negative) 04/05/20 Unknown Urine Nitrite Neg (Negative) 04/05/20 Unknown Urine Bilirubin Neg (Negative) 04/05/20 Unknown Urine Urobilinogen < 2.0 mg/dL (<2.0) 04/05/20 Unknown Ur Leukocyte Esterase Neg (Negative) 04/05/20 Unknown Urine WBC (Auto) < 1.0 /HPF (0.0-6.0) 04/05/20 Unknown Urine RBC (Auto) 6.0 /HPF (0.0-6.0) 04/05/20 Unknown U Epithel Cells (Auto) < 1.0 /HPF (0-13.0) 04/05/20 Unknown Hyaline Casts 1 /LPF 04/05/20 Unknown Urine Mucus Few /HPF 04/05/20 Unknown Urine Opiates Screen Negative 04/05/20 Unknown Urine Methadone Screen Negative 04/05/20 Unknown Ur Barbiturates Screen Negative 04/05/20 Unknown Ur Phencyclidine Scrn Negative 04/05/20 Unknown Ur Amphetamines Screen Presumptive positive 04/05/20 Unknown U Benzodiazepines Scrn Negative 04/05/20 Unknown Urine Cocaine Screen Negative 04/05/20 Unknown U Marijuana (THC) Screen Negative 04/05/20 Unknown Drugs of Abuse Note Disclamer 04/05/20 Unknown Coronavirus (PCR) Positive (Negative) A 04/06/20 Unknown Hepatitis A IgM Ab Non-reactive (NonReactive) 04/06/20 08:04 Hep Bs Antigen Non-reactive (Negative) 04/06/20 08:04 Hep B Core IgM Ab Non-reactive (NonReactive) 04/06/20 08:04 Hepatitis C Antibody Reactive (NonReactive) A 04/06/20 08:04 SARS-CoV-2 IgG Ab Reactive (NonReactive) A 04/13/20 02:41 Rogers/IV: Voiding Method Condom Catheter IV Catheter Type [Right INT / Saline Lock Antecubital] IV Catheter Type [Left Upper Peripheral IV arm] IV Catheter Type [Right INT / Saline Lock Forearm] IV Catheter Type [Left Forearm INT / Saline Lock ] IV Catheter Type [Right Wrist] INT / Saline Lock IV Catheter Type [Right Upper INT / Saline Lock arm] Active Medications - Current Medications Current Medications: Generic Name Dose Route Start Last Admin Trade Name Freq PRN Reason Stop Dose Admin Acetaminophen 650 mg 04/05/20 23:41 Tylenol PO Q4H PRN Pain MILD(1-3)/Fever >100.5/CHRISTIANSON Albuterol 2.5 mg 04/08/20 23:00 Albuterol 2.5 Mg/3 Ml Nebu IH Q4HRT PRN Shortness Of Breath Lipase/Protease/Amylase 1 each 04/13/20 13:23 Lipase 10,500/Protease 25,000/Amylase 43,750 (Units) Dr Tejada FEEDTUBE PRN PRN For Clogged Feeding Tube Chlordiazepoxide HCl 25 mg 04/13/20 11:00 04/17/20 02:47 Chlordiazepoxide 25 Mg Cap PO 25 mg Q8H LUPE Administration Enoxaparin Sodium 40 mg 04/06/20 22:00 04/16/20 21:56 Enoxaparin SUB-Q 40 mg QDAY@2200 LUPE Administration Protocol Famotidine 20 mg 04/06/20 10:00 04/16/20 21:57 Pepcid PO 20 mg BID LUPE Administration Furosemide 40 mg 04/12/20 11:00 04/16/20 22:00 Furosemide 40 Mg/4 Ml Inj IV 40 mg Q12H LUPE Administration Labetalol HCl 10 mg 04/12/20 12:00 Labetalol 20 Mg/4 Ml Inj IV Q4H PRN Hypertension Lorazepam 2 mg 04/15/20 12:49 04/15/20 23:55 Lorazepam 2 Mg/Ml Vial IV 2 mg Q4H PRN Administration Agitation Ondansetron HCl 4 mg 04/05/20 23:41 Zofran IV Q8H PRN Nausea And Vomiting Oxycodone/Acetaminophen 1 tab 04/05/20 23:41 04/16/20 09:18 Percocet 5/325 PO 1 tab Q6H PRN Administration Pain, Moderate (4-6) Simple Syrup 15 ml 04/13/20 13:23 Simple Syrup 15 Ml FEEDTUBE PRN PRN Hypoglycemia Simple Syrup 30 ml 04/13/20 13:23 Simple Syrup 15 Ml FEEDTUBE PRN PRN Hypoglycemia Sodium Bicarbonate 325 mg 04/13/20 13:23 Sodium Bicarbonate 325 Mg Tab FEEDTUBE PRN PRN For Clogged Feeding Tube Sodium Chloride 10 ml 04/06/20 10:00 04/16/20 21:57 Sodium Chloride Flush Syringe 10 Ml IV 10 ml BID LUPE Administration Sodium Chloride 10 ml 04/05/20 23:41 Sodium Chloride Flush Syringe 10 Ml IV PRN PRN LINE FLUSH Spironolactone 100 mg 04/12/20 10:00 04/16/20 09:18 Spironolactone 25 Mg Tab PO 100 mg QDAY LUPE Administration Ziprasidone 10 mg 04/13/20 19:06 04/13/20 21:46 Ziprasidone Mesylate 20 Mg Vial IM 10 mg ONCE PRN Administration Agitation Nutrition/Malnutrition Assess - Dietary Evaluation Nutrition/Malnutrition Findings: Nutrition Notes Start: 04/12/20 14:15 Freq: Status: Active Protocol: Document 04/15/20 12:47 AB (Rec: 04/15/20 12:51 AB [id number]) Co-Sign 04/15/20 12:47 LP Nutrition Notes Initial or Follow up Reassessment Current Diagnosis Hypertension Other Pertinent Diagnosis COVID(+), hep C, acute respiratory failure, pneu, methadone&EtoH dependence Current Diet Osmolite 1.5 at 50 ml/hr (goal rate) Labs/Tests Na 134 BUN 34 Cr 0.6 Pertinent Medications Lasix Height 5 ft 7 in Weight 64.4 kg [place] Body Weight (kg) 67.27 BMI 22.2 Subjective/Other Information F/U for TF start/tolerance. Per RN, pt is at goal and tolerating. Percent of energy/protein needs met: 100%/100% Burn Absent Trauma Absent GI Symptoms None Food Allergy No Current % PO Negligible Minimum of two criteria Yes Energy Intake (severe) < or equal to 50% Estimated Energy Requirement > or equal to 5 days Fluid Accumulation Moderate to Severe (severe) #2 Nutrition Diagnosis Malnutrition Etiology Poor intakes [employer] As Evidenced by Signs and Symptoms Fluid accumulation and < 50% of energy intake in 5 days #1 Nutrition Diagnosis Inadequate oral intake Diagnosis Progress(for reassessment Continues documentation) Is patient on ventilator? No Is Patient Ambulatory and/or Out of Bed No REE-([facility]-confined to bed) 1700.136 Calculation Used for Recommendations [facility] Additional Notes Pro: 67-84g (0.8-1g/kg) Fluid: 1 ml/kcal Nutrition Intervention Change Diet Order: Continue current TF Nutrition Support: Osmolite 1.5 at 50 ml/hr Flush with 150 ml q4h Kcal 1,800 Protein (gm) 75 Fluid (mL) 914 Goal #1 TF start/tolerance Goal #2 Meet at least 80 % of energy and protein needs via TF. Anticipated Discharge Needs: Unable to determine at this time Follow-Up By: 04/20/20 Additional Comments F/U for TF tolerance and BM
[2020-04-17] MEDS: FAMOTIDINE 20 MG TAB PO SCH ×2 (10:03→21:05)
[2020-04-17] MEDS: SPIRONOLACTONE 25 MG TAB PO SCH (10:03)
[2020-04-17] MEDS: FUROSEMIDE 40 MG/4 ML INJ IV SCH ×3 (10:04→23:43)
--- NOTE | 2020-04-17 14:05 | Progress Note ---
Assessment and Plan 59 y/o male with acute respiratory failure secondary to covid positive state and ETOH withdrawal with hypertension and altered mental state. 1. Per staff off [facility] precautions now. 2. Continue HFNC, wean FiO2 for sats >88%, will discuss with RT, doing better with this. 3. Monitor fluid status, would not give additional IVF's unless patient is not taking PO or renal function is compromised 4. Continue modified proning as tolerated. 5. Guarded prognosis. Patient has no funding so not a candidate for LTACH transfer for further weaning. Transfer to [facility] with remote tele Subjective Date of service: 04/17/20 Principal diagnosis: COVID Interval history: Down to 30 and 30. Good sats. Objective Vital Signs - 12hr 04/17/20 04/17/20 04/17/20 03:00 03:37 04:00 Temperature 98.8 F Pulse Rate 100 H 90 Pulse Rate [ 89 From Monitor] Respiratory 20 21 Rate Blood Pressure 111/78 98/67 O2 Sat by Pulse 100 100 Oximetry 04/17/20 04/17/20 04/17/20 05:00 05:24 06:00 Temperature Pulse Rate 89 88 Pulse Rate [ From Monitor] Respiratory 22 19 Rate Blood Pressure 101/73 99/64 O2 Sat by Pulse 99 98 99 Oximetry 04/17/20 04/17/20 04/17/20 07:00 08:00 08:58 Temperature 98.2 F Pulse Rate 99 H 88 Pulse Rate [ 92 H From Monitor] Respiratory 25 H 20 Rate Blood Pressure 109/76 114/67 O2 Sat by Pulse 100 98 98 Oximetry 04/17/20 04/17/20 04/17/20 09:00 10:00 10:03 Temperature Pulse Rate 102 H 89 90 Pulse Rate [ From Monitor] Respiratory 24 23 Rate Blood Pressure 103/71 97/60 97/60 O2 Sat by Pulse 99 96 Oximetry 04/17/20 04/17/20 04/17/20 11:00 12:00 13:00 Temperature Pulse Rate 104 H 92 H 92 H Pulse Rate [ 92 H From Monitor] Respiratory 26 H 23 22 Rate Blood Pressure 109/86 99/65 117/79 O2 Sat by Pulse 97 96 95 Oximetry Constitutional: asleep ENT: oropharynx moist Effort: normal Ascultation: Bilateral: rhonchi Cardiovascular: regular rate and rhythm Gastrointestinal: normoactive bowel sounds, non-tender CBC and BMP: 04/10/20 08:37 04/14/20 11:18 ABG, PT/INR, D-dimer: PT/INR, D-dimer PT 15.9 Sec. (12.2-14.9) H 04/05/20 10:40 INR 1.27 (0.87-1.13) H 04/05/20 10:40 D-Dimer 1041.43 ng/mlDDU (0-234) H 04/16/20 19:05 Abnormal lab findings: Abnormal Labs 04/05/20 04/05/20 04/05/20 10:40 10:40 10:40 WBC RBC Hct MCV 98 H MCH 34 H MCHC RDW 16.3 H Plt Count 60 L Lymph # (Auto) [place] # (Auto) Seg Neutrophils % Seg Neuts % (Manual) 86.0 H Lymphocytes % (Manual) 4.0 L Monocytes % (Manual) 9.0 H Seg Neutrophils # Man Lymphocytes # (Manual) 0.3 L PT 15.9 H INR 1.27 H D-Dimer Sodium 134 L Potassium Chloride Carbon Dioxide BUN Creatinine 0.5 L Glucose POC Glucose Calcium 7.7 L Ferritin Total Bilirubin Direct Bilirubin AST ALT Alkaline Phosphatase Lactate Dehydrogenase C-Reactive Protein Total Protein Albumin Coronavirus (PCR) Hepatitis C Antibody SARS-CoV-2 IgG Ab 04/05/20 04/05/20 04/05/20 10:40 14:45 14:45 WBC RBC Hct MCV MCH MCHC RDW Plt Count Lymph # (Auto) [place] # (Auto) Seg Neutrophils % Seg Neuts % (Manual) Lymphocytes % (Manual) Monocytes % (Manual) Seg Neutrophils # Man Lymphocytes # (Manual) PT INR D-Dimer 837.90 H Sodium Potassium Chloride Carbon Dioxide BUN Creatinine Glucose POC Glucose Calcium Ferritin Total Bilirubin 2.30 H Direct Bilirubin 1.3 H AST 129 H ALT Alkaline Phosphatase Lactate Dehydrogenase 438 H C-Reactive Protein 1.70 H Total Protein Albumin 1.9 L Coronavirus (PCR) Hepatitis C Antibody SARS-CoV-2 IgG Ab 04/05/20 04/06/20 04/06/20 14:45 05:53 05:53 WBC 3.5 L RBC 3.47 L Hct 34.1 L MCV 99 H MCH 34 H MCHC 35 H RDW 16.1 H Plt Count 48 L Lymph # (Auto) [place] # (Auto) Seg Neutrophils % Seg Neuts % (Manual) 92.0 H Lymphocytes % (Manual) 3.0 L Monocytes % (Manual) Seg Neutrophils # Man Lymphocytes # (Manual) 0.1 L PT INR D-Dimer Sodium 136 L Potassium Chloride Carbon Dioxide BUN 23 H Creatinine 0.5 L Glucose 107 H POC Glucose Calcium 7.5 L Ferritin 1412.0 H Total Bilirubin 1.80 H Direct Bilirubin AST 112 H ALT Alkaline Phosphatase Lactate Dehydrogenase C-Reactive Protein Total Protein Albumin 1.8 L Coronavirus (PCR) Hepatitis C Antibody SARS-CoV-2 IgG Ab 04/06/20 04/06/20 04/07/20 08:04 Unknown 06:01 WBC RBC 3.61 L Hct MCV 100 H MCH 34 H MCHC RDW 16.0 H Plt Count 58 L Lymph # (Auto) 1.0 L [place] # (Auto) 1.2 H Seg Neutrophils % Seg Neuts % (Manual) Lymphocytes % (Manual) Monocytes % (Manual) Seg Neutrophils # Man Lymphocytes # (Manual) PT INR D-Dimer Sodium Potassium Chloride Carbon Dioxide BUN Creatinine Glucose POC Glucose Calcium Ferritin Total Bilirubin Direct Bilirubin AST ALT Alkaline Phosphatase Lactate Dehydrogenase C-Reactive Protein Total Protein Albumin Coronavirus (PCR) Positive A Hepatitis C Antibody Reactive A SARS-CoV-2 IgG Ab 04/07/20 04/08/20 04/08/20 06:01 04:00 05:16 WBC RBC Hct MCV MCH MCHC RDW Plt Count Lymph # (Auto) [place] # (Auto) Seg Neutrophils % Seg Neuts % (Manual) Lymphocytes % (Manual) Monocytes % (Manual) Seg Neutrophils # Man Lymphocytes # (Manual) PT INR D-Dimer 1139.66 H Sodium Potassium 3.5 L 3.2 L Chloride 108.7 H Carbon Dioxide BUN 28 H 28 H Creatinine 0.5 L 0.6 L Glucose 133 H 126 H POC Glucose Calcium 7.5 L 7.8 L Ferritin Total Bilirubin 1.40 H 1.30 H Direct Bilirubin 0.8 H AST 170 H 114 H ALT 80 H 73 H Alkaline Phosphatase 132 H Lactate Dehydrogenase 502 H C-Reactive Protein Total Protein 6.1 L Albumin 1.9 L 1.9 L Coronavirus (PCR) Hepatitis C Antibody SARS-CoV-2 IgG Ab 04/08/20 04/09/20 04/09/20 05:16 05:33 05:33 WBC 2.2 L RBC Hct MCV 100 H MCH 34 H MCHC RDW 16.2 H Plt Count Lymph # (Auto) [place] # (Auto) Seg Neutrophils % Seg Neuts % (Manual) 72.0 H Lymphocytes % (Manual) Monocytes % (Manual) Seg Neutrophils # Man 1.6 L Lymphocytes # (Manual) 0.5 L PT INR D-Dimer Sodium Potassium Chloride 109.2 H Carbon Dioxide BUN 25 H Creatinine 0.6 L Glucose POC Glucose Calcium 7.8 L Ferritin 1118.0 H Total Bilirubin Direct Bilirubin AST ALT Alkaline Phosphatase Lactate Dehydrogenase C-Reactive Protein Total Protein Albumin Coronavirus (PCR) Hepatitis C Antibody SARS-CoV-2 IgG Ab 04/09/20 04/10/20 04/10/20 14:10 08:37 08:37 WBC RBC Hct MCV 99 H MCH 33 H MCHC RDW 16.4 H Plt Count 55 L Lymph # (Auto) [place] # (Auto) Seg Neutrophils % Seg Neuts % (Manual) Lymphocytes % (Manual) Monocytes % (Manual) Seg Neutrophils # Man Lymphocytes # (Manual) PT INR D-Dimer 1084.93 H Sodium Potassium Chloride 111.7 H Carbon Dioxide BUN 26 H Creatinine 0.6 L Glucose POC Glucose Calcium 7.8 L Ferritin Total Bilirubin 1.30 H Direct Bilirubin 0.8 H AST 80 H ALT 58 H Alkaline Phosphatase Lactate Dehydrogenase 404 H C-Reactive Protein Total Protein 6.2 L Albumin 1.8 L Coronavirus (PCR) Hepatitis C Antibody SARS-CoV-2 IgG Ab 04/10/20 04/10/20 04/11/20 08:37 08:37 21:24 WBC RBC Hct MCV 100 H MCH 34 H MCHC RDW 16.5 H Plt Count 67 L Lymph # (Auto) 0.9 L [place] # (Auto) Seg Neutrophils % 75.9 H Seg Neuts % (Manual) Lymphocytes % (Manual) Monocytes % (Manual) Seg Neutrophils # Man Lymphocytes # (Manual) PT INR D-Dimer Sodium Potassium Chloride Carbon Dioxide BUN 25 H Creatinine 0.6 L Glucose POC Glucose Calcium 8.1 L Ferritin 1002.0 H Total Bilirubin 2.80 H Direct Bilirubin AST 91 H ALT Alkaline Phosphatase Lactate Dehydrogenase C-Reactive Protein Total Protein Albumin 2.1 L Coronavirus (PCR) Hepatitis C Antibody SARS-CoV-2 IgG Ab 04/11/20 04/12/20 04/13/20 23:58 18:06 02:41 WBC RBC Hct MCV MCH MCHC RDW Plt Count Lymph # (Auto) [place] # (Auto) Seg Neutrophils % Seg Neuts % (Manual) Lymphocytes % (Manual) Monocytes % (Manual) Seg Neutrophils # Man Lymphocytes # (Manual) PT INR D-Dimer 1222.21 H Sodium Potassium Chloride Carbon Dioxide BUN Creatinine Glucose POC Glucose 64 L 114 H Calcium Ferritin Total Bilirubin Direct Bilirubin AST ALT Alkaline Phosphatase Lactate Dehydrogenase C-Reactive Protein Total Protein Albumin Coronavirus (PCR) Hepatitis C Antibody SARS-CoV-2 IgG Ab 04/13/20 04/13/20 04/13/20 02:41 02:41 02:41 WBC RBC Hct MCV MCH MCHC RDW Plt Count Lymph # (Auto) [place] # (Auto) Seg Neutrophils % Seg Neuts % (Manual) Lymphocytes % (Manual) Monocytes % (Manual) Seg Neutrophils # Man Lymphocytes # (Manual) PT INR D-Dimer Sodium Potassium Chloride Carbon Dioxide BUN Creatinine Glucose POC Glucose Calcium Ferritin 1044.0 H Total Bilirubin Direct Bilirubin AST ALT Alkaline Phosphatase Lactate Dehydrogenase 456 H C-Reactive Protein 4.20 H Total Protein Albumin Coronavirus (PCR) Hepatitis C Antibody SARS-CoV-2 IgG Ab Reactive A 04/13/20 04/13/20 04/14/20 05:41 12:25 00:08 WBC RBC Hct MCV MCH MCHC RDW Plt Count Lymph # (Auto) [place] # (Auto) Seg Neutrophils % Seg Neuts % (Manual) Lymphocytes % (Manual) Monocytes % (Manual) Seg Neutrophils # Man Lymphocytes # (Manual) PT INR D-Dimer Sodium Potassium Chloride Carbon Dioxide BUN Creatinine Glucose POC Glucose 107 H 109 H 120 H Calcium Ferritin Total Bilirubin Direct Bilirubin AST ALT Alkaline Phosphatase Lactate Dehydrogenase C-Reactive Protein Total Protein Albumin Coronavirus (PCR) Hepatitis C Antibody SARS-CoV-2 IgG Ab 04/14/20 04/14/20 04/14/20 05:11 11:18 23:03 WBC RBC Hct MCV MCH MCHC RDW Plt Count Lymph # (Auto) [place] # (Auto) Seg Neutrophils % Seg Neuts % (Manual) Lymphocytes % (Manual) Monocytes % (Manual) Seg Neutrophils # Man Lymphocytes # (Manual) PT INR D-Dimer Sodium 134 L Potassium Chloride Carbon Dioxide 32 H BUN 34 H Creatinine 0.6 L Glucose 115 H POC Glucose 120 H 111 H Calcium 8.1 L Ferritin Total Bilirubin Direct Bilirubin AST ALT Alkaline Phosphatase Lactate Dehydrogenase C-Reactive Protein Total Protein Albumin Coronavirus (PCR) Hepatitis C Antibody SARS-CoV-2 IgG Ab 04/15/20 04/15/20 04/16/20 05:48 17:48 06:01 WBC RBC Hct MCV MCH MCHC RDW Plt Count Lymph # (Auto) [place] # (Auto) Seg Neutrophils % Seg Neuts % (Manual) Lymphocytes % (Manual) Monocytes % (Manual) Seg Neutrophils # Man Lymphocytes # (Manual) PT INR D-Dimer Sodium Potassium Chloride Carbon Dioxide BUN Creatinine Glucose POC Glucose 119 H 123 H 111 H Calcium Ferritin Total Bilirubin Direct Bilirubin AST ALT Alkaline Phosphatase Lactate Dehydrogenase C-Reactive Protein Total Protein Albumin Coronavirus (PCR) Hepatitis C Antibody SARS-CoV-2 IgG Ab 04/16/20 04/16/20 04/16/20 19:05 19:05 19:05 WBC RBC Hct MCV MCH MCHC RDW Plt Count Lymph # (Auto) [place] # (Auto) Seg Neutrophils % Seg Neuts % (Manual) Lymphocytes % (Manual) Monocytes % (Manual) Seg Neutrophils # Man Lymphocytes # (Manual) PT INR D-Dimer 1041.43 H Sodium Potassium Chloride Carbon Dioxide BUN Creatinine Glucose POC Glucose Calcium Ferritin 1037.0 H Total Bilirubin Direct Bilirubin AST ALT Alkaline Phosphatase Lactate Dehydrogenase 360 H C-Reactive Protein 2.20 H Total Protein Albumin Coronavirus (PCR) Hepatitis C Antibody SARS-CoV-2 IgG Ab
[2020-04-17] MEDS: LORazepam 2 MG/ML VIAL IV PRN (15:54)
[2020-04-17 19:21] LABS: ABG Base Excess 11.8 mmol/L (-2.0-3.0); ABG HCO3 35.6 mmol/L (20.0-26.0); ABG Methemoglobin 0.6 % (0.0-1.5); ABG Oxygen Saturation 88.2 % (95.0-99.0); ABG PCO2 41.7 mm Hg; ABG PH 7.549 pH Units (7.350-7.450); ABG PO2 48.2 mm Hg (80.0-90.0)
[2020-04-17] MEDS: ENOXAPARIN 40 MG/0.4 ML INJ SUB-Q SCH (21:06)
[2020-04-18] MEDS ORDERED: SODIUM CHLORIDE 0.9% 250ML 250 ML IV ONE (01:53)
--- NOTE | 2020-04-18 10:13 | Progress Note ---
Assessment and Plan 59 y/o male with acute respiratory failure secondary to covid positive state and ETOH withdrawal with hypertension and altered mental state. 1. No acute evidence of clinical decline. Still feel aBG was venous. IF not able to wean FiO2 today, will repeat CXR. 2. Continue HFNC, wean FiO2 for sats >88%, will discuss with RT, doing better with this. 3. Monitor fluid status, would not give additional IVF's unless patient is not taking PO or renal function is compromised. Patient was given a 250cc bolus early am but had a good MAP. May need extra lasix today. 4. Continue modified proning as tolerated. 5. Guarded prognosis. Patient has no funding so not a candidate for LTACH transfer for further weaning. Subjective Date of service: 04/18/20 Principal diagnosis: COVID Interval history: Transitioned to the floor but FiO2 was increased to 50%. ABG was done that appeared to be venous. Not sure if anyone was notified of the results. Per charting sats are in the low 90's on 50% as of 0300 this am. Remainder is negative. Objective Vital Signs - 12hr 04/18/20 04/18/20 04/18/20 00:00 01:32 02:32 Temperature Pulse Rate 107 H 116 H Pulse Rate [ 96 H From Monitor] Respiratory 22 Rate Blood Pressure 99/70 118/79 O2 Sat by Pulse 92 96 96 Oximetry 04/18/20 04/18/20 04/18/20 03:13 04:00 04:17 Temperature 97.2 F L Pulse Rate 115 H Pulse Rate [ From Monitor] Respiratory 28 H Rate Blood Pressure 114/85 O2 Sat by Pulse 91 92 95 Oximetry Constitutional: asleep ENT: oropharynx moist Effort: normal Ascultation: Bilateral: rhonchi Cardiovascular: regular rate and rhythm Gastrointestinal: normoactive bowel sounds, non-tender CBC and BMP: 04/10/20 08:37 04/14/20 11:18 ABG, PT/INR, D-dimer: ABG ABG pH 7.549 pH Units (7.350-7.450) H 04/17/20 18:50 ABG pCO2 41.7 mm Hg 04/17/20 18:50 ABG pO2 48.2 mm Hg (80.0-90.0) L 04/17/20 18:50 ABG O2 Saturation 88.2 % (95.0-99.0) L 04/17/20 18:50 PT/INR, D-dimer PT 15.9 Sec. (12.2-14.9) H 04/05/20 10:40 INR 1.27 (0.87-1.13) H 04/05/20 10:40 D-Dimer 1041.43 ng/mlDDU (0-234) H 04/16/20 19:05 Abnormal lab findings: Abnormal Labs 04/05/20 04/05/20 04/05/20 10:40 10:40 10:40 WBC RBC Hct MCV 98 H MCH 34 H MCHC RDW 16.3 H Plt Count 60 L Lymph # (Auto) [place] # (Auto) Seg Neutrophils % Seg Neuts % (Manual) 86.0 H Lymphocytes % (Manual) 4.0 L Monocytes % (Manual) 9.0 H Seg Neutrophils # Man Lymphocytes # (Manual) 0.3 L PT 15.9 H INR 1.27 H D-Dimer ABG pH ABG pO2 ABG HCO3 ABG O2 Saturation ABG Base Excess Oxyhemoglobin Sodium 134 L Potassium Chloride Carbon Dioxide BUN Creatinine 0.5 L Glucose POC Glucose Calcium 7.7 L Ferritin Total Bilirubin Direct Bilirubin AST ALT Alkaline Phosphatase Lactate Dehydrogenase C-Reactive Protein Total Protein Albumin Coronavirus (PCR) Hepatitis C Antibody SARS-CoV-2 IgG Ab 04/05/20 04/05/20 04/05/20 10:40 14:45 14:45 WBC RBC Hct MCV MCH MCHC RDW Plt Count Lymph # (Auto) [place] # (Auto) Seg Neutrophils % Seg Neuts % (Manual) Lymphocytes % (Manual) Monocytes % (Manual) Seg Neutrophils # Man Lymphocytes # (Manual) PT INR D-Dimer 837.90 H ABG pH ABG pO2 ABG HCO3 ABG O2 Saturation ABG Base Excess Oxyhemoglobin Sodium Potassium Chloride Carbon Dioxide BUN Creatinine Glucose POC Glucose Calcium Ferritin Total Bilirubin 2.30 H Direct Bilirubin 1.3 H AST 129 H ALT Alkaline Phosphatase Lactate Dehydrogenase 438 H C-Reactive Protein 1.70 H Total Protein Albumin 1.9 L Coronavirus (PCR) Hepatitis C Antibody SARS-CoV-2 IgG Ab 04/05/20 04/06/20 04/06/20 14:45 05:53 05:53 WBC 3.5 L RBC 3.47 L Hct 34.1 L MCV 99 H MCH 34 H MCHC 35 H RDW 16.1 H Plt Count 48 L Lymph # (Auto) [place] # (Auto) Seg Neutrophils % Seg Neuts % (Manual) 92.0 H Lymphocytes % (Manual) 3.0 L Monocytes % (Manual) Seg Neutrophils # Man Lymphocytes # (Manual) 0.1 L PT INR D-Dimer ABG pH ABG pO2 ABG HCO3 ABG O2 Saturation ABG Base Excess Oxyhemoglobin Sodium 136 L Potassium Chloride Carbon Dioxide BUN 23 H Creatinine 0.5 L Glucose 107 H POC Glucose Calcium 7.5 L Ferritin 1412.0 H Total Bilirubin 1.80 H Direct Bilirubin AST 112 H ALT Alkaline Phosphatase Lactate Dehydrogenase C-Reactive Protein Total Protein Albumin 1.8 L Coronavirus (PCR) Hepatitis C Antibody SARS-CoV-2 IgG Ab 04/06/20 04/06/20 04/07/20 08:04 Unknown 06:01 WBC RBC 3.61 L Hct MCV 100 H MCH 34 H MCHC RDW 16.0 H Plt Count 58 L Lymph # (Auto) 1.0 L [place] # (Auto) 1.2 H Seg Neutrophils % Seg Neuts % (Manual) Lymphocytes % (Manual) Monocytes % (Manual) Seg Neutrophils # Man Lymphocytes # (Manual) PT INR D-Dimer ABG pH ABG pO2 ABG HCO3 ABG O2 Saturation ABG Base Excess Oxyhemoglobin Sodium Potassium Chloride Carbon Dioxide BUN Creatinine Glucose POC Glucose Calcium Ferritin Total Bilirubin Direct Bilirubin AST ALT Alkaline Phosphatase Lactate Dehydrogenase C-Reactive Protein Total Protein Albumin Coronavirus (PCR) Positive A Hepatitis C Antibody Reactive A SARS-CoV-2 IgG Ab 04/07/20 04/08/20 04/08/20 06:01 04:00 05:16 WBC RBC Hct MCV MCH MCHC RDW Plt Count Lymph # (Auto) [place] # (Auto) Seg Neutrophils % Seg Neuts % (Manual) Lymphocytes % (Manual) Monocytes % (Manual) Seg Neutrophils # Man Lymphocytes # (Manual) PT INR D-Dimer 1139.66 H ABG pH ABG pO2 ABG HCO3 ABG O2 Saturation ABG Base Excess Oxyhemoglobin Sodium Potassium 3.5 L 3.2 L Chloride 108.7 H Carbon Dioxide BUN 28 H 28 H Creatinine 0.5 L 0.6 L Glucose 133 H 126 H POC Glucose Calcium 7.5 L 7.8 L Ferritin Total Bilirubin 1.40 H 1.30 H Direct Bilirubin 0.8 H AST 170 H 114 H ALT 80 H 73 H Alkaline Phosphatase 132 H Lactate Dehydrogenase 502 H C-Reactive Protein Total Protein 6.1 L Albumin 1.9 L 1.9 L Coronavirus (PCR) Hepatitis C Antibody SARS-CoV-2 IgG Ab 04/08/20 04/09/20 04/09/20 05:16 05:33 05:33 WBC 2.2 L RBC Hct MCV 100 H MCH 34 H MCHC RDW 16.2 H Plt Count Lymph # (Auto) [place] # (Auto) Seg Neutrophils % Seg Neuts % (Manual) 72.0 H Lymphocytes % (Manual) Monocytes % (Manual) Seg Neutrophils # Man 1.6 L Lymphocytes # (Manual) 0.5 L PT INR D-Dimer ABG pH ABG pO2 ABG HCO3 ABG O2 Saturation ABG Base Excess Oxyhemoglobin Sodium Potassium Chloride 109.2 H Carbon Dioxide BUN 25 H Creatinine 0.6 L Glucose POC Glucose Calcium 7.8 L Ferritin 1118.0 H Total Bilirubin Direct Bilirubin AST ALT Alkaline Phosphatase Lactate Dehydrogenase C-Reactive Protein Total Protein Albumin Coronavirus (PCR) Hepatitis C Antibody SARS-CoV-2 IgG Ab 04/09/20 04/10/20 04/10/20 14:10 08:37 08:37 WBC RBC Hct MCV 99 H MCH 33 H MCHC RDW 16.4 H Plt Count 55 L Lymph # (Auto) [place] # (Auto) Seg Neutrophils % Seg Neuts % (Manual) Lymphocytes % (Manual) Monocytes % (Manual) Seg Neutrophils # Man Lymphocytes # (Manual) PT INR D-Dimer 1084.93 H ABG pH ABG pO2 ABG HCO3 ABG O2 Saturation ABG Base Excess Oxyhemoglobin Sodium Potassium Chloride 111.7 H Carbon Dioxide BUN 26 H Creatinine 0.6 L Glucose POC Glucose Calcium 7.8 L Ferritin Total Bilirubin 1.30 H Direct Bilirubin 0.8 H AST 80 H ALT 58 H Alkaline Phosphatase Lactate Dehydrogenase 404 H C-Reactive Protein Total Protein 6.2 L Albumin 1.8 L Coronavirus (PCR) Hepatitis C Antibody SARS-CoV-2 IgG Ab 04/10/20 04/10/20 04/11/20 08:37 08:37 21:24 WBC RBC Hct MCV 100 H MCH 34 H MCHC RDW 16.5 H Plt Count 67 L Lymph # (Auto) 0.9 L [place] # (Auto) Seg Neutrophils % 75.9 H Seg Neuts % (Manual) Lymphocytes % (Manual) Monocytes % (Manual) Seg Neutrophils # Man Lymphocytes # (Manual) PT INR D-Dimer ABG pH ABG pO2 ABG HCO3 ABG O2 Saturation ABG Base Excess Oxyhemoglobin Sodium Potassium Chloride Carbon Dioxide BUN 25 H Creatinine 0.6 L Glucose POC Glucose Calcium 8.1 L Ferritin 1002.0 H Total Bilirubin 2.80 H Direct Bilirubin AST 91 H ALT Alkaline Phosphatase Lactate Dehydrogenase C-Reactive Protein Total Protein Albumin 2.1 L Coronavirus (PCR) Hepatitis C Antibody SARS-CoV-2 IgG Ab 04/11/20 04/12/20 04/13/20 23:58 18:06 02:41 WBC RBC Hct MCV MCH MCHC RDW Plt Count Lymph # (Auto) [place] # (Auto) Seg Neutrophils % Seg Neuts % (Manual) Lymphocytes % (Manual) Monocytes % (Manual) Seg Neutrophils # Man Lymphocytes # (Manual) PT INR D-Dimer 1222.21 H ABG pH ABG pO2 ABG HCO3 ABG O2 Saturation ABG Base Excess Oxyhemoglobin Sodium Potassium Chloride Carbon Dioxide BUN Creatinine Glucose POC Glucose 64 L 114 H Calcium Ferritin Total Bilirubin Direct Bilirubin AST ALT Alkaline Phosphatase Lactate Dehydrogenase C-Reactive Protein Total Protein Albumin Coronavirus (PCR) Hepatitis C Antibody SARS-CoV-2 IgG Ab 04/13/20 04/13/20 04/13/20 02:41 02:41 02:41 WBC RBC Hct MCV MCH MCHC RDW Plt Count Lymph # (Auto) [place] # (Auto) Seg Neutrophils % Seg Neuts % (Manual) Lymphocytes % (Manual) Monocytes % (Manual) Seg Neutrophils # Man Lymphocytes # (Manual) PT INR D-Dimer ABG pH ABG pO2 ABG HCO3 ABG O2 Saturation ABG Base Excess Oxyhemoglobin Sodium Potassium Chloride Carbon Dioxide BUN Creatinine Glucose POC Glucose Calcium Ferritin 1044.0 H Total Bilirubin Direct Bilirubin AST ALT Alkaline Phosphatase Lactate Dehydrogenase 456 H C-Reactive Protein 4.20 H Total Protein Albumin Coronavirus (PCR) Hepatitis C Antibody SARS-CoV-2 IgG Ab Reactive A 04/13/20 04/13/20 04/14/20 05:41 12:25 00:08 WBC RBC Hct MCV MCH MCHC RDW Plt Count Lymph # (Auto) [place] # (Auto) Seg Neutrophils % Seg Neuts % (Manual) Lymphocytes % (Manual) Monocytes % (Manual) Seg Neutrophils # Man Lymphocytes # (Manual) PT INR D-Dimer ABG pH ABG pO2 ABG HCO3 ABG O2 Saturation ABG Base Excess Oxyhemoglobin Sodium Potassium Chloride Carbon Dioxide BUN Creatinine Glucose POC Glucose 107 H 109 H 120 H Calcium Ferritin Total Bilirubin Direct Bilirubin AST ALT Alkaline Phosphatase Lactate Dehydrogenase C-Reactive Protein Total Protein Albumin Coronavirus (PCR) Hepatitis C Antibody SARS-CoV-2 IgG Ab 04/14/20 04/14/20 04/14/20 05:11 11:18 23:03 WBC RBC Hct MCV MCH MCHC RDW Plt Count Lymph # (Auto) [place] # (Auto) Seg Neutrophils % Seg Neuts % (Manual) Lymphocytes % (Manual) Monocytes % (Manual) Seg Neutrophils # Man Lymphocytes # (Manual) PT INR D-Dimer ABG pH ABG pO2 ABG HCO3 ABG O2 Saturation ABG Base Excess Oxyhemoglobin Sodium 134 L Potassium Chloride Carbon Dioxide 32 H BUN 34 H Creatinine 0.6 L Glucose 115 H POC Glucose 120 H 111 H Calcium 8.1 L Ferritin Total Bilirubin Direct Bilirubin AST ALT Alkaline Phosphatase Lactate Dehydrogenase C-Reactive Protein Total Protein Albumin Coronavirus (PCR) Hepatitis C Antibody SARS-CoV-2 IgG Ab 04/15/20 04/15/20 04/16/20 05:48 17:48 06:01 WBC RBC Hct MCV MCH MCHC RDW Plt Count Lymph # (Auto) [place] # (Auto) Seg Neutrophils % Seg Neuts % (Manual) Lymphocytes % (Manual) Monocytes % (Manual) Seg Neutrophils # Man Lymphocytes # (Manual) PT INR D-Dimer ABG pH ABG pO2 ABG HCO3 ABG O2 Saturation ABG Base Excess Oxyhemoglobin Sodium Potassium Chloride Carbon Dioxide BUN Creatinine Glucose POC Glucose 119 H 123 H 111 H Calcium Ferritin Total Bilirubin Direct Bilirubin AST ALT Alkaline Phosphatase Lactate Dehydrogenase C-Reactive Protein Total Protein Albumin Coronavirus (PCR) Hepatitis C Antibody SARS-CoV-2 IgG Ab 04/16/20 04/16/20 04/16/20 19:05 19:05 19:05 WBC RBC Hct MCV MCH MCHC RDW Plt Count Lymph # (Auto) [place] # (Auto) Seg Neutrophils % Seg Neuts % (Manual) Lymphocytes % (Manual) Monocytes % (Manual) Seg Neutrophils # Man Lymphocytes # (Manual) PT INR D-Dimer 1041.43 H ABG pH ABG pO2 ABG HCO3 ABG O2 Saturation ABG Base Excess Oxyhemoglobin Sodium Potassium Chloride Carbon Dioxide BUN Creatinine Glucose POC Glucose Calcium Ferritin 1037.0 H Total Bilirubin Direct Bilirubin AST ALT Alkaline Phosphatase Lactate Dehydrogenase 360 H C-Reactive Protein 2.20 H Total Protein Albumin Coronavirus (PCR) Hepatitis C Antibody SARS-CoV-2 IgG Ab 04/17/20 04/18/20 18:50 05:20 WBC RBC Hct MCV MCH MCHC RDW Plt Count Lymph # (Auto) [place] # (Auto) Seg Neutrophils % Seg Neuts % (Manual) Lymphocytes % (Manual) Monocytes % (Manual) Seg Neutrophils # Man Lymphocytes # (Manual) PT INR D-Dimer ABG pH 7.549 H ABG pO2 48.2 L ABG HCO3 35.6 H ABG O2 Saturation 88.2 L ABG Base Excess 11.8 H Oxyhemoglobin 85.5 L Sodium Potassium Chloride Carbon Dioxide BUN Creatinine Glucose POC Glucose 108 H Calcium Ferritin Total Bilirubin Direct Bilirubin AST ALT Alkaline Phosphatase Lactate Dehydrogenase C-Reactive Protein Total Protein Albumin Coronavirus (PCR) Hepatitis C Antibody SARS-CoV-2 IgG Ab
[2020-04-18] MEDS: SPIRONOLACTONE 25 MG TAB PO SCH (10:30)
[2020-04-18] MEDS: chlordiazePOXIDE 25 MG CAP PO SCH ×2 (10:35→21:59)
[2020-04-18] MEDS: FAMOTIDINE 20 MG TAB PO SCH ×2 (10:35→21:59)
[2020-04-18] MEDS: FUROSEMIDE 40 MG/4 ML INJ IV SCH ×2 (10:41→21:59)
--- NOTE | 2020-04-18 12:33 | Progress Note ---
Subjective Date of service: 04/18/20 Principal diagnosis: COVID Interval history: Assessment and plan: -- Acute respiratory failure with hypoxia Current Visit: Yes Status: Acute Plan to address problem: Patient continues to be hypoxic Requiring high flow oxygen, unable to wean Supportive care pulmonary following Patient transfer from ICU yesterday Patient is obtunded Discussed with Dr. Altamirano We will do a stat ABG However oxygen saturation is 95% on present oxygen Prognosis is poor Tried to contact patient's daughter with the phone number available on the [employer] and social work lecturer note However this number goes to some [employer] and unable to leave any message --Bilateral pneumonia Current Visit: Yes Status: Acute Plan to address problem: Completed antibiotics pneumonia secondary to COVID-19 Supportive care --Positive COVID-19 virus infection Current Visit: Yes Status: Acute Plan to address problem: Covid positive on 04/06/2020 High flow oxygen at this point -ID note reviewed -Pulmonary following -Completed remdesivir for 5 days -Completed dexamethasone 6 mg p.o./IV daily for 10 days -Anticoagulation per hospital protocol -Prone positioning as tolerated -Covid inflammatory markers every 48 hours SARS-CoV-2 IgG antibody positive No indication for convalescent plasma Very poor prognosis --HTN (hypertension) Current Visit: Yes Status: Chronic Plan to address problem: Moderate control -- 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 Plan to address problem: To be counselled --Transaminitis/history of hepatitis C Current Visit: Yes Status: Acute Plan to address problem: Sec to Covid /ETOH trending down History of hepatitis C s/p CIWA --Severe malnutrition Current Visit: Yes Status: Chronic Plan to address problem: Tube feeding nutrition supplements , dietitian consult -- Hyponatremia/resolved Current Visit: Yes Status: Acute Plan to address problem: --DVT prophylaxis Current Visit: Yes Status: Acute Plan to address problem: On Lovenox and GI prophylaxis Closely monitor the patient and adjust the management as needed Plan of care reviewed with the patient's nurse. 04/08/2020; patient was seen and evaluated this morning and is on 10 L of oxygen . Patient is on Decadron and remdesivir. ID is following the patient. Hypokalemia repleted. 04/09/2020; patient is on 15 L of oxygen. Continue IV Decadron and remdesivir. Continue IV Lasix and spironolactone for ascites/generalized swelling. Patient required BiPAP overnight. Patient has confusion and currently on restraints. We will check ammonia level, CT head. 04/10/2020; patient's condition is deteriorating transfer to [facility].. Continue with IV Decadron and remdesivir. Ammonia level is normal. His roommate reported that the patient has history of HIV, I try to reach to his daughter was listed in the chart and I could not get in touch. Pulmonary was consulted for respiratory failure and will follow the patient. Patient will be on BiPAP. HIV test ordered. 04/13/2020; patient continues to be on high flow oxygen, resume tube feeding, restrained for agitation as needed 04/14/2020; patient remains confused agitated, on CIWA protocol continuously hypoxemic, requiring high flow oxygen On four-point restraints 04/16/2020; patient remains agitated requiring restraints, CIWA protocol discontinued, I started Ativan as needed 04/17/2020; patient is more calm and quiet, less agitation receiving Dobbhoff, speech therapy for swallow eval, possible PEG if abnormal 04/18 patient is obtunded. However per discussion with RN patient was agitated last night and pulled out IV lines. No Ativan or Librium order Geodon was administered last night. Last Ativan was yesterday afternoon. Tried to contact patient's daughter . The number goes to some company and unable to leave any message. Discussed with Dr. Altamirano. Brief history; 59 years old male with history of hepatitis C with cirrhosis, ascites, gastrosplenic varices, hypertension, meth abuse, admitted on 04/05/2020 secondary to 2-week history of worsening generalized body edema, cough and shortness of breath. EMS found O2 sats down to 85%. Patient placed on nonrebreather mask. On arrival, temperature 98.2, HR 110, O2 sat 96% drop to 83%. Patient placed on BiPAP. Initial WBC 6.9. Platelets 60. D-dimer 837. Creatinine 0.5. AST 129. ALT 54. Urine drug screen positive for amphetamines. Blood cultures 04/05/2020 no growth. Chest x-ray shows moderate interstitial edema. CT of the abdomen sh ows patchy airspace disease changes in the lung bases, large left pleural effusion, extensive ascites, cirrhotic liver, gastrosplenic varices, splenomegaly. Objective - Constitutional Vitals: Vital Signs - 12hr 04/18/20 04/18/20 04/18/20 01:32 02:32 03:13 Temperature Pulse Rate 107 H 116 H Respiratory Rate Blood Pressure 99/70 118/79 O2 Sat by Pulse 96 96 91 Oximetry 04/18/20 04/18/20 04/18/20 04:00 04:17 08:00 Temperature 97.2 F L Pulse Rate 115 H Respiratory 28 H Rate Blood Pressure 114/85 O2 Sat by Pulse 92 95 94 Oximetry General appearance: Present: no acute distress, cachectic, other (Obtunded) - EENT Eyes: PERRL - Neck Neck: supple - Respiratory Respiratory effort: other (Mildly short of breath) Respiratory: bilateral: CTA, diminished - Cardiovascular Rhythm: regular Heart Sounds: Present: S1 & S2 Extremities: No edema - Gastrointestinal General gastrointestinal: Present: soft, non-tender - Neurologic Neurologic: other (Unable to evaluate) - Labs CBC & Chem 7: 04/10/20 08:37 04/14/20 11:18 Labs: Abnormal lab results 04/17/20 04/18/20 04/18/20 Range/Units 18:50 05:20 11:40 ABG pH 7.549 H (7.350-7.450) pH Units ABG pO2 48.2 L (80.0-90.0) mm Hg ABG HCO3 35.6 H (20.0-26.0) mmol/L ABG O2 Saturation 88.2 L (95.0-99.0) % ABG Base Excess 11.8 H (-2.0-3.0) mmol/L Oxyhemoglobin 85.5 L (95.0-99.0) % POC Glucose 108 H 113 H (70-105) mg/dL HEART Score - HEART Score Age: 45-65 Risk factors: 1-2 risk factors Troponin: Troponin T < 0.010 ng/mL (0.00-0.029) 04/05/20 14:17 Troponin: < normal limit - Critical Actions Critical Actions: 0-3 pts:0.9-1.7%risk of adverse cardiac event.Candidate for discharge
[2020-04-18 13:26] LABS: ABG Base Excess 9.9 mmol/L (-2.0-3.0); ABG HCO3 35.3 mmol/L (20.0-26.0); ABG Methemoglobin 0.6 % (0.0-1.5); ABG Oxygen Saturation 92.1 % (95.0-99.0); ABG PCO2 48.5 mm Hg; ABG PH 7.48 pH Units (7.350-7.450); ABG PO2 60.5 mm Hg (80.0-90.0)
[2020-04-18] MEDS: ENOXAPARIN 40 MG/0.4 ML INJ SUB-Q SCH (21:59)
--- NOTE | 2020-04-19 08:54 | Progress Note ---
Assessment and Plan Assessment and plan: -- Acute respiratory failure with hypoxia Patient continues to be hypoxic Requiring high flow oxygen, unable to wean Supportive care pulmonary following Patient transfer from ICU yesterday Patient is obtunded Discussed with Dr. Altamirano We will do a stat ABG However oxygen saturation is 95% on present oxygen Prognosis is poor Tried to contact patient's daughter with the phone number available on the facesheet and hospice social worker note However this number goes to some [employer] and unable to leave any message --Bilateral pneumonia Completed antibiotics pneumonia secondary to COVID-19 Supportive care --Positive COVID-19 virus infection Covid positive on 04/06/2020 High flow oxygen at this point -ID note reviewed -Pulmonary following -Completed remdesivir for 5 days -Completed dexamethasone 6 mg p.o./IV daily for 10 days -Anticoagulation per hospital protocol -Prone positioning as tolerated -Covid inflammatory markers every 48 hours SARS-CoV-2 IgG antibody positive No indication for convalescent plasma Very poor prognosis --HTN (hypertension) Moderate control -- Methadone dependence To be counselled --Transaminitis/history of hepatitis C Sec to Covid /ETOH trending down History of hepatitis C s/p CIWA --Severe malnutrition Tube feeding nutrition supplements , dietitian consult -- Hyponatremia/resolved --DVT prophylaxis On Lovenox and GI prophylaxis Closely monitor the patient and adjust the management as needed Plan of care reviewed with the patient's nurse. 04/08/2020; patient was seen and evaluated this morning and is on 10 L of oxygen. Patient is on Decadron and remdesivir. ID is following the patient. Hypokalemia repleted. 04/09/2020; patient is on 15 L of oxygen. Continue IV Decadron and remdesivir. Continue IV Lasix and spironolactone for ascites/generalized swelling. Patient required BiPAP overnight. Patient has confusion and currently on restraints. We will check ammonia level, CT head. 04/10/2020; patient's condition is deteriorating transfer to [facility].. Continue with IV Decadron and remdesivir. Ammonia level is normal. His roommate reported that the patient has history of HIV, I try to reach to his daughter was listed in the chart and I could not get in touch. Pulmonary was consulted for respiratory failure and will follow the patient. Patient will be on BiPAP. HIV test ordered. 04/13/2020; patient continues to be on high flow oxygen, resume tube feeding, restrained for agitation as needed 04/14/2020; patient remains confused agitated, on CIWA protocol continuously hypoxemic, requiring high flow oxygen On four-point restraints 04/16/2020; patient remains agitated requiring restraints, CIWA protocol discontinued, I started Ativan as needed 04/17/2020; patient is more calm and quiet, less agitation receiving Dobbhoff, speech therapy for swallow eval, possible PEG if abnormal 04/18 patient is obtunded. However per discussion with RN patient was agitated last night and pulled out IV lines. No Ativan or Librium order Geodon was administered last night. Last Ativan was yesterday afternoon. Tried to contact patient's daughter . The number goes to some company and unable to leave any message. Discussed with Dr. Altamirano. 04/19/2020. Patient still requiring high flow nasal cannula with oxygen 30 L/min ; FiO2 50%. Patient remains unresponsive. Poor prognosis. I spoke with daughter and discussed hospice [phone] History Interval history: 59 years old male with history of hepatitis C with cirrhosis, ascites, gastros plenic varices, hypertension, meth abuse, admitted on 04/05/2020 secondary to 2- week history of worsening generalized body edema, cough and shortness of breath. EMS found O2 sats down to 85%. Patient placed on nonrebreather mask. On arrival, temperature 98.2, HR 110, O2 sat 96% drop to 83%. Patient placed on BiPAP. Initial WBC 6.9. Platelets 60. D-dimer 837. Creatinine 0.5. AST 129. ALT 54. Urine drug screen positive for amphetamines. Blood cultures 04/05/2020 no growth. Chest x-ray shows moderate interstitial edema. CT of the abdomen shows patchy airspace disease changes in the lung bases, large left pleural effusion, extensive ascites, cirrhotic liver, gastrosplenic varices, sp lenomegaly. No new issues overnight. Hospitalist Physical - Constitutional Vitals: Temp Pulse Resp BP Pulse Ox 97.2 F L 111 H 32 H 110/82 91 04/19/20 04:37 04/19/20 04:37 04/19/20 04:37 04/19/20 04:37 04/19/20 04:37 General appearance: Present: no acute distress, cachectic, other (Obtunded) - EENT Eyes: Present: PERRL, EOM intact ENT: hearing intact, clear oral mucosa, dentition normal - Neck Neck: Present: supple, normal ROM - Respiratory Respiratory effort: normal Respiratory: bilateral: CTA - Cardiovascular Rhythm: regular Heart Sounds: Present: S1 & S2. Absent: gallop, rub - Extremities Extremities: no ischemia, No edema, Full ROM - Abdominal General gastrointestinal: soft, non-tender, non-distended, normal bowel sounds - Integumentary Integumentary: Present: clear, warm, dry - Neurologic Neurologic: CNII-XII intact, moves all extremities HEART Score - HEART Score Age: 45-65 Risk factors: 1-2 risk factors Troponin: Troponin T < 0.010 ng/mL (0.00-0.029) 04/05/20 14:17 Troponin: < normal limit - Critical Actions Critical Actions: 0-3 pts:0.9-1.7%risk of adverse cardiac event.Candidate for discharge Results - Labs CBC & Chem 7: 04/10/20 08:37 04/19/20 09:55 Labs: Laboratory Last Values WBC 5.8 K/mm3 (4.5-11.0) 04/10/20 08:37 RBC 3.75 M/mm3 (3.65-5.03) 04/10/20 08:37 Hgb 12.6 gm/dl (11.8-15.2) 04/10/20 08:37 Hct 37.5 % (35.5-45.6) 04/10/20 08:37 MCV 100 fl (84-94) H 04/10/20 08:37 MCH 34 pg (28-32) H 04/10/20 08:37 MCHC 34 % (32-34) 04/10/20 08:37 RDW 16.5 % (13.2-15.2) H 04/10/20 08:37 Plt Count 67 K/mm3 (140-440) L 04/10/20 08:37 Lymph % (Auto) 16.0 % (13.4-35.0) 04/10/20 08:37 [place] % (Auto) 6.8 % (0.0-7.3) 04/10/20 08:37 Eos % (Auto) 0.2 % (0.0-4.3) 04/10/20 08:37 Baso % (Auto) 1.1 % (0.0-1.8) 04/10/20 08:37 Lymph # (Auto) 0.9 K/mm3 (1.2-5.4) L 04/10/20 08:37 [place] # (Auto) 0.4 K/mm3 (0.0-0.8) 04/10/20 08:37 Eos # (Auto) 0.0 K/mm3 (0.0-0.4) 04/10/20 08:37 Baso # (Auto) 0.1 K/mm3 (0.0-0.1) 04/10/20 08:37 Add Manual Diff Complete 04/09/20 05:33 Total Counted 100 04/09/20 05:33 Seg Neutrophils % 75.9 % (40.0-70.0) H 04/10/20 08:37 Seg Neuts % (Manual) 72.0 % (40.0-70.0) H 04/09/20 05:33 Band Neutrophils % 0 % 04/06/20 05:53 Lymphocytes % (Manual) 21.0 % (13.4-35.0) 04/09/20 05:33 Reactive Lymphs % (Man) 0 % 04/06/20 05:53 Monocytes % (Manual) 7.0 % (0.0-7.3) 04/09/20 05:33 Eosinophils % (Manual) 0 % (0.0-4.3) 04/06/20 05:53 Basophils % (Manual) 0 % (0.0-1.8) 04/06/20 05:53 Metamyelocytes % 0 % 04/06/20 05:53 Myelocytes % 0 % 04/06/20 05:53 Promyelocytes % 0 % 04/06/20 05:53 Blast Cells % 0 % 04/06/20 05:53 Nucleated RBC % Not Reportable 04/09/20 05:33 Seg Neutrophils # 4.4 K/mm3 (1.8-7.7) 04/10/20 08:37 Seg Neutrophils # Man 1.6 K/mm3 (1.8-7.7) L 04/09/20 05:33 Band Neutrophils # 0.0 K/mm3 04/09/20 05:33 Lymphocytes # (Manual) 0.5 K/mm3 (1.2-5.4) L 04/09/20 05:33 Abs React Lymphs (Man) 0.0 K/mm3 04/09/20 05:33 Monocytes # (Manual) 0.2 K/mm3 (0.0-0.8) 04/09/20 05:33 Eosinophils # (Manual) 0.0 K/mm3 (0.0-0.4) 04/09/20 05:33 Basophils # (Manual) 0.0 K/mm3 (0.0-0.1) 04/09/20 05:33 Metamyelocytes # 0.0 K/mm3 04/09/20 05:33 Myelocytes # 0.0 K/mm3 04/09/20 05:33 Promyelocytes # 0.0 K/mm3 04/09/20 05:33 Blast Cells # 0.0 K/mm3 04/09/20 05:33 WBC Morphology Not Reportable 04/09/20 05:33 Hypersegmented Neuts Not Reportable 04/09/20 05:33 Hyposegmented Neuts Not Reportable 04/09/20 05:33 Hypogranular Neuts Not Reportable 04/09/20 05:33 Smudge Cells Not Reportable 04/09/20 05:33 Toxic Granulation Not Reportable 04/09/20 05:33 Toxic Vacuolation Not Reportable 04/09/20 05:33 Dohle Bodies Not Reportable 04/09/20 05:33 Pelger-Huet Anomaly Not Reportable 04/09/20 05:33 Kelly Rods Not Reportable 04/09/20 05:33 Platelet Estimate Appears decreased 04/09/20 05:33 Clumped Platelets Not Reportable 04/09/20 05:33 Plt Clumps, EDTA Not Reportable 04/09/20 05:33 Large Platelets Not Reportable 04/09/20 05:33 Giant Platelets Not Reportable 04/09/20 05:33 Platelet Satelliting Not Reportable 04/09/20 05:33 Plt Morphology Comment Not Reportable 04/09/20 05:33 RBC Morphology Not Reportable 04/09/20 05:33 Dimorphic RBCs Not Reportable 04/09/20 05:33 Polychromasia Not Reportable 04/09/20 05:33 Hypochromasia Not Reportable 04/09/20 05:33 Poikilocytosis Not Reportable 04/09/20 05:33 Anisocytosis Not Reportable 04/09/20 05:33 Microcytosis Not Reportable 04/09/20 05:33 Macrocytosis Not Reportable 04/09/20 05:33 Spherocytes Not Reportable 04/09/20 05:33 Pappenheimer Bodies Not Reportable 04/09/20 05:33 Sickle Cells Not Reportable 04/09/20 05:33 Target Cells Not Reportable 04/09/20 05:33 Tear Drop Cells Few 04/09/20 05:33 Ovalocytes Few 04/09/20 05:33 Helmet Cells Not Reportable 04/09/20 05:33 Pollack-[place]more Bodies Not Reportable 04/09/20 05:33 Iliff Rings Not Reportable 04/09/20 05:33 Belk Cells Not Reportable 04/09/20 05:33 Bite Cells Not Reportable 04/09/20 05:33 Crenated Cell Not Reportable 04/09/20 05:33 Elliptocytes Not Reportable 04/09/20 05:33 Acanthocytes (Spur) Not Reportable 04/09/20 05:33 Rouleaux Few 04/09/20 05:33 Hemoglobin C Crystals Not Reportable 04/09/20 05:33 Schistocytes Rare 04/09/20 05:33 Malaria parasites Not Reportable 04/09/20 05:33 Ronnie Bodies Not Reportable 04/09/20 05:33 Hem Pathologist Commnt No 04/09/20 05:33 PT 15.9 Sec. (12.2-14.9) H 04/05/20 10:40 INR 1.27 (0.87-1.13) H 04/05/20 10:40 APTT 30.3 Sec. (24.2-36.6) 04/05/20 10:40 D-Dimer 1041.43 ng/mlDDU (0-234) H 04/16/20 19:05 ABG pH 7.480 pH Units (7.350-7.450) H 04/18/20 13:00 ABG pCO2 48.5 mm Hg 04/18/20 13:00 ABG pO2 60.5 mm Hg (80.0-90.0) L 04/18/20 13:00 ABG HCO3 35.3 mmol/L (20.0-26.0) H 04/18/20 13:00 ABG O2 Saturation 92.1 % (95.0-99.0) L 04/18/20 13:00 ABG O2 Content 22.5 (0.0-44) 04/18/20 13:00 ABG Base Excess 9.9 mmol/L (-2.0-3.0) H 04/18/20 13:00 ABG Hemoglobin 18.0 gm/dl (14.0-18.0) 04/18/20 13:00 ABG Carboxyhemoglobin 2.2 % (0.0-5.0) 04/18/20 13:00 ABG Methemoglobin 0.6 % (0.0-1.5) 04/18/20 13:00 Oxyhemoglobin 89.6 % (95.0-99.0) L 04/18/20 13:00 FiO2 50 % 04/18/20 13:00 Sodium 134 mmol/L (137-145) L 04/14/20 11:18 Potassium 4.5 mmol/L (3.6-5.0) 04/14/20 11:18 Chloride 99.7 mmol/L (98-107) 04/14/20 11:18 Carbon Dioxide 32 mmol/L (22-30) H 04/14/20 11:18 Anion Gap 7 mmol/L 04/14/20 11:18 BUN 34 mg/dL (9-20) H 04/14/20 11:18 Creatinine 0.6 mg/dL (0.8-1.3) L 04/14/20 11:18 Estimated GFR > 60 ml/min 04/14/20 11:18 BUN/Creatinine Ratio 57 % 04/14/20 11:18 Glucose 115 mg/dL (75-100) H 04/14/20 11:18 POC Glucose 105 mg/dL (70-105) 04/19/20 05:52 Hemoglobin A1c 4.5 % (4-6) 04/05/20 10:40 Lactic Acid 1.40 mmol/L (0.7-2.0) 04/05/20 10:40 Calcium 8.1 mg/dL (8.4-10.2) L 04/14/20 11:18 Phosphorus 3.30 mg/dL (2.5-4.5) 04/14/20 09:12 Magnesium 2.10 mg/dL (1.7-2.3) 04/14/20 09:12 Ferritin 1037.0 ng/mL (30.0-300.0) H 04/16/20 19:05 Total Bilirubin 2.80 mg/dL (0.1-1.2) H 04/11/20 21:24 Direct Bilirubin 0.8 mg/dL (0-0.2) H 04/10/20 08:37 Indirect Bilirubin 0.5 mg/dL 04/10/20 08:37 AST 91 units/L (5-40) H 04/11/20 21:24 ALT 55 units/L (7-56) 04/11/20 21:24 Alkaline Phosphatase 106 units/L (35-129) 04/11/20 21:24 Ammonia 28.0 umol/L (25-60) 04/09/20 14:10 Lactate Dehydrogenase 360 units/L (91-180) H 04/16/20 19:05 Troponin T < 0.010 ng/mL (0.00-0.029) 04/05/20 14:17 C-Reactive Protein 2.20 mg/dL (0.00-1.30) H 04/16/20 19:05 NT-Pro-B Natriuret Pep 216.4 pg/mL (0-900) 04/05/20 10:40 Total Protein 6.7 g/dL (6.3-8.2) 04/11/20 21:24 Albumin 2.1 g/dL (3.9-5) L 04/11/20 21:24 Albumin/Globulin Ratio 0.5 % 04/11/20 21:24 Lipase 21 units/L (13-60) 04/05/20 10:40 Procalcitonin 0.14 ng/mL (<0.15) 04/06/20 14:24 Urine Color Yellow (Yellow) 04/05/20 Unknown Urine Turbidity Clear (Clear) 04/05/20 Unknown Urine pH 6.0 (5.0-7.0) 04/05/20 Unknown Ur Specific [place] 1.006 (1.003-1.030) 04/05/20 Unknown Urine Protein <15 mg/dl mg/dL (Negative) 04/05/20 Unknown Urine Glucose (UA) Neg mg/dL (Negative) 04/05/20 Unknown Urine Ketones Neg mg/dL (Negative) 04/05/20 Unknown Urine Blood Sm (Negative) 04/05/20 Unknown Urine Nitrite Neg (Negative) 04/05/20 Unknown Urine Bilirubin Neg (Negative) 04/05/20 Unknown Urine Urobilinogen < 2.0 mg/dL (<2.0) 04/05/20 Unknown Ur Leukocyte Esterase Neg (Negative) 04/05/20 Unknown Urine WBC (Auto) < 1.0 /HPF (0.0-6.0) 04/05/20 Unknown Urine RBC (Auto) 6.0 /HPF (0.0-6.0) 04/05/20 Unknown U Epithel Cells (Auto) < 1.0 /HPF (0-13.0) 04/05/20 Unknown Hyaline Casts 1 /LPF 04/05/20 Unknown Urine Mucus Few /HPF 04/05/20 Unknown Urine Opiates Screen Negative 04/05/20 Unknown Urine Methadone Screen Negative 04/05/20 Unknown Ur Barbiturates Screen Negative 04/05/20 Unknown Ur Phencyclidine Scrn Negative 04/05/20 Unknown Ur Amphetamines Screen Presumptive positive 04/05/20 Unknown U Benzodiazepines Scrn Negative 04/05/20 Unknown Urine Cocaine Screen Negative 04/05/20 Unknown U Marijuana (THC) Screen Negative 04/05/20 Unknown Drugs of Abuse Note Disclamer 04/05/20 Unknown Coronavirus (PCR) Positive (Negative) A 04/06/20 Unknown Hepatitis A IgM Ab Non-reactive (NonReactive) 04/06/20 08:04 Hep Bs Antigen Non-reactive (Negative) 04/06/20 08:04 Hep B Core IgM Ab Non-reactive (NonReactive) 04/06/20 08:04 Hepatitis C Antibody Reactive (NonReactive) A 04/06/20 08:04 SARS-CoV-2 IgG Ab Reactive (NonReactive) A 04/13/20 02:41 Rogers/IV: Voiding Method Incontinent IV Catheter Type [Right INT / Saline Lock Antecubital] IV Catheter Type [Left Upper Peripheral IV arm] IV Catheter Type [Right INT / Saline Lock Forearm] IV Catheter Type [Left Forearm INT / Saline Lock ] IV Catheter Type [Right Wrist] INT / Saline Lock IV Catheter Type [Right Upper INT / Saline Lock arm] Active Medications - Current Medications Current Medications: Generic Name Dose Route Start Last Admin Trade Name Freq PRN Reason Stop Dose Admin Acetaminophen 650 mg 04/05/20 23:41 Tylenol PO Q4H PRN Pain MILD(1-3)/Fever >100.5/CHRI[facility]IANSON Albuterol 2.5 mg 04/08/20 23:00 Albuterol 2.5 Mg/3 Ml Nebu IH Q4HRT PRN Shortness Of Breath Lipase/Protease/Amylase 1 each 04/13/20 13:23 Lipase 10,500/Protease 25,000/Amylase 43,750 (Units) Dr Tejada FEEDTUBE PRN PRN For Clogged Feeding Tube Chlordiazepoxide HCl 25 mg 04/17/20 10:00 04/18/20 21:59 Chlordiazepoxide 25 Mg Cap PO 25 mg BID LUPE Administration Enoxaparin Sodium 40 mg 04/06/20 22:00 04/18/20 21:59 Enoxaparin SUB-Q 40 mg QDAY@2200 LUPE Administration Protocol Famotidine 20 mg 04/06/20 10:00 04/18/20 21:59 Pepcid PO 20 mg BID LUPE Administration Furosemide 40 mg 04/12/20 11:00 04/18/20 21:59 Furosemide 40 Mg/4 Ml Inj IV 40 mg Q12H LUPE Administration Labetalol HCl 10 mg 04/12/20 12:00 Labetalol 20 Mg/4 Ml Inj IV Q4H PRN Hypertension Lorazepam 2 mg 04/15/20 12:49 04/17/20 15:54 Lorazepam 2 Mg/Ml Vial IV 2 mg Q4H PRN Administration Agitation Ondansetron HCl 4 mg 04/05/20 23:41 Zofran IV Q8H PRN Nausea And Vomiting Simple Syrup 15 ml 04/13/20 13:23 Simple Syrup 15 Ml FEEDTUBE PRN PRN Hypoglycemia Simple Syrup 30 ml 04/13/20 13:23 Simple Syrup 15 Ml FEEDTUBE PRN PRN Hypoglycemia Sodium Bicarbonate 325 mg 04/13/20 13:23 Sodium Bicarbonate 325 Mg Tab FEEDTUBE PRN PRN For Clogged Feeding Tube Sodium Chloride 10 ml 04/06/20 10:00 04/18/20 22:00 Sodium Chloride Flush Syringe 10 Ml IV 10 ml BID LUPE Administration Sodium Chloride 10 ml 04/05/20 23:41 Sodium Chloride Flush Syringe 10 Ml IV PRN PRN LINE FLUSH Spironolactone 100 mg 04/12/20 10:00 04/18/20 10:30 Spironolactone 25 Mg Tab PO Not Given QDAY LUPE Ziprasidone 10 mg 04/13/20 19:06 04/13/20 21:46 Ziprasidone Mesylate 20 Mg Vial IM 10 mg ONCE PRN Administration Agitation Nutrition/Malnutrition Assess - Dietary Evaluation Nutrition/Malnutrition Findings: Nutrition Notes Start: 04/12/20 14:15 Freq: Status: Active Protocol: Document 04/15/20 12:47 AB (Rec: 04/15/20 12:51 AB [id number]) Co-Sign 04/15/20 12:47 LP Nutrition Notes Initial or Follow up Reassessment Current Diagnosis Hypertension Other Pertinent Diagnosis COVID(+), hep C, acute respiratory failure, pneu, methadone&EtoH dependence Current Diet Osmolite 1.5 at 50 ml/hr (goal rate) Labs/Tests Na 134 BUN 34 Cr 0.6 Pertinent Medications Lasix Height 5 ft 7 in Weight 64.4 kg [place] Body Weight (kg) 67.27 BMI 22.2 Subjective/Other Information F/U for TF start/tolerance. Per RN, pt is at goal and tolerating. Percent of energy/protein needs met: 100%/100% Burn Absent Trauma Absent GI Symptoms None Food Allergy No Current % PO Negligible Minimum of two criteria Yes Energy Intake (severe) < or equal to 50% Estimated Energy Requirement > or equal to 5 days Fluid Accumulation Moderate to Severe (severe) #2 Nutrition Diagnosis Malnutrition Etiology Poor intakes [employer] As Evidenced by Signs and Symptoms Fluid accumulation and < 50% of energy intake in 5 days #1 Nutrition Diagnosis Inadequate oral intake Diagnosis Progress(for reassessment Continues documentation) Is patient on ventilator? No Is Patient Ambulatory and/or Out of Bed No REE-([facility]-confined to bed) 1700.136 Calculation Used for Recommendations [facility] Additional Notes Pro: 67-84g (0.8-1g/kg) Fluid: 1 ml/kcal Nutrition Intervention Change Diet Order: Continue current TF Nutrition Support: Osmolite 1.5 at 50 ml/hr Flush with 150 ml q4h Kcal 1,800 Protein (gm) 75 Fluid (mL) 914 Goal #1 TF start/tolerance Goal #2 Meet at least 80 % of energy and protein needs via TF. Anticipated Discharge Needs: Unable to determine at this time Follow-Up By: 04/20/20 Additional Comments F/U for TF tolerance and BM
[2020-04-19] MEDS: SPIRONOLACTONE 25 MG TAB PO SCH (09:46)
[2020-04-19] MEDS: chlordiazePOXIDE 25 MG CAP PO SCH (09:46)
[2020-04-19] MEDS: FAMOTIDINE 20 MG TAB PO SCH (09:46)
[2020-04-19 10:27] LABS: BUN/Creatinine Ratio 71; Blood Urea Nitrogen 57 mg/dL (9-20); Calcium 8.1 mg/dL (8.4-10.2); Hemolysis Index 7
[2020-04-19] MEDS: FUROSEMIDE 40 MG/4 ML INJ IV SCH (10:33)
--- NOTE | 2020-04-19 11:33 | Progress Note ---
Assessment and Plan 59 y/o male with acute respiratory failure secondary to covid positive state and ETOH withdrawal with hypertension and altered mental state. 1. Repeat CXR today. 2. Continue HFNC, wean FiO2 for sats >88%, will discuss with RT, doing better with this. 3. Monitor fluid status, would not give additional IVF's unless patient is not taking PO or renal function is compromised. 4. Continue modified proning as tolerated. 5. Guarded prognosis. Patient has no funding so not a candidate for LTACH transfer for further weaning. Subjective Date of service: 04/19/20 Principal diagnosis: COVID Interval history: Remains on 30 and 50. Sats in the low 90's. Got all medications today. Objective Vital Signs - 12hr 04/19/20 04/19/20 04/19/20 02:00 04:37 08:00 Temperature 97.2 F L Pulse Rate 111 H Respiratory 32 H Rate Blood Pressure 110/82 O2 Sat by Pulse 93 91 92 Oximetry 04/19/20 09:46 Temperature Pulse Rate 111 H Respiratory Rate Blood Pressure O2 Sat by Pulse Oximetry Constitutional: asleep ENT: oropharynx moist Effort: normal Ascultation: Bilateral: rhonchi Cardiovascular: regular rate and rhythm Gastrointestinal: normoactive bowel sounds, non-tender CBC and BMP: 04/10/20 08:37 04/19/20 09:55 ABG, PT/INR, D-dimer: ABG ABG pH 7.480 pH Units (7.350-7.450) H 04/18/20 13:00 ABG pCO2 48.5 mm Hg 04/18/20 13:00 ABG pO2 60.5 mm Hg (80.0-90.0) L 04/18/20 13:00 ABG O2 Saturation 92.1 % (95.0-99.0) L 04/18/20 13:00 PT/INR, D-dimer PT 15.9 Sec. (12.2-14.9) H 04/05/20 10:40 INR 1.27 (0.87-1.13) H 04/05/20 10:40 D-Dimer 1041.43 ng/mlDDU (0-234) H 04/16/20 19:05 Abnormal lab findings: Abnormal Labs 04/05/20 04/05/20 04/05/20 10:40 10:40 10:40 WBC RBC Hct MCV 98 H MCH 34 H MCHC RDW 16.3 H Plt Count 60 L Lymph # (Auto) [place] # (Auto) Seg Neutrophils % Seg Neuts % (Manual) 86.0 H Lymphocytes % (Manual) 4.0 L Monocytes % (Manual) 9.0 H Seg Neutrophils # Man Lymphocytes # (Manual) 0.3 L PT 15.9 H INR 1.27 H D-Dimer ABG pH ABG pO2 ABG HCO3 ABG O2 Saturation ABG Base Excess Oxyhemoglobin Sodium 134 L Potassium Chloride Carbon Dioxide BUN Creatinine 0.5 L Glucose POC Glucose Calcium 7.7 L Ferritin Total Bilirubin Direct Bilirubin AST ALT Alkaline Phosphatase Lactate Dehydrogenase C-Reactive Protein Total Protein Albumin Coronavirus (PCR) Hepatitis C Antibody SARS-CoV-2 IgG Ab 04/05/20 04/05/20 04/05/20 10:40 14:45 14:45 WBC RBC Hct MCV MCH MCHC RDW Plt Count Lymph # (Auto) [place] # (Auto) Seg Neutrophils % Seg Neuts % (Manual) Lymphocytes % (Manual) Monocytes % (Manual) Seg Neutrophils # Man Lymphocytes # (Manual) PT INR D-Dimer 837.90 H ABG pH ABG pO2 ABG HCO3 ABG O2 Saturation ABG Base Excess Oxyhemoglobin Sodium Potassium Chloride Carbon Dioxide BUN Creatinine Glucose POC Glucose Calcium Ferritin Total Bilirubin 2.30 H Direct Bilirubin 1.3 H AST 129 H ALT Alkaline Phosphatase Lactate Dehydrogenase 438 H C-Reactive Protein 1.70 H Total Protein Albumin 1.9 L Coronavirus (PCR) Hepatitis C Antibody SARS-CoV-2 IgG Ab 04/05/20 04/06/20 04/06/20 14:45 05:53 05:53 WBC 3.5 L RBC 3.47 L Hct 34.1 L MCV 99 H MCH 34 H MCHC 35 H RDW 16.1 H Plt Count 48 L Lymph # (Auto) [place] # (Auto) Seg Neutrophils % Seg Neuts % (Manual) 92.0 H Lymphocytes % (Manual) 3.0 L Monocytes % (Manual) Seg Neutrophils # Man Lymphocytes # (Manual) 0.1 L PT INR D-Dimer ABG pH ABG pO2 ABG HCO3 ABG O2 Saturation ABG Base Excess Oxyhemoglobin Sodium 136 L Potassium Chloride Carbon Dioxide BUN 23 H Creatinine 0.5 L Glucose 107 H POC Glucose Calcium 7.5 L Ferritin 1412.0 H Total Bilirubin 1.80 H Direct Bilirubin AST 112 H ALT Alkaline Phosphatase Lactate Dehydrogenase C-Reactive Protein Total Protein Albumin 1.8 L Coronavirus (PCR) Hepatitis C Antibody SARS-CoV-2 IgG Ab 04/06/20 04/06/20 04/07/20 08:04 Unknown 06:01 WBC RBC 3.61 L Hct MCV 100 H MCH 34 H MCHC RDW 16.0 H Plt Count 58 L Lymph # (Auto) 1.0 L [place] # (Auto) 1.2 H Seg Neutrophils % Seg Neuts % (Manual) Lymphocytes % (Manual) Monocytes % (Manual) Seg Neutrophils # Man Lymphocytes # (Manual) PT INR D-Dimer ABG pH ABG pO2 ABG HCO3 ABG O2 Saturation ABG Base Excess Oxyhemoglobin Sodium Potassium Chloride Carbon Dioxide BUN Creatinine Glucose POC Glucose Calcium Ferritin Total Bilirubin Direct Bilirubin AST ALT Alkaline Phosphatase Lactate Dehydrogenase C-Reactive Protein Total Protein Albumin Coronavirus (PCR) Positive A Hepatitis C Antibody Reactive A SARS-CoV-2 IgG Ab 04/07/20 04/08/20 04/08/20 06:01 04:00 05:16 WBC RBC Hct MCV MCH MCHC RDW Plt Count Lymph # (Auto) [place] # (Auto) Seg Neutrophils % Seg Neuts % (Manual) Lymphocytes % (Manual) Monocytes % (Manual) Seg Neutrophils # Man Lymphocytes # (Manual) PT INR D-Dimer 1139.66 H ABG pH ABG pO2 ABG HCO3 ABG O2 Saturation ABG Base Excess Oxyhemoglobin Sodium Potassium 3.5 L 3.2 L Chloride 108.7 H Carbon Dioxide BUN 28 H 28 H Creatinine 0.5 L 0.6 L Glucose 133 H 126 H POC Glucose Calcium 7.5 L 7.8 L Ferritin Total Bilirubin 1.40 H 1.30 H Direct Bilirubin 0.8 H AST 170 H 114 H ALT 80 H 73 H Alkaline Phosphatase 132 H Lactate Dehydrogenase 502 H C-Reactive Protein Total Protein 6.1 L Albumin 1.9 L 1.9 L Coronavirus (PCR) Hepatitis C Antibody SARS-CoV-2 IgG Ab 04/08/20 04/09/20 04/09/20 05:16 05:33 05:33 WBC 2.2 L RBC Hct MCV 100 H MCH 34 H MCHC RDW 16.2 H Plt Count Lymph # (Auto) [place] # (Auto) Seg Neutrophils % Seg Neuts % (Manual) 72.0 H Lymphocytes % (Manual) Monocytes % (Manual) Seg Neutrophils # Man 1.6 L Lymphocytes # (Manual) 0.5 L PT INR D-Dimer ABG pH ABG pO2 ABG HCO3 ABG O2 Saturation ABG Base Excess Oxyhemoglobin Sodium Potassium Chloride 109.2 H Carbon Dioxide BUN 25 H Creatinine 0.6 L Glucose POC Glucose Calcium 7.8 L Ferritin 1118.0 H Total Bilirubin Direct Bilirubin AST ALT Alkaline Phosphatase Lactate Dehydrogenase C-Reactive Protein Total Protein Albumin Coronavirus (PCR) Hepatitis C Antibody SARS-CoV-2 IgG Ab 04/09/20 04/10/20 04/10/20 14:10 08:37 08:37 WBC RBC Hct MCV 99 H MCH 33 H MCHC RDW 16.4 H Plt Count 55 L Lymph # (Auto) [place] # (Auto) Seg Neutrophils % Seg Neuts % (Manual) Lymphocytes % (Manual) Monocytes % (Manual) Seg Neutrophils # Man Lymphocytes # (Manual) PT INR D-Dimer 1084.93 H ABG pH ABG pO2 ABG HCO3 ABG O2 Saturation ABG Base Excess Oxyhemoglobin Sodium Potassium Chloride 111.7 H Carbon Dioxide BUN 26 H Creatinine 0.6 L Glucose POC Glucose Calcium 7.8 L Ferritin Total Bilirubin 1.30 H Direct Bilirubin 0.8 H AST 80 H ALT 58 H Alkaline Phosphatase Lactate Dehydrogenase 404 H C-Reactive Protein Total Protein 6.2 L Albumin 1.8 L Coronavirus (PCR) Hepatitis C Antibody SARS-CoV-2 IgG Ab 04/10/20 04/10/20 04/11/20 08:37 08:37 21:24 WBC RBC Hct MCV 100 H MCH 34 H MCHC RDW 16.5 H Plt Count 67 L Lymph # (Auto) 0.9 L [place] # (Auto) Seg Neutrophils % 75.9 H Seg Neuts % (Manual) Lymphocytes % (Manual) Monocytes % (Manual) Seg Neutrophils # Man Lymphocytes # (Manual) PT INR D-Dimer ABG pH ABG pO2 ABG HCO3 ABG O2 Saturation ABG Base Excess Oxyhemoglobin Sodium Potassium Chloride Carbon Dioxide BUN 25 H Creatinine 0.6 L Glucose POC Glucose Calcium 8.1 L Ferritin 1002.0 H Total Bilirubin 2.80 H Direct Bilirubin AST 91 H ALT Alkaline Phosphatase Lactate Dehydrogenase C-Reactive Protein Total Protein Albumin 2.1 L Coronavirus (PCR) Hepatitis C Antibody SARS-CoV-2 IgG Ab 04/11/20 04/12/20 04/13/20 23:58 18:06 02:41 WBC RBC Hct MCV MCH MCHC RDW Plt Count Lymph # (Auto) [place] # (Auto) Seg Neutrophils % Seg Neuts % (Manual) Lymphocytes % (Manual) Monocytes % (Manual) Seg Neutrophils # Man Lymphocytes # (Manual) PT INR D-Dimer 1222.21 H ABG pH ABG pO2 ABG HCO3 ABG O2 Saturation ABG Base Excess Oxyhemoglobin Sodium Potassium Chloride Carbon Dioxide BUN Creatinine Glucose POC Glucose 64 L 114 H Calcium Ferritin Total Bilirubin Direct Bilirubin AST ALT Alkaline Phosphatase Lactate Dehydrogenase C-Reactive Protein Total Protein Albumin Coronavirus (PCR) Hepatitis C Antibody SARS-CoV-2 IgG Ab 04/13/20 04/13/20 04/13/20 02:41 02:41 02:41 WBC RBC Hct MCV MCH MCHC RDW Plt Count Lymph # (Auto) [place] # (Auto) Seg Neutrophils % Seg Neuts % (Manual) Lymphocytes % (Manual) Monocytes % (Manual) Seg Neutrophils # Man Lymphocytes # (Manual) PT INR D-Dimer ABG pH ABG pO2 ABG HCO3 ABG O2 Saturation ABG Base Excess Oxyhemoglobin Sodium Potassium Chloride Carbon Dioxide BUN Creatinine Glucose POC Glucose Calcium Ferritin 1044.0 H Total Bilirubin Direct Bilirubin AST ALT Alkaline Phosphatase Lactate Dehydrogenase 456 H C-Reactive Protein 4.20 H Total Protein Albumin Coronavirus (PCR) Hepatitis C Antibody SARS-CoV-2 IgG Ab Reactive A 04/13/20 04/13/20 04/14/20 05:41 12:25 00:08 WBC RBC Hct MCV MCH MCHC RDW Plt Count Lymph # (Auto) [place] # (Auto) Seg Neutrophils % Seg Neuts % (Manual) Lymphocytes % (Manual) Monocytes % (Manual) Seg Neutrophils # Man Lymphocytes # (Manual) PT INR D-Dimer ABG pH ABG pO2 ABG HCO3 ABG O2 Saturation ABG Base Excess Oxyhemoglobin Sodium Potassium Chloride Carbon Dioxide BUN Creatinine Glucose POC Glucose 107 H 109 H 120 H Calcium Ferritin Total Bilirubin Direct Bilirubin AST ALT Alkaline Phosphatase Lactate Dehydrogenase C-Reactive Protein Total Protein Albumin Coronavirus (PCR) Hepatitis C Antibody SARS-CoV-2 IgG Ab 04/14/20 04/14/20 04/14/20 05:11 11:18 23:03 WBC RBC Hct MCV MCH MCHC RDW Plt Count Lymph # (Auto) [place] # (Auto) Seg Neutrophils % Seg Neuts % (Manual) Lymphocytes % (Manual) Monocytes % (Manual) Seg Neutrophils # Man Lymphocytes # (Manual) PT INR D-Dimer ABG pH ABG pO2 ABG HCO3 ABG O2 Saturation ABG Base Excess Oxyhemoglobin Sodium 134 L Potassium Chloride Carbon Dioxide 32 H BUN 34 H Creatinine 0.6 L Glucose 115 H POC Glucose 120 H 111 H Calcium 8.1 L Ferritin Total Bilirubin Direct Bilirubin AST ALT Alkaline Phosphatase Lactate Dehydrogenase C-Reactive Protein Total Protein Albumin Coronavirus (PCR) Hepatitis C Antibody SARS-CoV-2 IgG Ab 04/15/20 04/15/20 04/16/20 05:48 17:48 06:01 WBC RBC Hct MCV MCH MCHC RDW Plt Count Lymph # (Auto) [place] # (Auto) Seg Neutrophils % Seg Neuts % (Manual) Lymphocytes % (Manual) Monocytes % (Manual) Seg Neutrophils # Man Lymphocytes # (Manual) PT INR D-Dimer ABG pH ABG pO2 ABG HCO3 ABG O2 Saturation ABG Base Excess Oxyhemoglobin Sodium Potassium Chloride Carbon Dioxide BUN Creatinine Glucose POC Glucose 119 H 123 H 111 H Calcium Ferritin Total Bilirubin Direct Bilirubin AST ALT Alkaline Phosphatase Lactate Dehydrogenase C-Reactive Protein Total Protein Albumin Coronavirus (PCR) Hepatitis C Antibody SARS-CoV-2 IgG Ab 04/16/20 04/16/20 04/16/20 19:05 19:05 19:05 WBC RBC Hct MCV MCH MCHC RDW Plt Count Lymph # (Auto) [place] # (Auto) Seg Neutrophils % Seg Neuts % (Manual) Lymphocytes % (Manual) Monocytes % (Manual) Seg Neutrophils # Man Lymphocytes # (Manual) PT INR D-Dimer 1041.43 H ABG pH ABG pO2 ABG HCO3 ABG O2 Saturation ABG Base Excess Oxyhemoglobin Sodium Potassium Chloride Carbon Dioxide BUN Creatinine Glucose POC Glucose Calcium Ferritin 1037.0 H Total Bilirubin Direct Bilirubin AST ALT Alkaline Phosphatase Lactate Dehydrogenase 360 H C-Reactive Protein 2.20 H Total Protein Albumin Coronavirus (PCR) Hepatitis C Antibody SARS-CoV-2 IgG Ab 04/17/20 04/18/20 04/18/20 18:50 05:20 11:40 WBC RBC Hct MCV MCH MCHC RDW Plt Count Lymph # (Auto) [place] # (Auto) Seg Neutrophils % Seg Neuts % (Manual) Lymphocytes % (Manual) Monocytes % (Manual) Seg Neutrophils # Man Lymphocytes # (Manual) PT INR D-Dimer ABG pH 7.549 H ABG pO2 48.2 L ABG HCO3 35.6 H ABG O2 Saturation 88.2 L ABG Base Excess 11.8 H Oxyhemoglobin 85.5 L Sodium Potassium Chloride Carbon Dioxide BUN Creatinine Glucose POC Glucose 108 H 113 H Calcium Ferritin Total Bilirubin Direct Bilirubin AST ALT Alkaline Phosphatase Lactate Dehydrogenase C-Reactive Protein Total Protein Albumin Coronavirus (PCR) Hepatitis C Antibody SARS-CoV-2 IgG Ab 04/18/20 04/19/20 13:00 09:55 WBC RBC Hct MCV MCH MCHC RDW Plt Count Lymph # (Auto) [place] # (Auto) Seg Neutrophils % Seg Neuts % (Manual) Lymphocytes % (Manual) Monocytes % (Manual) Seg Neutrophils # Man Lymphocytes # (Manual) PT INR D-Dimer ABG pH 7.480 H ABG pO2 60.5 L ABG HCO3 35.3 H ABG O2 Saturation 92.1 L ABG Base Excess 9.9 H Oxyhemoglobin 89.6 L Sodium Potassium Chloride Carbon Dioxide 38 H BUN 57 H Creatinine Glucose 124 H POC Glucose Calcium 8.1 L Ferritin Total Bilirubin Direct Bilirubin AST ALT Alkaline Phosphatase Lactate Dehydrogenase C-Reactive Protein Total Protein Albumin Coronavirus (PCR) Hepatitis C Antibody SARS-CoV-2 IgG Ab
--- NOTE | 2020-04-19 12:38 | Progress Note ---
Assessment and Plan Cultures: Blood culture no growth SARS CoV2 PCR positive SARS Covid 2 IgG positive Assessment: 59 year old male with history of hepatitis C with cirrhosis, ascites, gastrosplenic varices, hypertension, meth abuse, admitted on 04/05/2020 secondary to 2-week history of worsening generalized body edema, cough and shortness of breath. EMS found O2 sats down to 85%: #Severe COVID-19 pneumonia: Abdominal CT with patchy airspace disease bilateral bases. Procalcitonin 0.2. Markers were elevated, Ddimer elevated, DVT scan negative. #Acute hypoxemic respiratory failure: secondary to COVID pneumonia +/-pleural effusion. Remains on HFNC. #Hepatitis C with cirrhosis, large ascites, pleural effusion, varices and a splenomegaly #Elevated LFTs #Thrombocytopenia #Amphetamine abuse #Alcohol abuse #Acute encephalopathy: From alcohol withdrawal, ammonia normal. Recommendations: Completed remdesivir, completed steroids COVID-19 IgG positive, not a candidate for convalescent plasma Continue supportive care, oxygen weaning Guarded prognosis ID will sign off. Please call with questions. Vanna Johnson MD, FACP [facility] ([facility] O: [phone] F: [phone] Subjective Date of service: 04/19/20 Principal diagnosis: COVID Interval history: Afebrile. Remains on high flow. Objective - Exam Narrative Exam: Physical Exam (reviewed in chart to minimize risk of transmission) Constitutional: deferred Head, Ears, Nose: deferred Eyes: deferred Neck: deferred Oral: deferred Cardiovascular: deferred Respiratory: deferred GI: deferred Musculoskeletal: deferred Skin: deferred Hem/Lymphatic: deferred Psych: deferred Neurological: deferred - Constitutional Vitals: Vital Signs Temp Pulse Resp BP Pulse Ox 97.0 F L 114 H 20 126/83 94 04/19/20 11:39 04/19/20 11:39 04/19/20 11:39 04/19/20 11:39 04/19/20 11:39 Temperature -Last 24 Hours Temperature 97.0 F Temperature 97.2 F Temperature 97.5 F Temperature 97.6 F - Labs CBC & Chem 7: 04/10/20 08:37 04/19/20 09:55 Labs: Abnormal lab results 04/18/20 04/19/20 04/19/20 Range/Units 13:00 09:55 11:39 ABG pH 7.480 H (7.350-7.450) pH Units ABG pO2 60.5 L (80.0-90.0) mm Hg ABG HCO3 35.3 H (20.0-26.0) mmol/L ABG O2 Saturation 92.1 L (95.0-99.0) % ABG Base Excess 9.9 H (-2.0-3.0) mmol/L Oxyhemoglobin 89.6 L (95.0-99.0) % Carbon Dioxide 38 H (22-30) mmol/L BUN 57 H (9-20) mg/dL Glucose 124 H (75-100) mg/dL POC Glucose 109 H (70-105) mg/dL Calcium 8.1 L (8.4-10.2) mg/dL
--- NOTE | 2020-04-19 13:09 | XRay Report ---
CHEST 1 VIEW 04/19/2020 11:27 AM INDICATION / CLINICAL INFORMATION: Hypoxemia, COVID positive. COMPARISON: 04/16/2020 FINDINGS: SUPPORT DEVICES: Stable, satisfactory device positioning. HEART / MEDIASTINUM: Stable. LUNGS / PLEURA: Mildly improved patchy bilateral pulmonary opacities. Interval development of small r ight pneumothorax. ADDITIONAL FINDINGS: No significant additional findings. IMPRESSION: 1. Interval development small right pneumothorax. 2. Mild improvement in patchy bilateral pulmonary opacities. Findings discussed with the patient's nurse at 12:05 PM central time on 04/19/2020. Signer Name: Wayne Horton MD Signed: 04/19/2020 1:05 PM Workstation Name: [id number]
--- NOTE | 2020-04-19 13:13 | Consultation ---
History of Present Illness Consult date: 04/19/20 Reason for Consult: AMS Chief complaint: AMS History of present illness: 59 yo male with htn, meth abuse, hep C w/ cirrhosis, alcohol abuse, who presented initially on 04/05/2020 w/ cough, shortness of breath, and anasarca with noted COVID-19 pneumonia (s/p remdesivir/steroids). He is noted to be encephalopathic. Awaiting NCHCT. Past History Past Medical History: hepatitis, hypertension Past Surgical History: appendectomy, bowel surgery (colon resection) Social history: Lives alone, alcohol abuse Family history: hypertension Medications and Allergies Allergies Allergy/AdvReac Type Severity Reaction Status Date / Time No Known Allergies Allergy Verified 04/05/20 10:13 Home Medications Medication Instructions Recorded Confirmed Last Taken Type No Known Home Medications [No 04/18/20 04/18/20 Unknown History Reported Home Medications] Active Meds: Active Medications Acetaminophen (Tylenol) 650 mg PO Q4H PRN PRN Reason: Pain MILD(1-3)/Fever >100.5/[facility] Albuterol (Albuterol 2.5 Mg/3 Ml Nebu) 2.5 mg IH Q4HRT PRN PRN Reason: Shortness Of Breath Lipase/Protease/Amylase (Lipase 10,500/Protease 25,000/Amylase 43,750 (Units) Dr Tejada) 1 each FEEDTUBE PRN PRN PRN Reason: For Clogged Feeding Tube Chlordiazepoxide HCl (Chlordiazepoxide 25 Mg Cap) 25 mg PO BID [facility] Last Admin: 04/19/20 09:46 Dose: 25 mg Documented by: Enoxaparin Sodium (Enoxaparin) 40 mg SUB-Q QDAY@2200 [facility]; Protocol Last Admin: 04/18/20 21:59 Dose: 40 mg Documented by: Famotidine (Pepcid) 20 mg PO BID [facility] Last Admin: 04/19/20 09:46 Dose: 20 mg Documented by: Furosemide (Furosemide 40 Mg/4 Ml Inj) 40 mg IV Q12H [facility] Last Admin: 04/19/20 10:33 Dose: 40 mg Documented by: Labetalol HCl (Labetalol 20 Mg/4 Ml Inj) 10 mg IV Q4H PRN PRN Reason: Hypertension Lorazepam (Lorazepam 2 Mg/Ml Vial) 2 mg IV Q4H PRN PRN Reason: Agitation Last Admin: 04/17/20 15:54 Dose: 2 mg Documented by: Ondansetron HCl (Zofran) 4 mg IV Q8H PRN PRN Reason: Nausea And Vomiting Simple Syrup (Simple Syrup 15 Ml) 15 ml FEEDTUBE PRN PRN PRN Reason: Hypoglycemia Simple Syrup (Simple Syrup 15 Ml) 30 ml FEEDTUBE PRN PRN PRN Reason: Hypoglycemia Sodium Bicarbonate (Sodium Bicarbonate 325 Mg Tab) 325 mg FEEDTUBE PRN PRN PRN Reason: For Clogged Feeding Tube Sodium Chloride (Sodium Chloride Flush Syringe 10 Ml) 10 ml IV BID [facility] Last Admin: 04/19/20 09:47 Dose: 10 ml Documented by: Sodium Chloride (Sodium Chloride Flush Syringe 10 Ml) 10 ml IV PRN PRN PRN Reason: LINE FLUSH Spironolactone (Spironolactone 25 Mg Tab) 100 mg PO QDAY [facility] Last Admin: 04/19/20 09:46 Dose: 100 mg Documented by: Ziprasidone (Ziprasidone Mesylate 20 Mg Vial) 10 mg IM ONCE PRN PRN Reason: Agitation Last Admin: 04/13/20 21:46 Dose: 10 mg Documented by: Review of Systems ROS unobtainable: due to mental status Physical Examination - Vital Signs Vital Signs: Vital Signs Pulse Resp Pulse Ox 110 H 15 96 04/05/20 09:59 04/05/20 09:59 04/05/20 09:59 - Physical Exam Narrative exam: Not seen due to COVID status. Results - Laboratory Findings CBC and BMP: 04/10/20 08:37 04/19/20 09:55 Abnormal Lab Findings: Abnormal Labs 04/05/20 04/05/20 04/05/20 10:40 10:40 10:40 WBC RBC Hct MCV 98 H MCH 34 H MCHC RDW 16.3 H Plt Count 60 L Lymph # (Auto) [place] # (Auto) Seg Neutrophils % Seg Neuts % (Manual) 86.0 H Lymphocytes % (Manual) 4.0 L Monocytes % (Manual) 9.0 H Seg Neutrophils # Man Lymphocytes # (Manual) 0.3 L PT 15.9 H INR 1.27 H D-Dimer ABG pH ABG pO2 ABG HCO3 ABG O2 Saturation ABG Base Excess Oxyhemoglobin Sodium 134 L Potassium Chloride Carbon Dioxide BUN Creatinine 0.5 L Glucose POC Glucose Calcium 7.7 L Ferritin Total Bilirubin Direct Bilirubin AST ALT Alkaline Phosphatase Lactate Dehydrogenase C-Reactive Protein Total Protein Albumin Coronavirus (PCR) Hepatitis C Antibody SARS-CoV-2 IgG Ab 04/05/20 04/05/20 04/05/20 10:40 14:45 14:45 WBC RBC Hct MCV MCH MCHC RDW Plt Count Lymph # (Auto) [place] # (Auto) Seg Neutrophils % Seg Neuts % (Manual) Lymphocytes % (Manual) Monocytes % (Manual) Seg Neutrophils # Man Lymphocytes # (Manual) PT INR D-Dimer 837.90 H ABG pH ABG pO2 ABG HCO3 ABG O2 Saturation ABG Base Excess Oxyhemoglobin Sodium Potassium Chloride Carbon Dioxide BUN Creatinine Glucose POC Glucose Calcium Ferritin Total Bilirubin 2.30 H Direct Bilirubin 1.3 H AST 129 H ALT Alkaline Phosphatase Lactate Dehydrogenase 438 H C-Reactive Protein 1.70 H Total Protein Albumin 1.9 L Coronavirus (PCR) Hepatitis C Antibody SARS-CoV-2 IgG Ab 04/05/20 04/06/20 04/06/20 14:45 05:53 05:53 WBC 3.5 L RBC 3.47 L Hct 34.1 L MCV 99 H MCH 34 H MCHC 35 H RDW 16.1 H Plt Count 48 L Lymph # (Auto) [place] # (Auto) Seg Neutrophils % Seg Neuts % (Manual) 92.0 H Lymphocytes % (Manual) 3.0 L Monocytes % (Manual) Seg Neutrophils # Man Lymphocytes # (Manual) 0.1 L PT INR D-Dimer ABG pH ABG pO2 ABG HCO3 ABG O2 Saturation ABG Base Excess Oxyhemoglobin Sodium 136 L Potassium Chloride Carbon Dioxide BUN 23 H Creatinine 0.5 L Glucose 107 H POC Glucose Calcium 7.5 L Ferritin 1412.0 H Total Bilirubin 1.80 H Direct Bilirubin AST 112 H ALT Alkaline Phosphatase Lactate Dehydrogenase C-Reactive Protein Total Protein Albumin 1.8 L Coronavirus (PCR) Hepatitis C Antibody SARS-CoV-2 IgG Ab 04/06/20 04/06/20 04/07/20 08:04 Unknown 06:01 WBC RBC 3.61 L Hct MCV 100 H MCH 34 H MCHC RDW 16.0 H Plt Count 58 L Lymph # (Auto) 1.0 L [place] # (Auto) 1.2 H Seg Neutrophils % Seg Neuts % (Manual) Lymphocytes % (Manual) Monocytes % (Manual) Seg Neutrophils # Man Lymphocytes # (Manual) PT INR D-Dimer ABG pH ABG pO2 ABG HCO3 ABG O2 Saturation ABG Base Excess Oxyhemoglobin Sodium Potassium Chloride Carbon Dioxide BUN Creatinine Glucose POC Glucose Calcium Ferritin Total Bilirubin Direct Bilirubin AST ALT Alkaline Phosphatase Lactate Dehydrogenase C-Reactive Protein Total Protein Albumin Coronavirus (PCR) Positive A Hepatitis C Antibody Reactive A SARS-CoV-2 IgG Ab 04/07/20 04/08/20 04/08/20 06:01 04:00 05:16 WBC RBC Hct MCV MCH MCHC RDW Plt Count Lymph # (Auto) [place] # (Auto) Seg Neutrophils % Seg Neuts % (Manual) Lymphocytes % (Manual) Monocytes % (Manual) Seg Neutrophils # Man Lymphocytes # (Manual) PT INR D-Dimer 1139.66 H ABG pH ABG pO2 ABG HCO3 ABG O2 Saturation ABG Base Excess Oxyhemoglobin Sodium Potassium 3.5 L 3.2 L Chloride 108.7 H Carbon Dioxide BUN 28 H 28 H Creatinine 0.5 L 0.6 L Glucose 133 H 126 H POC Glucose Calcium 7.5 L 7.8 L Ferritin Total Bilirubin 1.40 H 1.30 H Direct Bilirubin 0.8 H AST 170 H 114 H ALT 80 H 73 H Alkaline Phosphatase 132 H Lactate Dehydrogenase 502 H C-Reactive Protein Total Protein 6.1 L Albumin 1.9 L 1.9 L Coronavirus (PCR) Hepatitis C Antibody SARS-CoV-2 IgG Ab 04/08/20 04/09/20 04/09/20 05:16 05:33 05:33 WBC 2.2 L RBC Hct MCV 100 H MCH 34 H MCHC RDW 16.2 H Plt Count Lymph # (Auto) [place] # (Auto) Seg Neutrophils % Seg Neuts % (Manual) 72.0 H Lymphocytes % (Manual) Monocytes % (Manual) Seg Neutrophils # Man 1.6 L Lymphocytes # (Manual) 0.5 L PT INR D-Dimer ABG pH ABG pO2 ABG HCO3 ABG O2 Saturation ABG Base Excess Oxyhemoglobin Sodium Potassium Chloride 109.2 H Carbon Dioxide BUN 25 H Creatinine 0.6 L Glucose POC Glucose Calcium 7.8 L Ferritin 1118.0 H Total Bilirubin Direct Bilirubin AST ALT Alkaline Phosphatase Lactate Dehydrogenase C-Reactive Protein Total Protein Albumin Coronavirus (PCR) Hepatitis C Antibody SARS-CoV-2 IgG Ab 04/09/20 04/10/20 04/10/20 14:10 08:37 08:37 WBC RBC Hct MCV 99 H MCH 33 H MCHC RDW 16.4 H Plt Count 55 L Lymph # (Auto) [place] # (Auto) Seg Neutrophils % Seg Neuts % (Manual) Lymphocytes % (Manual) Monocytes % (Manual) Seg Neutrophils # Man Lymphocytes # (Manual) PT INR D-Dimer 1084.93 H ABG pH ABG pO2 ABG HCO3 ABG O2 Saturation ABG Base Excess Oxyhemoglobin Sodium Potassium Chloride 111.7 H Carbon Dioxide BUN 26 H Creatinine 0.6 L Glucose POC Glucose Calcium 7.8 L Ferritin Total Bilirubin 1.30 H Direct Bilirubin 0.8 H AST 80 H ALT 58 H Alkaline Phosphatase Lactate Dehydrogenase 404 H C-Reactive Protein Total Protein 6.2 L Albumin 1.8 L Coronavirus (PCR) Hepatitis C Antibody SARS-CoV-2 IgG Ab 04/10/20 04/10/20 04/11/20 08:37 08:37 21:24 WBC RBC Hct MCV 100 H MCH 34 H MCHC RDW 16.5 H Plt Count 67 L Lymph # (Auto) 0.9 L [place] # (Auto) Seg Neutrophils % 75.9 H Seg Neuts % (Manual) Lymphocytes % (Manual) Monocytes % (Manual) Seg Neutrophils # Man Lymphocytes # (Manual) PT INR D-Dimer ABG pH ABG pO2 ABG HCO3 ABG O2 Saturation ABG Base Excess Oxyhemoglobin Sodium Potassium Chloride Carbon Dioxide BUN 25 H Creatinine 0.6 L Glucose POC Glucose Calcium 8.1 L Ferritin 1002.0 H Total Bilirubin 2.80 H Direct Bilirubin AST 91 H ALT Alkaline Phosphatase Lactate Dehydrogenase C-Reactive Protein Total Protein Albumin 2.1 L Coronavirus (PCR) Hepatitis C Antibody SARS-CoV-2 IgG Ab 04/11/20 04/12/20 04/13/20 23:58 18:06 02:41 WBC RBC Hct MCV MCH MCHC RDW Plt Count Lymph # (Auto) [place] # (Auto) Seg Neutrophils % Seg Neuts % (Manual) Lymphocytes % (Manual) Monocytes % (Manual) Seg Neutrophils # Man Lymphocytes # (Manual) PT INR D-Dimer 1222.21 H ABG pH ABG pO2 ABG HCO3 ABG O2 Saturation ABG Base Excess Oxyhemoglobin Sodium Potassium Chloride Carbon Dioxide BUN Creatinine Glucose POC Glucose 64 L 114 H Calcium Ferritin Total Bilirubin Direct Bilirubin AST ALT Alkaline Phosphatase Lactate Dehydrogenase C-Reactive Protein Total Protein Albumin Coronavirus (PCR) Hepatitis C Antibody SARS-CoV-2 IgG Ab 04/13/20 04/13/20 04/13/20 02:41 02:41 02:41 WBC RBC Hct MCV MCH MCHC RDW Plt Count Lymph # (Auto) [place] # (Auto) Seg Neutrophils % Seg Neuts % (Manual) Lymphocytes % (Manual) Monocytes % (Manual) Seg Neutrophils # Man Lymphocytes # (Manual) PT INR D-Dimer ABG pH ABG pO2 ABG HCO3 ABG O2 Saturation ABG Base Excess Oxyhemoglobin Sodium Potassium Chloride Carbon Dioxide BUN Creatinine Glucose POC Glucose Calcium Ferritin 1044.0 H Total Bilirubin Direct Bilirubin AST ALT Alkaline Phosphatase Lactate Dehydrogenase 456 H C-Reactive Protein 4.20 H Total Protein Albumin Coronavirus (PCR) Hepatitis C Antibody SARS-CoV-2 IgG Ab Reactive A 04/13/20 04/13/20 04/14/20 05:41 12:25 00:08 WBC RBC Hct MCV MCH MCHC RDW Plt Count Lymph # (Auto) [place] # (Auto) Seg Neutrophils % Seg Neuts % (Manual) Lymphocytes % (Manual) Monocytes % (Manual) Seg Neutrophils # Man Lymphocytes # (Manual) PT INR D-Dimer ABG pH ABG pO2 ABG HCO3 ABG O2 Saturation ABG Base Excess Oxyhemoglobin Sodium Potassium Chloride Carbon Dioxide BUN Creatinine Glucose POC Glucose 107 H 109 H 120 H Calcium Ferritin Total Bilirubin Direct Bilirubin AST ALT Alkaline Phosphatase Lactate Dehydrogenase C-Reactive Protein Total Protein Albumin Coronavirus (PCR) Hepatitis C Antibody SARS-CoV-2 IgG Ab 04/14/20 04/14/20 04/14/20 05:11 11:18 23:03 WBC RBC Hct MCV MCH MCHC RDW Plt Count Lymph # (Auto) [place] # (Auto) Seg Neutrophils % Seg Neuts % (Manual) Lymphocytes % (Manual) Monocytes % (Manual) Seg Neutrophils # Man Lymphocytes # (Manual) PT INR D-Dimer ABG pH ABG pO2 ABG HCO3 ABG O2 Saturation ABG Base Excess Oxyhemoglobin Sodium 134 L Potassium Chloride Carbon Dioxide 32 H BUN 34 H Creatinine 0.6 L Glucose 115 H POC Glucose 120 H 111 H Calcium 8.1 L Ferritin Total Bilirubin Direct Bilirubin AST ALT Alkaline Phosphatase Lactate Dehydrogenase C-Reactive Protein Total Protein Albumin Coronavirus (PCR) Hepatitis C Antibody SARS-CoV-2 IgG Ab 04/15/20 04/15/20 04/16/20 05:48 17:48 06:01 WBC RBC Hct MCV MCH MCHC RDW Plt Count Lymph # (Auto) [place] # (Auto) Seg Neutrophils % Seg Neuts % (Manual) Lymphocytes % (Manual) Monocytes % (Manual) Seg Neutrophils # Man Lymphocytes # (Manual) PT INR D-Dimer ABG pH ABG pO2 ABG HCO3 ABG O2 Saturation ABG Base Excess Oxyhemoglobin Sodium Potassium Chloride Carbon Dioxide BUN Creatinine Glucose POC Glucose 119 H 123 H 111 H Calcium Ferritin Total Bilirubin Direct Bilirubin AST ALT Alkaline Phosphatase Lactate Dehydrogenase C-Reactive Protein Total Protein Albumin Coronavirus (PCR) Hepatitis C Antibody SARS-CoV-2 IgG Ab 04/16/20 04/16/20 04/16/20 19:05 19:05 19:05 WBC RBC Hct MCV MCH MCHC RDW Plt Count Lymph # (Auto) [place] # (Auto) Seg Neutrophils % Seg Neuts % (Manual) Lymphocytes % (Manual) Monocytes % (Manual) Seg Neutrophils # Man Lymphocytes # (Manual) PT INR D-Dimer 1041.43 H ABG pH ABG pO2 ABG HCO3 ABG O2 Saturation ABG Base Excess Oxyhemoglobin Sodium Potassium Chloride Carbon Dioxide BUN Creatinine Glucose POC Glucose Calcium Ferritin 1037.0 H Total Bilirubin Direct Bilirubin AST ALT Alkaline Phosphatase Lactate Dehydrogenase 360 H C-Reactive Protein 2.20 H Total Protein Albumin Coronavirus (PCR) Hepatitis C Antibody SARS-CoV-2 IgG Ab 04/17/20 04/18/20 04/18/20 18:50 05:20 11:40 WBC RBC Hct MCV MCH MCHC RDW Plt Count Lymph # (Auto) [place] # (Auto) Seg Neutrophils % Seg Neuts % (Manual) Lymphocytes % (Manual) Monocytes % (Manual) Seg Neutrophils # Man Lymphocytes # (Manual) PT INR D-Dimer ABG pH 7.549 H ABG pO2 48.2 L ABG HCO3 35.6 H ABG O2 Saturation 88.2 L ABG Base Excess 11.8 H Oxyhemoglobin 85.5 L Sodium Potassium Chloride Carbon Dioxide BUN Creatinine Glucose POC Glucose 108 H 113 H Calcium Ferritin Total Bilirubin Direct Bilirubin AST ALT Alkaline Phosphatase Lactate Dehydrogenase C-Reactive Protein Total Protein Albumin Coronavirus (PCR) Hepatitis C Antibody SARS-CoV-2 IgG Ab 04/18/20 04/19/20 04/19/20 13:00 09:55 11:39 WBC RBC Hct MCV MCH MCHC RDW Plt Count Lymph # (Auto) [place] # (Auto) Seg Neutrophils % Seg Neuts % (Manual) Lymphocytes % (Manual) Monocytes % (Manual) Seg Neutrophils # Man Lymphocytes # (Manual) PT INR D-Dimer ABG pH 7.480 H ABG pO2 60.5 L ABG HCO3 35.3 H ABG O2 Saturation 92.1 L ABG Base Excess 9.9 H Oxyhemoglobin 89.6 L Sodium Potassium Chloride Carbon Dioxide 38 H BUN 57 H Creatinine Glucose 124 H POC Glucose 109 H Calcium 8.1 L Ferritin Total Bilirubin Direct Bilirubin AST ALT Alkaline Phosphatase Lactate Dehydrogenase C-Reactive Protein Total Protein Albumin Coronavirus (PCR) Hepatitis C Antibody SARS-CoV-2 IgG Ab Assessment and Plan 59 yo male with htn, meth abuse, hep C w/ cirrhosis, alcohol abuse, who presented initially on 04/05/2020 w/ cough, shortness of breath, and anasarca with noted COVID-19 pneumonia (s/p remdesivir/steroids). He is noted to be encephalopathic. 1. Acute Ischemic or Hemorrhagic Stroke - stat NCHCT, if no ICH, recommend stat antiplatelet therapy; recommend MRI/MRV Brain w/ wo contrast. 2. Seizure / status epilepticus - stat EEG ordered. 3. Metabolic Encephalopathy - in the setting of underlying infection; ?CSF evaluation if NCHCT/MRI/MRV/EEG are unremarkable. Twin Oliveros MD Neurology
[2020-04-19] MEDS: ENOXAPARIN 40 MG/0.4 ML INJ SUB-Q SCH (21:15)
--- NOTE | 2020-04-20 02:58 | XRay Report ---
ABDOMEN 1 VIEW(S) INDICATION / CLINICAL INFORMATION: Verify Dobhoff tube placement. COMPARISON: KUB from 04/11/2020 FINDINGS: TUBES / LINES: Dobbhoff tube tip is in the proximal stomach and should be redirected distally at leas t 10-15 cm into the duodenum. BOWEL GAS PATTERN: No significant abnormality. FREE AIR / EXTRALUMINAL GAS: None seen. ADDITIONAL FINDINGS: No significant additional findings. IMPRESSION: 1. DHT as above. Signer Name: Julian Ervin MD Signed: 04/20/2020 2:54 AM Workstation Name: [id number]
[2020-04-20] MEDS: chlordiazePOXIDE 25 MG CAP PO SCH ×2 (04:27→10:17)
[2020-04-20] MEDS: FAMOTIDINE 20 MG TAB PO SCH (04:28)
[2020-04-20] MEDS: FUROSEMIDE 40 MG/4 ML INJ IV SCH ×2 (04:35→10:15)
--- NOTE | 2020-04-20 04:45 | XRay Report ---
ABDOMEN 1 VIEW(S) INDICATION / CLINICAL INFORMATION: Verify Dobhoff tube placement. COMPARISON: Earlier today FINDINGS: TUBES / LINES: Dobbhoff tube tip now just within the duodenum in satisfactory position. BOWEL GAS PATTERN: No significant abnormality. FREE AIR / EXTRALUMINAL GAS: None seen. ADDITIONAL FINDINGS: Persistent patchy multifocal airspace disease. IMPRESSION: 1. DHT as above. Signer Name: Julian Ervin MD Signed: 04/20/2020 4:41 AM Workstation Name: [id number]
[2020-04-20 06:41] LABS: BUN/Creatinine Ratio 65; Blood Urea Nitrogen 71 mg/dL (9-20); Calcium 8.1 mg/dL (8.4-10.2); Hemolysis Index 67
[2020-04-20] MEDS ORDERED: DEXTROSE 50% IN WATER (25GM) 50 ML SYRINGE IV ONE ×2 (07:09→11:39)
--- NOTE | 2020-04-20 07:36 | Event Note ---
Date: 04/20/20 EARNESTINE DOWNEY called on 59-year-old male patient who has been in respiratory failure with bilateral pneumonia and Covid-19 positive. He was said to be having agonal breathing. Still had pulse. Hypotensive with systolic blood pressure in the 80's Given IV fluid bolus with improvement in blood pressure. O2 saturation was in the 70s. He was in obvious respiratory distress. Accu-Chek done and blood glucose was 68.Given an Amp of D50. Patient successfully intubated and transferred into the ICU for further management. ABG and Start chest x-ray to be done. Follow-up to be done by incoming hospitalist. Consult placed to sports announcer.
[2020-04-20] MEDS: LORazepam 2 MG/ML VIAL IV PRN (08:05)
[2020-04-20] MEDS ORDERED: fentaNYL 100 MCG/2 ML INJ IV PRN ×2 (09:01→11:00)
--- NOTE | 2020-04-20 09:03 | XRay Report ---
XR chest 1V ap INDICATION / CLINICAL INFORMATION: ETT placement. COMPARISON: Radiograph from yesterday. FINDINGS: SUPPORT DEVICES: Endotracheal tube terminates approximately 2 cm above the dereck. Enteric tube cours es beneath the diaphragm and terminates in the distal stomach. HEART / MEDIASTINUM: Unchanged. LUNGS / PLEURA: Lung parenchyma is not significantly changed. Costophrenic sulci are sharp. No pneu mothorax. ADDITIONAL FINDINGS: No significant additional findings. IMPRESSION: 1. Endotracheal tube terminates slightly beneath the level of the clavicular heads. Can retract appro ximately 1 cm for more optimal positioning. Signer Name: Ibrahima Kearney MD Signed: 04/20/2020 8:58 AM Workstation Name: [id number]
--- NOTE | 2020-04-20 09:49 | Progress Note ---
Assessment and Plan Assessment and plan: -- Acute respiratory failure with hypoxia Patient continues to be hypoxic Requiring high flow oxygen, unable to wean Supportive care pulmonary following Patient transfer from ICU yesterday Patient is obtunded Discussed with Dr. Altamirano We will do a stat ABG However oxygen saturation is 95% on present oxygen Prognosis is poor Tried to contact patient's daughter with the phone number available on the facesheet and social insurance analyst note However this number goes to some [employer] and unable to leave any message --Bilateral pneumonia Completed antibiotics pneumonia secondary to COVID-19 Supportive care --Positive COVID-19 virus infection Covid positive on 04/06/2020 High flow oxygen at this point -ID note reviewed -Pulmonary following -Completed remdesivir for 5 days -Completed dexamethasone 6 mg p.o./IV daily for 10 days -Anticoagulation per hospital protocol -Prone positioning as tolerated -Covid inflammatory markers every 48 hours SARS-CoV-2 IgG antibody positive No indication for convalescent plasma Very poor prognosis --HTN (hypertension) Moderate control -- Methadone dependence To be counselled --Transaminitis/history of hepatitis C Sec to Covid /ETOH trending down History of hepatitis C s/p CIWA --Severe malnutrition Tube feeding nutrition supplements , dietitian consult -- Hyponatremia/resolved --DVT prophylaxis On Lovenox and GI prophylaxis Closely monitor the patient and adjust the management as needed Plan of care reviewed with the patient's nurse. 04/08/2020; patient was seen and evaluated this morning and is on 10 L of oxygen. Patient is on Decadron and remdesivir. ID is following the patient. Hypokalemia repleted. 04/09/2020; patient is on 15 L of oxygen. Continue IV Decadron and remdesivir. Continue IV Lasix and spironolactone for ascites/generalized swelling. Patient required BiPAP overnight. Patient has confusion and currently on restraints. We will check ammonia level, CT head. 04/10/2020; patient's condition is deteriorating transfer to [facility].. Continue with IV Decadron and remdesivir. Ammonia level is normal. His roommate reported that the patient has history of HIV, I try to reach to his daughter was listed in the chart and I could not get in touch. Pulmonary was consulted for respiratory failure and will follow the patient. Patient will be on BiPAP. HIV test ordered. 04/13/2020; patient continues to be on high flow oxygen, resume tube feeding, restrained for agitation as needed 04/14/2020; patient remains confused agitated, on CIWA protocol continuously hypoxemic, requiring high flow oxygen On four-point restraints 04/16/2020; patient remains agitated requiring restraints, CIWA protocol discontinued, I started Ativan as needed 04/17/2020; patient is more calm and quiet, less agitation receiving Dobbhoff, speech therapy for swallow eval, possible PEG if abnormal 04/18 patient is obtunded. However per discussion with RN patient was agitated last night and pulled out IV lines. No Ativan or Librium order Geodon was administered last night. Last Ativan was yesterday afternoon. Tried to contact patient's daughter . The number goes to some company and unable to leave any message. Discussed with Dr. Altamirano. 04/19/2020. Patient still requiring high flow nasal cannula with oxygen 30 L/min ; FiO2 50%. Patient remains unresponsive. Poor prognosis. I spoke with daughter and discussed hospice [phone] 04/20/2020. Patient decompensated this morning with agonal respirations and O2 saturations in the 70s. Patient was successfully intubated and transferred to ICU for closer management. Patient currently on AC mode ventilation rate 20, tidal volume 450, FiO2 100% and PEEP of 8. I spoke with daughter at [phone] with regards to poor prognosis. She would like to talk to her sister and mother regarding possible DNR. Full code currently. The high probability of a clinically significant, sudden or life threatening deterioration of the [respiratory] system(s) required my full and direct attention, intervention and personal management. The aggregate critical care time was [32] minutes. This time is in addition to time spent performing reported procedures but includes the following: [x] Data Review and interpretation [x] Patient assessment and monitoring of vital signs [x] Documentation [x] Medication orders and management History Interval history: 59 years old male with history of hepatitis C with cirrhosis, ascites, gastrosplenic varices, hypertension, meth abuse, admitted on 04/05/2020 secondary to 2-week history of worsening generalized body edema, cough and shortness of breath. EMS found O2 sats down to 85%. Patient placed on nonrebreather mask. On arrival, temperature 98.2, HR 110, O2 sat 96% drop to 83%. Patient placed on BiPAP. Initial WBC 6.9. Platelets 60. D-dimer 837. Creatinine 0.5. AST 129. ALT 54. Urine drug screen positive for amphetamines. Blood cultures 04/05/2020 no growth. Chest x-ray shows moderate interstitial edema. CT of the abdomen shows patchy airspace disease changes in the lung bases, large left pleural effusion, extensive ascites, cirrhotic liver, gastrosplenic varices, splenomegaly. On 04/20/2020, patient had a CODE BLUE that was called for agonal respirations. O2 saturation was noted to be in the 70s. Patient was in obvious distress and subsequently intubated and transferred to ICU for further management. Hospitalist Physical - Constitutional Vitals: Temp Pulse Resp BP Pulse Ox 98.4 F 129 H 30 H 96/52 99 04/20/20 06:00 04/20/20 08:31 04/20/20 08:31 04/20/20 08:00 04/20/20 07:54 General appearance: Present: no acute distress, cachectic, other (Intubated on mechanical ventilation) - EENT Eyes: Present: PERRL, EOM intact ENT: hearing intact, clear oral mucosa, dentition normal - Neck Neck: Present: supple, normal ROM - Respiratory Respiratory effort: normal Respiratory: bilateral: rales, rhonchi - Cardiovascular Rhythm: regular Heart Sounds: Present: S1 & S2. Absent: gallop, rub - Extremities Extremities: no ischemia, No edema, Full ROM - Abdominal General gastrointestinal: soft, non-tender, non-distended, normal bowel sounds - Integumentary Integumentary: Present: clear, warm, dry - Neurologic Neurologic: CNII-XII intact, moves all extremities HEART Score - HEART Score Age: 45-65 Risk factors: 1-2 risk factors Troponin: Troponin T < 0.010 ng/mL (0.00-0.029) 04/05/20 14:17 Troponin: < normal limit - Critical Actions Critical Actions: 0-3 pts:0.9-1.7%risk of adverse cardiac event.Candidate for discharge Results - Labs CBC & Chem 7: 04/10/20 08:37 04/20/20 05:53 Labs: Laboratory Last Values WBC 5.8 K/mm3 (4.5-11.0) 04/10/20 08:37 RBC 3.75 M/mm3 (3.65-5.03) 04/10/20 08:37 Hgb 12.6 gm/dl (11.8-15.2) 04/10/20 08:37 Hct 37.5 % (35.5-45.6) 04/10/20 08:37 MCV 100 fl (84-94) H 04/10/20 08:37 MCH 34 pg (28-32) H 04/10/20 08:37 MCHC 34 % (32-34) 04/10/20 08:37 RDW 16.5 % (13.2-15.2) H 04/10/20 08:37 Plt Count 67 K/mm3 (140-440) L 04/10/20 08:37 Lymph % (Auto) 16.0 % (13.4-35.0) 04/10/20 08:37 [place] % (Auto) 6.8 % (0.0-7.3) 04/10/20 08:37 Eos % (Auto) 0.2 % (0.0-4.3) 04/10/20 08:37 Baso % (Auto) 1.1 % (0.0-1.8) 04/10/20 08:37 Lymph # (Auto) 0.9 K/mm3 (1.2-5.4) L 04/10/20 08:37 Loving # (Auto) 0.4 K/mm3 (0.0-0.8) 04/10/20 08:37 Eos # (Auto) 0.0 K/mm3 (0.0-0.4) 04/10/20 08:37 Baso # (Auto) 0.1 K/mm3 (0.0-0.1) 04/10/20 08:37 Add Manual Diff Complete 04/09/20 05:33 Total Counted 100 04/09/20 05:33 Seg Neutrophils % 75.9 % (40.0-70.0) H 04/10/20 08:37 Seg Neuts % (Manual) 72.0 % (40.0-70.0) H 04/09/20 05:33 Band Neutrophils % 0 % 04/06/20 05:53 Lymphocytes % (Manual) 21.0 % (13.4-35.0) 04/09/20 05:33 Reactive Lymphs % (Man) 0 % 04/06/20 05:53 Monocytes % (Manual) 7.0 % (0.0-7.3) 04/09/20 05:33 Eosinophils % (Manual) 0 % (0.0-4.3) 04/06/20 05:53 Basophils % (Manual) 0 % (0.0-1.8) 04/06/20 05:53 Metamyelocytes % 0 % 04/06/20 05:53 Myelocytes % 0 % 04/06/20 05:53 Promyelocytes % 0 % 04/06/20 05:53 Blast Cells % 0 % 04/06/20 05:53 Nucleated RBC % Not Reportable 04/09/20 05:33 Seg Neutrophils # 4.4 K/mm3 (1.8-7.7) 04/10/20 08:37 Seg Neutrophils # Man 1.6 K/mm3 (1.8-7.7) L 04/09/20 05:33 Band Neutrophils # 0.0 K/mm3 04/09/20 05:33 Lymphocytes # (Manual) 0.5 K/mm3 (1.2-5.4) L 04/09/20 05:33 Abs React Lymphs (Man) 0.0 K/mm3 04/09/20 05:33 Monocytes # (Manual) 0.2 K/mm3 (0.0-0.8) 04/09/20 05:33 Eosinophils # (Manual) 0.0 K/mm3 (0.0-0.4) 04/09/20 05:33 Basophils # (Manual) 0.0 K/mm3 (0.0-0.1) 04/09/20 05:33 Metamyelocytes # 0.0 K/mm3 04/09/20 05:33 Myelocytes # 0.0 K/mm3 04/09/20 05:33 Promyelocytes # 0.0 K/mm3 04/09/20 05:33 Blast Cells # 0.0 K/mm3 04/09/20 05:33 WBC Morphology Not Reportable 04/09/20 05:33 Hypersegmented Neuts Not Reportable 04/09/20 05:33 Hyposegmented Neuts Not Reportable 04/09/20 05:33 Hypogranular Neuts Not Reportable 04/09/20 05:33 Smudge Cells Not Reportable 04/09/20 05:33 Toxic Granulation Not Reportable 04/09/20 05:33 Toxic Vacuolation Not Reportable 04/09/20 05:33 Dohle Bodies Not Reportable 04/09/20 05:33 Pelger-Huet Anomaly Not Reportable 04/09/20 05:33 Kelly Rods Not Reportable 04/09/20 05:33 Platelet Estimate Appears decreased 04/09/20 05:33 Clumped Platelets Not Reportable 04/09/20 05:33 Plt Clumps, EDTA Not Reportable 04/09/20 05:33 Large Platelets Not Reportable 04/09/20 05:33 Giant Platelets Not Reportable 04/09/20 05:33 Platelet Satelliting Not Reportable 04/09/20 05:33 Plt Morphology Comment Not Reportable 04/09/20 05:33 RBC Morphology Not Reportable 04/09/20 05:33 Dimorphic RBCs Not Reportable 04/09/20 05:33 Polychromasia Not Reportable 04/09/20 05:33 Hypochromasia Not Reportable 04/09/20 05:33 Poikilocytosis Not Reportable 04/09/20 05:33 Anisocytosis Not Reportable 04/09/20 05:33 Microcytosis Not Reportable 04/09/20 05:33 Macrocytosis Not Reportable 04/09/20 05:33 Spherocytes Not Reportable 04/09/20 05:33 Pappenheimer Bodies Not Reportable 04/09/20 05:33 Sickle Cells Not Reportable 04/09/20 05:33 Target Cells Not Reportable 04/09/20 05:33 Tear Drop Cells Few 04/09/20 05:33 Ovalocytes Few 04/09/20 05:33 Helmet Cells Not Reportable 04/09/20 05:33 [place] Bodies Not Reportable 04/09/20 05:33 [place] Rings Not Reportable 04/09/20 05:33 [place] Cells Not Reportable 04/09/20 05:33 Bite Cells Not Reportable 04/09/20 05:33 Crenated Cell Not Reportable 04/09/20 05:33 Elliptocytes Not Reportable 04/09/20 05:33 Acanthocytes (Spur) Not Reportable 04/09/20 05:33 Rouleaux Few 04/09/20 05:33 Hemoglobin C Crystals Not Reportable 04/09/20 05:33 Schistocytes Rare 04/09/20 05:33 Malaria parasites Not Reportable 04/09/20 05:33 Ronnie Bodies Not Reportable 04/09/20 05:33 Hem Pathologist Commnt No 04/09/20 05:33 PT 15.9 Sec. (12.2-14.9) H 04/05/20 10:40 INR 1.27 (0.87-1.13) H 04/05/20 10:40 APTT 30.3 Sec. (24.2-36.6) 04/05/20 10:40 D-Dimer 1041.43 ng/mlDDU (0-234) H 04/16/20 19:05 ABG pH 7.480 pH Units (7.350-7.450) H 04/18/20 13:00 ABG pCO2 48.5 mm Hg 04/18/20 13:00 ABG pO2 60.5 mm Hg (80.0-90.0) L 04/18/20 13:00 ABG HCO3 35.3 mmol/L (20.0-26.0) H 04/18/20 13:00 ABG O2 Saturation 92.1 % (95.0-99.0) L 04/18/20 13:00 ABG O2 Content 22.5 (0.0-44) 04/18/20 13:00 ABG Base Excess 9.9 mmol/L (-2.0-3.0) H 04/18/20 13:00 ABG Hemoglobin 18.0 gm/dl (14.0-18.0) 04/18/20 13:00 ABG Carboxyhemoglobin 2.2 % (0.0-5.0) 04/18/20 13:00 ABG Methemoglobin 0.6 % (0.0-1.5) 04/18/20 13:00 Oxyhemoglobin 89.6 % (95.0-99.0) L 04/18/20 13:00 FiO2 50 % 04/18/20 13:00 Sodium 144 mmol/L (137-145) 04/20/20 05:53 Potassium 5.5 mmol/L (3.6-5.0) H D 04/20/20 05:53 Chloride 104.1 mmol/L (98-107) 04/20/20 05:53 Carbon Dioxide 30 mmol/L (22-30) D 04/20/20 05:53 Anion Gap 15 mmol/L 04/20/20 05:53 BUN 71 mg/dL (9-20) H 04/20/20 05:53 Creatinine 1.1 mg/dL (0.8-1.3) 04/20/20 05:53 Estimated GFR > 60 ml/min 04/20/20 05:53 BUN/Creatinine Ratio 65 % 04/20/20 05:53 Glucose 82 mg/dL (75-100) 04/20/20 05:53 POC Glucose 68 mg/dL (70-105) L 04/20/20 07:08 Hemoglobin A1c 4.5 % (4-6) 04/05/20 10:40 Lactic Acid 1.40 mmol/L (0.7-2.0) 04/05/20 10:40 Calcium 8.1 mg/dL (8.4-10.2) L 04/20/20 05:53 Phosphorus 3.30 mg/dL (2.5-4.5) 04/14/20 09:12 Magnesium 2.10 mg/dL (1.7-2.3) 04/14/20 09:12 Ferritin 1037.0 ng/mL (30.0-300.0) H 04/16/20 19:05 Total Bilirubin 2.80 mg/dL (0.1-1.2) H 04/11/20 21:24 Direct Bilirubin 0.8 mg/dL (0-0.2) H 04/10/20 08:37 Indirect Bilirubin 0.5 mg/dL 04/10/20 08:37 AST 91 units/L (5-40) H 04/11/20 21:24 ALT 55 units/L (7-56) 04/11/20 21:24 Alkaline Phosphatase 106 units/L (35-129) 04/11/20 21:24 Ammonia 123.0 umol/L (25-60) H 04/19/20 09:55 Lactate Dehydrogenase 360 units/L (91-180) H 04/16/20 19:05 Troponin T < 0.010 ng/mL (0.00-0.029) 04/05/20 14:17 C-Reactive Protein 2.20 mg/dL (0.00-1.30) H 04/16/20 19:05 NT-Pro-B Natriuret Pep 216.4 pg/mL (0-900) 04/05/20 10:40 Total Protein 6.7 g/dL (6.3-8.2) 04/11/20 21:24 Albumin 2.1 g/dL (3.9-5) L 04/11/20 21:24 Albumin/Globulin Ratio 0.5 % 04/11/20 21:24 Lipase 21 units/L (13-60) 04/05/20 10:40 Procalcitonin 0.14 ng/mL (<0.15) 04/06/20 14:24 TSH 1.150 mlU/mL (0.270-4.200) 04/19/20 09:55 Urine Color Yellow (Yellow) 04/05/20 Unknown Urine Turbidity Clear (Clear) 04/05/20 Unknown Urine pH 6.0 (5.0-7.0) 04/05/20 Unknown Ur Specific [place] 1.006 (1.003-1.030) 04/05/20 Unknown Urine Protein <15 mg/dl mg/dL (Negative) 04/05/20 Unknown Urine Glucose (UA) Neg mg/dL (Negative) 04/05/20 Unknown Urine Ketones Neg mg/dL (Negative) 04/05/20 Unknown Urine Blood Sm (Negative) 04/05/20 Unknown Urine Nitrite Neg (Negative) 04/05/20 Unknown Urine Bilirubin Neg (Negative) 04/05/20 Unknown Urine Urobilinogen < 2.0 mg/dL (<2.0) 04/05/20 Unknown Ur Leukocyte Esterase Neg (Negative) 04/05/20 Unknown Urine WBC (Auto) < 1.0 /HPF (0.0-6.0) 04/05/20 Unknown Urine RBC (Auto) 6.0 /HPF (0.0-6.0) 04/05/20 Unknown U Epithel Cells (Auto) < 1.0 /HPF (0-13.0) 04/05/20 Unknown Hyaline Casts 1 /LPF 04/05/20 Unknown Urine Mucus Few /HPF 04/05/20 Unknown Urine Opiates Screen Negative 04/05/20 Unknown Urine Methadone Screen Negative 04/05/20 Unknown Ur Barbiturates Screen Negative 04/05/20 Unknown Ur Phencyclidine Scrn Negative 04/05/20 Unknown Ur Amphetamines Screen Presumptive positive 04/05/20 Unknown U Benzodiazepines Scrn Negative 04/05/20 Unknown Urine Cocaine Screen Negative 04/05/20 Unknown U Marijuana (THC) Screen Negative 04/05/20 Unknown Drugs of Abuse Note Disclamer 04/05/20 Unknown Coronavirus (PCR) Positive (Negative) A 04/06/20 Unknown Hepatitis A IgM Ab Non-reactive (NonReactive) 04/06/20 08:04 Hep Bs Antigen Non-reactive (Negative) 04/06/20 08:04 Hep B Core IgM Ab Non-reactive (NonReactive) 04/06/20 08:04 Hepatitis C Antibody Reactive (NonReactive) A 04/06/20 08:04 SARS-CoV-2 IgG Ab Reactive (NonReactive) A 04/13/20 02:41 Rogers/IV: Voiding Method Condom Catheter IV Catheter Type [Right INT / Saline Lock Antecubital] IV Catheter Type [Left Upper Peripheral IV arm] IV Catheter Type [Right INT / Saline Lock Forearm] IV Catheter Type [Left Forearm INT / Saline Lock ] IV Catheter Type [Right Wrist] INT / Saline Lock IV Catheter Type [Right Upper INT / Saline Lock arm] Active Medications - Current Medications Current Medications: Generic Name Dose Route Start Last Admin Trade Name Freq PRN Reason Stop Dose Admin Acetaminophen 650 mg 04/05/20 23:41 Tylenol PO Q4H PRN Pain MILD(1-3)/Fever >100.5/CHRISTIANSON Albuterol 2.5 mg 04/08/20 23:00 Albuterol 2.5 Mg/3 Ml Nebu IH Q4HRT PRN Shortness Of Breath Lipase/Protease/Amylase 1 each 04/13/20 13:23 04/19/20 23:47 Lipase 10,500/Protease 25,000/Amylase 43,750 (Units) Dr Tejada FEEDTUBE 1 each PRN PRN Administration For Clogged Feeding Tube Chlordiazepoxide HCl 25 mg 04/17/20 10:00 04/20/20 04:27 Chlordiazepoxide 25 Mg Cap PO Not Given BID LUPE Enoxaparin Sodium 40 mg 04/06/20 22:00 04/19/20 21:15 Enoxaparin SUB-Q 40 mg QDAY@2200 LUPE Administration Protocol Famotidine 20 mg 04/20/20 10:00 Famotidine 20 Mg/2 Ml Inj IV BID LUPE Fentanyl 50 mcg 04/20/20 09:01 Fentanyl 100 Mcg/2 Ml Inj IV Q10MIN PRN ANALGESIA Furosemide 40 mg 04/12/20 11:00 04/20/20 04:35 Furosemide 40 Mg/4 Ml Inj IV 40 mg Q12H LUPE Administration Fentanyl Citrate 2,000 mcg in 100 mls @ 2.95 mls/hr 04/20/20 10:00 Fentanyl Drip Premix IV TITR LUPE Protocol 1 MCG/KG/HR Labetalol HCl 10 mg 04/12/20 12:00 Labetalol 20 Mg/4 Ml Inj IV Q4H PRN Hypertension Lorazepam 2 mg 04/15/20 12:49 04/17/20 15:54 Lorazepam 2 Mg/Ml Vial IV 2 mg Q4H PRN Administration Agitation Ondansetron HCl 4 mg 04/05/20 23:41 Zofran IV Q8H PRN Nausea And Vomiting Simple Syrup 15 ml 04/13/20 13:23 Simple Syrup 15 Ml FEEDTUBE PRN PRN Hypoglycemia Simple Syrup 30 ml 04/13/20 13:23 Simple Syrup 15 Ml FEEDTUBE PRN PRN Hypoglycemia Sodium Bicarbonate 325 mg 04/13/20 13:23 04/19/20 23:47 Sodium Bicarbonate 325 Mg Tab FEEDTUBE 325 mg PRN PRN Administration For Clogged Feeding Tube Sodium Chloride 10 ml 04/06/20 10:00 04/20/20 04:35 Sodium Chloride Flush Syringe 10 Ml IV 10 ml BID LUPE Administration Sodium Chloride 10 ml 04/05/20 23:41 Sodium Chloride Flush Syringe 10 Ml IV PRN PRN LINE FLUSH Ziprasidone 10 mg 04/13/20 19:06 04/13/20 21:46 Ziprasidone Mesylate 20 Mg Vial IM 10 mg ONCE PRN Administration Agitation Nutrition/Malnutrition Assess - Dietary Evaluation Nutrition/Malnutrition Findings: Nutrition Notes Start: 04/12/20 14:15 Freq: Status: Active Protocol: Document 04/15/20 12:47 AB (Rec: 04/15/20 12:51 AB [id number]) Co-Sign 04/15/20 12:47 LP Nutrition Notes Initial or Follow up Reassessment Current Diagnosis Hypertension Other Pertinent Diagnosis COVID(+), hep C, acute respiratory failure, pneu, methadone&EtoH dependence Current Diet Osmolite 1.5 at 50 ml/hr (goal rate) Labs/Tests Na 134 BUN 34 Cr 0.6 Pertinent Medications Lasix Height 5 ft 7 in Weight 64.4 kg Baird Body Weight (kg) 67.27 BMI 22.2 Subjective/Other Information F/U for TF start/tolerance. Per RN, pt is at goal and tolerating. Percent of energy/protein needs met: 100%/100% Burn Absent Trauma Absent GI Symptoms None Food Allergy No Current % PO Negligible Minimum of two criteria Yes Energy Intake (severe) < or equal to 50% Estimated Energy Requirement > or equal to 5 days Fluid Accumulation Moderate to Severe (severe) #2 Nutrition Diagnosis Malnutrition Etiology Poor intakes IRON SETTER As Evidenced by Signs and Symptoms Fluid accumulation and < 50% of energy intake in 5 days #1 Nutrition Diagnosis Inadequate oral intake Diagnosis Progress(for reassessment Continues documentation) Is patient on ventilator? No Is Patient Ambulatory and/or Out of Bed No REE-([facility]-confined to bed) 1700.136 Calculation Used for Recommendations [facility] Additional Notes Pro: 67-84g (0.8-1g/kg) Fluid: 1 ml/kcal Nutrition Intervention Change Diet Order: Continue current TF Nutrition Support: Osmolite 1.5 at 50 ml/hr Flush with 150 ml q4h Kcal 1,800 Protein (gm) 75 Fluid (mL) 914 Goal #1 TF start/tolerance Goal #2 Meet at least 80 % of energy and protein needs via TF. Anticipated Discharge Needs: Unable to determine at this time Follow-Up By: 04/20/20 Additional Comments F/U for TF tolerance and BM
[2020-04-20] MEDS ORDERED: fentaNYL DRIP Premix 2,000 MCG/100 ML BAG IV SCH (10:00)
[2020-04-20] MEDS ORDERED: FAMOTIDINE 20 MG/2 ML INJ IV SCH (10:00)
[2020-04-20] MEDS ORDERED: SODIUM CHLORIDE 0.9% 1000 ML 1,000 ML ONE (10:21)
--- NOTE | 2020-04-20 10:43 | Consultation ---
History of Present Illness Consult date: 04/20/20 Chief complaint: pneumothorax - History of present illness History of present illness: Please note consult placed 04/19 for small right pneumothorax (urgent). Consult was not called in to me, my office, or answering service. I was not aware of the consult until this am when it appeared on my list. 59 yo M with hx of hep C who presented to ER on 04/05/20 with c/o SOB, swelling for 2 weeks which progressively became worse. Patient is currently intubated and not responsive so all history is obtained from the chart. The patient was diagnosed with COVID PNA and is being treated by ID service. He acutely decompensated this am and was intubated and transferred to the ICU. CXR yesterday showed a right sided PTX and surgery is consulted for evaluation. Post intubation chest xray today does not show PTX. He has been Afebrile. Per [employer] consultant notes patient has been encephalopathic with neurologic w/u in progress. Past History Past Medical History: hepatitis, hypertension Past Surgical History: appendectomy, bowel surgery (colon resection) Social history: Lives alone, alcohol abuse Family history: hypertension Medications and Allergies Allergies Allergy/AdvReac Type Severity Reaction Status Date / Time No Known Allergies Allergy Verified 04/05/20 10:13 Home Medications Medication Instructions Recorded Confirmed Last Taken Type No Known Home Medications [No 04/18/20 04/18/20 Unknown History Reported Home Medications] Active Meds: Active Medications Acetaminophen (Tylenol) 650 mg PO Q4H PRN PRN Reason: Pain MILD(1-3)/Fever >100.5/[place] Albuterol (Albuterol 2.5 Mg/3 Ml Nebu) 2.5 mg IH Q4HRT PRN PRN Reason: Shortness Of Breath Lipase/Protease/Amylase (Lipase 10,500/Protease 25,000/Amylase 43,750 (Units) Dr Tejada) 1 each FEEDTUBE PRN PRN PRN Reason: For Clogged Feeding Tube Last Admin: 04/19/20 23:47 Dose: 1 each Documented by: Chlordiazepoxide HCl (Chlordiazepoxide 25 Mg Cap) 25 mg PO BID [facility] Last Admin: 04/20/20 10:17 Dose: Not Given Documented by: Enoxaparin Sodium (Enoxaparin) 40 mg SUB-Q QDAY@2200 [facility]; Protocol Last Admin: 04/19/20 21:15 Dose: 40 mg Documented by: Famotidine (Famotidine 20 Mg/2 Ml Inj) 20 mg IV BID [facility] Last Admin: 04/20/20 10:16 Dose: 20 mg Documented by: Fentanyl (Fentanyl 100 Mcg/2 Ml Inj) 50 mcg IV Q10MIN PRN PRN Reason: ANALGESIA Furosemide (Furosemide 40 Mg/4 Ml Inj) 40 mg IV Q12H [facility] Last Admin: 04/20/20 10:15 Dose: 40 mg Documented by: Fentanyl Citrate (Fentanyl Drip Premix) 2,000 mcg in 100 mls @ 2.95 mls/hr IV TITR [facility]; Protocol Last Admin: 04/20/20 10:07 Dose: 1 mcg/kg/hr, 2.95 mls/hr Documented by: Labetalol HCl (Labetalol 20 Mg/4 Ml Inj) 10 mg IV Q4H PRN PRN Reason: Hypertension Lorazepam (Lorazepam 2 Mg/Ml Vial) 2 mg IV Q4H PRN PRN Reason: Agitation Last Admin: 04/20/20 08:05 Dose: 2 mg Documented by: Ondansetron HCl (Zofran) 4 mg IV Q8H PRN PRN Reason: Nausea And Vomiting Simple Syrup (Simple Syrup 15 Ml) 15 ml FEEDTUBE PRN PRN PRN Reason: Hypoglycemia Simple Syrup (Simple Syrup 15 Ml) 30 ml FEEDTUBE PRN PRN PRN Reason: Hypoglycemia Sodium Bicarbonate (Sodium Bicarbonate 325 Mg Tab) 325 mg FEEDTUBE PRN PRN PRN Reason: For Clogged Feeding Tube Last Admin: 04/19/20 23:47 Dose: 325 mg Documented by: Sodium Chloride (Sodium Chloride Flush Syringe 10 Ml) 10 ml IV BID [facility] Last Admin: 04/20/20 10:14 Dose: 10 ml Documented by: Sodium Chloride (Sodium Chloride Flush Syringe 10 Ml) 10 ml IV PRN PRN PRN Reason: LINE FLUSH Ziprasidone (Ziprasidone Mesylate 20 Mg Vial) 10 mg IM ONCE PRN PRN Reason: Agitation Last Admin: 04/13/20 21:46 Dose: 10 mg Documented by: Review of Systems ROS unobtainable: due to endotracheal tube, due to mental status Exam Vital Signs Pulse Resp Pulse Ox 110 H 15 96 04/05/20 09:59 04/05/20 09:59 04/05/20 09:59 Narrative exam: Limited exam performed to preserve PPE in light of COVID 19 pandemic Gen: Intubated, sedated ENT: ETT and NGT in place. No subcutaneous emphysema noted CV: Tachy Resp: on full vent support Results - Labs 04/10/20 08:37 04/20/20 05:53 Abnormal lab results 04/19/20 04/19/20 04/20/20 Range/Units 09:55 11:39 05:53 POC ABG pO2 (83-108) mmHg ABG Oxyhemoglobin (94-98) ABG Potassium (3.40-4.50) mmol/L ABG Chloride (98-107) mmol/L ABG Glucose (65-95) mg/dL Potassium 5.5 H D (3.6-5.0) mmol/L BUN 71 H (9-20) mg/dL POC Glucose 109 H (70-105) mg/dL Calcium 8.1 L (8.4-10.2) mg/dL Ammonia 123.0 H (25-60) umol/L Arterial Blood Glucose (65-95) mg/dL Arterial Blood Ionized Calcium (4.6-5.3) mg/dL 04/20/20 04/20/20 Range/Units 07:08 08:16 POC ABG pO2 64.8 L (83-108) mmHg ABG Oxyhemoglobin 89.9 L (94-98) ABG Potassium 4.8 H (3.40-4.50) mmol/L ABG Chloride 108.0 H (98-107) mmol/L ABG Glucose 130 H (65-95) mg/dL Potassium (3.6-5.0) mmol/L BUN (9-20) mg/dL POC Glucose 68 L (70-105) mg/dL Calcium (8.4-10.2) mg/dL Ammonia (25-60) umol/L Arterial Blood Glucose 130 H (65-95) mg/dL Arterial Blood Ionized Calcium 4.4 L (4.6-5.3) mg/dL Diabetes panel 04/20/20 Range/Units 05:53 Sodium 144 (137-145) mmol/L Potassium 5.5 H D (3.6-5.0) mmol/L Chloride 104.1 (98-107) mmol/L Carbon Dioxide 30 D (22-30) mmol/L BUN 71 H (9-20) mg/dL Creatinine 1.1 (0.8-1.3) mg/dL Glucose 82 (75-100) mg/dL Calcium 8.1 L (8.4-10.2) mg/dL Calcium panel 04/20/20 Range/Units 05:53 Calcium 8.1 L (8.4-10.2) mg/dL Pituitary panel 04/20/20 Range/Units 05:53 Sodium 144 (137-145) mmol/L Potassium 5.5 H D (3.6-5.0) mmol/L Chloride 104.1 (98-107) mmol/L Carbon Dioxide 30 D (22-30) mmol/L BUN 71 H (9-20) mg/dL Creatinine 1.1 (0.8-1.3) mg/dL Glucose 82 (75-100) mg/dL Calcium 8.1 L (8.4-10.2) mg/dL Adrenal panel 04/20/20 Range/Units 05:53 Sodium 144 (137-145) mmol/L Potassium 5.5 H D (3.6-5.0) mmol/L Chloride 104.1 (98-107) mmol/L Carbon Dioxide 30 D (22-30) mmol/L BUN 71 H (9-20) mg/dL Creatinine 1.1 (0.8-1.3) mg/dL Glucose 82 (75-100) mg/dL Calcium 8.1 L (8.4-10.2) mg/dL - Imaging Chest x-ray: report reviewed, image reviewed Assessment and Plan 59 yo M with spontaneous right PTX, now resolved post intubation Plan: 1. daily CXR 2. Vent management per ICU team 3. No indication for chest tube at this time as PTX has resolved. If PTX noted on subsequent CXR, please reconsult for chest tube placement. Thank you, please call with questions. Evaluation and treatment of this patient was during the time of the national and state emergency arising from COVID19 coronavirus pandemic. Treatment and procedures performed meet the current and available best practice and guidelines for patient during the COVID pandemic.
[2020-04-20] MEDS ORDERED: DEXTROSE 50% IN WATER (25GM) 50 ML SYRINGE IV PRN (11:43)
--- NOTE | 2020-04-20 11:44 | Progress Note ---
Assessment and Plan 59 y/o male with acute respiratory failure secondary to covid positive state and ETOH withdrawal with hypertension and altered mental state. 1. Discontinue continuous sedation and attempt to manage with PRN pushes 2. Wean FiO2 for sats >88% 3. bP soft this am, gave 500 bolus. Holding lasix and aldactone 4. Pending repeat gases, may need to prone given COVID status 5. Guarded prognosis. need to figure out if there is family who can make decisions for patient. Given his cardiomyopathy and covid state with worsening respiratory status, may need to have talks about future therapy. CCT 31 minutes. Subjective Date of service: 04/20/20 Principal diagnosis: COVID Interval history: Patient had a "code" this am but never lost pulse. Was intubated for agonal breathing and low sats. No ABG prior to intubation. Hypoglycemia. Most recent sugar was 55. Given D50 and restarted tube feeds. I did order the repeat CXR yesterday but no one called me about PTX. There is no evidence of PTX on Post Intubation CT. Objective Vital Signs - 12hr 04/20/20 04/20/20 04/20/20 03:17 03:19 05:51 Temperature 98.4 F Pulse Rate Pulse Rate [ Apical] Pulse Rate [ From Monitor] Respiratory 18 Rate Respiratory Rate [ Generalized] Blood Pressure 105/57 Blood Pressure [Right] O2 Sat by Pulse 82 L 90 Oximetry 04/20/20 04/20/20 04/20/20 06:00 07:36 07:54 Temperature 98.4 F Pulse Rate 88 136 H 134 H Pulse Rate [ Apical] Pulse Rate [ From Monitor] Respiratory 16 24 Rate Respiratory Rate [ Generalized] Blood Pressure 107/64 Blood Pressure 105/57 [Right] O2 Sat by Pulse 90 99 Oximetry 04/20/20 04/20/20 08:00 08:31 Temperature Pulse Rate 133 H Pulse Rate [ 130 H Apical] Pulse Rate [ 129 H From Monitor] Respiratory 25 H 30 H Rate Respiratory 30 H Rate [ Generalized] Blood Pressure 96/52 Blood Pressure [Right] O2 Sat by Pulse Oximetry Constitutional: asleep ENT: oropharynx moist Effort: normal Ascultation: Bilateral: rhonchi Cardiovascular: regular rate and rhythm Gastrointestinal: normoactive bowel sounds, non-tender CBC and BMP: 04/10/20 08:37 04/20/20 05:53 ABG, PT/INR, D-dimer: ABG ABG pH 7.382 (7.320-7.450) 04/20/20 08:16 POC ABG pCO2 42.8 mmHg (32.0-48.0) 04/20/20 08:16 ABG pCO2 48.5 mm Hg 04/18/20 13:00 POC ABG pO2 64.8 mmHg (83-108) L 04/20/20 08:16 ABG pO2 60.5 mm Hg (80.0-90.0) L 04/18/20 13:00 POC ABG HCO3 24.9 04/20/20 08:16 ABG O2 Saturation 92.1 % (95.0-99.0) L 04/18/20 13:00 PT/INR, D-dimer PT 15.9 Sec. (12.2-14.9) H 04/05/20 10:40 INR 1.27 (0.87-1.13) H 04/05/20 10:40 D-Dimer 1041.43 ng/mlDDU (0-234) H 04/16/20 19:05 Abnormal lab findings: Abnormal Labs 04/05/20 04/05/20 04/05/20 10:40 10:40 10:40 WBC RBC Hct MCV 98 H MCH 34 H MCHC RDW 16.3 H Plt Count 60 L Lymph # (Auto) [place] # (Auto) Seg Neutrophils % Seg Neuts % (Manual) 86.0 H Lymphocytes % (Manual) 4.0 L Monocytes % (Manual) 9.0 H Seg Neutrophils # Man Lymphocytes # (Manual) 0.3 L PT 15.9 H INR 1.27 H D-Dimer ABG pH POC ABG pO2 ABG pO2 ABG HCO3 ABG O2 Saturation ABG Base Excess ABG Oxyhemoglobin ABG Potassium ABG Chloride ABG Glucose Oxyhemoglobin Sodium 134 L Potassium Chloride Carbon Dioxide BUN Creatinine 0.5 L Glucose POC Glucose Calcium 7.7 L Ferritin Total Bilirubin Direct Bilirubin AST ALT Alkaline Phosphatase Ammonia Lactate Dehydrogenase C-Reactive Protein Total Protein Albumin Arterial Blood Glucose Arterial Blood Ionized Calcium Coronavirus (PCR) Hepatitis C Antibody SARS-CoV-2 IgG Ab 04/05/20 04/05/20 04/05/20 10:40 14:45 14:45 WBC RBC Hct MCV MCH MCHC RDW Plt Count Lymph # (Auto) [place] # (Auto) Seg Neutrophils % Seg Neuts % (Manual) Lymphocytes % (Manual) Monocytes % (Manual) Seg Neutrophils # Man Lymphocytes # (Manual) PT INR D-Dimer 837.90 H ABG pH POC ABG pO2 ABG pO2 ABG HCO3 ABG O2 Saturation ABG Base Excess ABG Oxyhemoglobin ABG Potassium ABG Chloride ABG Glucose Oxyhemoglobin Sodium Potassium Chloride Carbon Dioxide BUN Creatinine Glucose POC Glucose Calcium Ferritin Total Bilirubin 2.30 H Direct Bilirubin 1.3 H AST 129 H ALT Alkaline Phosphatase Ammonia Lactate Dehydrogenase 438 H C-Reactive Protein 1.70 H Total Protein Albumin 1.9 L Arterial Blood Glucose Arterial Blood Ionized Calcium Coronavirus (PCR) Hepatitis C Antibody SARS-CoV-2 IgG Ab 04/05/20 04/06/20 04/06/20 14:45 05:53 05:53 WBC 3.5 L RBC 3.47 L Hct 34.1 L MCV 99 H MCH 34 H MCHC 35 H RDW 16.1 H Plt Count 48 L Lymph # (Auto) [place] # (Auto) Seg Neutrophils % Seg Neuts % (Manual) 92.0 H Lymphocytes % (Manual) 3.0 L Monocytes % (Manual) Seg Neutrophils # Man Lymphocytes # (Manual) 0.1 L PT INR D-Dimer ABG pH POC ABG pO2 ABG pO2 ABG HCO3 ABG O2 Saturation ABG Base Excess ABG Oxyhemoglobin ABG Potassium ABG Chloride ABG Glucose Oxyhemoglobin Sodium 136 L Potassium Chloride Carbon Dioxide BUN 23 H Creatinine 0.5 L Glucose 107 H POC Glucose Calcium 7.5 L Ferritin 1412.0 H Total Bilirubin 1.80 H Direct Bilirubin AST 112 H ALT Alkaline Phosphatase Ammonia Lactate Dehydrogenase C-Reactive Protein Total Protein Albumin 1.8 L Arterial Blood Glucose Arterial Blood Ionized Calcium Coronavirus (PCR) Hepatitis C Antibody SARS-CoV-2 IgG Ab 04/06/20 04/06/20 04/07/20 08:04 Unknown 06:01 WBC RBC 3.61 L Hct MCV 100 H MCH 34 H MCHC RDW 16.0 H Plt Count 58 L Lymph # (Auto) 1.0 L [place] # (Auto) 1.2 H Seg Neutrophils % Seg Neuts % (Manual) Lymphocytes % (Manual) Monocytes % (Manual) Seg Neutrophils # Man Lymphocytes # (Manual) PT INR D-Dimer ABG pH POC ABG pO2 ABG pO2 ABG HCO3 ABG O2 Saturation ABG Base Excess ABG Oxyhemoglobin ABG Potassium ABG Chloride ABG Glucose Oxyhemoglobin Sodium Potassium Chloride Carbon Dioxide BUN Creatinine Glucose POC Glucose Calcium Ferritin Total Bilirubin Direct Bilirubin AST ALT Alkaline Phosphatase Ammonia Lactate Dehydrogenase C-Reactive Protein Total Protein Albumin Arterial Blood Glucose Arterial Blood Ionized Calcium Coronavirus (PCR) Positive A Hepatitis C Antibody Reactive A SARS-CoV-2 IgG Ab 04/07/20 04/08/20 04/08/20 06:01 04:00 05:16 WBC RBC Hct MCV MCH MCHC RDW Plt Count Lymph # (Auto) [place] # (Auto) Seg Neutrophils % Seg Neuts % (Manual) Lymphocytes % (Manual) Monocytes % (Manual) Seg Neutrophils # Man Lymphocytes # (Manual) PT INR D-Dimer 1139.66 H ABG pH POC ABG pO2 ABG pO2 ABG HCO3 ABG O2 Saturation ABG Base Excess ABG Oxyhemoglobin ABG Potassium ABG Chloride ABG Glucose Oxyhemoglobin Sodium Potassium 3.5 L 3.2 L Chloride 108.7 H Carbon Dioxide BUN 28 H 28 H Creatinine 0.5 L 0.6 L Glucose 133 H 126 H POC Glucose Calcium 7.5 L 7.8 L Ferritin Total Bilirubin 1.40 H 1.30 H Direct Bilirubin 0.8 H AST 170 H 114 H ALT 80 H 73 H Alkaline Phosphatase 132 H Ammonia Lactate Dehydrogenase 502 H C-Reactive Protein Total Protein 6.1 L Albumin 1.9 L 1.9 L Arterial Blood Glucose Arterial Blood Ionized Calcium Coronavirus (PCR) Hepatitis C Antibody SARS-CoV-2 IgG Ab 04/08/20 04/09/20 04/09/20 05:16 05:33 05:33 WBC 2.2 L RBC Hct MCV 100 H MCH 34 H MCHC RDW 16.2 H Plt Count Lymph # (Auto) [place] # (Auto) Seg Neutrophils % Seg Neuts % (Manual) 72.0 H Lymphocytes % (Manual) Monocytes % (Manual) Seg Neutrophils # Man 1.6 L Lymphocytes # (Manual) 0.5 L PT INR D-Dimer ABG pH POC ABG pO2 ABG pO2 ABG HCO3 ABG O2 Saturation ABG Base Excess ABG Oxyhemoglobin ABG Potassium ABG Chloride ABG Glucose Oxyhemoglobin Sodium Potassium Chloride 109.2 H Carbon Dioxide BUN 25 H Creatinine 0.6 L Glucose POC Glucose Calcium 7.8 L Ferritin 1118.0 H Total Bilirubin Direct Bilirubin AST ALT Alkaline Phosphatase Ammonia Lactate Dehydrogenase C-Reactive Protein Total Protein Albumin Arterial Blood Glucose Arterial Blood Ionized Calcium Coronavirus (PCR) Hepatitis C Antibody SARS-CoV-2 IgG Ab 04/09/20 04/10/20 04/10/20 14:10 08:37 08:37 WBC RBC Hct MCV 99 H MCH 33 H MCHC RDW 16.4 H Plt Count 55 L Lymph # (Auto) [place] # (Auto) Seg Neutrophils % Seg Neuts % (Manual) Lymphocytes % (Manual) Monocytes % (Manual) Seg Neutrophils # Man Lymphocytes # (Manual) PT INR D-Dimer 1084.93 H ABG pH POC ABG pO2 ABG pO2 ABG HCO3 ABG O2 Saturation ABG Base Excess ABG Oxyhemoglobin ABG Potassium ABG Chloride ABG Glucose Oxyhemoglobin Sodium Potassium Chloride 111.7 H Carbon Dioxide BUN 26 H Creatinine 0.6 L Glucose POC Glucose Calcium 7.8 L Ferritin Total Bilirubin 1.30 H Direct Bilirubin 0.8 H AST 80 H ALT 58 H Alkaline Phosphatase Ammonia Lactate Dehydrogenase 404 H C-Reactive Protein Total Protein 6.2 L Albumin 1.8 L Arterial Blood Glucose Arterial Blood Ionized Calcium Coronavirus (PCR) Hepatitis C Antibody SARS-CoV-2 IgG Ab 04/10/20 04/10/20 04/11/20 08:37 08:37 21:24 WBC RBC Hct MCV 100 H MCH 34 H MCHC RDW 16.5 H Plt Count 67 L Lymph # (Auto) 0.9 L [place] # (Auto) Seg Neutrophils % 75.9 H Seg Neuts % (Manual) Lymphocytes % (Manual) Monocytes % (Manual) Seg Neutrophils # Man Lymphocytes # (Manual) PT INR D-Dimer ABG pH POC ABG pO2 ABG pO2 ABG HCO3 ABG O2 Saturation ABG Base Excess ABG Oxyhemoglobin ABG Potassium ABG Chloride ABG Glucose Oxyhemoglobin Sodium Potassium Chloride Carbon Dioxide BUN 25 H Creatinine 0.6 L Glucose POC Glucose Calcium 8.1 L Ferritin 1002.0 H Total Bilirubin 2.80 H Direct Bilirubin AST 91 H ALT Alkaline Phosphatase Ammonia Lactate Dehydrogenase C-Reactive Protein Total Protein Albumin 2.1 L Arterial Blood Glucose Arterial Blood Ionized Calcium Coronavirus (PCR) Hepatitis C Antibody SARS-CoV-2 IgG Ab 04/11/20 04/12/20 04/13/20 23:58 18:06 02:41 WBC RBC Hct MCV MCH MCHC RDW Plt Count Lymph # (Auto) [place] # (Auto) Seg Neutrophils % Seg Neuts % (Manual) Lymphocytes % (Manual) Monocytes % (Manual) Seg Neutrophils # Man Lymphocytes # (Manual) PT INR D-Dimer 1222.21 H ABG pH POC ABG pO2 ABG pO2 ABG HCO3 ABG O2 Saturation ABG Base Excess ABG Oxyhemoglobin ABG Potassium ABG Chloride ABG Glucose Oxyhemoglobin Sodium Potassium Chloride Carbon Dioxide BUN Creatinine Glucose POC Glucose 64 L 114 H Calcium Ferritin Total Bilirubin Direct Bilirubin AST ALT Alkaline Phosphatase Ammonia Lactate Dehydrogenase C-Reactive Protein Total Protein Albumin Arterial Blood Glucose Arterial Blood Ionized Calcium Coronavirus (PCR) Hepatitis C Antibody SARS-CoV-2 IgG Ab 04/13/20 04/13/20 04/13/20 02:41 02:41 02:41 WBC RBC Hct MCV MCH MCHC RDW Plt Count Lymph # (Auto) [place] # (Auto) Seg Neutrophils % Seg Neuts % (Manual) Lymphocytes % (Manual) Monocytes % (Manual) Seg Neutrophils # Man Lymphocytes # (Manual) PT INR D-Dimer ABG pH POC ABG pO2 ABG pO2 ABG HCO3 ABG O2 Saturation ABG Base Excess ABG Oxyhemoglobin ABG Potassium ABG Chloride ABG Glucose Oxyhemoglobin Sodium Potassium Chloride Carbon Dioxide BUN Creatinine Glucose POC Glucose Calcium Ferritin 1044.0 H Total Bilirubin Direct Bilirubin AST ALT Alkaline Phosphatase Ammonia Lactate Dehydrogenase 456 H C-Reactive Protein 4.20 H Total Protein Albumin Arterial Blood Glucose Arterial Blood Ionized Calcium Coronavirus (PCR) Hepatitis C Antibody SARS-CoV-2 IgG Ab Reactive A 04/13/20 04/13/20 04/14/20 05:41 12:25 00:08 WBC RBC Hct MCV MCH MCHC RDW Plt Count Lymph # (Auto) [place] # (Auto) Seg Neutrophils % Seg Neuts % (Manual) Lymphocytes % (Manual) Monocytes % (Manual) Seg Neutrophils # Man Lymphocytes # (Manual) PT INR D-Dimer ABG pH POC ABG pO2 ABG pO2 ABG HCO3 ABG O2 Saturation ABG Base Excess ABG Oxyhemoglobin ABG Potassium ABG Chloride ABG Glucose Oxyhemoglobin Sodium Potassium Chloride Carbon Dioxide BUN Creatinine Glucose POC Glucose 107 H 109 H 120 H Calcium Ferritin Total Bilirubin Direct Bilirubin AST ALT Alkaline Phosphatase Ammonia Lactate Dehydrogenase C-Reactive Protein Total Protein Albumin Arterial Blood Glucose Arterial Blood Ionized Calcium Coronavirus (PCR) Hepatitis C Antibody SARS-CoV-2 IgG Ab 04/14/20 04/14/20 04/14/20 05:11 11:18 23:03 WBC RBC Hct MCV MCH MCHC RDW Plt Count Lymph # (Auto) [place] # (Auto) Seg Neutrophils % Seg Neuts % (Manual) Lymphocytes % (Manual) Monocytes % (Manual) Seg Neutrophils # Man Lymphocytes # (Manual) PT INR D-Dimer ABG pH POC ABG pO2 ABG pO2 ABG HCO3 ABG O2 Saturation ABG Base Excess ABG Oxyhemoglobin ABG Potassium ABG Chloride ABG Glucose Oxyhemoglobin Sodium 134 L Potassium Chloride Carbon Dioxide 32 H BUN 34 H Creatinine 0.6 L Glucose 115 H POC Glucose 120 H 111 H Calcium 8.1 L Ferritin Total Bilirubin Direct Bilirubin AST ALT Alkaline Phosphatase Ammonia Lactate Dehydrogenase C-Reactive Protein Total Protein Albumin Arterial Blood Glucose Arterial Blood Ionized Calcium Coronavirus (PCR) Hepatitis C Antibody SARS-CoV-2 IgG Ab 04/15/20 04/15/20 04/16/20 05:48 17:48 06:01 WBC RBC Hct MCV MCH MCHC RDW Plt Count Lymph # (Auto) [place] # (Auto) Seg Neutrophils % Seg Neuts % (Manual) Lymphocytes % (Manual) Monocytes % (Manual) Seg Neutrophils # Man Lymphocytes # (Manual) PT INR D-Dimer ABG pH POC ABG pO2 ABG pO2 ABG HCO3 ABG O2 Saturation ABG Base Excess ABG Oxyhemoglobin ABG Potassium ABG Chloride ABG Glucose Oxyhemoglobin Sodium Potassium Chloride Carbon Dioxide BUN Creatinine Glucose POC Glucose 119 H 123 H 111 H Calcium Ferritin Total Bilirubin Direct Bilirubin AST ALT Alkaline Phosphatase Ammonia Lactate Dehydrogenase C-Reactive Protein Total Protein Albumin Arterial Blood Glucose Arterial Blood Ionized Calcium Coronavirus (PCR) Hepatitis C Antibody SARS-CoV-2 IgG Ab 04/16/20 04/16/20 04/16/20 19:05 19:05 19:05 WBC RBC Hct MCV MCH MCHC RDW Plt Count Lymph # (Auto) [place] # (Auto) Seg Neutrophils % Seg Neuts % (Manual) Lymphocytes % (Manual) Monocytes % (Manual) Seg Neutrophils # Man Lymphocytes # (Manual) PT INR D-Dimer 1041.43 H ABG pH POC ABG pO2 ABG pO2 ABG HCO3 ABG O2 Saturation ABG Base Excess ABG Oxyhemoglobin ABG Potassium ABG Chloride ABG Glucose Oxyhemoglobin Sodium Potassium Chloride Carbon Dioxide BUN Creatinine Glucose POC Glucose Calcium Ferritin 1037.0 H Total Bilirubin Direct Bilirubin AST ALT Alkaline Phosphatase Ammonia Lactate Dehydrogenase 360 H C-Reactive Protein 2.20 H Total Protein Albumin Arterial Blood Glucose Arterial Blood Ionized Calcium Coronavirus (PCR) Hepatitis C Antibody SARS-CoV-2 IgG Ab 04/17/20 04/18/20 04/18/20 18:50 05:20 11:40 WBC RBC Hct MCV MCH MCHC RDW Plt Count Lymph # (Auto) [place] # (Auto) Seg Neutrophils % Seg Neuts % (Manual) Lymphocytes % (Manual) Monocytes % (Manual) Seg Neutrophils # Man Lymphocytes # (Manual) PT INR D-Dimer ABG pH 7.549 H POC ABG pO2 ABG pO2 48.2 L ABG HCO3 35.6 H ABG O2 Saturation 88.2 L ABG Base Excess 11.8 H ABG Oxyhemoglobin ABG Potassium ABG Chloride ABG Glucose Oxyhemoglobin 85.5 L Sodium Potassium Chloride Carbon Dioxide BUN Creatinine Glucose POC Glucose 108 H 113 H Calcium Ferritin Total Bilirubin Direct Bilirubin AST ALT Alkaline Phosphatase Ammonia Lactate Dehydrogenase C-Reactive Protein Total Protein Albumin Arterial Blood Glucose Arterial Blood Ionized Calcium Coronavirus (PCR) Hepatitis C Antibody SARS-CoV-2 IgG Ab 04/18/20 04/19/20 04/19/20 13:00 09:55 09:55 WBC RBC Hct MCV MCH MCHC RDW Plt Count Lymph # (Auto) [place] # (Auto) Seg Neutrophils % Seg Neuts % (Manual) Lymphocytes % (Manual) Monocytes % (Manual) Seg Neutrophils # Man Lymphocytes # (Manual) PT INR D-Dimer ABG pH 7.480 H POC ABG pO2 ABG pO2 60.5 L ABG HCO3 35.3 H ABG O2 Saturation 92.1 L ABG Base Excess 9.9 H ABG Oxyhemoglobin ABG Potassium ABG Chloride ABG Glucose Oxyhemoglobin 89.6 L Sodium Potassium Chloride Carbon Dioxide 38 H BUN 57 H Creatinine Glucose 124 H POC Glucose Calcium 8.1 L Ferritin Total Bilirubin Direct Bilirubin AST ALT Alkaline Phosphatase Ammonia 123.0 H Lactate Dehydrogenase C-Reactive Protein Total Protein Albumin Arterial Blood Glucose Arterial Blood Ionized Calcium Coronavirus (PCR) Hepatitis C Antibody SARS-CoV-2 IgG Ab 04/19/20 04/20/20 04/20/20 11:39 05:53 07:08 WBC RBC Hct MCV MCH MCHC RDW Plt Count Lymph # (Auto) [place] # (Auto) Seg Neutrophils % Seg Neuts % (Manual) Lymphocytes % (Manual) Monocytes % (Manual) Seg Neutrophils # Man Lymphocytes # (Manual) PT INR D-Dimer ABG pH POC ABG pO2 ABG pO2 ABG HCO3 ABG O2 Saturation ABG Base Excess ABG Oxyhemoglobin ABG Potassium ABG Chloride ABG Glucose Oxyhemoglobin Sodium Potassium 5.5 H D Chloride Carbon Dioxide BUN 71 H Creatinine Glucose POC Glucose 109 H 68 L Calcium 8.1 L Ferritin Total Bilirubin Direct Bilirubin AST ALT Alkaline Phosphatase Ammonia Lactate Dehydrogenase C-Reactive Protein Total Protein Albumin Arterial Blood Glucose Arterial Blood Ionized Calcium Coronavirus (PCR) Hepatitis C Antibody SARS-CoV-2 IgG Ab 04/20/20 04/20/20 08:16 11:37 WBC RBC Hct MCV MCH MCHC RDW Plt Count Lymph # (Auto) [place] # (Auto) Seg Neutrophils % Seg Neuts % (Manual) Lymphocytes % (Manual) Monocytes % (Manual) Seg Neutrophils # Man Lymphocytes # (Manual) PT INR D-Dimer ABG pH POC ABG pO2 64.8 L ABG pO2 ABG HCO3 ABG O2 Saturation ABG Base Excess ABG Oxyhemoglobin 89.9 L ABG Potassium 4.8 H ABG Chloride 108.0 H ABG Glucose 130 H Oxyhemoglobin Sodium Potassium Chloride Carbon Dioxide BUN Creatinine Glucose POC Glucose 55 L Calcium Ferritin Total Bilirubin Direct Bilirubin AST ALT Alkaline Phosphatase Ammonia Lactate Dehydrogenase C-Reactive Protein Total Protein Albumin Arterial Blood Glucose 130 H Arterial Blood Ionized Calcium 4.4 L Coronavirus (PCR) Hepatitis C Antibody SARS-CoV-2 IgG Ab
[2020-04-20] MEDS ORDERED: LORazepam 2 MG/ML VIAL IV PRN (12:23)
[2020-04-20] MEDS ORDERED: DEXTROSE 10% IN WATER 1,000 ML IV SCH (14:00)
[2020-04-20 14:32] VITALS: BP 86/50
[2020-04-20] MEDS ORDERED: NORepinephrine/NS 4 MG-250 ML 4 MG/250 ML BAG IV SCH (15:00)
[2020-04-20] MEDS ORDERED: SODIUM CHLORIDE 0.9% 500 ML IVPB IV ONE (15:00)
[2020-04-20 15:04] LABS: Hematocrit 50.5 % (35.5-45.6); Mean Corpuscular HGB Conc 32 % (32-34); Mean Corpuscular Volume 106 fl (84-94); Platelet Count 113 K/mm3 (140-440); Red Blood Count 4.78 M/mm3 (3.65-5.03); Red Cell Distribution Width 18.5 % (13.2-15.2)
[2020-04-20] MEDS ORDERED: NORepinephrine/NS 4 MG-250 ML 4 MG/250 ML BAG IV ONE (15:34)
[2020-04-20] MEDS ORDERED: SODIUM CHLORIDE 0.9% 500 ML 500 ML IV ONE (16:00)
[2020-04-20 16:16] LABS: RBC Morphology Normal; Total Cells Counted 100
--- NOTE | 2020-04-20 21:38 | Event Note ---
Date: 04/20/20 A CODE NASREEN was called, I presented to the bedside. The patient was found to be in asystolic arrest. Patient treated in accordance with ACLS protocol with return of perfusing cardiac rhythm. Patient experienced subsequent subsequent loss of perfusing cardiac rhythm and was subsequently coded multiple times. After prolonged intervention the patient experienced a repeated cardiac arrest. Patient was found to be in asystole. Patient found to have absence of breath sounds. Patient pupils were fixed and dilated. Patient was pronounced at 1635 hrs.
--- NOTE | 2020-04-20 21:39 | Death Note ---
Note Date of : 04/20/20 Time of : 16:35 Time Pronounced: 16:35 - Preliminary Cause of (problem) (1) Acute respiratory failure with hypoxia Preliminary cause of (2) Bilateral pneumonia Preliminary cause of (3) COVID-19 virus detected Preliminary cause of
--- NOTE | 2020-04-22 10:49 | Death Summary ---
Summary - Providers Consults: 04/05/20 23:41 Consult to Physician [CONS] Routine Comment: Consulting Provider: YAZAN FULLER Physician Instructions: Reason For Exam: Bilateral pneumonia 04/09/20 13:12 Consult to Physician [CONS] Routine Comment: Consulting Provider: ADELSO DEMARCO Physician Instructions: Reason For Exam: Acute hypoxic respiratory failure requiring BiPAP 04/11/20 08:01 Midline [Consult to PICC Line RN] [CONS] Routine Reason For Exam: IV access Type Line:: Midline 04/13/20 10:35 Consult to Dietitian/Nutrition [CONS] Routine Physician Instructions: Reason For Exam: Reason for Consult: Write/Manage Tube Feeding 04/13/20 13:23 Consult to Dietitian/Nutrition [CONS] Routine Physician Instructions: Assess nutrtn needs, initiate, modify, manage TF Reason For Exam: Reason for Consult: Write/Manage Tube Feeding Reason for Consult: Write/Manage Tube Feeding 04/18/20 02:34 Speech Therapy Evaluation and Treat [CONS] Routine Reason For Exam: Swallow evaluation 04/19/20 11:25 Consult to Physician [CONS] Routine Comment: Consulting Provider: DEJA LAURA Physician Instructions: Reason For Exam: AMS, encephalopathy 04/19/20 14:25 Consult to Physician [CONS] Urgent Comment: Consulting Provider: BERLIN JACKSON Physician Instructions: Reason For Exam: small right pneumothrax 04/20/20 07:37 Consult to Physician [CONS] Routine Comment: Consulting Provider: LEANA RAMIREZ Physician Instructions: Reason For Exam: Respiratory failure,Pneumonia, Covid positive 04/20/20 13:39 PICC Line Insertion [Consult to PICC Line RN] [CONS] Stat Reason For Exam: IV access for vasopressor therapy Type Line:: PICC Attending: RE LEPE - summary Date of admission: 04/05/20 15:48 Date of : 04/20/20 Disposition: 59 years old male with history of hepatitis C with cirrhosis, ascites, gastrosplenic varices, hypertension, meth abuse, admitted on 04/05/2020 secondary to 2-week history of worsening generalized body edema, cough and shortness of breath. EMS found O2 sats down to 85%. Patient placed on nonrebreather mask. On arrival, temperature 98.2, HR 110, O2 sat 96% drop to 83%. Patient placed on BiPAP. Initial WBC 6.9. Platelets 60. D-dimer 837. Creatinine 0.5. AST 129. ALT 54. Urine drug screen positive for amphetamines. Blood cultures 04/05/2020 no growth. Chest x-ray shows moderate interstitial edema. CT of the abdomen shows patchy airspace disease changes in the lung bases, large left pleural effusion, extensive ascites, cirrhotic liver, gastrosplenic varices, splenomegaly. On 04/20/2020, patient had a CODE BLUE that was called for agonal respirations. O2 saturation was noted to be in the 70s. Patient was in obvious distress and subsequently intubated and transferred to ICU for further management. Admission and discharge diagnoses along with detail hospital course below: -- Acute respiratory failure with hypoxia Patient continues to be hypoxic Requiring high flow oxygen, unable to wean Supportive care pulmonary following Patient transfer from ICU yesterday Patient is obtunded Discussed with Dr. Altamirano We will do a stat ABG However oxygen saturation is 95% on present oxygen Prognosis is poor Tried to contact patient's daughter with the phone number available on the [employer] software and social media executive note However this number goes to some [employer] and unable to leave any message --Bilateral pneumonia Completed antibiotics pneumonia secondary to COVID-19 Supportive care --Positive COVID-19 virus infection Covid positive on 04/06/2020 High flow oxygen at this point -ID note reviewed -Pulmonary following -Completed remdesivir for 5 days -Completed dexamethasone 6 mg p.o./IV daily for 10 days -Anticoagulation per hospital protocol -Prone positioning as tolerated -Covid inflammatory markers every 48 hours SARS-CoV-2 IgG antibody positive No indication for convalescent plasma Very poor prognosis --HTN (hypertension) Moderate control -- Methadone dependence To be counselled --Transaminitis/history of hepatitis C Sec to Covid /ETOH trending down History of hepatitis C s/p CIWA --Severe malnutrition Tube feeding nutrition supplements , dietitian consult -- Hyponatremia/resolved --DVT prophylaxis On Lovenox and GI prophylaxis Closely monitor the patient and adjust the management as needed Plan of care reviewed with the patient's nurse. 04/08/2020; patient was seen and evaluated this morning and is on 10 L of oxygen. Patient is on Decadron and remdesivir. ID is following the patient. Hypokalemia repleted. 04/09/2020; patient is on 15 L of oxygen. Continue IV Decadron and remdesivir. Continue IV Lasix and spironolactone for ascites/generalized swelling. Patient required BiPAP overnight. Patient has confusion and currently on restraints. We will check ammonia level, CT head. 04/10/2020; patient's condition is deteriorating transfer to [facility] Continue with IV Decadron and remdesivir. Ammonia level is normal. His roommate reported that the patient has history of HIV, I try to reach to his daughter was listed in the chart and I could not get in touch. Pulmonary was consulted for respiratory failure and will follow the patient. Patient will be on BiPAP. HIV test ordered. 04/13/2020; patient continues to be on high flow oxygen, resume tube feeding, restrained for agitation as needed 04/14/2020; patient remains confused agitated, on CIWA protocol continuously hypoxemic, requiring high flow oxygen On four-point restraints 04/16/2020; patient remains agitated requiring restraints, CIWA protocol discontinued, I started Ativan as needed 04/17/2020; patient is more calm and quiet, less agitation receiving Dobbhoff, speech therapy for swallow eval, possible PEG if abnormal 04/18 patient is obtunded. However per discussion with RN patient was agitated last night and pulled out IV lines. No Ativan or Librium order Geodon was administered last night. Last Ativan was yesterday afternoon. Tried to contact patient's daughter . The number goes to some company and unable to leave any message. Discussed with Dr. Altamirano. 04/19/2020. Patient still requiring high flow nasal cannula with oxygen 30 L/min ; FiO2 50%. Patient remains unresponsive. Poor prognosis. I spoke with daughter and discussed hospice [phone] 04/20/2020. Patient decompensated this morning with agonal respirations and O2 saturations in the 70s. Patient was successfully intubated and transferred to ICU for closer management. Patient currently on AC mode ventilation rate 20, tidal volume 450, FiO2 100% and PEEP of 8. I spoke with daughter at [phone] with regards to poor prognosis. She would like to talk to her sister and mother regarding possible DNR. Full code currently. Patient had a second code that occurred later the afternoon of 04/20/2020. Dr. Camilo responded to the bedside. The patient was found to be in asystolic arrest. Patient treated in accordance with ACLS protocol with return of perfusing cardiac rhythm. Patient experienced subsequent subsequent loss of perfusing cardiac rhythm and was subsequently coded multiple times. After prolonged intervention the patient experienced a repeated cardiac arrest. Patient was found to be in asystole. Patient found to have absence of breath sounds. Patient pupils were fixed and dilated. Patient was pronounced at 1635 hrs. Dedicated discharge time 35 min
== END 2020-04-20 16:40 | DRG 208 ==
LOC: ED 09:34 → 3A 15:48 → IMCU 04-10 02:59 → 3A 04-17 17:12 → CC1 04-20 07:49
PROVIDERS: ADMIT Internal Medicine; ATTEND Hospitalist
PROC: 5A09357 Assistance with Respiratory Ventilation, Less than 24 Consecutive Hours, Continuous Positive Airway Pressure (ICD-10-PCS; 2020-04-05)
PROC: XW033E5 Introduction of Remdesivir Anti-infective into Peripheral Vein, Percutaneous Approach, New Technology Group 5 (ICD-10-PCS; principal; 2020-04-07)
PROC: 4A033R1 Measurement of Arterial Saturation, Peripheral, Percutaneous Approach (ICD-10-PCS; 2020-04-17)
PROC: 5A1935Z Respiratory Ventilation, Less than 24 Consecutive Hours (ICD-10-PCS; 2020-04-20)
PROC: 0BH17EZ Insertion of Endotracheal Airway into Trachea, Via Natural or Artificial Opening (ICD-10-PCS; 2020-04-20)
DX: U07.1 COVID-19 (principal); J96.01 Acute respiratory failure with hypoxia; J12.89 Other viral pneumonia; G93.41 Metabolic encephalopathy; E43 Unspecified severe protein-calorie malnutrition; E87.1 Hypo-osmolality and hyponatremia; F11.20 Opioid dependence, uncomplicated; F10.139 Alcohol abuse with withdrawal, unspecified; J93.9 Pneumothorax, unspecified; B95.61 Methicillin susceptible Staphylococcus aureus infection as the cause of diseases classified elsewhere; I10 Essential (primary) hypertension; Z90.49 Acquired absence of other specified parts of digestive tract; B19.20 Unspecified viral hepatitis C without hepatic coma; R74.01 Elevation of levels of liver transaminase levels; D69.6 Thrombocytopenia, unspecified; F15.10 Other stimulant abuse, uncomplicated; K74.60 Unspecified cirrhosis of liver; Y90.9 Presence of alcohol in blood, level not specified; I46.9 Cardiac arrest, cause unspecified; G40.901 Epilepsy, unspecified, not intractable, with status epilepticus
CPT/HCPCS: 31500; 36415; 36600; 71045; 74018; 74177; 80048; 80053; 80074; 80076; 80307; 81001; 82140; 82728; 82803; 82805; 82947; 82962; 83036; 83615; 83690; 83735; 83880; 84100; 84145; 84443; 84484; 85007; 85025; 85027; 85379; 85610; 85730; 86140; 86689; 87040; 87070; 87205; 92950; 93005; 93970; 94002; 94003; 94640; 94644; 94660; 94760; 95819; G0378; J0456; J0696; J1100; J1630; J1650; J1940; J2060; J2270; J3010; J3411; J3486; J7030; J7040; J7050; J7070; J8540; Q9967; U0003